=== PATIENT | female | born 1940 | race Caucasian/White ===

== ENCOUNTER → 2016-10-16 | Outpatient (CLI) | payer MEDICARE, OTHER ==
[2016-10-16 11:05] LABS: APPEARANCE,URINE CLEAR; BILIRUBIN,URINE NEGATIVE (NEGATIVE); GLUCOSE, URINE NEGATIVE (NEGATIVE); KETONES,URINE NEGATIVE (NEGATIVE); LEUKOCYTE ESTERASE,URINE TRACE (NEGATIVE); NITRITE,URINE NEGATIVE (NEGATIVE); PROTEIN,URINE NEGATIVE (NEGATIVE); URINE SPECIFIC GRAVITY 1.009; UROBILINOGEN,URINE NEGATIVE mg/dL (<2.0)
[2016-10-16 11:06] LABS: ABSOLUTE EOSINOPHILS # (AUTO) 0.2 10^3/uL (0.0-0.6); ABSOLUTE LYMPHOCYTES (AUTO) 1.6 10^3/uL (0.5-4.7); ABSOLUTE MONOCYTES (AUTO) 0.4 10^3/uL (0.1-1.4); ABSOLUTE NEUT (AUTO) 3.5 10^3/uL (1.7-8.2); BASOPHILS % (AUTO) 0.4 % (0-2); EOSINOPHILS % (AUTO) 2.8 % (0-6); HEMATOCRIT 36.5 % (36.0-47.0); HGB HCT DIFFERENCE -0.5; LYMPHOCYTES % (AUTO) 27.9 % (13-45); MEAN CORPUSCULAR HEMOGLOBIN 28.1 pg (27.0-33.4); MEAN CORPUSCULAR VOLUME 85 fl (80-97); MONOCYTES % (AUTO) 6.9 % (3-13); RED BLOOD COUNT 4.29 10^6/uL (3.72-5.28); RED CELL DISTRIBUTION WIDTH 13.8 % (11.5-14.0); WHITE BLOOD COUNT 5.6 10^3/uL (4.0-10.5)
[2016-10-16 11:19] LABS: ALANINE AMINOTRANSFERASE 32 U/L (9-52); ALBUMIN 4.2 g/dL (3.5-5.0); ALKALINE PHOSPHATASE 57 U/L (38-126); ANION GAP 13 (5-19); ASPARTATE AMINO TRANSFERASE 28 U/L (14-36); BILIRUBIN,DIRECT 0.2 mg/dL (0.0-0.4); BILIRUBIN,TOTAL 0.4 mg/dL (0.2-1.3); BLOOD UREA NITROGEN 21 mg/dL (7-20); CALCIUM 9.9 mg/dL (8.4-10.2); CARBON DIOXIDE 31 mmol/L (22-30); CHLORIDE 96 mmol/L (98-107); CREATININE RESULT 0.69 mg/dL (0.52-1.25); Direct HDL 40 mg/dL (>40); GLUCOSE 119 mg/dL (75-110); POTASSIUM 4.2 mmol/L (3.6-5.0); SODIUM 139.8 mmol/L (137-145); TOTAL PROTEIN 6.6 g/dL (6.3-8.2); TRIGLYCERIDES 193 mg/dL (<150)
[2016-10-16 11:35] LABS: DIRECT LDL 81 mg/dL (<100)
[2016-10-16 11:39] LABS: VLDL CHOLESTEROL 38.6 mg/dL (10-31)
[2016-10-17 11:38] LABS: CREATININE URINE 42.3 mg/dL (Not Estab.); MICROALBUMIN URINE 7.5 ug/mL (Not Estab.)
== END ==
LOC: OD 09:51
PROVIDERS: ATTEND Internal Medicine Nephrology
DX: E78.2 Mixed hyperlipidemia (principal); J15.9 Unspecified bacterial pneumonia; E11.9 Type 2 diabetes mellitus without complications
CPT/HCPCS: 36415; 80053; 80061; 81001; 82043; 82570; 83036; 85025

== ENCOUNTER 2016-10-18 12:46 | Emergency (ER) | payer MEDICARE, OTHER ==
[2016-10-18] MEDS ORDERED: METHYLPREDNISOLONE INJ 125 MG/2 ML SDV IV ONE (13:28)
[2016-10-18] MEDS ORDERED: IPRATROPIUM/ALBUTEROL 0.5-2.5 MG/3 ML AMPUL NEB ONE (13:28)
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
[2016-10-18 14:26] LABS: VENOUS BLOOD BASE EXCESS 0.7 mmol/L; VENOUS BLOOD HCO3 26.1 mmol/L (20-32); VENOUS BLOOD PCO2 44.3 mmHg (35-63); VENOUS BLOOD PH 7.39 (7.30-7.42)
[2016-10-18 14:35] LABS: ABSOLUTE EOSINOPHILS # (AUTO) 0.2 10^3/uL (0.0-0.6); ABSOLUTE LYMPHOCYTES (AUTO) 1.8 10^3/uL (0.5-4.7); ABSOLUTE MONOCYTES (AUTO) 0.4 10^3/uL (0.1-1.4); ABSOLUTE NEUT (AUTO) 3.5 10^3/uL (1.7-8.2); BASOPHILS % (AUTO) 0.5 % (0-2); EOSINOPHILS % (AUTO) 2.9 % (0-6); MEAN CORPUSCULAR HEMOGLOBIN 28.5 pg (27.0-33.4); MEAN CORPUSCULAR HGB CONC 33.4 g/dL (32.0-36.0); MEAN CORPUSCULAR VOLUME 85 fl (80-97); MONOCYTES % (AUTO) 6.9 % (3-13); RED BLOOD COUNT 4.21 10^6/uL (3.72-5.28); RED CELL DISTRIBUTION WIDTH 13.9 % (11.5-14.0); SEGMENTED NEUTROPHILS % (AUTO) 59.7 % (42-78); WHITE BLOOD COUNT 5.9 10^3/uL (4.0-10.5)
[2016-10-18 14:44] LABS: ALANINE AMINOTRANSFERASE 34 U/L (9-52); ALBUMIN 4.1 g/dL (3.5-5.0); ALKALINE PHOSPHATASE 84 U/L (38-126); ANION GAP 13 (5-19); ASPARTATE AMINO TRANSFERASE 30 U/L (14-36); BILIRUBIN,DIRECT 0.2 mg/dL (0.0-0.4); BILIRUBIN,TOTAL 0.4 mg/dL (0.2-1.3); BLOOD UREA NITROGEN 17 mg/dL (7-20); CALCIUM 9.4 mg/dL (8.4-10.2); CARBON DIOXIDE 29 mmol/L (22-30); CHLORIDE 100 mmol/L (98-107); GLUCOSE 211 mg/dL (75-110); POTASSIUM 3.9 mmol/L (3.6-5.0); SODIUM 142.2 mmol/L (137-145); TOTAL PROTEIN 6.6 g/dL (6.3-8.2)
[2016-10-18 15:00] LABS: TROPONIN I < 0.012 ng/mL
[2016-10-18 16:56] VITALS: BP 137/42
[2016-10-18] MEDS ORDERED: DOXYCYCLINE HYCLATE 100 MG TABLET PO ONE (17:01)
--- NOTE | 2016-10-18 20:47 | EKG REPORT ---
SEVERITY:- BORDERLINE ECG - SINUS RHYTHM ATRIAL PREMATURE COMPLEX BORDERLINE T ABNORMALITIES, ANT-LAT LEADS : Confirmed by: Shelly Tovar 18-Oct-2016 20:47:21
== END 2016-10-18 17:12 | disposition home or self-care (01) ==
LOC: ER 12:46
DX: J44.1 Chronic obstructive pulmonary disease with (acute) exacerbation (principal); J20.9 Acute bronchitis, unspecified; J44.0 Chronic obstructive pulmonary disease with (acute) lower respiratory infection; L97.219 Non-pressure chronic ulcer of right calf with unspecified severity; Z98.890 Other specified postprocedural states; Z86.14 Personal history of Methicillin resistant Staphylococcus aureus infection; Z87.01 Personal history of pneumonia (recurrent); Z88.2 Allergy status to sulfonamides; Z88.8 Allergy status to other drugs, medicaments and biological substances; Z88.1 Allergy status to other antibiotic agents; Z87.891 Personal history of nicotine dependence; I10 Essential (primary) hypertension; Z85.828 Personal history of other malignant neoplasm of skin; Z85.3 Personal history of malignant neoplasm of breast; Z85.118 Personal history of other malignant neoplasm of bronchus and lung
CPT/HCPCS: 93005; 94640; 99285; 96374; 36415; 85025; 80053; 84484; 82803; 83880; 71020; 93010; A9270 ×2; J2930; J7620

== ENCOUNTER → 2017-01-05 | Outpatient (CLI) | payer MEDICARE, OTHER ==
--- NOTE | 2017-01-05 09:30 | ST Modified Barium Swallow ---
Recommendation - Recommendations Recommendations: 1) DIET: Recommend continued current diet. 2) STRATGIES: slow rate of intake due to respiratory status, small bites and sips. Pt presents with a mild pharyngeal dysphagia characterized by flash penetration without aspiration observed on large swallows of thin. No pharyngeal residuals observed. No aspiration observed during MBSS. 3) Follow-up with referring physician. 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 Pt reports globus sensation in chest with PO intake. Medical Diagnoses - Medical Diagnoses Medical Diagnosis Description & ICD-10 Code(s): r13.10 Other Medical Diagnoses/Co-Morbidities: COPD, breast CA, lung CA, reflux, hiatal hernia - ICD-10 Tx Diagnosis Coding (1) Dysphagia, pharyngeal ICD-10 Code(s): R13.13 - DYSPHAGIA, PHARYNGEAL PHASE ST Modified Barium Swallow - General Date: 01/05/17 Referring Physician: Dr Herzog Risks/Precautions: Falls - pt using walker Date of Onset: 01/05/11 Reason for Referral: dysphagia - History History obtained from: Patient -: Medical - Pt reports had "a bad case of reflux last week" where she "could not swallow". Pt reports takes small bites and sips when eating, however when she forgets she "chokes". Pt also reports taking water to aid in clearing makes symptoms worse. Pt states symptoms began approximately 5-6 years ago and have become worse. Pt reports globus sensation in chest, "ocassional" coughing and choking however reports is "not often." Pt reports most recent PNA was in April of 2016 and most recent bronchitis a "couple months ago." Pt reports PMHx: esophageal spasms, reflux, hiatal hernia, COPD, high blood pressure, breast CA 5 years ago with surgery no chemo radiation, lung CA 4 years ago with surgery no chemo radiation, osteoarthritis, pulmonary nodule, scoliosis, diverticulosis, MRSA. Medications: amlodipine, buspirone, calcium, clonidine, colace, fenofibric acid , fish oil, fluticasone, ibuprofen, lasix, losartan, miralax, nexium, potassium , multivitamins, simvastatin, zyrtec, advair, afrin, albuterol, arimidex, elavil, levaquin, lyrica, mucinex, norco, preservision, singular, spiriva, tobramycin, triamcinolone, ventolin, ventolin, vytone. Allergies: hydralazine, lexapro, bactrim, fluconazole, tamoxifin, lisinopril, naproxen, nitrofurantoin, tiotropium, gemfibrozil, phenylephrine, gabapentin - Functional Status Prior Functional Status: INDEPENDENT: feeding Current Functional Limitations: feeding - Subjective Patient/caregiver goal(s): safe swallow, r/o aspiration Cognitive-Linguistic Function: Functional Speech Intelligibility: WNL Current Nutritional Means: PO Current PO diet: Regular Pain: 0/5 - Objective Assessment: Upright, Left Lateral - Food Trials Used Food trials used: Thin liquids, Pureed, Regular The patient: Was Able to Self Feed - Oral-Motor Skills Dentition: Partial Velo-pharyngeal function: Unremarkable Laryngeal Function: Volitional Cough, Volitional Swallow - Assessment Oral prep: Normal Labial closure: Adequate Leakage: None Mastication: Adequate Lingual Movement: Normal Oral stage: Normal for this Procedure - Pharyngeal Stage Initiation of Pharyngeal Stage Reflex: Normal Decreased laryngeal elevation: Yes - mild Reduced Velopharyngeal Closure: no Reduced pressure generation: No reduced tongue-based retraction: No Pre-swallow pooling in valleculae: None Pre-Swallow pooling in pyriforms: None Reduced Thyro-Hyoid approximation: Yes - mild Reduced epiglottic excursion: No Reduced pharyngeal peristalsis/contraction: No Post-swallow residulas vallecular: None Post-Swallow residuals in pyriforms: None Reduced Cricopharyngeal opening: No - Fall Risk Assessment Medications/Conditions that increase fall risks include: Antidepressants, sedatives, anti-arrhythmic, diuretic, benzodiazipenes, neuroleptics. BP regulation problems, cardiac problems, balance or gait deficits, neurological problems. Is patient considered at risk for falls: yes Fall Risk Actions Taken: Pt physician notified - Behavioral Observations During evaluation process patient: was pleasant, was cooperative, able to answer questions, provided medical history - Treatment / Educational Needs: Treatment/Education Needs: Treatment consisted of patient education on the role of the Speech Pathologist. Patient's plan of care and golas were communicated as well as scheduling and attendance policies. Recommendations for initial home program were shared. Patient demonstrated understanding and verbalized agreement. - Impression/Summary Laryngeal Penetration: Yes, Flash, Cleared, during swallow Consistency: Thin Tracheal Aspiration: no Patient presents with: Pharyngeal stage dysph. - mild Risk of Aspiration: Minimal - Recommendations NPO: no Solid diet recommendations: Regular Liquid Diet Modification: Thin Pt/Family education and followup with MD: Yes Dysphagia therapy with [facility] PHILOSOPHY PROFESSOR: no Recommended techniques: Fully Upright During Meal, Small Bites and Sips - , slow rate Supervision: Distant Information, Precautions and Recommendations: Patient (Verbal) - Time Total Time: 25 - Plan of Care Strategies to optimize patient understanding include:: ongoing assessment of educational needs, implementation of educational strategies, and re-education. - - -: Thank you for the opportunity to work with this patient and his/her family. Should you have any questions about this patient's plan or progress, I can be reached at [phone]. Charge G Code? - - -: Yes ST Tom Impairment Category - Rationale Based On Rationale Based On: Clin Find., Obj Measures - Swallowing Current G8996: CI 1-19% Impaired Goal G8997: CI 1-19% Impaired Discharge G8998: CI 1-19% Impaired
--- NOTE | 2017-01-07 11:31 | RADIOLOGY REPORT (SQ) ---
EXAM DESCRIPTION: COOKIE SWALLOW COMPLETED DATE/TIME: 01/05/2017 8:37 am REASON FOR STUDY: DYSPHAGIA R13.10 DYSPHAGIA, UNSPECIFIED FOOD IN PHARYNX CAUSING OTHER INJURY, SEQ UELA T17.228 S COMPARISON: Barium swallow 02/21/2016 TECHNIQUE: Videofluoroscopic swallowing examination was performed in conjunction with speech patholo gy. Videofluoroscopic imaging was obtained and reviewed and these are the findings: RADIATION DOSE: Total fluoroscopy time: 1 minutes 18 seconds 1 fluoroscopy images saved to PACS. LIMITATIONS: None FINDINGS: The patient was brought into the fluoro room and placed upright on a modified barium swall ow chair. The patient was then given multiple consistencies mixed with barium to swallow under live fluoroscopic video guidance. According to the Speech Pathologist there was laryngeal penetration wit h thin liquids. No tracheal aspiration. Normal oral and pharyngeal transit time observed. No signi ficant post swallow residual seen. Please see speech pathology report for further details and recomm endations. IMPRESSION: LARYNGEAL PENETRATION WITH THIN LIQUIDS. NO TRACHEAL ASPIRATION.PLEASE SEE SPEECH PATHO LOGIST REPORT FOR OTHER FINDINGS AND RECOMMENDATIONS. COMMENT: Quality ID [id number]: Final reports for procedures using fluoroscopy that document radiation exp osure indices, or exposure time and number of fluorographic images (if radiation exposure indices are not available) TECHNICAL DOCUMENTATION: JOB ID: [id number] [employer]- All Rights Reserved
== END ==
LOC: RAD 07:42
PROVIDERS: ATTEND Specialist
DX: R13.13 Dysphagia, pharyngeal phase (principal); J44.9 Chronic obstructive pulmonary disease, unspecified; K44.9 Diaphragmatic hernia without obstruction or gangrene
CPT/HCPCS: 74230; 92611; G8996; G8997; G8998

== ENCOUNTER → 2017-02-23 | Outpatient (CLI) | payer MEDICARE, OTHER ==
--- NOTE | 2017-02-23 10:59 | WOMENS IMAGING REPORT ---
EXAM DESCRIPTION: BONE DENSITY HIP/SPINE COMPLETED DATE/TIME: 02/23/2017 10:50 am REASON FOR STUDY: OSTEOPOROSIS M81.0 AGE-RELATED OSTEOPOROSIS W/O CURRENT PATHOLOGICAL FRAC COMPARISON: None. TECHNIQUE: Dual-Energy X-ray Absorptiometry (DEXA) of the AP Spine, Hip, and Forearm. LIMITATIONS: None. FINDINGS: HIP: The bone mineral density (BMD) measured in the left femoral neck at the hip correlates with a T-score of -2.1, which is osteopenic as defined by the World Health Organization. FOREARM: The bone mineral density (BMD) measured in the distal left forearm correlates with a T-score of -5.0 which is osteoporotic as defined by the World Health Organization. IMPRESSION: HIP: Osteopenic FOREARM: Osteoporotic COMMENT: The World Health Organization defines low BMD as follows: T-score: Normal: Greater than -1.0 Osteopenia: Between -1.0 and -2.5 Osteoporosis: Less than -2.5 without fractures Established osteoporosis: Less than -2.5 with fractures In general, you may wish to consider: Diagnosis Treatment Follow-up DEXA Normal BMD Prevention 2-3 years Osteopenia Prevention/Therapy 1-2 years Osteoporosis Therapy Yearly TECHNICAL DOCUMENTATION: JOB ID: [id number] [employer]- All Rights Reserved
== END ==
LOC: WI 10:19
PROVIDERS: ATTEND Internal Medicine Medical Oncology
DX: M81.0 Age-related osteoporosis without current pathological fracture (principal)
CPT/HCPCS: 77080

== ENCOUNTER → 2017-04-23 | Outpatient (CLI) | payer MEDICARE, OTHER ==
[2017-04-23 09:50] LABS: ALANINE AMINOTRANSFERASE 32 U/L (9-52); ALBUMIN 4.1 g/dL (3.5-5.0); ALKALINE PHOSPHATASE 52 U/L (38-126); ANION GAP 14 (5-19); ASPARTATE AMINO TRANSFERASE 25 U/L (14-36); BILIRUBIN,DIRECT 0.4 mg/dL (0.0-0.4); BILIRUBIN,TOTAL 0.4 mg/dL (0.2-1.3); BLOOD UREA NITROGEN 15 mg/dL (7-20); CALCIUM 9.9 mg/dL (8.4-10.2); CARBON DIOXIDE 28 mmol/L (22-30); CHLORIDE 101 mmol/L (98-107); CHOLESTEROL 142.69 mg/dL (0-200); CREATININE RESULT 0.73 mg/dL (0.52-1.25); Direct HDL 43 mg/dL (>40); GLUCOSE 118 mg/dL (75-110); POTASSIUM 4.2 mmol/L (3.6-5.0); SODIUM 142.8 mmol/L (137-145); TOTAL PROTEIN 6.5 g/dL (6.3-8.2); TRIGLYCERIDES 168 mg/dL (<150)
[2017-04-23 10:01] LABS: DIRECT LDL 79 mg/dL (<100)
[2017-04-23 10:04] LABS: VLDL CHOLESTEROL 33.6 mg/dL (10-31)
== END ==
LOC: OD 08:15
PROVIDERS: ATTEND Internal Medicine Nephrology
DX: R73.01 Impaired fasting glucose (principal); E78.2 Mixed hyperlipidemia
CPT/HCPCS: 36415; 80053; 80061

== ENCOUNTER → 2017-08-26 | Outpatient (CLI) | payer MEDICARE, OTHER ==
--- NOTE | 2017-08-26 18:00 | RADIOLOGY REPORT (SQ) ---
EXAM DESCRIPTION: U/S THYROID/SFT TISS HD NECK COMPLETED DATE/TIME: 08/26/2017 5:40 pm REASON FOR STUDY: LOCALIZED SWELLING MASS AND LUMP NECK R22.1 LOCALIZED SWELLING, MASS AND LUMP, NE CK K11.20 SIALOADENITIS, UNSPECIFIED COMPARISON: None. TECHNIQUE: Dynamic and static grayscale images acquired of the localized site of clinical concern an d recorded on PACS. Additional selected color Doppler and spectral images recorded. SITE OF CONCERN: Left submandibular region. LIMITATIONS: None. FINDINGS: SKIN AND SUBCUTANEOUS TISSUES: No masses. No fluid collections. No foreign bodies. DEEP SOFT TISSUES/MUSCLES: No masses. No fluid collections. VASCULAR: No increased or decreased vascularity. No occlusions. OTHER: No other significant finding. IMPRESSION: NO SOFT TISSUE MASS, FLUID COLLECTION, OR FOREIGN BODY. If further workup is deemed cli nically warranted I would recommend CT. TECHNICAL DOCUMENTATION: JOB ID: [id number] [employer]- All Rights Reserved
== END ==
LOC: RAD 15:35
PROVIDERS: ATTEND Internal Medicine Nephrology
DX: K11.20 Sialoadenitis, unspecified (principal); R22.1 Localized swelling, mass and lump, neck
CPT/HCPCS: 76536

== ENCOUNTER → 2017-10-21 | Outpatient (CLI) | payer MEDICARE, OTHER ==
[2017-10-21 10:55] LABS: ABSOLUTE BASOPHILS # (AUTO) 0.1 10^3/uL (0.0-0.2); ABSOLUTE EOSINOPHILS # (AUTO) 0.5 10^3/uL (0.0-0.6); ABSOLUTE LYMPHOCYTES (AUTO) 1.6 10^3/uL (0.5-4.7); ABSOLUTE MONOCYTES (AUTO) 0.5 10^3/uL (0.1-1.4); ABSOLUTE NEUT (AUTO) 5.4 10^3/uL (1.7-8.2); BASOPHILS % (AUTO) 0.9 % (0-2); EOSINOPHILS % (AUTO) 5.7 % (0-6); HEMATOCRIT 39.4 % (36.0-47.0); LYMPHOCYTES % (AUTO) 20.3 % (13-45); MEAN CORPUSCULAR HEMOGLOBIN 28.8 pg (27.0-33.4); MEAN CORPUSCULAR HGB CONC 33.1 g/dL (32.0-36.0); MEAN CORPUSCULAR VOLUME 87 fl (80-97); MONOCYTES % (AUTO) 6.6 % (3-13); PLATELET COUNT 257 10^3/uL (150-450); RED BLOOD COUNT 4.53 10^6/uL (3.72-5.28); RED CELL DISTRIBUTION WIDTH 15.2 % (11.5-14.0); SEGMENTED NEUTROPHILS % (AUTO) 66.5 % (42-78); TOTAL CELLS COUNTED % (AUTO) 100 %; WHITE BLOOD COUNT 8.1 10^3/uL (4.0-10.5)
[2017-10-21 11:07] LABS: APPEARANCE,URINE CLEAR; BILIRUBIN,URINE NEGATIVE (NEGATIVE); COLOR,URINE STRAW; GLUCOSE, URINE NEGATIVE (NEGATIVE); KETONES,URINE NEGATIVE (NEGATIVE); LEUKOCYTE ESTERASE,URINE NEGATIVE (NEGATIVE); NITRITE,URINE NEGATIVE (NEGATIVE); PROTEIN,URINE NEGATIVE (NEGATIVE); URINE SPECIFIC GRAVITY 1.004; UROBILINOGEN,URINE NEGATIVE mg/dL (<2.0)
[2017-10-21 11:18] LABS: ALANINE AMINOTRANSFERASE 35 U/L (9-52); ALBUMIN 4.5 g/dL (3.5-5.0); ALKALINE PHOSPHATASE 50 U/L (38-126); ANION GAP 14 (5-19); ASPARTATE AMINO TRANSFERASE 28 U/L (14-36); BILIRUBIN,DIRECT 0.4 mg/dL (0.0-0.4); BILIRUBIN,TOTAL 0.4 mg/dL (0.2-1.3); BLOOD UREA NITROGEN 19 mg/dL (7-20); CALCIUM 10.1 mg/dL (8.4-10.2); CARBON DIOXIDE 28 mmol/L (22-30); CHLORIDE 103 mmol/L (98-107); CHOLESTEROL 114.47 mg/dL (0-200); GLUCOSE 119 mg/dL (75-110); SODIUM 144.7 mmol/L (137-145); TRIGLYCERIDES 141 mg/dL (<150)
[2017-10-21 11:28] LABS: DIRECT LDL 34 mg/dL (<100)
== END ==
LOC: OD 10:02
PROVIDERS: ATTEND Internal Medicine Nephrology
DX: E78.2 Mixed hyperlipidemia (principal); R73.03 Prediabetes; I10 Essential (primary) hypertension
CPT/HCPCS: 36415; 80053; 80061; 81001; 82306; 85025

== ENCOUNTER → 2017-11-03 | Outpatient (CLI) | payer MEDICARE, OTHER ==
[2017-11-05 21:07] LABS: ANTIMYELOPEROXIDASE (MPO) AB <9.0 U/mL (0.0-9.0); ANTIPROTEINASE 3 (PR-3) AB <3.5 U/mL (0.0-3.5); CYTOPLASMIC (C-ANCA) <1:20 titer (Neg:<1:20)
[2017-11-06 11:30] LABS: ATYPICAL PANCA <1:20 titer (Neg:<1:20); PERINUCLEAR (P-ANCA) <1:20 titer (Neg:<1:20)
[2017-11-08 10:43] LABS: GLOMERULAR BASMENT MEMBRANE AB 3 units (0-20)
== END ==
LOC: OD 16:04
PROVIDERS: ATTEND Internal Medicine Nephrology
DX: D69.2 Other nonthrombocytopenic purpura (principal)
CPT/HCPCS: 36415; 83516; 85652; 86038; 86256

== ENCOUNTER → 2017-11-18 | Outpatient (CLI) | payer MEDICARE, OTHER ==
[~2017-11-18] MED LIST: AMINOPHYLLINE INJ/PF 250 MG/10 ML SDV IV ONE; REGADENOSON INJ 0.4 MG/5 ML DISP.SYRIN IV ONE
--- NOTE | 2017-11-18 13:16 | DRAGON STRESS TEST REPORT ---
INTRAVENOUS LEXISCAN CARDIOLITE STRESS TEST USING SINGLE PHOTON EMMISION COMPUTERIZED TOMOGRAPHIC. DATE OF PROCEDURE: November 18, 2017, INDICATION : Chest pain CARDIAC RISK FACTORS: Hypertension, dyslipidemia. Patient has significant COPD RESTING EKG: Sinus rhythm, without any baseline ST-T wave changes STRESS EKG: No significant ST segment changes noted with LexiScan bolus REASON FOR TERMINATION: Protocol. PROCEDURE REPORT: Baseline heart rate 81 beats per minute with blood pressure of 138/50. Patient had no significant complaints. Patient was bolused with Lexiscan 0.4 mg intravenously followed by saline bolus. Heart rate at 2 minutes post bolus 101 with a blood pressure of 162/66. 3 minutes post bolus heart rate 100 with blood pressure of 181/76. No significant EKG changes were noted. Patient had no significant complaints during the procedure or postprocedure. Patient injected with Aminophyllin 75 mg at 3 minutes or later after Lexiscan bolus. CONCLUSIONS: Normal EKG and hemodynamic response to IV LexiScan. NUCLEAR DATA: At rest the patient was given 10.82 millicuries of technetium 99 sestamibi injected intravenously. As per protocol rest gated SPECT images were obtained. On day of stress test, the patient was given intravenous LexiScan at a dose of 0.4 mg in 5 mL intravenously, followed by flush with normal saline. Subsequently the stress dose of 31.7 millicuries of technetium 99 sestamibi was injected intravenously. As per protocol stress gated images were obtained. NUCLEAR INTERPRETATION: Both raw and processed data were used for interpretation. Visual, qualitative, computer-generated quantitative data was used. There was good myocardial uptake of technetium compound. Motion artifact and soft tissue attenuations were noted. Increased visceral uptake was noted. Increased diaphragmatic attenuation artifact was noted in this lady. No definitive areas of transient perfusion defect noted, No definitive areas of fixed perfusion defect or scars noted. EKG gated imaging showed LV EF at 63 %, rest and stress gated EF similar visually. T. I D. ratio was 0.97. Lung heart ratio noted to be within normal limits 0.30. No significant extracardiac and abnormal radiotracer activities were noted. RV free wall uptake was noted to be WNL. IMPRESSION: Also refer to comments under nuclear interpretation. Also test results needs to be interpreted in the context of pretest probability. 1. No definitive areas of transient perfusion defect noted. 2. There is no definitive scintigraphic evidence of myocardial infarction/ scar. There was significant diaphragmatic attenuation noted in this lady. Possibly due to severe COPD. Cannot rule out an area of mild fixed defect. 3. EKG gated imaging shows left ventricular ejection fraction of approx. 63 %. 4. Clinical correlation requested as occasionally single vessel disease or balanced ischemia could be missed. In approximately 10% of the cases Lexiscan may not cause adequate vasodilatory stress. RECOMMENDATIONS: Aggressive risk factor modification and medical management. Further evaluation may be needed if continued symptoms or other high risk indicators are noted on clinical evaluation. Close cardiology follow-up is also recommended. Clinical correlation with echocardiogram derived ejection fraction. Inability to exercise by itself can lead to increased cardiovascular event risks. Consider cardiology consultation and or follow-up if clinically indicated. I am available for cardiology evaluation and consultation if requested by the beet flumer, unless patient already has a automotive general sales manager. PRETTY
--- NOTE | 2017-11-18 18:35 | XCELERA REPORT ---
[address] [address] Transthoracic Echocardiogram Report Name: RAHUL MERIDA Age: 77 yrs Gender: Female : 1940 Patient Status: Outpatient Patient Location: [facility] Study Date: 11/18/2017 10:40 AM Height: 62 in Weight: 149 lb BSA: 1.7 m2 Procedure: A complete two-dimensional transthoracic echocardiogram was performed (2D, M-mode, spectral and color flow Doppler). The study was technically difficult with many images being suboptimal in quality. Reason For Study: CP Ordering Physician: ARNALDO WILSON Performed By: Thuy Nguyen Interpretation Summary The left ventricular ejection fraction is normal. There is borderline concentric left ventricular hypertrophy. The left ventricle is grossly normal size. Doppler measurements suggest pseudonormalized left ventricular relaxation, which is associated with grade II/IV or mild to moderate diastolic dysfunction Wall motion cannot be accurately commented on, but no definite regional wall motion abnormalities noted. The right ventricle is grossly normal size. The right ventricular systolic function is normal. The left atrial size is normal. The right atrium is normal in size There is a trace amount of mitral regurgitation There is no mitral valve stenosis. There is no aortic valve stenosis No aortic regurgitation is present. There is a trace amount of tricuspid regurgitation Tricuspid regurgitation jet envelope not well defined to measure RV systolic pressure accurately. There is no tricuspid stenosis. The aortic root is not well visualized but is probably normal size. The inferior vena cava appeared normal and decreased > 50% with respiration (RAP 5-10 mmHg) There is no pericardial effusion. MMode/2D Measurements & Calculations RVDd: 3.2 cm LVIDd: 5.1 cm FS: 56.5 % Ao root diam: 2.9 cm IVSd: 0.94 cm LVIDs: 2.2 cm EDV(Teich): 122.9 ml LVPWd: 0.89 cm ESV(Teich): 16.5 ml Ao root area: 6.6 cm2 EF(Teich): 86.6 % Doppler Measurements & Calculations MV E max edmundo: MV dec slope: Ao V2 max: LV V1 max P.0 cm/sec 248.2 cm/sec 20.8 mmHg MV A max edmundo: 433.1 cm/sec2 Ao max PG: LV V1 max: 144.1 cm/sec MV dec time: 24.6 mmHg 227.8 cm/sec MV E/A: 0.47 0.16 sec PA V2 max: TR max edmundo: 143.6 cm/sec 301.6 cm/sec PA max P.2 mmHgTR max P.1 mmHg Left Ventricle The left ventricle is grossly normal size. There is borderline concentric left ventricular hypertrophy. The left ventricular ejection fraction is normal. Doppler measurements suggest pseudonormalized left ventricular relaxation, which is associated with grade II/IV or mild to moderate diastolic dysfunction. Wall motion cannot be accurately commented on, but no definite regional wall motion abnormalities noted. Right Ventricle The right ventricle is grossly normal size. There is normal right ventricular wall thickness. The right ventricular systolic function is normal. Atria The right atrium is normal in size. The left atrial size is normal. Interarterial septum not well visualized and not well dopplered. Cannot comment on ASD/PFO presence. Mitral Valve The mitral valve is grossly normal. There is no mitral valve stenosis. There is a trace amount of mitral regurgitation. Aortic Valve The aortic valve is grossly normal. There is no aortic valve stenosis. No aortic regurgitation is present. Tricuspid Valve The tricuspid valve is not well visualized, but is grossly normal. There is no tricuspid stenosis. There is a trace amount of tricuspid regurgitation. Tricuspid regurgitation jet envelope not well defined to measure RV systolic pressure accurately. Pulmonic Valve The pulmonic valve is not well visualized. Great Vessels The aortic root is not well visualized but is probably normal size. The inferior vena cava appeared normal and decreased > 50% with respiration (RAP 5-10 mmHg). Effusions There is no pericardial effusion. : ARNALDO WILSON > Shelly Tovar
== END ==
LOC: RAD 07:38
PROVIDERS: ATTEND Internal Medicine Cardiovascular Disease
DX: R07.9 Chest pain, unspecified (principal); R06.00 Dyspnea, unspecified
CPT/HCPCS: 93306; 93017; 78452; A9500; J2785; J0280; Q9969

== ENCOUNTER 2017-12-01 20:03 | Emergency (ER) | payer MEDICARE, OTHER ==
[2017-12-01] MEDS ORDERED: ONDANSETRON 4 MG TAB.RAPDIS PO ONE (20:52)
--- NOTE | 2017-12-01 20:59 | ER Document Report ---
ED Medical Screen (RME) - General Chief Complaint: Nausea Stated Complaint: NAUSEA Time Seen by Provider: 12/01/17 20:39 Notes: RAPID MEDICAL EVALUATION DISCLOSURE I have seen this patient as part of a Rapid Medical Evaluation and, if applicable, placed any initially appropriate orders. The patient will be seen and fully evaluated, including a full history and physical exam, by a provider ( in Main ED or Fast Track) when a room becomes available. 77-year-old female here with complaints of nausea vomiting diarrhea chest discomfort lower abdominal cramping that started earlier tonight. She received a CT with IV contrast several hours before onset of symptoms however did not have any symptoms in the 2 hours following contrast administration. She has some shortness of breath however has this at baseline and it is unchanged from baseline. She has not had this in the past with previous contrast administration. EXAM CTAB RRR with mild systolic murmur No abdominal TTP TRAVEL OUTSIDE OF THE [place] IN LAST 30 DAYS: No - Related Data Allergies/Adverse Reactions: hydralazine [Hydralazine] Allergy (Severe, Verified 06/03/15 14:56) short of breath ceftriaxone [From Rocephin] Allergy (Intermediate, Verified 04/11/16 21:37) Flushing phenylephrine [Phenylephrine] Allergy (Intermediate, Verified 07/31/14 20:42) elevates blood pressure amlodipine [Amlodipine] Adverse Reaction (Intermediate, Verified 07/31/14 20:42) legs and feet swell fluconazole [Fluconazole] Adverse Reaction (Intermediate, Verified 10/18/16 13: 06) loss appetite, weight loss gabapentin [From Neurontin] Adverse Reaction (Intermediate, Verified 10/18/16 13 :06) leg and feet swells lisinopril [Lisinopril] Adverse Reaction (Intermediate, Verified 10/18/16 13:06) coughing, legs swell naproxen [Naproxen] Adverse Reaction (Intermediate, Verified 10/18/16 13:06) upset stomach nitrofurantoin macrocrystalline [From Macrodantin] Adverse Reaction ( Intermediate, Verified 10/18/16 13:06) feet and legs swell raloxifene HCl [From Evista] Adverse Reaction (Intermediate, Verified 10/18/16 13:06) appetite loss, weight loss sulfamethoxazole [From Bactrim] Adverse Reaction (Intermediate, Verified 13:06) chest tightens, persistent cough tamoxifen [Tamoxifen] Adverse Reaction (Intermediate, Verified 10/18/16 13:06) nausea, depression, weight loss trimethoprim [From Bactrim] Adverse Reaction (Intermediate, Verified 10/18/16 13 :06) chest tightens, persistent cough bupropion HCl [From Wellbutrin] Adverse Reaction (Mild, Verified 10/18/16 13:06) upset stomach escitalopram oxalate [From Lexapro] Adverse Reaction (Mild, Verified 10/18/16 13 :06) shakes all over gemfibrozil [From Lopid] Adverse Reaction (Mild, Verified 10/18/16 13:06) upset stomach Past Medical History - Social History Chew tobacco use (# tins/day): No Frequency of alcohol use: None Drug Abuse: None - Past Medical History Cardiac Medical History: Reports: Hx Atrial Fibrillation - not on blood thinners , Hx Hypercholesterolemia, Hx Hypertension Denies: Hx Coronary Artery Disease, Hx Heart Attack Pulmonary Medical History: Reports: Hx Asthma, Hx Bronchitis, Hx COPD, Hx Pneumonia, Hx Sleep Apnea Neurological Medical History: Denies: Hx Cerebrovascular Accident, Hx Seizures Renal/ Medical History: Denies: Hx Peritoneal Dialysis Malignancy Medical History: Reports: Hx Breast Cancer - Bilaterally., Hx Lung Cancer - Hx Stage I Lung CA (left lung)., Hx Skin Cancer - Squamous cell cancer removed GI Medical History: Reports: Hx Gastroesophageal Reflux Disease Musculoskeltal Medical History: Reports Hx Arthritis - osteoarthritis Psychiatric Medical History: Reports: Hx Anxiety, Hx Depression Infectious Medical History: Reports: Hx MRSA - Lungs/mouth Past Surgical History: Reports: Hx Breast Surgery - double mastectomy, lymph nodes removed from left side., Hx Cholecystectomy, Hx Herniorrhaphy, Hx Orthopedic Surgery - back x2, Hx Tonsillectomy - Immunizations Hx Diphtheria, Pertussis, Tetanus Vaccination: Yes Physical Exam - Vital signs Vitals: Temp Pulse Resp BP Pulse Ox 98.4 F 76 20 135/59 H 98 12/01/17 20:46 12/01/17 20:46 05/23/18 20:46 12/01/17 20:46 12/01/17 20:46 Course - Vital Signs Vital signs: Temp Pulse Resp BP Pulse Ox 98.4 F 76 20 135/59 H 98 12/01/17 20:46 12/01/17 20:46 12/01/17 20:46 12/01/17 20:46 12/01/17 20:46
--- NOTE | 2017-12-01 22:24 | RADIOLOGY REPORT (SQ) ---
EXAM DESCRIPTION: ACUTE ABDOMEN SERIES COMPLETED DATE/TIME: 12/01/2017 10:07 pm REASON FOR STUDY: Chest discomfort and abd cramping nausea COMPARISON: None. NUMBER OF VIEWS: Three views. TECHNIQUE: Frontal chest, supine abdomen and upright/decubitus abdomen radiographic images acquired. LIMITATIONS: None. FINDINGS: CHEST: Chronic scarring. FREE AIR: None. No abnormal gas collections. BOWEL GAS PATTERN: Nonobstructive pattern. No dilated loops or air fluid levels. CALCIFICATIONS: No suspicious calcifications. HARDWARE: Hardware in the spine. SOFT TISSUES: No gross mass or suggestion of organomegaly. BONES: No acute fracture. No worrisome bone lesions. OTHER: No other significant finding. Contrast in the urinary bladder (patient had a CT soft tissue n milly with contrast done earlier in the day at another facility). IMPRESSION: NO RADIOGRAPHIC EVIDENCE FOR ACUTE ABDOMINAL DISEASE. TECHNICAL DOCUMENTATION: JOB ID: [id number] [employer]- All Rights Reserved Reading location - IP/workstation name: [email or web address]
[2017-12-01 22:38] LABS: ABSOLUTE EOSINOPHILS # (AUTO) 0.3 10^3/uL (0.0-0.6); ABSOLUTE LYMPHOCYTES (AUTO) 0.9 10^3/uL (0.5-4.7); ABSOLUTE MONOCYTES (AUTO) 0.5 10^3/uL (0.1-1.4); ABSOLUTE NEUT (AUTO) 10.5 10^3/uL (1.7-8.2); BASOPHILS % (AUTO) 0.2 % (0-2); EOSINOPHILS % (AUTO) 2.4 % (0-6); HEMATOCRIT 37.6 % (36.0-47.0); HEMOGLOBIN 12.3 g/dL (12.0-15.5); LYMPHOCYTES % (AUTO) 7.5 % (13-45); MEAN CORPUSCULAR HEMOGLOBIN 28.4 pg (27.0-33.4); MEAN CORPUSCULAR HGB CONC 32.8 g/dL (32.0-36.0); MEAN CORPUSCULAR VOLUME 87 fl (80-97); MONOCYTES % (AUTO) 4.3 % (3-13); PLATELET COUNT 340 10^3/uL (150-450); RED BLOOD COUNT 4.33 10^6/uL (3.72-5.28); RED CELL DISTRIBUTION WIDTH 13.8 % (11.5-14.0); SEGMENTED NEUTROPHILS % (AUTO) 85.6 % (42-78); TOTAL CELLS COUNTED % (AUTO) 100 %; WHITE BLOOD COUNT 12.2 10^3/uL (4.0-10.5)
[2017-12-01 22:45] LABS: APPEARANCE,URINE SLIGHTLY-CLOUDY; BILIRUBIN,URINE NEGATIVE (NEGATIVE); COLOR,URINE YELLOW; GLUCOSE, URINE NEGATIVE (NEGATIVE); KETONES,URINE NEGATIVE (NEGATIVE); LEUKOCYTE ESTERASE,URINE TRACE (NEGATIVE); NITRITE,URINE NEGATIVE (NEGATIVE); PROTEIN,URINE 30 mg/dL (NEGATIVE); UROBILINOGEN,URINE NEGATIVE mg/dL (<2.0)
[2017-12-01 22:47] LABS: URINE SPECIFIC GRAVITY > 1.060
[2017-12-01 23:00] LABS: ALANINE AMINOTRANSFERASE 28 U/L (9-52); ALBUMIN 4.3 g/dL (3.5-5.0); ALKALINE PHOSPHATASE 71 U/L (38-126); ANION GAP 15 (5-19); ASPARTATE AMINO TRANSFERASE 26 U/L (14-36); BILIRUBIN,DIRECT 0.3 mg/dL (0.0-0.4); BILIRUBIN,TOTAL 0.3 mg/dL (0.2-1.3); BLOOD UREA NITROGEN 24 mg/dL (7-20); CALCIUM 10.4 mg/dL (8.4-10.2); CARBON DIOXIDE 27 mmol/L (22-30); CHLORIDE 104 mmol/L (98-107); GLUCOSE 159 mg/dL (75-110); LIPASE 54.7 U/L (23-300); POTASSIUM 4.2 mmol/L (3.6-5.0); SODIUM 145.5 mmol/L (137-145); TOTAL PROTEIN 7.8 g/dL (6.3-8.2)
--- NOTE | 2017-12-01 23:56 | ER Document Report ---
ED General - General Chief Complaint: Nausea Stated Complaint: NAUSEA Time Seen by Provider: 12/01/17 20:39 TRAVEL OUTSIDE OF THE [place] IN LAST 30 DAYS: No - HPI Notes: Note patient was seen by physician in triage ordered extensive laboratory evaluation and radiographs. 77-year-old female presented with mild abdominal discomfort nausea and dry heaves. Started sometime this evening before eating dinner. Of note, earlier this morning she had a contrasted CT scan of her submandibular gland. No hives , no rash, no itching. She denies to me any dyspnea or chest pain. States she feels much better now after medication therapy and being in the emergency department. No fever, chills or sweats. Normal bowel movements. No other modifying factors, no other associated symptoms, no other provocative or palliative factors. - Related Data Allergies/Adverse Reactions: hydralazine [Hydralazine] Allergy (Severe, Verified 06/03/15 14:56) short of breath ceftriaxone [From Rocephin] Allergy (Intermediate, Verified 04/11/16 21:37) Flushing phenylephrine [Phenylephrine] Allergy (Intermediate, Verified 07/31/14 20:42) elevates blood pressure amlodipine [Amlodipine] Adverse Reaction (Intermediate, Verified 07/31/14 20:42) legs and feet swell fluconazole [Fluconazole] Adverse Reaction (Intermediate, Verified 10/18/16 13: 06) loss appetite, weight loss gabapentin [From Neurontin] Adverse Reaction (Intermediate, Verified 10/18/16 13 :06) leg and feet swells lisinopril [Lisinopril] Adverse Reaction (Intermediate, Verified 10/18/16 13:06) coughing, legs swell naproxen [Naproxen] Adverse Reaction (Intermediate, Verified 10/18/16 13:06) upset stomach nitrofurantoin macrocrystalline [From Macrodantin] Adverse Reaction ( Intermediate, Verified 10/18/16 13:06) feet and legs swell raloxifene HCl [From Evista] Adverse Reaction (Intermediate, Verified 10/18/16 13:06) appetite loss, weight loss sulfamethoxazole [From Bactrim] Adverse Reaction (Intermediate, Verified 13:06) chest tightens, persistent cough tamoxifen [Tamoxifen] Adverse Reaction (Intermediate, Verified 10/18/16 13:06) nausea, depression, weight loss trimethoprim [From Bactrim] Adverse Reaction (Intermediate, Verified 10/18/16 13 :06) chest tightens, persistent cough bupropion HCl [From Wellbutrin] Adverse Reaction (Mild, Verified 10/18/16 13:06) upset stomach escitalopram oxalate [From Lexapro] Adverse Reaction (Mild, Verified 10/18/16 13 :06) shakes all over gemfibrozil [From Lopid] Adverse Reaction (Mild, Verified 10/18/16 13:06) upset stomach Past Medical History - Social History Smoking Status: Former Smoker Chew tobacco use (# tins/day): No Frequency of alcohol use: None Drug Abuse: None Family History: Reviewed & Not Pertinent, CAD - Both parents had massive MIs, one from the [place] the other in a car wreck, COPD, CVA, Hypertension Patient has suicidal ideation: No Patient has homicidal ideation: No - Past Medical History Cardiac Medical History: Reports: Hx Atrial Fibrillation - not on blood thinners , Hx Hypercholesterolemia, Hx Hypertension Denies: Hx Coronary Artery Disease, Hx Heart Attack Pulmonary Medical History: Reports: Hx Asthma, Hx Bronchitis, Hx COPD, Hx Pneumonia, Hx Sleep Apnea Neurological Medical History: Denies: Hx Cerebrovascular Accident, Hx Seizures Renal/ Medical History: Denies: Hx Peritoneal Dialysis Malignancy Medical History: Reports: Hx Breast Cancer - Bilaterally., Hx Lung Cancer - Hx Stage I Lung CA (left lung)., Hx Skin Cancer - Squamous cell cancer removed GI Medical History: Reports: Hx Gastroesophageal Reflux Disease Musculoskeltal Medical History: Reports Hx Arthritis - osteoarthritis Psychiatric Medical History: Reports: Hx Anxiety, Hx Depression Infectious Medical History: Reports: Hx MRSA - Lungs/mouth Past Surgical History: Reports: Hx Breast Surgery - double mastectomy, lymph nodes removed from left side., Hx Cholecystectomy, Hx Herniorrhaphy, Hx Orthopedic Surgery - back x2, Hx Tonsillectomy - Immunizations Hx Diphtheria, Pertussis, Tetanus Vaccination: Yes Hx Pneumococcal Vaccination: 01/15/11 Review of Systems - Review of Systems Notes: Review of systems as in the history of present illness, otherwise negative. Physical Exam - Vital signs Vitals: Temp Pulse Resp BP Pulse Ox 98.4 F 76 20 135/59 H 98 12/01/17 20:46 12/01/17 20:46 12/01/17 20:46 12/01/17 20:46 12/01/17 20:46 - Notes Notes: General: Well developed . HEENT: Normocephalic, atraumatic. Pupils equal round reactive to light. No JVD. Chest: No trauma. Respiratory: Good air exchange, normal excursion. Cardiac: Regular rhythm. No murmurs or gallops. Abdomen: Soft, benign. Distended, grossly nontender,. Back: No asymmetry or gross abnormality. Motor: Grossly normal power and tone. Neurologic: Alert, nonfocal. Cranial nerves II-12 are intact. Sensation intact. Vascular: Well perfused. Normal peripheral pulses. Skin: No petechiae or purpura. Course - Re-evaluation Re-evalutation: 12/01/17 23:54 This is a well-appearing female with resolved abdominal pain and nausea and vomiting. She has benign abdomen. Reviewed her labs, CBC is unremarkable chemistries unremarkable LFTs and lipase and troponin are normal. Acute abdominal series was unremarkable. Strongly suspect this may be related underlying viral illness. There is no evidence of obstruction or acute abdominal emergency. She does follow-up until 24 hours for recheck, given a prescription for Zofran, close outpatient follow- up. - Vital Signs Vital signs: Temp Pulse Resp BP Pulse Ox 98.4 F 76 20 135/59 H 98 12/01/17 20:46 12/01/17 20:46 12/01/17 20:46 12/01/17 20:46 12/01/17 20:46 - Laboratory Result Diagrams: 12/01/17 22:00 12/01/17 22:00 Laboratory results interpreted by me: 12/01/17 12/01/17 12/01/17 22:00 22:00 22:00 WBC 12.2 H Seg Neutrophils % 85.6 H Lymphocytes % 7.5 L Absolute Neutrophils 10.5 H Sodium 145.5 H BUN 24 H Glucose 159 H Calcium 10.4 H Urine Protein 30 H Ur Leukocyte Esterase TRACE H Urine Ascorbic Acid 40 H Discharge - Discharge Clinical Impression: Abdominal pain Qualifiers: Abdominal location: unspecified location Qualified Code(s): R10.9 - Unspecified abdominal pain Condition: Good Disposition: HOME, SELF-CARE Instructions: Abdominal Pain ([facility]) Prescriptions: Ondansetron [Zofran Odt 4 mg Tablet] 1 - 2 tab PO Q4H PRN #15 tab.rapdis PRN Reason: For Nausea/Vomiting Referrals: MOSES BALLARD MD [Primary Care Provider] - Follow up as needed
[2017-12-02 01:00] VITALS: BP 137/54
--- NOTE | 2017-12-02 07:39 | EKG REPORT ---
SEVERITY:- ABNORMAL ECG - SINUS RHYTHM PROBABLE ANTEROSEPTAL INFARCT, AGE INDETERM, VERSUS ERROR IN V2 LEAD PLACEMENT : Confirmed by: Gurvinder Laird MD 02-Dec-2017 07:39:09
== END 2017-12-02 00:30 | disposition home or self-care (01) ==
LOC: ER 20:03
DX: R10.9 Unspecified abdominal pain (principal); R11.2 Nausea with vomiting, unspecified; Z87.891 Personal history of nicotine dependence; I10 Essential (primary) hypertension; J44.9 Chronic obstructive pulmonary disease, unspecified
CPT/HCPCS: 93005; 99284; 36415; 83690; 85025; 80053; 81001; 84484; 74022; 93010; A9270; S0119

== ENCOUNTER → 2018-01-11 | Outpatient (CLI) | payer MEDICARE, OTHER ==
--- NOTE | 2018-01-11 13:26 | RADIOLOGY REPORT (SQ) ---
EXAM DESCRIPTION: ARTERIAL LOWER EXTREM BILAT COMPLETED DATE/TIME: 01/11/2018 12:16 pm REASON FOR STUDY: PVD I73.9 PERIPHERAL VASCULAR DISEASE, UNSPECIFIED COMPARISON: 10/09/2014 bilateral lower extremity arterial Doppler TECHNIQUE: Dynamic and static leonardo scale and color images acquired of the lower extremity arteries. Additional selected spectral images recorded. Patient refused ABIs. LIMITATIONS: None. FINDINGS: RIGHT LEG: ABIS: Patient refused INFLOW ARTERIES: Normal, no obstruction evident. FEMORAL ARTERIES:Multiphasic waveforms. Normal, no velocity elevation to suggest focal stenosis. Norm al color Doppler evaluation. No aneurysm. POPLITEAL ARTERY:Multiphasic waveforms. Normal, no velocity elevation to suggest focal stenosis. Norm al color Doppler evaluation. No aneurysm. PATENT TIBIOPERONEAL TRUNK AND 3 VESSEL RUNOFF: Yes, normal vessels. TBI: Not performed. OTHER: No other significant finding. LEFT LEG: ABIS: Patient refused INFLOW ARTERIES: Normal, no obstruction evident. FEMORAL ARTERIES:Multiphasic waveforms. Normal, no velocity elevation to suggest focal stenosis. Norm al color Doppler evaluation. No aneurysm. POPLITEAL ARTERY:Multiphasic waveforms. Normal, no velocity elevation to suggest focal stenosis. Norm al color Doppler evaluation. No aneurysm. PATENT TIBIOPERONEAL TRUNK AND 3 VESSEL RUNOFF: Yes, normal vessels. TBI: Not performed. OTHER: No other significant finding. IMPRESSION: NORMAL BILATERAL LOWER EXTREMITY ARTERIAL DOPPLER TECHNICAL DOCUMENTATION: JOB ID: [id number]- All Rights Reserved Reading location - IP/workstation name: [email or web address]
== END ==
LOC: SP 10:48
PROVIDERS: ATTEND Internal Medicine Nephrology
DX: I73.9 Peripheral vascular disease, unspecified (principal)
CPT/HCPCS: 93925

== ENCOUNTER → 2018-05-13 | Outpatient (CLI) | payer MEDICARE, OTHER ==
[2018-05-13 09:24] LABS: ABSOLUTE EOSINOPHILS # (AUTO) 0.2 10^3/uL (0.0-0.6); ABSOLUTE LYMPHOCYTES (AUTO) 1.5 10^3/uL (0.5-4.7); ABSOLUTE MONOCYTES (AUTO) 0.5 10^3/uL (0.1-1.4); ABSOLUTE NEUT (AUTO) 5.7 10^3/uL (1.7-8.2); BASOPHILS % (AUTO) 0.5 % (0-2); EOSINOPHILS % (AUTO) 2.9 % (0-6); HEMATOCRIT 36.3 % (36.0-47.0); LYMPHOCYTES % (AUTO) 18.2 % (13-45); MEAN CORPUSCULAR HEMOGLOBIN 28.4 pg (27.0-33.4); MEAN CORPUSCULAR HGB CONC 33.2 g/dL (32.0-36.0); MEAN CORPUSCULAR VOLUME 86 fl (80-97); MONOCYTES % (AUTO) 6.8 % (3-13); PLATELET COUNT 241 10^3/uL (150-450); RED BLOOD COUNT 4.23 10^6/uL (3.72-5.28); RED CELL DISTRIBUTION WIDTH 14.5 % (11.5-14.0); SEGMENTED NEUTROPHILS % (AUTO) 71.6 % (42-78); TOTAL CELLS COUNTED % (AUTO) 100 %
[2018-05-13 09:46] LABS: ALANINE AMINOTRANSFERASE 23 U/L (9-52); ALBUMIN 4.2 g/dL (3.5-5.0); ALKALINE PHOSPHATASE 59 U/L (38-126); ANION GAP 12 (5-19); ASPARTATE AMINO TRANSFERASE 26 U/L (14-36); BILIRUBIN,DIRECT 0.1 mg/dL (0.0-0.4); BILIRUBIN,TOTAL 0.4 mg/dL (0.2-1.3); BLOOD UREA NITROGEN 18 mg/dL (7-20); CALCIUM 9.6 mg/dL (8.4-10.2); CARBON DIOXIDE 31 mmol/L (22-30); CHLORIDE 101 mmol/L (98-107); GLUCOSE 118 mg/dL (75-110); POTASSIUM 4.1 mmol/L (3.6-5.0); SODIUM 144.4 mmol/L (137-145); TOTAL PROTEIN 7.2 g/dL (6.3-8.2); TRIGLYCERIDES 141 mg/dL (<150)
[2018-05-13 09:58] LABS: DIRECT LDL 52 mg/dL (<100)
== END ==
LOC: OD 08:43
PROVIDERS: ATTEND Internal Medicine Nephrology
DX: I10 Essential (primary) hypertension (principal); E78.2 Mixed hyperlipidemia; E83.52 Hypercalcemia; E55.9 Vitamin D deficiency, unspecified
CPT/HCPCS: 36415; 80053; 80061; 82306; 85025

== ENCOUNTER → 2018-07-19 | Outpatient (CLI) | payer MEDICARE, OTHER ==
--- NOTE | 2018-07-19 15:43 | RADIOLOGY REPORT (SQ) ---
EXAM DESCRIPTION: VENOUS UNILATERAL LOWER COMPLETED DATE/TIME: 07/19/2018 3:34 pm REASON FOR STUDY: LLE PAIN/SWELLING M79.605 PAIN IN LEFT LEG R22.42 LOCALIZED SWELLING, MASS AND L UMP, LEFT LOWER LIMB COMPARISON: None. TECHNIQUE: Dynamic and static leonardo scale and color images acquired of the left leg venous system. Se lected spectral images acquired with additional compression and augmentation maneuvers. The contralat eral common femoral vein and saphenofemoral junction were also imaged. Images stored on PACS. LIMITATIONS: None. FINDINGS: COMMON FEMORAL: Normal phasicity, compression and augmentation. No visualized echogenic ma terial on leonardo scale. No defects on color images. FEMORAL: Normal compression and augmentation. No visualized echogenic material on leonardo scale. No defe cts on color images. POPLITEAL: Normal compression, augmentation. No visualized echogenic material on leonardo scale. No defec ts on color images. CALF VESSELS: Normal compression, augmentation. No visualized echogenic material on leonardo scale. No de fects on color images. GSV and SSV: Normal compression, augmentation. No visualized echogenic material on leonardo scale. No def ects on color images. ANY DEEP VENOUS INSUFFICIENCY: Not evaluated. ANY EVIDENCE OF POPLITEAL CYST: No. OTHER: No other significant finding. CONTRALATERAL COMMON FEMORAL VEIN AND SAPHENOFEMORAL JUNCTION: Normal phasicity, compression and augmentation. No visualized echogenic material on leonardo scale. No de fects on color images. IMPRESSION: NO EVIDENCE DVT OR SVT IN THE LEFT LEG. TECHNICAL DOCUMENTATION: JOB ID: [id number] [employer]- All Rights Reserved Reading location - IP/workstation name: [email or web address]
== END ==
LOC: SP 15:42
PROVIDERS: ATTEND Internal Medicine Nephrology
DX: M79.605 Pain in left leg (principal); R22.42 Localized swelling, mass and lump, left lower limb
CPT/HCPCS: 93971

== ENCOUNTER 2018-08-29 10:39 | Inpatient (IN) | payer MEDICARE, OTHER ==
[2018-08-29] MEDS ORDERED: MAGNESIUM SULFATE/D5W 1 GM/100 ML RTUPB IV ONE (10:48)
[2018-08-29 11:08] LABS: ABSOLUTE EOSINOPHILS # (AUTO) 0.2 10^3/uL (0.0-0.6); ABSOLUTE LYMPHOCYTES (AUTO) 1.4 10^3/uL (0.5-4.7); ABSOLUTE MONOCYTES (AUTO) 0.7 10^3/uL (0.1-1.4); ABSOLUTE NEUT (AUTO) 3.6 10^3/uL (1.7-8.2); BASOPHILS % (AUTO) 0.8 % (0-2); EOSINOPHILS % (AUTO) 3.7 % (0-6); HEMATOCRIT 35.3 % (36.0-47.0); HEMOGLOBIN 11.7 g/dL (12.0-15.5); LYMPHOCYTES % (AUTO) 23.4 % (13-45); MEAN CORPUSCULAR HGB CONC 33.3 g/dL (32.0-36.0); MEAN CORPUSCULAR VOLUME 87 fl (80-97); MONOCYTES % (AUTO) 12.2 % (3-13); PLATELET COUNT 279 10^3/uL (150-450); RED BLOOD COUNT 4.05 10^6/uL (3.72-5.28); RED CELL DISTRIBUTION WIDTH 14.2 % (11.5-14.0); SEGMENTED NEUTROPHILS % (AUTO) 59.9 % (42-78); TOTAL CELLS COUNTED % (AUTO) 100 %
--- NOTE | 2018-08-29 11:24 | RADIOLOGY REPORT (SQ) ---
EXAM DESCRIPTION: CHEST SINGLE VIEW COMPLETED DATE/TIME: 08/29/2018 11:06 am REASON FOR STUDY: sob COMPARISON: 10/18/2016 EXAM PARAMETERS: NUMBER OF VIEWS: One view. TECHNIQUE: Single frontal radiographic view of the chest acquired. RADIATION DOSE: NA LIMITATIONS: None. FINDINGS: LUNGS AND PLEURA: Bibasilar opacities. Probable left effusion. No pneumothorax. MEDIASTINUM AND HILAR STRUCTURES: No masses. Contour normal. HEART AND VASCULAR STRUCTURES: Heart enlarged without failure. BONES: Chronic rotator cuff tears. HARDWARE: None in the chest. OTHER: No other significant finding. IMPRESSION: Bibasilar opacities with left effusion. Cardiac enlargement without failure. TECHNICAL DOCUMENTATION: JOB ID: [id number] [employer]- All Rights Reserved Reading location - IP/workstation name: [email or web address]
[2018-08-29 11:34] LABS: ALANINE AMINOTRANSFERASE 11 U/L (9-52); ALBUMIN 4.5 g/dL (3.5-5.0); ALKALINE PHOSPHATASE 52 U/L (38-126); ANION GAP 12 (5-19); ASPARTATE AMINO TRANSFERASE 44 U/L (14-36); BILIRUBIN,DIRECT 0.4 mg/dL (0.0-0.4); BILIRUBIN,TOTAL 0.5 mg/dL (0.2-1.3); BLOOD UREA NITROGEN 18 mg/dL (7-20); CALCIUM 9.7 mg/dL (8.4-10.2); CARBON DIOXIDE 30 mmol/L (22-30); CHLORIDE 101 mmol/L (98-107); CREATINE KINASE 114 U/L (30-135); GLUCOSE 100 mg/dL (75-110); POTASSIUM 4.4 mmol/L (3.6-5.0); SODIUM 142.8 mmol/L (137-145); TOTAL PROTEIN 7.6 g/dL (6.3-8.2)
[2018-08-29 11:51] LABS: CREATINE KINASE MB 2.72 ng/mL (<4.55)
[2018-08-29 11:52] LABS: TROPONIN I < 0.012 ng/mL
--- NOTE | 2018-08-29 13:19 | ER Document Report ---
ED General - General Chief Complaint: Shortness Of Breath Stated Complaint: POSSIBLE RESPIRATORY DISTRESS Time Seen by Provider: 08/29/18 10:47 Mode of Arrival: Medic Information source: Patient, Emergency Med Personnel Notes: This is an 78-year-old female with a history of hypertension, COPD who is brought into the emergency room by EMS with progressive worsening shortness of breath and dyspnea on exertion associated with a cough. Patient has been on levofloxacin for the last several days. Patient is in moderate respiratory distress on arrival to the emergency room. TRAVEL OUTSIDE OF THE [place] IN LAST 30 DAYS: No - HPI Onset: Last week Onset/Duration: Gradual Quality of pain: No pain Severity: None Pain Level: Denies Associated symptoms: Chills, Productive cough, Fever, Shortness of breath Exacerbated by: Movement Relieved by: Denies Similar symptoms previously: No Recently seen / treated by doctor: No - Related Data Allergies/Adverse Reactions: hydralazine [Hydralazine] Allergy (Severe, Verified 06/03/15 14:56) short of breath ceftriaxone [From Rocephin] Allergy (Intermediate, Verified 04/11/16 21:37) Flushing phenylephrine [Phenylephrine] Allergy (Intermediate, Verified 07/31/14 20:42) elevates blood pressure amlodipine [Amlodipine] Adverse Reaction (Intermediate, Verified 07/31/14 20:42) legs and feet swell fluconazole [Fluconazole] Adverse Reaction (Intermediate, Verified 10/18/16 13:06) loss appetite, weight loss gabapentin [From Neurontin] Adverse Reaction (Intermediate, Verified 10/18/16 13:06) leg and feet swells lisinopril [Lisinopril] Adverse Reaction (Intermediate, Verified 10/18/16 13:06) coughing, legs swell naproxen [Naproxen] Adverse Reaction (Intermediate, Verified 10/18/16 13:06) upset stomach nitrofurantoin macrocrystalline [From Macrodantin] Adverse Reaction (Intermediate, Verified 10/18/16 13:06) feet and legs swell raloxifene HCl [From Evista] Adverse Reaction (Intermediate, Verified 10/18/16 13:06) appetite loss, weight loss sulfamethoxazole [From Bactrim] Adverse Reaction (Intermediate, Verified 10/18/16 13:06) chest tightens, persistent cough tamoxifen [Tamoxifen] Adverse Reaction (Intermediate, Verified 10/18/16 13:06) nausea, depression, weight loss trimethoprim [From Bactrim] Adverse Reaction (Intermediate, Verified 10/18/16 13:06) chest tightens, persistent cough bupropion HCl [From Wellbutrin] Adverse Reaction (Mild, Verified 10/18/16 13:06) upset stomach escitalopram oxalate [From Lexapro] Adverse Reaction (Mild, Verified 10/18/16 13:06) shakes all over gemfibrozil [From Lopid] Adverse Reaction (Mild, Verified 10/18/16 13:06) upset stomach Past Medical History - General Information source: Patient - Social History Smoking Status: Former Smoker Cigarette use (# per day): No Chew tobacco use (# tins/day): No Frequency of alcohol use: None Drug Abuse: None Lives with: Family Family History: Reviewed & Not Pertinent, CAD - Both parents had massive MIs, one from the [place] the other in a car wreck, COPD, CVA, Hypertension Patient has suicidal ideation: No Patient has homicidal ideation: No - Past Medical History Cardiac Medical History: Reports: Hx Atrial Fibrillation - not on blood thinners, Hx Hypercholesterolemia, Hx Hypertension Denies: Hx Coronary Artery Disease, Hx Heart Attack Pulmonary Medical History: Reports: Hx Asthma, Hx Bronchitis, Hx COPD, Hx Pneumonia, Hx Sleep Apnea Neurological Medical History: Denies: Hx Cerebrovascular Accident, Hx Seizures Renal/ Medical History: Denies: Hx Peritoneal Dialysis Malignancy Medical History: Reports: Hx Breast Cancer - Bilaterally., Hx Lung Cancer - Hx Stage I Lung CA (left lung)., Hx Skin Cancer - Squamous cell cancer removed GI Medical History: Reports: Hx Gastroesophageal Reflux Disease Musculoskeletal Medical History: Reports Hx Arthritis - osteoarthritis Psychiatric Medical History: Reports: Hx Anxiety, Hx Depression Infectious Medical History: Reports: Hx MRSA - Lungs/mouth Past Surgical History: Reports: Hx Breast Surgery - double mastectomy, lymph nodes removed from left side., Hx Cholecystectomy, Hx Herniorrhaphy, Hx Orthopedic Surgery - back x2, Hx Tonsillectomy - Immunizations Hx Diphtheria, Pertussis, Tetanus Vaccination: Yes Hx Pneumococcal Vaccination: 01/15/11 Review of Systems - Review of Systems Constitutional: Chills, Fever EENT: No symptoms reported Cardiovascular: Dyspnea. denies: Chest pain, Palpitations Respiratory: Cough, Short of breath, Wheezing Gastrointestinal: No symptoms reported Genitourinary: No symptoms reported Female Genitourinary: No symptoms reported Musculoskeletal: No symptoms reported Skin: No symptoms reported Hematologic/Lymphatic: No symptoms reported Neurological/Psychological: No symptoms reported Physical Exam - Vital signs Vitals: Temp 97.9 F 08/29/18 10:41 Notes: Physical exam: GENERAL: Patient is alert and oriented x3, oxygen saturation dropping down into 89% range off of the oxygen while getting into hospital ground. HEAD: Atraumatic, normocephalic. EYES: Pupils equal round and reactive to light, extraocular movements intact, sclera anicteric, conjunctiva are normal. ENT: TMs normal, nares patent, oropharynx clear without exudates. Moist mucous membranes. NECK: Normal range of motion, supple without obvious mass or JVD. LUNGS: Lateral wheezing HEART: Regular rate and rhythm without murmurs, rubs or gallops. ABDOMEN: Soft, normoactive bowel sounds. No tenderness to palpation. No guarding, no rebound. No masses appreciated. EXTREMITIES: Normal range of motion, no pitting or edema. No clubbing or cyanosis. NEUROLOGICAL: Cranial nerves II through XII grossly intact. Normal speech, moving all extremities. PSYCH: Normal mood, normal affect. SKIN: Warm, Dry, normal turgor, no rashes or lesions noted. Course - Vital Signs Vital signs: Temp Pulse Resp BP Pulse Ox 98.5 F 89 22 H 163/54 H 96 08/29/18 17:31 08/29/18 17:42 08/29/18 17:31 08/29/18 17:31 08/29/18 17:31 - Laboratory Result Diagrams: 08/29/18 10:00 08/29/18 10:00 Laboratory results interpreted by me: 08/29/18 08/29/18 10:00 10:00 Hgb 11.7 L Hct 35.3 L RDW 14.2 H AST 44 H - Diagnostic Test Radiology reviewed: Image reviewed, Reports reviewed - X-ray shows mild bilateral opacities with a small left effusion Critical Care Note - Critical Care Note Total time excluding time spent on procedures (mins): 60 Discharge - Discharge Clinical Impression: COPD exacerbation Condition: Stable Disposition: ADMITTED INPATIENT Admitting Provider: Hospitalist - Dr. Victor Unit Admitted: Telemetry
[2018-08-29] MEDS: PIPERACILLIN SODIUM/TAZOBACTAM 3.375 GM in NORMAL SALINE 100 ML IV SCH ×2 (15:36→21:29)
[2018-08-29] MEDS: IPRATROPIUM/ALBUTEROL 0.5-2.5 MG/3 ML AMPUL NEB SCH ×2 (15:37→21:09)
--- NOTE | 2018-08-29 16:09 | RADIOLOGY REPORT (SQ) ---
EXAM DESCRIPTION: CT CHEST WITHOUT COMPLETED DATE/TIME: 08/29/2018 3:31 pm REASON FOR STUDY: SOB, hypoxia, PNA, pl eff, hx of lung CA COMPARISON: 08/02/2014 TECHNIQUE: CT scan performed of the chest without intravenous contrast. Images reviewed with lung, soft tissue and bone windows. Reconstructed coronal and sagittal MPR images reviewed. All images st ored on PACS. All CT scanners at this facility use dose modulation, iterative reconstruction, and/or weight based d osing when appropriate to reduce radiation dose to as low as reasonably achievable (ALARA). [facility]: Dose Right [facility]: CareDose [facility]: Dose Right [facility]: Teradose 4D [facility]: Smart AgileMD RADIATION DOSE: CT Rad equipment meets quality standard of care and radiation dose reduction techniq ues were employed. CTDIvol: 12.3 mGy. DLP: 484 mGy-cm. mGy. LIMITATIONS: No technical limitations. FINDINGS: LUNGS AND PLEURA: Extensive centrilobular emphysema in the upper lobes. Paraseptal emphys ematous changes in the right lower lobe. A bulla is present in the left lower lobe anteriorly in the retrocardiac area. Subsegmental atelectasis in the lung bases. Scarring the right upper lobe on im age 7. This is stable. . HILAR AND MEDIASTINAL STRUCTURES: Multiple nonspecific mediastinal nodes are present. HEART AND VASCULAR STRUCTURES: No pericardial effusion. Coronary atherosclerosis. No aneurysm. UPPER ABDOMEN: No significant finding. Portions of the abdominal contents were not included in the f [id number]. THYROID AND OTHER SOFT TISSUES: No masses. No adenopathy. BONES: Rods are present in the lower spine. No osseous lesions are seen. HARDWARE: None in the chest. OTHER: No other significant findings. IMPRESSION: Pulmonary emphysema and scarring. Subsegmental atelectasis. No acute findings in the t horax. TECHNICAL DOCUMENTATION: JOB ID: [id number] Quality ID # [id number]: Final reports with documentation of one or more dose reduction techniques (e.g., Au tomated exposure control, adjustment of the mA and/or kV according to patient size, use of iterative reconstruction technique) 2010 [employer]- All Rights Reserved Reading location - IP/workstation name: [email or web address]
--- NOTE | 2018-08-29 17:02 | EKG REPORT ---
SEVERITY:- BORDERLINE ECG - SINUS RHYTHM CONSIDER ANTERIOR INFARCT BORDERLINE T ABNORMALITIES, ANTERIOR LEADS : Confirmed by: Gurvinder Laird MD 29-Aug-2018 17:01:53
[2018-08-29] MEDS ORDERED: HYDROCODONE/ACETAMINOPHEN 7.5-325 MG TABLET PO PRN (17:35)
--- NOTE | 2018-08-29 17:38 | PDOC H&P ---
History of Present Illness Admission Date/PCP: 08/29/18 13:30 MOSES BALLARD MD Patient complains of: cough, SOB History of Present Illness: RAHUL MERIDA is a 78 year old female, patient of Dr. Ballard, with a PMH of COPD on 3-4 lpm via [place], HTN, chronic low back pain (had prior back surgeries), history of left breast CA with prior mastectomy, left lung CA with pneumonectomy, and grade 2 diastolic dysfunction who presented with cough and SOB. She says she developed cough and SOB 3 weeks ago and was treated for pneumonia. She says she was prescribed Levaquin for 10 days by her PCP and had some improvement. She says she developed minimally productive cough and progressive SOB after 3 days again. She says she took 7 more doses (7 days) of Levaquin again after the 10 day course with no relief. She denies fever or chills. Denies recent sick contacts. In the ER, she was noted to be tachypneic, sats 81% and had significant wheezing. CXR shows bibasilar infiltrates. Past Medical History Cardiac Medical History: Reports: Atrial Fibrillation - not on blood thinners, Hyperlipidema, Hypertension Denies: Coronary Artery Disease, Myocardial Infarction Pulmonary Medical History: Reports: Asthma, Bronchitis, Chronic Obstructive Pulmonary Disease (COPD), Pneumonia, Sleep Apnea Neurological Medical History: Denies: Seizures Malignancy Medical History: Reports: Breast Cancer - Bilaterally., Lung Cancer - Hx Stage I Lung CA (left lung)., Skin Cancer - Squamous cell cancer removed GI Medical History: Reports: Gastroesophageal Reflux Disease Musculoskeltal Medical History: Reports: Arthritis - osteoarthritis Psychiatric Medical History: Reports: Depression Hematology: Reports: Anemia - hx Infectious Medical History: 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 Past Surgical History Past Surgical History: Reports: Cholecystectomy, Herniorrhaphy, Orthopedic Surgery - back x2, Tonsillectomy Social History Smoking Status: Former Smoker Frequency of Alcohol Use: None Hx Recreational Drug Use: No Drugs: None Hx Prescription Drug Abuse: No - Advance Directive Resuscitation Status: Full Code Family History Family History: Reviewed & Not Pertinent, CAD - Both parents had massive MIs, one from the [place] the other in a car wreck, COPD, CVA, Hypertension Parental Family History Reviewed: Yes - no premature CAD Children Family History Reviewed: No Sibling(s) Family History Reviewed.: No Medication/Allergy Home Medications: Albuterol Sulfate [Proair HFA Inhalation Aerosol 8.5 gm MDI] 2 puff IH Q4HP PRN 08/29/18 Amitriptyline HCl [Elavil 25 mg Tablet] 25 mg PO QHS 08/29/18 Amlodipine Besylate [Norvasc 2.5 mg Tablet] 2.5 mg PO Q12 08/29/18 Biotin [Biotin 5 mg Capsule] 5 mg PO DAILY 08/29/18 Buspirone HCl [Buspar 5 mg Tablet] 5 mg PO BID 08/29/18 Calcium Carbonate/Vitamin D3 [Calcium 500-Vit D3 200 Caplet] 1 tab PO Q48H 08/29/18 Cetirizine HCl [Zyrtec 5 mg Tablet] 5 mg PO BID 08/29/18 Cholecalciferol (Vitamin D3) [Vitamin D3 1000 Unit Tablet] 1,000 unit PO DAILY 08/29/18 Clonidine HCl [Catapres 0.2 mg Tablet] 0.2 mg PO Q12 08/29/18 Docusate Sodium [Colace 100 mg Capsule] 200 mg PO BIDP PRN 08/29/18 Fenofibrate,Micronized [Fenofibrate] 134 mg PO DAILY 08/29/18 Fentanyl [Duragesic 25 Mcg/Hr Transdermal Patch] 1 each TD Q3D 08/29/18 Fluticasone Propionate [Flonase Nasal Mcclave 50 Mcg/Mcclave 16 gm] 1 spray NASL Q12 08/29/18 Fluticasone/Salmeterol [Advair 250-50 Diskus 14 Dose/Diskus] 1 puff IH Q12 08/29/18 Furosemide [Lasix 20 mg Tablet] 40 mg PO BID 08/29/18 Guaifenesin [Mucinex] 600 mg PO Q12 08/29/18 Hydrocodone/Acetaminophen [[place] 7.5-325 mg Tablet] 1 tab PO Q8HP PRN 08/29/18 Ipratropium/Albuterol Sulfate [Duoneb 3 ml Ampul] 3 ml NEB RTQ6 08/29/18 Losartan Potassium [Cozaar 25 mg Tablet] 25 mg PO NOON 08/29/18 Montelukast Sodium [Singulair 10 mg Tablet] 10 mg PO QPM 08/29/18 Niles-3 Acid Ethyl Esters [Lovaza 1 gm Capsule] 1 gm PO BID 08/29/18 Pnv,Calcium 72/Iron/Folic Acid [ Plus Tablet] 1 tab PO DAILY 08/29/18 Potassium Chloride 20 meq PO DAILY 08/29/18 Pregabalin [Lyrica 50 mg Capsule] 50 mg PO Q8 08/29/18 Rosuvastatin Calcium [Crestor 20 mg Tablet] 20 mg PO QHS 08/29/18 Tiotropium [place] [Spiriva Respimat] 2 puff IH QAM 08/29/18 Vit A/Vit C/Vit E/Zinc/Copper [Preservision Areds Tablet] 1 tab PO Q12 08/29/18 Allergies/Adverse Reactions: hydralazine [Hydralazine] Allergy (Severe, Verified 06/03/15 14:56) short of breath ceftriaxone [From Rocephin] Allergy (Intermediate, Verified 04/11/16 21:37) Flushing phenylephrine [Phenylephrine] Allergy (Intermediate, Verified 07/31/14 20:42) elevates blood pressure amlodipine [Amlodipine] Adverse Reaction (Intermediate, Verified 07/31/14 20:42) legs and feet swell fluconazole [Fluconazole] Adverse Reaction (Intermediate, Verified 10/18/16 13:06) loss appetite, weight loss gabapentin [From Neurontin] Adverse Reaction (Intermediate, Verified 10/18/16 13 :06) leg and feet swells lisinopril [Lisinopril] Adverse Reaction (Intermediate, Verified 10/18/16 13:06) coughing, legs swell naproxen [Naproxen] Adverse Reaction (Intermediate, Verified 10/18/16 13:06) upset stomach nitrofurantoin macrocrystalline [From Macrodantin] Adverse Reaction (Intermedia te, Verified 10/18/16 13:06) feet and legs swell raloxifene HCl [From Evista] Adverse Reaction (Intermediate, Verified 10/18/16 13:06) appetite loss, weight loss sulfamethoxazole [From Bactrim] Adverse Reaction (Intermediate, Verified 10/18/16 13:06) chest tightens, persistent cough tamoxifen [Tamoxifen] Adverse Reaction (Intermediate, Verified 10/18/16 13:06) nausea, depression, weight loss trimethoprim [From Bactrim] Adverse Reaction (Intermediate, Verified 10/18/16 13:06) chest tightens, persistent cough bupropion HCl [From Wellbutrin] Adverse Reaction (Mild, Verified 10/18/16 13:06) upset stomach escitalopram oxalate [From Lexapro] Adverse Reaction (Mild, Verified 10/18/16 13:06) shakes all over gemfibrozil [From Lopid] Adverse Reaction (Mild, Verified 10/18/16 13:06) upset stomach Review of Systems All systems: reviewed and no additional remarkable complaints except as stated - as mentioned in HPI Physical Exam Vital Signs: Temp Pulse Resp BP Pulse Ox 97.9 F 17 148/60 H 97 08/29/18 10:41 08/29/18 12:31 08/29/18 12:31 08/29/18 11:31 Intake & Output 08/28/18 08/29/18 08/30/18 06:59 06:59 06:59 Intake Total 100 Balance 100 Weight 155 lb 10.342 oz General appearance: PRESENT: no acute distress, well-developed, well-nourished Head exam: PRESENT: atraumatic, normocephalic Eye exam: PRESENT: conjunctiva pink, EOMI, PERRLA. ABSENT: scleral icterus Ear exam: PRESENT: normal external ear exam Mouth exam: PRESENT: moist, tongue midline Neck exam: ABSENT: carotid bruit, JVD, lymphadenopathy, thyromegaly Respiratory exam: PRESENT: rales - on the bases, wheezes. ABSENT: rhonchi Cardiovascular exam: PRESENT: RRR. ABSENT: diastolic murmur, rubs, systolic murmur Pulses: PRESENT: normal dorsalis pedis pul GI/Abdominal exam: PRESENT: normal bowel sounds, soft. ABSENT: distended, guarding, mass, organolmegaly, rebound, tenderness Rectal exam: PRESENT: deferred Neurological exam: PRESENT: alert, awake, oriented to person, oriented to place, oriented to time, oriented to situation, CN II-XII grossly intact. ABSENT: motor sensory deficit Results Laboratory Results: 08/29/18 10:00 08/29/18 10:00 08/29/18 08/29/18 10:00 10:00 WBC 6.0 RBC 4.05 Hgb 11.7 L Hct 35.3 L MCV 87 MCH 29.0 MCHC 33.3 RDW 14.2 H Plt Count 279 Seg Neutrophils % 59.9 Lymphocytes % 23.4 Monocytes % 12.2 Eosinophils % 3.7 Basophils % 0.8 Absolute Neutrophils 3.6 Absolute Lymphocytes 1.4 Absolute Monocytes 0.7 Absolute Eosinophils 0.2 Absolute Basophils 0.0 Sodium 142.8 Potassium 4.4 Chloride 101 Carbon Dioxide 30 Anion Gap 12 BUN 18 Creatinine 0.64 Est GFR ( Amer) > 60 Est GFR (Non-Af Amer) > 60 Glucose 100 Calcium 9.7 Total Bilirubin 0.5 AST 44 H ALT 11 Alkaline Phosphatase 52 Total Protein 7.6 Albumin 4.5 08/29/18 08/29/18 08/29/18 10:00 10:00 10:00 Creatine Kinase 114 CK-MB (CK-2) 2.72 Troponin I < 0.012 NT-Pro-B Natriuret Pep 86 Impressions: Chest X-Ray 08/29/18 10:48 IMPRESSION: Bibasilar opacities with left effusion. Cardiac enlargement without failure. Chest CT 08/29/18 13:55 IMPRESSION: Pulmonary emphysema and scarring. Subsegmental atelectasis. No acute findings in the thorax. Assessment & Plan - Diagnosis (1) Acute respiratory failure with hypoxia Is this a current diagnosis for this admission?: Yes Plan: Secondary to COPD exacerbation and pneumonia. (2) Acute exacerbation of chronic obstructive pulmonary disease (COPD) Is this a current diagnosis for this admission?: Yes Plan: Start IV solumedrol. Breathing treatments as needed. (3) Pneumonia Qualifiers: Pneumonia type: due to unspecified organism Lung location: unspecified part of lung Is this a current diagnosis for this admission?: Yes Plan: Patient failed PO Levaquin. She completed 10 days and took another course of 7 doses. She has allergy to Rocephin and sulfa drugs. Will pursue CT chest to further evaluate lung parenchyma due to having a history of pneumonectomy and possible pleural effusion on CXR. Will start patient on Zosyn for now. Ordered sputum culture. De-escalate depending on clinical course and culture result. Will also check for Flu. (4) HTN (hypertension) Is this a current diagnosis for this admission?: Yes Plan: Will resume home meds including amlodipine, clonidine and losartan. - Time Time Spent: 30 to 50 Minutes
[2018-08-29] MEDS ORDERED: (PENDING PHARMACY ID) (Buspirone Hcl [Buspar 5 Mg Tablet] 5 MG) PO SCH (18:00)
[2018-08-29] MEDS ORDERED: FUROSEMIDE 20 MG TABLET PO SCH (18:00)
--- NOTE | 2018-08-29 18:23 | Progress Note ---
Provider Note Provider Note: ACP discussion: Discussed with patient and (surrogate decision maker on bedside). She is a FULL CODE but says she does not want to be on a prolonged ventilation in the future.
[2018-08-29] MEDS: FUROSEMIDE 40 MG TABLET PO SCH (18:45)
[2018-08-29] MEDS: BUSPIRONE HCL 10 MG TABLET PO SCH (18:46)
[2018-08-29 19:35] LABS: A TYPE INFLUENZA AG NEGATIVE (NEGATIVE); B INFLUENZA AG NEGATIVE (NEGATIVE)
[2018-08-29] MEDS: ATORVASTATIN CALCIUM 40 MG TABLET PO SCH (21:28)
[2018-08-29] MEDS: CLONIDINE HCL 0.2 MG TABLET PO SCH (21:29)
[2018-08-29] MEDS: PREGABALIN 50 MG CAPSULE PO SCH (21:29)
[2018-08-29] MEDS: AMLODIPINE BESYLATE 2.5 MG TABLET PO SCH (21:29)
[2018-08-29] MEDS: AMITRIPTYLINE HCL 25 MG TABLET PO SCH (21:29)
[2018-08-29] MEDS: METHYLPREDNISOLONE INJ 40 MG/1 ML SDV IV SCH (21:29)
[2018-08-29] MEDS ORDERED: (PENDING PHARMACY ID) (Rosuvastatin Calcium [Crestor 20 Mg Tablet] 20 MG) PO SCH (22:00)
[2018-08-30] MEDS: IPRATROPIUM/ALBUTEROL 0.5-2.5 MG/3 ML AMPUL NEB SCH ×6 (00:46→21:14)
[2018-08-30] MEDS: PIPERACILLIN SODIUM/TAZOBACTAM 3.375 GM in NORMAL SALINE 100 ML IV SCH ×4 (03:55→21:36)
[2018-08-30] MEDS: PREGABALIN 50 MG CAPSULE PO SCH ×3 (05:44→21:35)
[2018-08-30] MEDS: BUSPIRONE HCL 10 MG TABLET PO SCH ×2 (05:44→18:25)
[2018-08-30] MEDS: CLONIDINE HCL 0.2 MG TABLET PO SCH ×2 (09:19→21:36)
[2018-08-30] MEDS: METHYLPREDNISOLONE INJ 40 MG/1 ML SDV IV SCH ×2 (09:19→21:35)
[2018-08-30] MEDS: FUROSEMIDE 40 MG TABLET PO SCH ×2 (09:20→18:25)
[2018-08-30] MEDS: AMLODIPINE BESYLATE 2.5 MG TABLET PO SCH ×2 (09:20→21:36)
[2018-08-30] MEDS: POTASSIUM CHLORIDE 10 MEQ CAPSULE.ER PO SCH (09:20)
[2018-08-30] MEDS: FONDAPARINUX SODIUM INJ 2.5 MG/0.5 ML DISP.SYRIN SUBCUT SCH (09:35)
[2018-08-30] MEDS: LOSARTAN POTASSIUM 25 MG TABLET PO SCH (12:18)
[2018-08-30 12:25] LABS: ABSOLUTE LYMPHOCYTES (AUTO) 0.8 10^3/uL (0.5-4.7); ABSOLUTE MONOCYTES (AUTO) 0.3 10^3/uL (0.1-1.4); ABSOLUTE NEUT (AUTO) 4.7 10^3/uL (1.7-8.2); BASOPHILS % (AUTO) 0.2 % (0-2); HEMATOCRIT 33.1 % (36.0-47.0); HEMOGLOBIN 11.3 g/dL (12.0-15.5); LYMPHOCYTES % (AUTO) 14.5 % (13-45); MEAN CORPUSCULAR HEMOGLOBIN 29.7 pg (27.0-33.4); MEAN CORPUSCULAR HGB CONC 34.2 g/dL (32.0-36.0); MEAN CORPUSCULAR VOLUME 87 fl (80-97); MONOCYTES % (AUTO) 4.6 % (3-13); PLATELET COUNT 280 10^3/uL (150-450); RED BLOOD COUNT 3.82 10^6/uL (3.72-5.28); RED CELL DISTRIBUTION WIDTH 14.3 % (11.5-14.0); SEGMENTED NEUTROPHILS % (AUTO) 80.7 % (42-78); TOTAL CELLS COUNTED % (AUTO) 100 %; WHITE BLOOD COUNT 5.8 10^3/uL (4.0-10.5)
--- NOTE | 2018-08-30 13:07 | EKG REPORT ---
SEVERITY:- BORDERLINE ECG - SINUS RHYTHM BORDERLINE T ABNORMALITIES, ANT-LAT LEADS : Confirmed by: Gurvinder Laird MD 30-Aug-2018 13:06:26
--- NOTE | 2018-08-30 19:00 | PDOC PROGRESS REPORT ---
Subjective Progress Note for:: 08/30/18 Subjective:: RAHUL MERIDA is a 78 year old female, patient of Dr. Barclay, with a PMH of COPD on 3-4 lpm via [place], HTN, chronic low back pain (had prior back surgeries), history of left breast CA with prior mastectomy, left lung CA with pneumonectomy, and grade 2 diastolic dysfunction who presented with cough and SOB. She says she developed cough and SOB 3 weeks ago and was treated for pneumonia. She says she was prescribed Levaquin for 10 days by her PCP and had some imp rovement. She says she developed minimally productive cough and progressive SOB after 3 days again. She says she took 7 more doses (7 days) of Levaquin again after the 10 day course with no relief. She denies fever or chills. Denies recent sick contacts. In the ER, she was noted to be tachypneic, sats 81% and had significant wheezing. CXR shows bibasilar infiltrates. No acute events overnight. Patient stating she is feeling better today. On my encounter patient is comfortably sitting in her bed in no apparent distress, denies any shortness of breath, chills, nausea, vomiting, diarrhea, constipation or any urinary symptoms. Reason For Visit: ACUTE HYPOXIC RESP FAILURE,COPD EXACERBATION Physical Exam Vital Signs: Temp Pulse Resp BP Pulse Ox 97.7 F 64 18 113/42 L 98 08/30/18 15:26 08/30/18 16:13 08/30/18 16:13 08/30/18 15:26 08/30/18 16:13 Intake & Output 08/29/18 08/30/18 08/31/18 06:59 06:59 06:59 Intake Total 720 1502 Balance 720 1502 Weight 68.2 kg General appearance: PRESENT: no acute distress, well-developed, well-nourished Head exam: PRESENT: atraumatic, normocephalic Respiratory exam: PRESENT: clear to auscultation sarah, prolonged expiratory phas, wheezes. ABSENT: rales, rhonchi Cardiovascular exam: PRESENT: RRR. ABSENT: diastolic murmur, rubs, systolic murmur Pulses: PRESENT: normal dorsalis pedis pul Extremities exam: PRESENT: full ROM. ABSENT: calf tenderness, clubbing, pedal edema Neurological exam: PRESENT: alert, awake, oriented to person, oriented to place, oriented to time, oriented to situation, CN II-XII grossly intact. ABSENT: motor sensory deficit Skin exam: PRESENT: dry, intact, warm. ABSENT: cyanosis, rash Results Laboratory Results: 08/30/18 12:04 08/29/18 10:00 08/30/18 12:04 WBC 5.8 RBC 3.82 Hgb 11.3 L Hct 33.1 L MCV 87 MCH 29.7 MCHC 34.2 RDW 14.3 H Plt Count 280 Seg Neutrophils % 80.7 H Lymphocytes % 14.5 Monocytes % 4.6 Eosinophils % 0.0 Basophils % 0.2 Absolute Neutrophils 4.7 Absolute Lymphocytes 0.8 Absolute Monocytes 0.3 Absolute Eosinophils 0.0 Absolute Basophils 0.0 08/29/18 08/29/18 08/29/18 10:00 10:00 10:00 Creatine Kinase 114 CK-MB (CK-2) 2.72 Troponin I < 0.012 NT-Pro-B Natriuret Pep 86 08/30/18 12:04 Creatine Kinase CK-MB (CK-2) Troponin I < 0.012 NT-Pro-B Natriuret Pep Impressions: Chest X-Ray 08/29/18 10:48 IMPRESSION: Bibasilar opacities with left effusion. Cardiac enlargement without failure. Chest CT 08/29/18 13:55 IMPRESSION: Pulmonary emphysema and scarring. Subsegmental atelectasis. No acute findings in the thorax. Assessment & Plan - Diagnosis (1) Acute respiratory failure with hypoxia Is this a current diagnosis for this admission?: Yes Plan: Improving. Saturating 98% on 4 L nasal cannula FiO2 28%. On home O2 of 4 L. Secondary to COPD exacerbation and pneumonia. Empiric antibiotics and IV steroids, nebs, as needed BiPAP. (2) HTN (hypertension) Is this a current diagnosis for this admission?: Yes Plan: Controlled continue amlodipine, clonidine and losartan. (3) Acute exacerbation of chronic obstructive pulmonary disease (COPD) Is this a current diagnosis for this admission?: Yes Plan: Start IV solumedrol. Breathing treatments as needed. (4) Pneumonia Qualifiers: Pneumonia type: due to unspecified organism Lung location: unspecified part of lung Is this a current diagnosis for this admission?: Yes Plan: Patient failed PO Levaquin. She completed 10 days and took another course of 7 doses. She has allergy to Rocephin and sulfa drugs. CT chest 08/29/2018 Pulmonary emphysema and scarring. Subsegmental atelectasis. No acute findings in the thorax. Flu negative. No leukocytosis. Cultures no growth times 24 hours.
[2018-08-30] MEDS: AMITRIPTYLINE HCL 25 MG TABLET PO SCH (21:35)
[2018-08-30] MEDS: ATORVASTATIN CALCIUM 40 MG TABLET PO SCH (21:36)
[2018-08-31] MEDS: IPRATROPIUM/ALBUTEROL 0.5-2.5 MG/3 ML AMPUL NEB SCH ×5 (01:40→17:38)
[2018-08-31] MEDS: PIPERACILLIN SODIUM/TAZOBACTAM 3.375 GM in NORMAL SALINE 100 ML IV SCH ×3 (03:59→14:04)
[2018-08-31] MEDS: BUSPIRONE HCL 10 MG TABLET PO SCH (05:30)
[2018-08-31] MEDS: PREGABALIN 50 MG CAPSULE PO SCH ×2 (05:30→13:02)
[2018-08-31] MEDS: FONDAPARINUX SODIUM INJ 2.5 MG/0.5 ML DISP.SYRIN SUBCUT SCH (08:39)
[2018-08-31] MEDS: POTASSIUM CHLORIDE 10 MEQ CAPSULE.ER PO SCH (09:12)
[2018-08-31] MEDS: METHYLPREDNISOLONE INJ 40 MG/1 ML SDV IV SCH (09:12)
[2018-08-31] MEDS: CLONIDINE HCL 0.2 MG TABLET PO SCH (09:12)
[2018-08-31] MEDS: AMLODIPINE BESYLATE 2.5 MG TABLET PO SCH (09:12)
[2018-08-31] MEDS: FUROSEMIDE 40 MG TABLET PO SCH (09:12)
--- NOTE | 2018-08-31 12:14 | PDOC PROGRESS REPORT ---
Subjective Progress Note for:: 08/31/18 Subjective:: RAHUL MERIDA is a 78 year old female, patient of Dr. Barclay, with a PMH of COPD on 3-4 lpm via [place], HTN, chronic low back pain (had prior back surgeries), history of left breast CA with prior mastectomy, left lung CA with pneumonectomy, and grade 2 diastolic dysfunction who presented with cough and SOB. She says she developed cough and SOB 3 weeks ago and was treated for pneumonia. She says she was prescribed Levaquin for 10 days by her PCP and had some imp rovement. She says she developed minimally productive cough and progressive SOB after 3 days again. She says she took 7 more doses (7 days) of Levaquin again after the 10 day course with no relief. She denies fever or chills. Denies recent sick contacts. In the ER, she was noted to be tachypneic, sats 81% and had significant wheezing. CXR shows bibasilar infiltrates. 08/30/2018. No acute events overnight. Patient stating she is feeling better today. On my encounter patient is comfortably sitting in her bed in no apparent distress, denies any shortness of breath, chills, nausea, vomiting, diarrhea, constipation or any urinary symptoms. 08/31/2018. No acute events overnight. Saturating 100% on 4 L NC room air. Complaining of mild chest congestion otherwise denying any shortness of breath, chills, nausea, vomiting, diarrhea, constipation or any urinary symptoms. Reason For Visit: ACUTE HYPOXIC RESP FAILURE,COPD EXACERBATION Physical Exam Vital Signs: Temp Pulse Resp BP Pulse Ox 98.0 F 72 18 130/59 H 100 08/31/18 08:13 08/31/18 08:59 08/31/18 08:59 08/31/18 08:13 08/31/18 08:59 Intake & Output 08/30/18 08/31/18 09/01/18 06:59 06:59 06:59 Intake Total 720 2324 603 Balance 720 2324 603 Weight 68.2 kg 71.2 kg General appearance: PRESENT: no acute distress, well-developed, well-nourished Head exam: PRESENT: atraumatic, normocephalic Respiratory exam: PRESENT: clear to auscultation sarah, prolonged expiratory phas, wheezes. ABSENT: rales, rhonchi Cardiovascular exam: PRESENT: RRR. ABSENT: diastolic murmur, rubs, systolic murmur GI/Abdominal exam: PRESENT: normal bowel sounds, soft. ABSENT: distended, guarding, mass, organolmegaly, rebound, tenderness Extremities exam: PRESENT: full ROM. ABSENT: calf tenderness, clubbing, pedal edema Neurological exam: PRESENT: alert, awake, oriented to person, oriented to place, oriented to time, oriented to situation, CN II-XII grossly intact. ABSENT: motor sensory deficit Results Laboratory Results: 08/30/18 12:04 08/29/18 10:00 08/30/18 12:04 WBC 5.8 RBC 3.82 Hgb 11.3 L Hct 33.1 L MCV 87 MCH 29.7 MCHC 34.2 RDW 14.3 H Plt Count 280 Seg Neutrophils % 80.7 H Lymphocytes % 14.5 Monocytes % 4.6 Eosinophils % 0.0 Basophils % 0.2 Absolute Neutrophils 4.7 Absolute Lymphocytes 0.8 Absolute Monocytes 0.3 Absolute Eosinophils 0.0 Absolute Basophils 0.0 08/29/18 08/29/18 08/29/18 10:00 10:00 10:00 Creatine Kinase 114 CK-MB (CK-2) 2.72 Troponin I < 0.012 NT-Pro-B Natriuret Pep 86 08/30/18 08/30/18 12:04 19:15 Creatine Kinase CK-MB (CK-2) Troponin I < 0.012 < 0.012 NT-Pro-B Natriuret Pep Impressions: Chest X-Ray 08/29/18 10:48 IMPRESSION: Bibasilar opacities with left effusion. Cardiac enlargement without failure. Chest CT 08/29/18 13:55 IMPRESSION: Pulmonary emphysema and scarring. Subsegmental atelectasis. No acute findings in the thorax. Assessment & Plan - Diagnosis (1) Acute respiratory failure with hypoxia Is this a current diagnosis for this admission?: Yes Plan: Improving. Saturating 98% on 4 L nasal cannula FiO2 21%. On home O2 of 4 L. Secondary to COPD exacerbation and pneumonia. Empiric antibiotics and IV steroids, nebs, as needed BiPAP. Still has mild expiratory wheezes. Will DC home tomorrow. (2) HTN (hypertension) Is this a current diagnosis for this admission?: Yes Plan: Controlled continue amlodipine, clonidine and losartan. (3) Acute exacerbation of chronic obstructive pulmonary disease (COPD) Is this a current diagnosis for this admission?: Yes Plan: Start IV solumedrol. Breathing treatments as needed. (4) Pneumonia Qualifiers: Pneumonia type: due to unspecified organism Lung location: unspecified part of lung Is this a current diagnosis for this admission?: Yes Plan: Patient failed PO Levaquin. She completed 10 days and took another course of 7 doses. She has allergy to Rocephin and sulfa drugs. CT chest 08/29/2018 Pulmonary emphysema and scarring. Subsegmental atelectasis. No acute findings in the thorax. Flu negative. No leukocytosis. Cultures no growth times 24 hours.
[2018-08-31] MEDS ORDERED: POLYETHYLENE GLYCOL 3350 POWDER 17 GM/1 PACKET PO SCH (12:15)
[2018-08-31] MEDS: LOSARTAN POTASSIUM 25 MG TABLET PO SCH (12:28)
[2018-08-31 15:31] VITALS: BP 102/44
[2018-08-31] MEDS ORDERED: GUAIFENESIN 600 MG TABLET.SA PO SCH (22:00)
[2018-08-31] MEDS ORDERED: (PENDING PHARMACY ID) (Guaifenesin [Mucinex] 600 MG) PO SCH (22:00)
[2018-09-01] MEDS ORDERED: (PENDING PHARMACY ID) (Tiotropium Bromide [Spiriva Respimat] 2 PUFF) IH SCH (08:00)
--- NOTE | 2018-09-01 09:19 | Physician Advisory Note ---
Physician Advisor ProgressNote .: Pursuant to the plan for [facility], I have reviewed the medical record for this patient. Physician Advisor Statement: Pt has gr 2 diast dysfn per H&P. PNA failed Levaquin, tx'd w/Zosyn, & has underlying COPD. Uses 3-4L o2 at baseline. Ac Resp Failure is nicely documented w/acute hypoxemia into the 80s & acute resp distress & tachypnea in ED per ED dr mancuso. Attending, please consider documenting, if you agree: 1. "PNA, suspect gram-___ type" 2. "Chronic Resp Failure requiring 3-4L O2 at baseline" - or has chr resp failure been r/o'd? 3. "Chronic diastolic CHF" - or has this been r/o'd? Thanks! CK
--- NOTE | 2018-09-03 15:51 | PDOC DISCHARGE SUMMARY ---
General - Admit/Disc Date/PCP Admission Date/Primary Care Provider: 08/30/18 14:11 MOSES BALLARD MD Discharge Date: 08/31/18 - Discharge Diagnosis (1) Acute respiratory failure with hypoxia Is this a current diagnosis for this admission?: Yes (2) HTN (hypertension) Is this a current diagnosis for this admission?: Yes (3) Acute exacerbation of chronic obstructive pulmonary disease (COPD) Is this a current diagnosis for this admission?: Yes (4) Pneumonia Is this a current diagnosis for this admission?: Yes - Additional Information Resuscitation Status: Full Code Discharge Diet: As Tolerated Discharge Activity: Activity As Tolerated Prescriptions: Omeprazole Magnesium [Acid Mental Health Orderly] 20 mg PO DAILY 2 Days #2 capsule. Prednisone [Deltasone] 40 mg PO DAILY 2 Days #4 tablet Home Medications: Albuterol Sulfate [Proair HFA Inhalation Aerosol 8.5 gm MDI] 2 puff IH Q4HP PRN 08/29/18 Amitriptyline HCl [Elavil 25 mg Tablet] 25 mg PO QHS 08/29/18 Amlodipine Besylate [Norvasc 2.5 mg Tablet] 2.5 mg PO Q12 08/29/18 Biotin [Biotin 5 mg Capsule] 5 mg PO DAILY 08/29/18 Buspirone HCl [Buspar 5 mg Tablet] 5 mg PO BID 08/29/18 Calcium Carbonate/Vitamin D3 [Calcium 500-Vit D3 200 Caplet] 1 tab PO Q48H 08/29/18 Cetirizine HCl [Zyrtec 5 mg Tablet] 5 mg PO BID 08/29/18 Cholecalciferol (Vitamin D3) [Vitamin D3 1000 Unit Tablet] 1,000 unit PO DAILY 08/29/18 Clonidine HCl [Catapres 0.2 mg Tablet] 0.2 mg PO Q12 08/29/18 Docusate Sodium [Colace 100 mg Capsule] 200 mg PO BIDP PRN 08/29/18 Fenofibrate,Micronized [Fenofibrate] 134 mg PO DAILY 08/29/18 Fentanyl [Duragesic 25 mcg/hr Transdermal Patch] 1 each TD Q3D 08/29/18 Fluticasone Propionate [Flonase Nasal [place] 50 Mcg/[place] 16 gm] 1 spray NASL Q12 08/29/18 Fluticasone/Salmeterol [Advair 250-50 Diskus 14 Dose/Diskus] 1 puff IH Q12 08/29/18 Furosemide [Lasix 20 mg Tablet] 40 mg PO BID 08/29/18 Guaifenesin [Mucinex] 600 mg PO Q12 08/29/18 Hydrocodone/Acetaminophen [[place] 7.5-325 mg Tablet] 1 tab PO Q8HP PRN 08/29/18 Ipratropium/Albuterol Sulfate [Duoneb 3 ml Ampul] 3 ml NEB RTQ6 08/29/18 Losartan Potassium [Cozaar 25 mg Tablet] 25 mg PO NOON 08/29/18 Montelukast Sodium [Singulair 10 mg Tablet] 10 mg PO QPM 08/29/18 [place]-3 Acid Ethyl Esters [Lovaza 1 gm Capsule] 1 gm PO BID 08/29/18 Pnv,Calcium 72/Iron/Folic Acid [ Plus Tablet] 1 tab PO DAILY 08/29/18 Potassium Chloride 20 meq PO DAILY 08/29/18 Pregabalin [Lyrica 50 mg Capsule] 50 mg PO Q8 08/29/18 Rosuvastatin Calcium [Crestor 20 mg Tablet] 20 mg PO QHS 08/29/18 Tiotropium [place] [Spiriva Respimat] 2 puff IH QAM 08/29/18 Vit A/Vit C/Vit E/Zinc/Copper [Preservision Areds Tablet] 1 tab PO Q12 08/29/18 Omeprazole Magnesium [Acid Mental Health Orderly] 20 mg PO DAILY 2 Days #2 capsule. 08/31/18 Prednisone [Deltasone] 40 mg PO DAILY 2 Days #4 tablet 08/31/18 History of Present Illness History of Present Illness: RAHUL MERIDA is a 78 year old female, patient of Dr. Ballard, with a PMH of COPD on 3-4 lpm via [place], HTN, chronic low back pain (had prior back surgeries), history of left breast CA with prior mastectomy, left lung CA with pneumonectom y, and grade 2 diastolic dysfunction who presented with cough and SOB. She says she developed cough and SOB 3 weeks ago and was treated for pneumonia. She says she was prescribed Levaquin for 10 days by her PCP and had some improvement. She says she developed minimally productive cough and progressive SOB after 3 days again. She says she took 7 more doses (7 days) of Levaquin again after the 10 day course with no relief. She denies fever or chills. Denies recent sick contacts. In the ER, she was noted to be tachypneic, sats 81% and had significant wheezing. CXR shows bibasilar infiltrates. Hospital Course Hospital Course: Assessment & Plan (1) Acute respiratory failure with hypoxia Secondary PD exacerbation/pneumonia Improved. Saturating 98% on 4 L nasal cannula FiO2 21%. On home O2 of 4 L. Start on Zosyn. Received 3 days of Zosyn, IV steroids, nebs as needed BiPAP. Not an acne acute distress on discharge. No wheezes or crackles on chest examination. Was discharged on p.o. steroids to complete 4 days continue inhalers and supplemental oxygen. (2) HTN (hypertension) Controlled continue amlodipine, clonidine and losartan. (3) Acute exacerbation of chronic obstructive pulmonary disease (COPD) Start IV solumedrol. Nebs, BiPAP as needed. (4) Pneumonia Community-acquired strep pneumo. Completed 7 days of levofloxacin outpatient and received 3 days of Zosyn while inpatient. She has allergy to Rocephin and sulfa drugs. 08/29/2018. CT Chest pulmonary emphysema and scarring. Subsegmental atelectasis. No acute findings in the thorax. Flu negative. No leukocytosis. Cultures negative. Continued shortness of breath may have been due to COPD exacerbation rather than failed pneumonia therapy. She did not have any shortness of breath and was saturating 100% on 2.5L NC FiO2 21%. She is on home oxygen 4 L for her chronic COPD. Physical Exam Vital Signs: Temp Pulse Resp BP Pulse Ox 98.2 F 69 18 102/44 L 96 08/31/18 15:30 08/31/18 15:30 08/31/18 15:30 08/31/18 15:30 08/31/18 15:30 General appearance: PRESENT: no acute distress, well-developed, well-nourished Head exam: PRESENT: atraumatic, normocephalic Respiratory exam: PRESENT: clear to auscultation sarah. ABSENT: rales, rhonchi, wheezes GI/Abdominal exam: PRESENT: normal bowel sounds, soft. ABSENT: distended, guarding, mass, organolmegaly, rebound, tenderness Extremities exam: PRESENT: full ROM. ABSENT: calf tenderness, clubbing, pedal edema Neurological exam: PRESENT: alert, awake, oriented to person, oriented to place, oriented to time, oriented to situation, CN II-XII grossly intact. ABSENT: motor sensory deficit Results Laboratory Results: 08/30/18 12:04 08/29/18 10:00 08/29/18 08/29/18 08/29/18 10:00 10:00 10:00 Creatine Kinase 114 CK-MB (CK-2) 2.72 Troponin I < 0.012 NT-Pro-B Natriuret Pep 86 08/30/18 08/30/18 12:04 19:15 Creatine Kinase CK-MB (CK-2) Troponin I < 0.012 < 0.012 NT-Pro-B Natriuret Pep Impressions: Chest X-Ray 08/29/18 10:48 IMPRESSION: Bibasilar opacities with left effusion. Cardiac enlargement without failure. Chest CT 08/29/18 13:55 IMPRESSION: Pulmonary emphysema and scarring. Subsegmental atelectasis. No acute findings in the thorax. Qualifiers - * PATIENT BEING DISCHARGED WITH ANY OF THE FOLLOWING DIAGNOSIS: No
== END 2018-08-31 17:42 | disposition home or self-care (01) | DRG 189 ==
LOC: ER 10:39 → INTOOBSV 13:30 → EH 13:30 → 4W 16:45 → OBSVTOIN 08-30 14:11
PROVIDERS: ADMIT Internal Medicine; ATTEND Internal Medicine
DX: J96.01 Acute respiratory failure with hypoxia (principal); J13 Pneumonia due to Streptococcus pneumoniae; J44.1 Chronic obstructive pulmonary disease with (acute) exacerbation; J44.0 Chronic obstructive pulmonary disease with (acute) lower respiratory infection; I48.91 Unspecified atrial fibrillation; E78.5 Hyperlipidemia, unspecified; K21.9 Gastro-esophageal reflux disease without esophagitis; I10 Essential (primary) hypertension; M54.5 Low back pain; G89.29 Other chronic pain; M19.90 Unspecified osteoarthritis, unspecified site; F32.9 Major depressive disorder, single episode, unspecified; Z79.899 Other long term (current) drug therapy; Z85.3 Personal history of malignant neoplasm of breast; Z90.12 Acquired absence of left breast and nipple; Z85.118 Personal history of other malignant neoplasm of bronchus and lung; Z86.14 Personal history of Methicillin resistant Staphylococcus aureus infection; Z90.49 Acquired absence of other specified parts of digestive tract; Z87.891 Personal history of nicotine dependence; Z88.8 Allergy status to other drugs, medicaments and biological substances
CPT/HCPCS: 36415; 71045; 71250; 80053; 82550; 82553; 83880; 84484; 85025; 87040; 87804; 93005; 93010; 96374; 99291; G0378; J1652; J2543; J2920; J3475; J3490; J7620

== ENCOUNTER → 2018-10-13 | Outpatient (CLI) | payer MEDICARE, OTHER ==
[2018-10-13 10:54] LABS: ALANINE AMINOTRANSFERASE 23 U/L (9-52); ALBUMIN 4.3 g/dL (3.5-5.0); ALKALINE PHOSPHATASE 67 U/L (38-126); ANION GAP 8 (5-19); ASPARTATE AMINO TRANSFERASE 27 U/L (14-36); BILIRUBIN,DIRECT 0.3 mg/dL (0.0-0.4); BILIRUBIN,TOTAL 0.5 mg/dL (0.2-1.3); BLOOD UREA NITROGEN 19 mg/dL (7-20); CALCIUM 10.4 mg/dL (8.4-10.2); CARBON DIOXIDE 30 mmol/L (22-30); CHLORIDE 105 mmol/L (98-107); CHOLESTEROL 126.95 mg/dL (0-200); GLUCOSE 115 mg/dL (75-110); POTASSIUM 3.9 mmol/L (3.6-5.0); SODIUM 142.8 mmol/L (137-145); TOTAL PROTEIN 7.2 g/dL (6.3-8.2); TRIGLYCERIDES 132 mg/dL (<150)
[2018-10-13 11:05] LABS: DIRECT LDL 51 mg/dL (<100)
== END ==
LOC: OD 09:47
PROVIDERS: ATTEND Internal Medicine Nephrology
DX: I10 Essential (primary) hypertension (principal)
CPT/HCPCS: 36415; 80053; 80061; 82306

== ENCOUNTER → 2019-04-27 | Outpatient (CLI) | payer MEDICARE, OTHER ==
[2019-04-27 10:01] LABS: ABSOLUTE BASOPHILS # (AUTO) 0.1 10^3/uL (0.0-0.2); ABSOLUTE EOSINOPHILS # (AUTO) 0.3 10^3/uL (0.0-0.6); ABSOLUTE LYMPHOCYTES (AUTO) 1.7 10^3/uL (0.5-4.7); ABSOLUTE MONOCYTES (AUTO) 0.4 10^3/uL (0.1-1.4); ABSOLUTE NEUT (AUTO) 3.8 10^3/uL (1.7-8.2); BASOPHILS % (AUTO) 0.9 % (0-2); EOSINOPHILS % (AUTO) 5.2 % (0-6); HEMATOCRIT 36.3 % (36.0-47.0); HEMOGLOBIN 11.9 g/dL (12.0-15.5); LYMPHOCYTES % (AUTO) 27.7 % (13-45); MEAN CORPUSCULAR HEMOGLOBIN 27.9 pg (27.0-33.4); MEAN CORPUSCULAR HGB CONC 32.9 g/dL (32.0-36.0); MEAN CORPUSCULAR VOLUME 85 fl (80-97); MONOCYTES % (AUTO) 5.8 % (3-13); PLATELET COUNT 316 10^3/uL (150-450); RED BLOOD COUNT 4.28 10^6/uL (3.72-5.28); RED CELL DISTRIBUTION WIDTH 14.6 % (11.5-14.0); SEGMENTED NEUTROPHILS % (AUTO) 60.4 % (42-78); TOTAL CELLS COUNTED % (AUTO) 100 %; WHITE BLOOD COUNT 6.2 10^3/uL (4.0-10.5)
[2019-04-27 10:13] LABS: APPEARANCE,URINE CLEAR; BILIRUBIN,URINE NEGATIVE (NEGATIVE); COLOR,URINE STRAW; GLUCOSE, URINE NEGATIVE (NEGATIVE); KETONES,URINE NEGATIVE (NEGATIVE); LEUKOCYTE ESTERASE,URINE NEGATIVE (NEGATIVE); NITRITE,URINE NEGATIVE (NEGATIVE); PROTEIN,URINE NEGATIVE (NEGATIVE); URINE SPECIFIC GRAVITY 1.006; UROBILINOGEN,URINE NEGATIVE mg/dL (<2.0)
[2019-04-27 10:31] LABS: ALKALINE PHOSPHATASE 65 U/L (38-126); ANION GAP 8 (5-19); ASPARTATE AMINO TRANSFERASE 24 U/L (14-36); CALCIUM 9.9 mg/dL (8.4-10.2); CARBON DIOXIDE 30 mmol/L (22-30); CHLORIDE 100 mmol/L (98-107); GLUCOSE 109 mg/dL (75-110); POTASSIUM 5.3 mmol/L (3.6-5.0)
[2019-04-27 10:32] LABS: BILIRUBIN,DIRECT 0.2 mg/dL (0.0-0.4); BILIRUBIN,TOTAL 0.3 mg/dL (0.2-1.3); BLOOD UREA NITROGEN 26 mg/dL (7-20); CHOLESTEROL 113.24 mg/dL (0-200); TOTAL PROTEIN 6.9 g/dL (6.3-8.2); TRIGLYCERIDES 132 mg/dL (<150)
[2019-04-27 10:41] LABS: DIRECT LDL 44 mg/dL (<100)
== END ==
LOC: OD 08:51
PROVIDERS: ATTEND Internal Medicine Nephrology
DX: E55.9 Vitamin D deficiency, unspecified (principal); I10 Essential (primary) hypertension; E78.5 Hyperlipidemia, unspecified; R73.01 Impaired fasting glucose
CPT/HCPCS: 36415; 80053; 80061; 81001; 82306; 83036; 85025

== ENCOUNTER → 2019-05-04 | Outpatient (CLI) | payer MEDICARE, OTHER | LOC: OD 14:50 | PROVIDERS: ATTEND Internal Medicine Nephrology | DX: E87.5 Hyperkalemia (principal) | CPT/HCPCS: 36415; 84132 ==

== ENCOUNTER → 2019-05-25 | Outpatient (CLI) | payer MEDICARE, OTHER ==
--- NOTE | 2019-05-25 15:29 | RADIOLOGY REPORT (SQ) ---
EXAM DESCRIPTION: CHEST PA/LATERAL COMPLETED DATE/TIME: 05/25/2019 3:16 pm REASON FOR STUDY: COUGH;COPD COMPARISON: AP view of the chest from 08/29/2018. EXAM PARAMETERS: NUMBER OF VIEWS: two views TECHNIQUE: Digital Frontal and Lateral radiographic views of the chest acquired. RADIATION DOSE: NA LIMITATIONS: none FINDINGS: LUNGS AND PLEURA: Chronic bilateral interstitial opacities. The costophrenic sulci are bl unted. There is no superimposed consolidation, pleural effusion or pneumothorax. MEDIASTINUM AND HILAR STRUCTURES: Stable mediastinal and hilar contours. HEART AND VASCULAR STRUCTURES: Stable borderline cardiomegaly. BONES: Fracture deformity of the left posterior-lateral 7th rib, osteopenia, transpedicular fusion stinson rdware in the lumbar spine, and focal kyphotic angulation of the thoracic spine. HARDWARE: Surgical clips within the left breast. OTHER: No other finding. IMPRESSION: 1. COPD without a superimposed acute cardiopulmonary process. 2. Fracture deformity of the left posterior-lateral 7th rib - correlate with point tenderness. TECHNICAL DOCUMENTATION: JOB ID: [id number] [employer]- All Rights Reserved Reading location - IP/workstation name: [email or web address]
== END ==
LOC: OD 14:51
PROVIDERS: ATTEND Internal Medicine Nephrology
DX: J44.9 Chronic obstructive pulmonary disease, unspecified (principal); S22.32XA Fracture of one rib, left side, initial encounter for closed fracture; X58.XXXA Exposure to other specified factors, initial encounter; R05 Cough
CPT/HCPCS: 71046

== ENCOUNTER → 2020-02-02 | Outpatient (CLI) | payer MEDICARE, OTHER ==
[2020-02-02 09:35] LABS: ABSOLUTE BASOPHILS # (AUTO) 0.1 10^3/uL (0.0-0.2); ABSOLUTE EOSINOPHILS # (AUTO) 0.3 10^3/uL (0.0-0.6); ABSOLUTE LYMPHOCYTES (AUTO) 1.8 10^3/uL (0.5-4.7); ABSOLUTE MONOCYTES (AUTO) 0.4 10^3/uL (0.1-1.4); ABSOLUTE NEUT (AUTO) 3.6 10^3/uL (1.7-8.2); BASOPHILS % (AUTO) 0.8 % (0-2); EOSINOPHILS % (AUTO) 5.6 % (0-6); HEMATOCRIT 35.6 % (36.0-47.0); HEMOGLOBIN 11.6 g/dL (12.0-15.5); LYMPHOCYTES % (AUTO) 28.8 % (13-45); MEAN CORPUSCULAR HEMOGLOBIN 26.8 pg (27.0-33.4); MEAN CORPUSCULAR HGB CONC 32.6 g/dL (32.0-36.0); MEAN CORPUSCULAR VOLUME 82 fl (80-97); MONOCYTES % (AUTO) 6.8 % (3-13); PLATELET COUNT 278 10^3/uL (150-450); RED BLOOD COUNT 4.33 10^6/uL (3.72-5.28); RED CELL DISTRIBUTION WIDTH 17.2 % (11.5-14.0); TOTAL CELLS COUNTED % (AUTO) 100 %; WHITE BLOOD COUNT 6.2 10^3/uL (4.0-10.5)
[2020-02-02 09:45] LABS: APPEARANCE,URINE CLEAR; BILIRUBIN,URINE NEGATIVE (NEGATIVE); COLOR,URINE STRAW; GLUCOSE, URINE NEGATIVE (NEGATIVE); KETONES,URINE NEGATIVE (NEGATIVE); LEUKOCYTE ESTERASE,URINE NEGATIVE (NEGATIVE); NITRITE,URINE NEGATIVE (NEGATIVE); PROTEIN,URINE NEGATIVE (NEGATIVE); URINE SPECIFIC GRAVITY 1.005; UROBILINOGEN,URINE NEGATIVE mg/dL (<2.0)
[2020-02-02 09:56] LABS: ALBUMIN 4.2 g/dL (3.5-5.0); ALKALINE PHOSPHATASE 61 U/L (38-126); ANION GAP 5 (5-19); ASPARTATE AMINO TRANSFERASE 27 U/L (14-36); BILIRUBIN,TOTAL 0.3 mg/dL (0.2-1.3); BLOOD UREA NITROGEN 25 mg/dL (7-20); CALCIUM 9.7 mg/dL (8.4-10.2); CARBON DIOXIDE 32 mmol/L (22-30); CHLORIDE 103 mmol/L (98-107); CHOLESTEROL 110.13 mg/dL (0-200); GLUCOSE 116 mg/dL (75-110); POTASSIUM 4.7 mmol/L (3.6-5.0); TOTAL PROTEIN 7.1 g/dL (6.3-8.2); TRIGLYCERIDES 106 mg/dL (<150)
[2020-02-02 10:07] LABS: DIRECT LDL 50 mg/dL (<100)
== END ==
LOC: OD 09:07
PROVIDERS: ATTEND Internal Medicine Nephrology
DX: I10 Essential (primary) hypertension (principal); E78.5 Hyperlipidemia, unspecified; D64.9 Anemia, unspecified; E55.9 Vitamin D deficiency, unspecified; R73.01 Impaired fasting glucose
CPT/HCPCS: 36415; 80053; 80061; 81001; 82306; 83036; 85025

== ENCOUNTER 2020-06-23 11:41 | Inpatient (IN) | payer MEDICARE, OTHER ==
[2020-06-23] MEDS ORDERED: METHYLPREDNISOLONE INJ 125 MG/2 ML SDV IV ONE (12:06)
[2020-06-23] MEDS ORDERED: IPRATROPIUM/ALBUTEROL 0.5-2.5 MG/3 ML AMPUL NEB ONE (12:10)
[2020-06-23 12:11] LABS: VENOUS BLOOD BASE EXCESS 7.3 mmol/L; VENOUS BLOOD HCO3 32.7 mmol/L (20-32); VENOUS BLOOD PH 7.44 (7.30-7.42)
[2020-06-23 12:12] LABS: ABSOLUTE LYMPHOCYTES (AUTO) 1.7 10^3/uL (0.5-4.7); ABSOLUTE MONOCYTES (AUTO) 0.4 10^3/uL (0.1-1.4); ABSOLUTE NEUT (AUTO) 3.4 10^3/uL (1.7-8.2); BASOPHILS % (AUTO) 0.4 % (0-2); EOSINOPHILS % (AUTO) 0.2 % (0-6); HEMATOCRIT 34.8 % (36.0-47.0); HEMOGLOBIN 11.5 g/dL (12.0-15.5); LYMPHOCYTES % (AUTO) 30.4 % (13-45); MEAN CORPUSCULAR HEMOGLOBIN 27.5 pg (27.0-33.4); MEAN CORPUSCULAR VOLUME 83 fl (80-97); MONOCYTES % (AUTO) 6.8 % (3-13); PLATELET COUNT 205 10^3/uL (150-450); RED BLOOD COUNT 4.17 10^6/uL (3.72-5.28); RED CELL DISTRIBUTION WIDTH 14.4 % (11.5-14.0); SEGMENTED NEUTROPHILS % (AUTO) 62.2 % (42-78); TOTAL CELLS COUNTED % (AUTO) 100 %; WHITE BLOOD COUNT 5.5 10^3/uL (4.0-10.5)
--- NOTE | 2020-06-23 12:28 | RADIOLOGY REPORT (SQ) ---
EXAM DESCRIPTION: CHEST SINGLE VIEW IMAGES COMPLETED DATE/TIME: 06/23/2020 12:11 pm REASON FOR STUDY: bed 6 sepsis protocol COMPARISON: Chest radiographs 05/25/2019. CT chest 08/29/2018 EXAM PARAMETERS: NUMBER OF VIEWS: One view. TECHNIQUE: Single frontal radiographic view of the chest acquired. RADIATION DOSE: NA LIMITATIONS: None. FINDINGS: LUNGS AND PLEURA: Hyperinflated lungs. Postsurgical changes to the left upper lung. Cutting Inspector leeroy bilateral lower lobe interstitial opacities. New patchy left lower lobe airspace opacities. MEDIASTINUM AND HILAR STRUCTURES: No masses. Contour normal. HEART AND VASCULAR STRUCTURES: Heart normal in size. Normal vasculature. BONES: Partially visualized lower thoracic fusion hardware. HARDWARE: None in the chest. OTHER: No other significant finding. IMPRESSION: New patchy left lower airspace opacities concerning for pneumonia. TECHNICAL DOCUMENTATION: JOB ID: [id number] [employer]- All Rights Reserved Reading location - IP/workstation name: [email or web address]
[2020-06-23 12:32] LABS: ALBUMIN 3.8 g/dL (3.5-5.0); ALKALINE PHOSPHATASE 55 U/L (38-126); ANION GAP 7 (5-19); ASPARTATE AMINO TRANSFERASE 72 U/L (14-36); BILIRUBIN,DIRECT 0.1 mg/dL (0.0-0.4); BILIRUBIN,TOTAL 0.3 mg/dL (0.2-1.3); BLOOD UREA NITROGEN 18 mg/dL (7-20); C-REACTIVE PROTEIN 42.2 mg/L (<10.0); CARBON DIOXIDE 35 mmol/L (22-30); CHLORIDE 97 mmol/L (98-107); CREATINE KINASE 546 U/L (30-135); GLUCOSE 118 mg/dL (75-110); TOTAL PROTEIN 6.8 g/dL (6.3-8.2)
[2020-06-23 12:36] LABS: INTERNATIONAL RATION (INR) 0.94; PROTHROMBIN TIME 12.8 SEC (11.4-15.4)
[2020-06-23 12:38] LABS: D-DIMER 0.74 ug/mL (0.00-0.50)
--- NOTE | 2020-06-23 13:06 | ER Document Report ---
Entered by KONSTANTIN SANCHEZ SCRIBE 06/23/20 1159 Acting as scribe for:ROSSANA CONTEH MD ED General - General Stated Complaint: SHORTNESS OF BREATH Time Seen by Provider: 06/23/20 11:48 Mode of Arrival: Ambulatory Information source: Patient Notes: This 80 year old female patient presents to the emergency department today with complaints of shortness of breath. Family reported to EMS that when she woke up today on her normal 4L she had an oxygen saturation of 69%, it was increased to 5L and when EMS arrive she had a saturation of 82%, after 1 A&A treatment and 125 solumedrol her saturation got up to 93%. She reports she has not had any energy for the last couple of days. EMS tested the patient and her for Covid and they both came back positive. She has had a cough that is nonproductive for the last 2 days. TRAVEL OUTSIDE OF THE [place] IN LAST 30 DAYS: No - Related Data Allergies/Adverse Reactions: hydralazine [Hydralazine] Allergy (Severe, Verified 06/03/15 14:56) short of breath ceftriaxone [From Rocephin] Allergy (Intermediate, Verified 04/11/16 21:37) Flushing phenylephrine [Phenylephrine] Allergy (Intermediate, Verified 07/31/14 20:42) elevates blood pressure amlodipine [Amlodipine] Adverse Reaction (Intermediate, Verified 07/31/14 20:42) legs and feet swell fluconazole [Fluconazole] Adverse Reaction (Intermediate, Verified 10/18/16 13:06) loss appetite, weight loss gabapentin [From Neurontin] Adverse Reaction (Intermediate, Verified 10/18/16 13:06) leg and feet swells lisinopril [Lisinopril] Adverse Reaction (Intermediate, Verified 10/18/16 13:06) coughing, legs swell naproxen [Naproxen] Adverse Reaction (Intermediate, Verified 10/18/16 13:06) upset stomach nitrofurantoin macrocrystalline [From Macrodantin] Adverse Reaction (Intermediate, Verified 10/18/16 13:06) feet and legs swell raloxifene HCl [From Evista] Adverse Reaction (Intermediate, Verified 10/18/16 13:06) appetite loss, weight loss sulfamethoxazole [From Bactrim] Adverse Reaction (Intermediate, Verified 10/18/16 13:06) chest tightens, persistent cough tamoxifen [Tamoxifen] Adverse Reaction (Intermediate, Verified 10/18/16 13:06) nausea, depression, weight loss trimethoprim [From Bactrim] Adverse Reaction (Intermediate, Verified 10/18/16 13:06) chest tightens, persistent cough bupropion HCl [From Wellbutrin] Adverse Reaction (Mild, Verified 10/18/16 13:06) upset stomach escitalopram oxalate [From Lexapro] Adverse Reaction (Mild, Verified 10/18/16 13:06) shakes all over gemfibrozil [From Lopid] Adverse Reaction (Mild, Verified 10/18/16 13:06) upset stomach Past Medical History - General Information source: Patient - Social History Smoking Status: Former Smoker Cigarette use (# per day): No Frequency of alcohol use: None Drug Abuse: None Lives with: Spouse/Significant other Family History: Reviewed & Not Pertinent, CAD - Both parents had massive MIs, one from the [place] the other in a car wreck, COPD, CVA, Hypertension - Past Medical History Cardiac Medical History: Reports: Hx Atrial Fibrillation - not on blood thinners, Hx Hypercholesterolemia, Hx Hypertension Pulmonary Medical History: Reports: Hx Asthma, Hx Bronchitis, Hx COPD, Hx Pneumonia, Hx Sleep Apnea Malignancy Medical History: Reports: Hx Breast Cancer - Bilaterally., Hx Lung Cancer - Hx Stage I Lung CA (left lung)., Hx Skin Cancer - Squamous cell cancer removed GI Medical History: Reports: Hx Gastroesophageal Reflux Disease Musculoskeletal Medical History: Reports Hx Arthritis - osteoarthritis Psychiatric Medical History: Reports: Hx Anxiety, Hx Depression Infectious Medical History: Reports: Hx MRSA - Lungs/mouth Past Surgical History: Reports: Hx Breast Surgery - double mastectomy, lymph nodes removed from left side., Hx Cholecystectomy, Hx Herniorrhaphy, Hx Mastectomy - bilaterally, Hx Orthopedic Surgery - back x2, Hx Tonsillectomy - Immunizations Hx Diphtheria, Pertussis, Tetanus Vaccination: Yes Hx Pneumococcal Vaccination: 01/15/11 Review of Systems - Review of Systems Constitutional: No symptoms reported EENT: No symptoms reported Cardiovascular: No symptoms reported Respiratory: See HPI, Cough, Short of breath Gastrointestinal: No symptoms reported Genitourinary: No symptoms reported Female Genitourinary: No symptoms reported Musculoskeletal: No symptoms reported Skin: No symptoms reported Hematologic/Lymphatic: No symptoms reported Neurological/Psychological: No symptoms reported -: Yes All other systems reviewed and negative Physical Exam - Vital signs Vitals: Resp Pulse Ox 22 H 97 06/23/20 11:44 06/23/20 11:44 - Notes Notes: Physical Exam: General: Alert, appears short of breath. HEENT: Normocephalic. Atraumatic. PERRL. Extraocular movements intact. Oropharynx clear. Neck: Supple. Non-tender. Respiratory: Moderate respiratory distress. Wheezing and rhonchi bilaterally. Cardiovascular: Borderline tachycardia, regular rhythm. Abdominal: Protuberant abdomen. Non-tender. No distension. Normal Bowel Sounds. Back: No gross abnormalities. Extremities: Moves all four extremities. Upper extremities: Normal inspection. Normal ROM. Lower extremities: Normal inspection. No edema. Normal ROM. Neurological: Normal cognition. AAOx4. Normal speech. Psychological: Normal affect. Normal Mood. Skin: Warm. Dry. Normal color. Course - Vital Signs Vital signs: Temp Pulse Resp BP Pulse Ox 97.7 F 90 18 194/71 H 97 06/23/20 15:53 06/23/20 15:53 06/23/20 15:40 06/23/20 15:53 06/23/20 15:53 - Laboratory Results Result Diagrams: 06/23/20 11:49 06/23/20 11:49 Laboratory Results Interpreted: 06/23/20 06/23/20 06/23/20 11:49 11:49 11:49 Hgb 11.5 L Hct 34.8 L RDW 14.4 H D-Dimer 0.74 H VBG pH VBG HCO3 Chloride 97 L Carbon Dioxide 35 H Glucose 118 H AST 72 H Creatine Kinase 546 H C-Reactive Protein 42.2 H Urine Protein Urine Ascorbic Acid 06/23/20 06/23/20 11:49 13:47 Hgb Hct RDW D-Dimer VBG pH 7.44 H VBG HCO3 32.7 H Chloride Carbon Dioxide Glucose AST Creatine Kinase C-Reactive Protein Urine Protein 30 H Urine Ascorbic Acid 20 H Critical Laboratory Results Reviewed: No Critical Results - Radiology Results Critical Radiology Results Reviewed: Yes Attending or Supervising Physician who Reviewed Radiology: ROSSANA CONTEH opacity - EKG Interpretation by Ri EKG shows normal: Sinus rhythm, [place], Intervals, ST-T Waves. abnormal: QRS Complexes - Abnormal R progression Rate: Normal - 82 Rhythm: NSR [place]/QRS: Right axis deviation When compared to previous EKG there are: No significant change Critical Care Note - Critical Care Note Total time excluding time spent on procedures (mins): 30 Comments: At least 30 minutes spent evaluating patient, reviewing past and current lab work x-rays EKGs. Reevaluating the patient to see how she responded to treatments. Discussing the case with the hospitalist service to get the patient admitted to the hospital. Discharge - Discharge Clinical Impression: COPD with exacerbation, Pneumonia due to 2019 novel coronavirus, Hypoxemia Condition: Good Disposition: ADMITTED INPATIENT Admitting Provider: Alberto (Hospitalist) Unit Admitted: IMCU I personally performed the services described in the documentation, reviewed and edited the documentation which was dictated to the scribe in my presence, and it accurately records my words and actions.
[2020-06-23] MEDS ORDERED: NORMAL SALINE 1000 ML 1,000 ML IV ONE (13:22)
[2020-06-23] MEDS ORDERED: DOXYCYCLINE HYCLATE INJ 100 MG VIAL IV SCH (13:45)
[2020-06-23] MEDS ORDERED: ONDANSETRON HCL INJ/PF 4 MG/2 ML SDV IV PRN (14:02)
[2020-06-23] MEDS ORDERED: ONDANSETRON 4 MG TAB.RAPDIS PO PRN (14:02)
[2020-06-23 14:12] LABS: APPEARANCE,URINE SLIGHTLY-CLOUDY; BILIRUBIN,URINE NEGATIVE (NEGATIVE); COLOR,URINE YELLOW; GLUCOSE, URINE NEGATIVE (NEGATIVE); KETONES,URINE NEGATIVE (NEGATIVE); LEUKOCYTE ESTERASE,URINE NEGATIVE (NEGATIVE); NITRITE,URINE NEGATIVE (NEGATIVE); PROTEIN,URINE 30 mg/dL (NEGATIVE); URINE SPECIFIC GRAVITY 1.005; UROBILINOGEN,URINE NEGATIVE mg/dL (<2.0)
--- NOTE | 2020-06-23 15:54 | RADIOLOGY REPORT (SQ) ---
EXAM DESCRIPTION: CTA CHEST IMAGES COMPLETED DATE/TIME: 06/23/2020 2:35 pm REASON FOR STUDY: COVID pneumonia, prior lung cancer COMPARISON: CT chest 08/02/2014 TECHNIQUE: CT scan of the chest performed using helical scanning technique with dynamic intravenous contrast injection. Images reviewed with lung, soft tissue and bone windows. Reconstructed coronal and sagittal MPR images reviewed. Additional 3 dimensional post-processing performed to develop Maximal Intensity Projection images (AR P). All images stored on PACS. All CT scanners at this facility use dose modulation, iterative reconstruction, and/or weight based d osing when appropriate to reduce radiation dose to as low as reasonably achievable (ALARA). [facility]: Dose Right [facility]: CareDose [facility]: Dose Right [facility]: Teradose 4D [facility]: BalconyTV CONTRAST TYPE AND DOSE: contrast/concentration: Isovue 350.00 mmol/ml; Total Contrast Delivered: 75. 0 ml; Total Saline Delivered: 59.4 ml 75 mL Isovue 350- low osmolar. Contrast bolus optimized for the pulmonary arteries. Not diagnostic for the aorta. RENAL FUNCTION: BUN 18, creatinine 0.64 RADIATION DOSE: CT Rad equipment meets quality standard of care and radiation dose reduction techniq ues were employed. CTDIvol: 6.6 - 14.4 mGy. DLP: 509 mGy-cm. . LIMITATIONS: Motion artifact. FINDINGS: LUNGS AND PLEURA: Severe emphysema and chronic interstitial thickening. Increased conspic uity of right apical spiculated nodules. Scattered peripheral ground-glass opacities, most prevalent within the left lower lobe. AORTA AND GREAT VESSELS: Calcified atherosclerotic changes of a tortuous thoracic aorta. No aneurysm . Contrast bolus not optimized for the aorta. HEART: No pericardial effusion. Coronary artery calcifications. PULMONARY ARTERIES: No emboli visualized in the main pulmonary arteries or the segmental branches. HILAR AND MEDIASTINAL STRUCTURES: Mediastinal lymphadenopathy. HARDWARE: None in the chest. UPPER ABDOMEN: No significant findings. Limited exam. THYROID AND OTHER SOFT TISSUES: No masses. No adenopathy. BONES: No acute finding. 3D MIPS: Confirm above findings. OTHER: No other significant finding. IMPRESSION: No pulmonary arterial embolism. Scattered peripheral ground-glass opacities compatible with an atypical infection, particularly COVID -19. Chronic background lung disease. Increased conspicuity of right apical spiculated nodules and new mediastinal lymphadenopathy, finding s concerning for neoplasia/metastasis. COMMENT: Quality ID # [id number]: Final reports with documentation of one or more dose reduction techniques (e.g., Automated exposure control, adjustment of the mA and/or kV according to patient size, use of iterative reconstruction technique) TECHNICAL DOCUMENTATION: JOB ID: [id number] 2010 [employer]- All Rights Reserved Reading location - IP/workstation name: [email or web address]
[2020-06-23] MEDS: DOXYCYCLINE HYCLATE 100 MG in DEXTROSE 5%-WATER 250 ML IV SCH (17:54)
[2020-06-23] MEDS: ASCORBIC ACID 500 MG TABLET PO SCH (17:56)
[2020-06-23] MEDS: IVERMECTIN 3 MG TABLET PO SCH (17:56)
[2020-06-23] MEDS: ENOXAPARIN SODIUM INJ 60 MG/0.6 ML DISP.SYRIN SUBCUT SCH (17:56)
[2020-06-23] MEDS: ZINC SULFATE 220 MG CAPSULE PO SCH (17:56)
[2020-06-23] MEDS ORDERED: THIAMINE HCL 200 MG in NORMAL SALINE 100 ML IV SCH (18:00)
--- NOTE | 2020-06-23 18:46 | PDOC H&P ---
History of Present Illness Admission Date/PCP: 06/23/20 14:01 VERN WESTBROOK MD History of Present Illness: RAHUL MERIDA is a 80 year old female with past medical history significant for severe COPD on chronic 4 L nasal cannula, HTN, HLD, T2DM not on treatment, history of lung cancer status post partial lobectomy, history of breast cancer status post lumpectomy who presents to the ED with a 2-day history of progressive shortness of breath/BROWN/productive cough/chills/malaise/body aches. Patient and her called EMS for her oxygen saturation dropping into the mid 60s and when they arrived they performed rapid Covid test on the patient and her and both were positive. Patient had increased her home oxygen to 5 L in order to maintain adequate saturation in the low 90s. Patient follows with local pulmonology and Dr. Barclay is her PCP. Patient denies any fevers. On admission, patient's laboratory findings reveal elevated D-dimer and CRP consistent with Covid infection. CTPA showed no pulmonary embolism but did show multifocal pneumonia consistent with COVID-[address] also showed more conspicuous appearance of previously noted lung nodules and mediastinal lymphadenopathy. I discussed the findings with the patient in detail. Patient admitted to Covid isolation unit and started on appropriate available COVID-19 therapy. Past Medical History Cardiac Medical History: Reports: Atrial Fibrillation - not on blood thinners, Hyperlipidema, Hypertension Denies: Coronary Artery Disease, Myocardial Infarction Pulmonary Medical History: Reports: Asthma, Bronchitis, Chronic Obstructive Pulmonary Disease (COPD), Pneumonia, Sleep Apnea Neurological Medical History: Denies: Seizures Malignancy Medical History: Reports: Breast Cancer - Bilaterally., Lung Cancer - Hx Stage I Lung CA (left lung)., Skin Cancer - Squamous cell cancer removed GI Medical History: Reports: Gastroesophageal Reflux Disease Musculoskeltal Medical History: Reports: Arthritis - osteoarthritis Psychiatric Medical History: Reports: Depression Hematology: Reports: Anemia - hx Infectious Medical History: 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 Past Surgical History Past Surgical History: Reports: Cholecystectomy, Herniorrhaphy, Mastectomy - bilaterally, Orthopedic Surgery - back x2, Tonsillectomy Social History Information Source: Patient, Emergency Med Personnel Lives with: Spouse/Significant other Smoking Status: Former Smoker Electronic Cigarette use?: No Last Time Smoked: 2013 Frequency of Alcohol Use: None Hx Recreational Drug Use: No Drugs: None Hx Prescription Drug Abuse: No - Advance Directive Resuscitation Status: Full Code Surrogate healthcare decision maker:: Admitting diagnosis: COVID-19 pneumonia All aspects of code status discussed with patient/POA including cardioversion, chest compressions, and intubation and the patient/POA indicated they wish to be full code MPOA is designated as: Shauna Brizuela Time spent: Greater than 16 minutes Family History Family History: Reviewed & Not Pertinent, CAD - Both parents had massive MIs, one from the [place] the other in a car wreck, COPD, CVA, Hypertension Parental Family History Reviewed: Yes Children Family History Reviewed: Yes Sibling(s) Family History Reviewed.: Yes Medication/Allergy Home Medications: Amitriptyline HCl [Elavil 25 mg Tablet] 25 mg PO QHS 08/29/18 Buspirone HCl [Buspar 5 mg Tablet] 5 mg PO DAILY 08/29/18 Cholecalciferol (Vitamin D3) [Vitamin D3 1000 Unit Tablet] 1,000 unit PO DAILY 08/29/18 Clonidine HCl [Catapres 0.2 mg Tablet] 0.2 mg PO Q12 08/29/18 Docusate Sodium [Colace 100 mg Capsule] 100 mg PO BIDP PRN 08/29/18 Fenofibrate,Micronized [Fenofibrate] 134 mg PO DAILY 08/29/18 Fentanyl [Duragesic 25 mcg/hr Transdermal Patch] 1 each TD Q3D 08/29/18 Furosemide [Lasix 20 mg Tablet] 40 mg PO BID 08/29/18 Montelukast Sodium [Singulair 10 mg Tablet] 10 mg PO QPM 08/29/18 [place]-3 Acid Ethyl Esters [Lovaza 1 gm Capsule] 1 gm PO BID 08/29/18 Potassium Chloride 20 meq PO DAILY 08/29/18 Pregabalin [Lyrica 50 mg Capsule] 50 mg PO DAILY 08/29/18 Rosuvastatin Calcium [Crestor 20 mg Tablet] 20 mg PO QHS 08/29/18 Glycopyrrolate/Formoterol Fum [Bevespi Aerosphere Inhaler] 2 puff IH BID 06/23/20 Umeclidinium Brm/Vilanterol Tr [Anoro Ellipta 62.5-25 Mcg INH] 1 each IH BID 06/23/20 Allergies/Adverse Reactions: hydralazine [Hydralazine] Allergy (Severe, Verified 06/03/15 14:56) short of breath ceftriaxone [From Rocephin] Allergy (Intermediate, Verified 04/11/16 21:37) Flushing phenylephrine [Phenylephrine] Allergy (Intermediate, Verified 07/31/14 20:42) elevates blood pressure amlodipine [Amlodipine] Adverse Reaction (Intermediate, Verified 07/31/14 20:42) legs and feet swell fluconazole [Fluconazole] Adverse Reaction (Intermediate, Verified 10/18/16 13:06) loss appetite, weight loss gabapentin [From Neurontin] Adverse Reaction (Intermediate, Verified 10/18/16 13:06) leg and feet swells lisinopril [Lisinopril] Adverse Reaction (Intermediate, Verified 10/18/16 13:06) coughing, legs swell naproxen [Naproxen] Adverse Reaction (Intermediate, Verified 10/18/16 13:06) upset stomach nitrofurantoin macrocrystalline [From Macrodantin] Adverse Reaction (Intermediate, Verified 10/18/16 13:06) feet and legs swell raloxifene HCl [From Evista] Adverse Reaction (Intermediate, Verified 10/18/16 13:06) appetite loss, weight loss sulfamethoxazole [From Bactrim] Adverse Reaction (Intermediate, Verified 10/18/16 13:06) chest tightens, persistent cough tamoxifen [Tamoxifen] Adverse Reaction (Intermediate, Verified 10/18/16 13:06) nausea, depression, weight loss trimethoprim [From Bactrim] Adverse Reaction (Intermediate, Verified 10/18/16 13:06) chest tightens, persistent cough bupropion HCl [From Wellbutrin] Adverse Reaction (Mild, Verified 10/18/16 13:06) upset stomach escitalopram oxalate [From Lexapro] Adverse Reaction (Mild, Verified 10/18/16 13:06) shakes all over gemfibrozil [From Lopid] Adverse Reaction (Mild, Verified 10/18/16 13:06) upset stomach Review of Systems All systems: reviewed and no additional remarkable complaints except as stated - Per HPI otherwise negative Physical Exam Vital Signs: Temp Pulse Resp BP Pulse Ox 28 H 142/54 H 93 06/23/20 15:00 06/23/20 14:01 06/23/20 15:00 Intake & Output 06/22/20 06/23/20 06/24/20 06:59 06:59 06:59 Intake Total 1000 Balance 1000 Weight 64.7 kg Exam: General appearance: PRESENT: no acute distress, well-developed, well-nourished, acutely ill-appearing elderly white female Head exam: PRESENT: atraumatic, normocephalic Eye exam: PRESENT: conjunctiva pink. ABSENT: scleral icterus Mouth exam: PRESENT: moist Respiratory exam: PRESENT: Scant fine rhonchi bilaterally ABSENT: rales, wheezes Cardiovascular exam: PRESENT: RRR. ABSENT: diastolic murmur, rubs, systolic murmur GI/Abdominal exam: PRESENT: normal bowel sounds, soft. ABSENT: distended, guarding, mass, organolmegaly, rebound, tenderness Neurological exam: PRESENT: alert, awake, oriented to person, oriented to place, oriented to time, oriented to situation Psychiatric exam: PRESENT: appropriate affect, normal mood Skin exam: PRESENT: dry, intact, warm Results Laboratory Results: 06/23/20 11:49 06/23/20 11:49 06/23/20 06/23/20 06/23/20 11:49 11:49 11:49 WBC 5.5 RBC 4.17 Hgb 11.5 L Hct 34.8 L MCV 83 MCH 27.5 MCHC 33.0 RDW 14.4 H Plt Count 205 Seg Neutrophils % 62.2 VBG pH 7.44 H VBG pCO2 49.0 VBG HCO3 32.7 H VBG Base Excess 7.3 Sodium 139.3 Potassium 4.0 Chloride 97 L Carbon Dioxide 35 H Anion Gap 7 BUN 18 Creatinine 0.64 Est GFR ( Amer) > 60 Glucose 118 H Lactic Acid Calcium 10.0 Ferritin 133.00 Total Bilirubin 0.3 AST 72 H Alkaline Phosphatase 55 C-Reactive Protein 42.2 H Total Protein 6.8 Albumin 3.8 Urine Color Urine Appearance Urine pH Ur Specific [place] Urine Protein Urine Glucose (UA) Urine Ketones Urine Blood Urine Nitrite Ur Leukocyte Esterase Urine WBC (Auto) Urine RBC (Auto) 06/23/20 06/23/20 06/23/20 11:49 13:47 14:55 WBC RBC Hgb Hct MCV MCH MCHC RDW Plt Count Seg Neutrophils % VBG pH VBG pCO2 VBG HCO3 VBG Base Excess Sodium Potassium Chloride Carbon Dioxide Anion Gap BUN Creatinine Est GFR ( Amer) Glucose Lactic Acid 1.4 0.9 Calcium Ferritin Total Bilirubin AST Alkaline Phosphatase C-Reactive Protein Total Protein Albumin Urine Color YELLOW Urine Appearance SLIGHTLY-CLOUDY Urine pH 8.0 Ur Specific [place] 1.005 Urine Protein 30 H Urine Glucose (UA) NEGATIVE Urine Ketones NEGATIVE Urine Blood NEGATIVE Urine Nitrite NEGATIVE Ur Leukocyte Esterase NEGATIVE Urine WBC (Auto) 0 Urine RBC (Auto) 0 06/23/20 17:55 WBC RBC Hgb Hct MCV MCH MCHC RDW Plt Count Seg Neutrophils % VBG pH VBG pCO2 VBG HCO3 VBG Base Excess Sodium Potassium Chloride Carbon Dioxide Anion Gap BUN Creatinine Est GFR ( Amer) Glucose Lactic Acid 1.7 Calcium Ferritin Total Bilirubin AST Alkaline Phosphatase C-Reactive Protein Total Protein Albumin Urine Color Urine Appearance Urine pH Ur Specific [place] Urine Protein Urine Glucose (UA) Urine Ketones Urine Blood Urine Nitrite Ur Leukocyte Esterase Urine WBC (Auto) Urine RBC (Auto) 06/23/20 06/23/20 11:49 11:49 Creatine Kinase 546 H Troponin I < 0.012 Impressions: Chest X-Ray 06/23/20 11:44 IMPRESSION: New patchy left lower airspace opacities concerning for pneumonia. Chest/Abdomen CTA 06/23/20 13:21 IMPRESSION: No pulmonary arterial embolism. Scattered peripheral ground-glass opacities compatible with an atypical infection, particularly COVID-19. Chronic background lung disease. Increased conspicuity of right apical spiculated nodules and new mediastinal lymphadenopathy, findings concerning for neoplasia/metastasis. Assessment and Plan - Diagnosis (1) Pneumonia due to COVID-19 virus Is this a current diagnosis for this admission?: Yes Plan: 2 days progressive respiratory symptoms prior to admission, positive rapid Covid test done by EMS, has been positive as well -Symptoms/history consistent with covid-19 infection -Covid-19 test: Positive -CXR showed: Left lower lobe infiltrate -CTPA showed: Negative for PE, positive for multifocal pneumonia consistent with COVID-19 -standard of care vitamin supplements: zinc, ascorbic acid, vitamin d, melatonin -maintain magnesium of 2 mg/dL or higher -Current medical literature recommends against the use of remdesivir, plaquenil, and convalescent plasma -supplemental oxygen and BiPAP/CPAP as needed -prn combivent/nebs as able -do not hold anticoagulation unless actively bleeding or platelet count <50 -close monitoring for acute respiratory decline requiring ICU transfer and intubation -ivermectin/doxycycline combination therapy (2) Acute on chronic respiratory failure with hypoxemia Is this a current diagnosis for this admission?: Yes Plan: Due to COVID-19 pneumonia and COPD as above Treat underlying cause Supplemental oxygen and positive pressure support as needed Baseline oxygen requirement is 4 L nasal cannula (3) T2DM (type 2 diabetes mellitus) Qualifiers: Diabetes mellitus mcc insulin use: without mcc use Diabetes mellitus complication status: without complication Qualified Code(s): E11.9 - Type 2 diabetes mellitus without complications Is this a current diagnosis for this admission?: Yes Plan: Diet controlled per patient (4) History of lung cancer Is this a current diagnosis for this admission?: Yes Plan: Status post lobectomy CT showed possible progression of lung nodules, needs follow-up with pulmonology, discussed with patient (5) Acute exacerbation of chronic obstructive pulmonary disease (COPD) Is this a current diagnosis for this admission?: Yes Plan: -acute COPD exacerbation -Supplemental O2 to maintain sat of 89-94% -duonebs -steroids -abx indicated only if concomitant bacterial pneumonia is also suspected -bronchial hygiene -consider pumonary rehab referral at [place] -no smoking (6) History of breast cancer Is this a current diagnosis for this admission?: Yes Plan: Breast cancer treated with lumpectomy per patient, denies any recurrence (7) Hyperlipidemia Qualifiers: Hyperlipidemia type: unspecified Qualified Code(s): E78.5 - Hyperlipidemia, unspecified Is this a current diagnosis for this admission?: Yes Plan: Diet controlled per patient (8) Hypertension Qualifiers: Hypertension type: unspecified secondary hypertension Qualified Code(s): I15.9 - Secondary hypertension, unspecified Is this a current diagnosis for this admission?: Yes Plan: Controlled - Time Time Spent with patient: 35 or more minutes Medications reviewed and adjusted accordingly: Yes Anticipated Discharge Disposition: Intermediate Facility Anticipated Discharge Timeframe: within 72 hours - Inpatient Certification Based on my medical assessment, after consideration of the patient's comorbidities, presenting symptoms, or acuity I expect that the services needed warrant INPATIENT care.: Yes I certify that my determination is in accordance with my understanding of Medicare's requirements for reasonable and necessary INPATIENT services [42 CFR 412.3e].: Yes Medical Necessity: Significant Comorbidiites Make Outpatient Treatment Too Risky, Need Close Monitoring Due to Risk of Patient Decompensation, Need for Nebulizer Therapy and Monitoring of Response, Need for IV Antibiotics, Risk of Complication if Not Cared For in Hospital, Risk of Diagnosis Which Will Require Inpatient Eval/Care/Monitoring
[2020-06-23] MEDS: IPRATROPIUM/ALBUTEROL 0.5-2.5 MG/3 ML AMPUL NEB PRN (20:40)
[2020-06-23] MEDS ORDERED: THIAMINE HCL INJ 200 MG/2 ML VIAL ONE (21:28)
[2020-06-23] MEDS: METHYLPREDNISOLONE INJ 40 MG/1 ML SDV IV SCH (21:39)
[2020-06-23] MEDS ORDERED: AMITRIPTYLINE HCL 25 MG TABLET PO ONE (22:30)
[2020-06-23] MEDS ORDERED: CLONIDINE HCL 0.2 MG TABLET PO ONE (22:30)
[2020-06-23] MEDS ORDERED: MONTELUKAST SODIUM 10 MG TABLET PO ONE (22:30)
[2020-06-23] MEDS ORDERED: ATORVASTATIN CALCIUM 40 MG TABLET PO ONE (22:30)
[2020-06-23] MEDS: HYDROCODONE/ACETAMINOPHEN 7.5-325 MG TABLET PO PRN (22:42)
--- NOTE | 2020-06-24 00:18 | EKG REPORT ---
SEVERITY:- ABNORMAL ECG - SINUS RHYTHM BORDERLINE RIGHT AXIS DEVIATION ABNRM R PROG, CONSIDER ASMI OR LEAD PLACEMENT : Confirmed by: Shelly Tovar 24-Jun-2020 00:16:58
[2020-06-24] MEDS: IPRATROPIUM/ALBUTEROL 0.5-2.5 MG/3 ML AMPUL NEB PRN (05:02)
[2020-06-24 06:17] LABS: HEMATOCRIT 32.1 % (36.0-47.0); HEMOGLOBIN 10.6 g/dL (12.0-15.5); MEAN CORPUSCULAR HEMOGLOBIN 27.5 pg (27.0-33.4); MEAN CORPUSCULAR VOLUME 84 fl (80-97); PLATELET COUNT 190 10^3/uL (150-450); RED BLOOD COUNT 3.84 10^6/uL (3.72-5.28); RED CELL DISTRIBUTION WIDTH 14.3 % (11.5-14.0); WHITE BLOOD COUNT 2.7 10^3/uL (4.0-10.5)
[2020-06-24 06:19] LABS: ANION GAP 9 (5-19); BLOOD UREA NITROGEN 16 mg/dL (7-20); C-REACTIVE PROTEIN 38.5 mg/L (<10.0); CALCIUM 9.6 mg/dL (8.4-10.2); CARBON DIOXIDE 28 mmol/L (22-30); CHLORIDE 104 mmol/L (98-107); GLUCOSE 151 mg/dL (75-110); POTASSIUM 3.6 mmol/L (3.6-5.0)
[2020-06-24] MEDS: ZINC SULFATE 220 MG CAPSULE PO SCH (10:03)
[2020-06-24] MEDS: ENOXAPARIN SODIUM INJ 60 MG/0.6 ML DISP.SYRIN SUBCUT SCH (10:03)
[2020-06-24] MEDS: THIAMINE HCL 200 MG in NORMAL SALINE 100 ML IV SCH ×2 (10:04→21:32)
[2020-06-24] MEDS: ASCORBIC ACID 500 MG TABLET PO SCH ×2 (10:04→17:41)
[2020-06-24] MEDS: METHYLPREDNISOLONE INJ 40 MG/1 ML SDV IV SCH ×2 (10:04→21:32)
[2020-06-24] MEDS: CLONIDINE HCL 0.2 MG TABLET PO SCH ×2 (10:04→21:31)
[2020-06-24] MEDS: IVERMECTIN 3 MG TABLET PO SCH (10:04)
[2020-06-24] MEDS: DOCUSATE SODIUM 100 MG CAPSULE PO SCH (10:05)
--- NOTE | 2020-06-24 11:06 | RADIOLOGY REPORT (SQ) ---
EXAM DESCRIPTION: CHEST SINGLE VIEW IMAGES COMPLETED DATE/TIME: 06/24/2020 10:38 am REASON FOR STUDY: covid pneumonia COMPARISON: CT of the chest with contrast from 06/23/2020. EXAM PARAMETERS: NUMBER OF VIEWS: One view. TECHNIQUE: An AP view of the chest was obtained. RADIATION DOSE: NA LIMITATIONS: None. FINDINGS: LUNGS AND PLEURA: Unchanged appearance of the lungs and pleura. MEDIASTINUM AND HILAR STRUCTURES: Stable mediastinal and hilar contours. HEART AND VASCULAR STRUCTURES: The cardiac silhouette is mildly enlarged. BONES: Osteoarthrosis of the glenohumeral and acromioclavicular joints. HARDWARE: None in the chest. OTHER: Surgical clips that project within the left axilla. IMPRESSION: Unchanged radiographic appearance of the chest. TECHNICAL DOCUMENTATION: JOB ID: [id number] [employer]- All Rights Reserved Reading location - IP/workstation name: [email or web address]
[2020-06-24] MEDS ORDERED: DOCUSATE SODIUM 100 MG CAPSULE PO PRN (13:12)
--- NOTE | 2020-06-24 17:37 | PDOC PROGRESS REPORT ---
Subjective Subjective:: RAHUL MERIDA is a 80 year old female with past medical history significant for severe COPD on chronic 4 L nasal cannula, HTN, HLD, T2DM not on treatment, history of lung cancer status post partial lobectomy, history of breast cancer status post lumpectomy who presents to the ED with a 2-day history of progressive shortness of breath/BROWN/productive cough/chills/malaise/body aches. Patient and her called EMS for her oxygen saturation dropping into the mid 60s and when they arrived they performed rapid Covid test on the patient and her and both were positive. Patient had increased her home oxygen to 5 L in order to maintain adequate saturation in the low 90s. Patient follows with local pulmonology and Dr. Barclay is her PCP. Patient denies any fevers. On admission, patient's laboratory findings reveal elevated D-dimer and CRP consistent with Covid infection. CTPA showed no pulmonary embolism but did show multifocal pneumonia consistent with COVID-[address] also showed more c onspicuous appearance of previously noted lung nodules and mediastinal lymphadenopathy. I discussed the findings with the patient in detail. Patient admitted to Covid isolation unit and started on appropriate available COVID-19 therapy. 06/24/2020 Patient is being maintained on 4 L nasal cannula which is reportedly her home dose of oxygen. She is extremely anxious and we have restarted her psychiatric medications. Family states she may have required oral benzodiazepine in the past for anxiety but we will hold off on this for now. All things considered, she seems to be doing rather well. CRP and D-dimer are lower than yesterday and ferritin is normal. Patient continues to improve, she could be discharged in the next 48 hours. He has now received both doses of ivermectin and continues on IV steroids. Reason For Visit: COPD W/EXACERBATION, PNEMONIA DUE TO 2019 NOVEL Physical Exam Vital Signs: Temp Pulse Resp BP Pulse Ox 97.9 F 73 18 152/51 H 90 L 06/24/20 10:00 06/24/20 14:00 06/24/20 05:02 06/24/20 08:58 06/24/20 08:58 Intake & Output 06/23/20 06/24/20 06/25/20 06:59 06:59 06:59 Intake Total 1710 Balance 1710 Weight 65.9 kg Exam: General appearance: PRESENT: no acute distress, well-developed, well-nourished, ill-appearing elderly white female, states she is anxious but breathing okay today Head exam: PRESENT: atraumatic, normocephalic Eye exam: PRESENT: conjunctiva pink. ABSENT: scleral icterus Mouth exam: PRESENT: moist Respiratory exam: PRESENT: Scant fine rhonchi bilaterally ABSENT: rales, wheezes Cardiovascular exam: PRESENT: RRR. ABSENT: diastolic murmur, rubs, systolic murmur GI/Abdominal exam: PRESENT: normal bowel sounds, soft. ABSENT: distended, guarding, mass, organolmegaly, rebound, tenderness Neurological exam: PRESENT: alert, awake, oriented to person, oriented to place, oriented to time, oriented to situation Psychiatric exam: PRESENT: appropriate affect, normal mood Skin exam: PRESENT: dry, intact, warm Results Laboratory Results: 06/24/20 05:33 06/24/20 05:33 06/23/20 06/24/20 06/24/20 17:55 05:33 05:33 WBC 2.7 L D RBC 3.84 Hgb 10.6 L Hct 32.1 L MCV 84 MCH 27.5 MCHC 33.0 RDW 14.3 H Plt Count 190 Sodium 141.0 Potassium 3.6 Chloride 104 Carbon Dioxide 28 Anion Gap 9 BUN 16 Creatinine 0.47 L Est GFR ( Amer) > 60 Glucose 151 H Lactic Acid 1.7 Calcium 9.6 Phosphorus 3.0 Magnesium 2.4 H Ferritin 177.00 C-Reactive Protein 38.5 H 06/23/20 06/23/20 11:49 11:49 Creatine Kinase 546 H Troponin I < 0.012 Impressions: Chest/Abdomen CTA 06/23/20 13:21 IMPRESSION: No pulmonary arterial embolism. Scattered peripheral ground-glass opacities compatible with an atypical infection, particularly COVID-19. Chronic background lung disease. Increased conspicuity of right apical spiculated nodules and new mediastinal lymphadenopathy, findings concerning for neoplasia/metastasis. Chest X-Ray 06/24/20 06:15 IMPRESSION: Unchanged radiographic appearance of the chest. Assessment and Plan - Diagnosis (1) Pneumonia due to COVID-19 virus Is this a current diagnosis for this admission?: Yes (2) Acute on chronic respiratory failure with hypoxemia Is this a current diagnosis for this admission?: Yes (3) T2DM (type 2 diabetes mellitus) Qualifiers: Diabetes mellitus halfway insulin use: without halfway use Diabetes mellitus complication status: without complication Qualified Code(s): E11.9 - Type 2 diabetes mellitus without complications Is this a current diagnosis for this admission?: Yes (4) History of lung cancer Is this a current diagnosis for this admission?: Yes (5) Acute exacerbation of chronic obstructive pulmonary disease (COPD) Is this a current diagnosis for this admission?: Yes (6) History of breast cancer Is this a current diagnosis for this admission?: Yes (7) Hyperlipidemia Qualifiers: Hyperlipidemia type: unspecified Qualified Code(s): E78.5 - Hyperlipidemia, unspecified Is this a current diagnosis for this admission?: Yes (8) Hypertension Qualifiers: Hypertension type: unspecified secondary hypertension Qualified Code(s): I15.9 - Secondary hypertension, unspecified Is this a current diagnosis for this admission?: Yes - Plan Summary Summary: (1) Pneumonia due to COVID-19 virus Is this a current diagnosis for this admission?: Yes Plan: 2 days progressive respiratory symptoms prior to admission, positive rapid Covid test done by EMS, has been positive as well -Symptoms/history consistent with covid-19 infection -Covid-19 test: Positive -CXR showed: Left lower lobe infiltrate -CTPA showed: Negative for PE, positive for multifocal pneumonia consistent with COVID-19 -standard of care vitamin supplements: zinc, ascorbic acid, vitamin d, melatonin -maintain magnesium of 2 mg/dL or higher -Current medical literature recommends against the use of remdesivir, plaquenil, and convalescent plasma -supplemental oxygen and BiPAP/CPAP as needed -prn combivent/nebs as able -do not hold anticoagulation unless actively bleeding or platelet count <50 -close monitoring for acute respiratory decline requiring ICU transfer and intubation -ivermectin/doxycycline combination therapy, clinical anti-inflammatory low improvement thereafter (2) Acute on chronic respiratory failure with hypoxemia Is this a current diagnosis for this admission?: Yes Plan: Due to COVID-19 pneumonia and COPD as above Treat underlying cause Supplemental oxygen and positive pressure support as needed Baseline oxygen requirement is 4 L nasal cannula (3) T2DM (type 2 diabetes mellitus) Qualifiers: Diabetes mellitus manager terminal insulin use: without manager terminal use Diabetes mellitus complication status: without complication Qualified Code(s): E11.9 - Type 2 diabetes mellitus without complications Is this a current diagnosis for this admission?: Yes Plan: Diet controlled per patient (4) History of lung cancer Is this a current diagnosis for this admission?: Yes Plan: Status post lobectomy CT showed possible progression of lung nodules, needs follow-up with pulmonology, discussed with patient (5) Acute exacerbation of chronic obstructive pulmonary disease (COPD) Is this a current diagnosis for this admission?: Yes Plan: -acute COPD exacerbation -Supplemental O2 to maintain sat of 89-94% -duonebs -steroids -abx indicated only if concomitant bacterial pneumonia is also suspected -bronchial hygiene -consider [facility] rehab referral at [place] -no smoking (6) History of breast cancer Is this a current diagnosis for this admission?: Yes Plan: Breast cancer treated with lumpectomy per patient, denies any recurrence (7) Hyperlipidemia Qualifiers: Hyperlipidemia type: unspecified Qualified Code(s): E78.5 - Hyperlipidemia, unspecified Is this a current diagnosis for this admission?: Yes Plan: Diet controlled per patient (8) Hypertension Qualifiers: Hypertension type: unspecified secondary hypertension Qualified Code(s): I15.9 - Secondary hypertension, unspecified Is this a current diagnosis for this admission?: Yes Plan: Controlled - Time Time Spent with patient: 35 or more minutes Medications reviewed and adjusted accordingly: Yes Anticipated Discharge Disposition: Home, Self Care Anticipated Discharge Timeframe: within 72 hours - Inpatient Certification Based on my medical assessment, after consideration of the patient's comorbiditi es, presenting symptoms, or acuity I expect that the services needed warrant INPATIENT care.: Yes I certify that my determination is in accordance with my understanding of [facility]'s requirements for reasonable and necessary INPATIENT services [42 CFR 412.3e].: Yes Medical Necessity: Significant Comorbidiites Make Outpatient Treatment Too Risky, Need Close Monitoring Due to Risk of Patient Decompensation, Need for Nebulizer Therapy and Monitoring of Response, Risk of Complication if Not Cared For in Hospital, Risk of Diagnosis Which Will Require Inpatient Eval/Care/Monitoring
[2020-06-24] MEDS: FUROSEMIDE 40 MG TABLET PO SCH (17:41)
[2020-06-24] MEDS: OMEGA-3 ACID ETHYL ESTERS 1 GM CAPSULE PO SCH (17:41)
[2020-06-24] MEDS: DOXYCYCLINE HYCLATE 100 MG in DEXTROSE 5%-WATER 250 ML IV SCH (17:41)
[2020-06-24] MEDS ORDERED: MONTELUKAST SODIUM 10 MG TABLET PO SCH (18:00)
[2020-06-24] MEDS ORDERED: (PENDING PHARMACY ID) (Umeclidinium Brm/Vilanterol Tr [Anoro Ellipta 62.5-25 Mcg Inh] 1 EA IH SCH (18:00)
[2020-06-24] MEDS ORDERED: FUROSEMIDE 20 MG TABLET PO SCH (18:00)
[2020-06-24] MEDS: MONTELUKAST SODIUM 10 MG TABLET PO SCH (21:31)
[2020-06-24] MEDS: ATORVASTATIN CALCIUM 40 MG TABLET PO SCH (21:31)
[2020-06-24] MEDS: HYDROCODONE/ACETAMINOPHEN 7.5-325 MG TABLET PO PRN (21:31)
[2020-06-24] MEDS: AMITRIPTYLINE HCL 25 MG TABLET PO SCH (21:32)
[2020-06-24] MEDS ORDERED: ATORVASTATIN CALCIUM 20 MG TABLET PO SCH (22:00)
[2020-06-24] MEDS ORDERED: CLONIDINE HCL 0.2 MG TABLET PO SCH (22:00)
[2020-06-24] MEDS ORDERED: AMITRIPTYLINE HCL 25 MG TABLET PO SCH (22:00)
[2020-06-24] MEDS ORDERED: (PENDING PHARMACY ID) (Rosuvastatin Calcium [Crestor 20 Mg Tablet] 20 MG Tablet) PO SCH (22:00)
[2020-06-25] MEDS: IPRATROPIUM/ALBUTEROL 0.5-2.5 MG/3 ML AMPUL NEB PRN ×6 (00:46→22:36)
[2020-06-25] MEDS: HYDROCODONE/ACETAMINOPHEN 7.5-325 MG TABLET PO PRN ×2 (04:00→21:19)
[2020-06-25 06:15] LABS: ANION GAP 8 (5-19); BLOOD UREA NITROGEN 17 mg/dL (7-20); CALCIUM 9.1 mg/dL (8.4-10.2); CARBON DIOXIDE 29 mmol/L (22-30); CHLORIDE 104 mmol/L (98-107); GLUCOSE 151 mg/dL (75-110); POTASSIUM 3.8 mmol/L (3.6-5.0)
[2020-06-25] MEDS ORDERED: FENOFIBRATE MICRONIZED 134 MG PO SCH (10:00)
[2020-06-25] MEDS ORDERED: PREGABALIN 50 MG CAPSULE PO SCH (10:00)
[2020-06-25] MEDS ORDERED: (PENDING PHARMACY ID) (Potassium Chloride [Potassium Chloride] 20 MEQ Tablet.Er) PO SCH (10:00)
[2020-06-25] MEDS ORDERED: BUSPIRONE HCL 5 MG PO SCH (10:00)
[2020-06-25] MEDS: FENOFIBRATE NANOCRYSTALLIZED 48 MG TABLET PO SCH (11:30)
[2020-06-25] MEDS: ZINC SULFATE 220 MG CAPSULE PO SCH (11:30)
[2020-06-25] MEDS: POTASSIUM CHLORIDE 10 MEQ TABLET.ER PO SCH (11:30)
[2020-06-25] MEDS: METHYLPREDNISOLONE INJ 40 MG/1 ML SDV IV SCH ×2 (11:30→21:19)
[2020-06-25] MEDS: CLONIDINE HCL 0.2 MG TABLET PO SCH ×2 (11:30→21:18)
[2020-06-25] MEDS: ENOXAPARIN SODIUM INJ 60 MG/0.6 ML DISP.SYRIN SUBCUT SCH (11:30)
[2020-06-25] MEDS: DOCUSATE SODIUM 100 MG CAPSULE PO SCH (11:30)
[2020-06-25] MEDS: FUROSEMIDE 40 MG TABLET PO SCH ×2 (11:31→17:29)
[2020-06-25] MEDS: PREGABALIN 50 MG CAPSULE PO SCH ×3 (11:31→17:58)
[2020-06-25] MEDS: ASCORBIC ACID 500 MG TABLET PO SCH ×2 (11:31→17:58)
[2020-06-25] MEDS: THIAMINE HCL 200 MG in NORMAL SALINE 100 ML IV SCH ×2 (11:31→21:19)
[2020-06-25] MEDS: BUSPIRONE HCL 10 MG TABLET PO SCH (11:31)
[2020-06-25] MEDS: OMEGA-3 ACID ETHYL ESTERS 1 GM CAPSULE PO SCH ×2 (11:32→17:58)
[2020-06-25] MEDS ORDERED: AMPICILLIN SOD/SULBACTAM 3 GM VIAL IV SCH (15:00)
--- NOTE | 2020-06-25 15:25 | PDOC PROGRESS REPORT ---
Subjective Subjective:: RAHUL MERIDA is a 80 year old female with past medical history significant for severe COPD on chronic 4 L nasal cannula, HTN, HLD, T2DM not on treatment, history of lung cancer status post partial lobectomy, history of breast cancer status post lumpectomy who presents to the ED with a 2-day history of progressive shortness of breath/BROWN/productive cough/chills/malaise/body aches. Patient and her called EMS for her oxygen saturation dropping into the mid 60s and when they arrived they performed rapid Covid test on the patient and her and both were positive. Patient had increased her home oxygen to 5 L in order to maintain adequate saturation in the low 90s. Patient follows with local pulmonology and Dr. Barclay is her PCP. Patient denies any fevers. On admission, patient's laboratory findings reveal elevated D-dimer and CRP consistent with Covid infection. CTPA showed no pulmonary embolism but did show multifocal pneumonia consistent with COVID-[address] also showed more c onspicuous appearance of previously noted lung nodules and mediastinal lymphadenopathy. I discussed the findings with the patient in detail. Patient admitted to Covid isolation unit and started on appropriate available COVID-19 therapy. 06/24/2020 Patient is being maintained on 4 L nasal cannula which is reportedly her home dose of oxygen. She is extremely anxious and we have restarted her psychiatric medications. Family states she may have required oral benzodiazepine in the past for anxiety but we will hold off on this for now. All things considered, she seems to be doing rather well. CRP and D-dimer are lower than yesterday and ferritin is normal. Patient continues to improve, she could be discharged in the next 48 hours. He has now received both doses of ivermectin and continues on IV steroids. 06/25/2020 Patient is to be doing quite well clinically today. She is maintained on her 4 L nasal cannula home dose oxygen. She is getting quite anxious frequently and repeatedly stating to the nurses that she is afraid of dying and wants to go home. I believe she continues to do well over the next 24 to 48 hours, she could be discharged home with close outpatient monitoring. She has responded quite well to the current treatment regimen and we will hopefully avoid the se waqar pulmonary phase we see another Covid patients. Reason For Visit: COPD W/EXACERBATION, PNEMONIA DUE TO 2019 NOVEL Physical Exam Vital Signs: Temp Pulse Resp BP Pulse Ox 97.9 F 89 18 147/65 H 93 06/25/20 10:00 06/25/20 14:25 06/25/20 14:25 06/25/20 03:44 06/25/20 14:25 Intake & Output 06/24/20 06/25/20 06/26/20 06:59 06:59 06:59 Intake Total 1710 1487 Output Total 550 Balance 1710 937 Weight 65.9 kg 63.3 kg Exam: General appearance: PRESENT: no acute distress, well-developed, well-nourished, ill-appearing elderly white female, states she feels okay today Head exam: PRESENT: atraumatic, normocephalic Eye exam: PRESENT: conjunctiva pink. ABSENT: scleral icterus Mouth exam: PRESENT: moist Respiratory exam: PRESENT: Scant fine rhonchi bilaterally, less ABSENT: rales, wheezes Cardiovascular exam: PRESENT: RRR. ABSENT: diastolic murmur, rubs, systolic murmur GI/Abdominal exam: PRESENT: normal bowel sounds, soft. ABSENT: distended, guarding, mass, organolmegaly, rebound, tenderness Neurological exam: PRESENT: alert, awake, oriented to person, oriented to place, oriented to time, oriented to situation Psychiatric exam: PRESENT: appropriate affect, normal mood Skin exam: PRESENT: dry, intact, warm Results Laboratory Results: 06/24/20 05:33 06/25/20 05:27 06/25/20 05:27 Sodium 140.5 Potassium 3.8 Chloride 104 Carbon Dioxide 29 Anion Gap 8 BUN 17 Creatinine 0.54 Est GFR ( Amer) > 60 Glucose 151 H Calcium 9.1 06/23/20 11:49 Blood Blood Culture (PCR) - Final 06/23/20 06/23/20 11:49 11:49 Creatine Kinase 546 H Troponin I < 0.012 Impressions: Chest/Abdomen CTA 06/23/20 13:21 IMPRESSION: No pulmonary arterial embolism. Scattered peripheral ground-glass opacities compatible with an atypical infection, particularly COVID-19. Chronic background lung disease. Increased conspicuity of right apical spiculated nodules and new mediastinal lymphadenopathy, findings concerning for neoplasia/metastasis. Chest X-Ray 06/24/20 06:15 IMPRESSION: Unchanged radiographic appearance of the chest. Assessment and Plan - Diagnosis (1) Pneumonia due to COVID-19 virus Is this a current diagnosis for this admission?: Yes (2) Acute on chronic respiratory failure with hypoxemia Is this a current diagnosis for this admission?: Yes (3) T2DM (type 2 diabetes mellitus) Qualifiers: Diabetes mellitus moth exterminator insulin use: without moth exterminator use Diabetes mellitus complication status: without complication Qualified Code(s): E11.9 - Type 2 diabetes mellitus without complications Is this a current diagnosis for this admission?: Yes (4) History of lung cancer Is this a current diagnosis for this admission?: Yes (5) Acute exacerbation of chronic obstructive pulmonary disease (COPD) Is this a current diagnosis for this admission?: Yes (6) History of breast cancer Is this a current diagnosis for this admission?: Yes (7) Hyperlipidemia Qualifiers: Hyperlipidemia type: unspecified Qualified Code(s): E78.5 - Hyperlipidemia, unspecified Is this a current diagnosis for this admission?: Yes (8) Hypertension Qualifiers: Hypertension type: unspecified secondary hypertension Qualified Code(s): I15.9 - Secondary hypertension, unspecified Is this a current diagnosis for this admission?: Yes - Plan Summary Summary: (1) Pneumonia due to COVID-19 virus Is this a current diagnosis for this admission?: Yes Plan: 2 days progressive respiratory symptoms prior to admission, positive rapid Covid test done by EMS, has been positive as well -Symptoms/history consistent with covid-19 infection -Covid-19 test: Positive -CXR showed: Left lower lobe infiltrate -CTPA showed: Negative for PE, positive for multifocal pneumonia consistent with COVID-19 -standard of care vitamin supplements: zinc, ascorbic acid, vitamin d, melatonin -maintain magnesium of 2 mg/dL or higher -Current medical literature recommends against the use of remdesivir, plaquenil, and convalescent plasma -supplemental oxygen and BiPAP/CPAP as needed -prn combivent/nebs as able -do not hold anticoagulation unless actively bleeding or platelet count <50 -close monitoring for acute respiratory decline requiring ICU transfer and intubation -ivermectin/doxycycline combination therapy, significant clinical and inflammatory lab improvement thereafter (2) Acute on chronic respiratory failure with hypoxemia Is this a current diagnosis for this admission?: Yes Plan: Due to COVID-19 pneumonia and COPD as above Treat underlying cause Supplemental oxygen and positive pressure support as needed Baseline oxygen requirement is 4 L nasal cannula (3) T2DM (type 2 diabetes mellitus) Qualifiers: Diabetes mellitus moth exterminator insulin use: without moth exterminator use Diabetes mellitus complication status: without complication Qualified Code(s): E11.9 - Type 2 diabetes mellitus without complications Is this a current diagnosis for this admission?: Yes Plan: Diet controlled per patient (4) History of lung cancer Is this a current diagnosis for this admission?: Yes Plan: Status post lobectomy CT showed possible progression of lung nodules, needs follow-up with pulmonology, discussed with patient (5) Acute exacerbation of chronic obstructive pulmonary disease (COPD) Is this a current diagnosis for this admission?: Yes Plan: -acute COPD exacerbation -Supplemental O2 to maintain sat of 89-94% -duonebs -steroids -abx indicated only if concomitant bacterial pneumonia is also suspected -bronchial hygiene -consider pumonary rehab referral at [place] -no smoking (6) History of breast cancer Is this a current diagnosis for this admission?: Yes Plan: Breast cancer treated with lumpectomy per patient, denies any recurrence (7) Hyperlipidemia Qualifiers: Hyperlipidemia type: unspecified Qualified Code(s): E78.5 - Hyperlipidemia, unspecified Is this a current diagnosis for this admission?: Yes Plan: Diet controlled per patient (8) Hypertension Qualifiers: Hypertension type: unspecified secondary hypertension Qualified Code(s): I15.9 - Secondary hypertension, unspecified Is this a current diagnosis for this admission?: Yes Plan: Controlled Severe generalized chronic anxiety Home medications restarted - Time Time Spent with patient: 25-34 minutes Medications reviewed and adjusted accordingly: Yes Anticipated Discharge Disposition: Home with Home Health Anticipated Discharge Timeframe: within 48 hours - Inpatient Certification Based on my medical assessment, after consideration of the patient's comorbidities, presenting symptoms, or acuity I expect that the services needed warrant INPATIENT care.: Yes I certify that my determination is in accordance with my understanding of Medicare's requirements for reasonable and necessary INPATIENT services [42 CFR 412.3e].: Yes Medical Necessity: Significant Comorbidiites Make Outpatient Treatment Too Risky, Need Close Monitoring Due to Risk of Patient Decompensation, Risk of Complication if Not Cared For in Hospital, Risk of Diagnosis Which Will Require Inpatient Eval/Care/Monitoring
[2020-06-25] MEDS: DOXYCYCLINE HYCLATE 100 MG in DEXTROSE 5%-WATER 250 ML IV SCH (17:58)
[2020-06-25] MEDS: AMPICILLIN SODIUM/SULBACTAM NA 3 GM in NORMAL SALINE 100 ML IV SCH (20:14)
[2020-06-25] MEDS: MONTELUKAST SODIUM 10 MG TABLET PO SCH (21:18)
[2020-06-25] MEDS: ATORVASTATIN CALCIUM 40 MG TABLET PO SCH (21:18)
[2020-06-25] MEDS: AMITRIPTYLINE HCL 25 MG TABLET PO SCH (21:18)
[2020-06-26] MEDS: AMPICILLIN SODIUM/SULBACTAM NA 3 GM in NORMAL SALINE 100 ML IV SCH ×4 (00:52→18:24)
[2020-06-26 06:06] LABS: HEMOGLOBIN 10.7 g/dL (12.0-15.5); MEAN CORPUSCULAR HEMOGLOBIN 28.2 pg (27.0-33.4); MEAN CORPUSCULAR HGB CONC 34.4 g/dL (32.0-36.0); MEAN CORPUSCULAR VOLUME 82 fl (80-97); PLATELET COUNT 227 10^3/uL (150-450); RED BLOOD COUNT 3.79 10^6/uL (3.72-5.28); RED CELL DISTRIBUTION WIDTH 14.4 % (11.5-14.0)
[2020-06-26 06:34] LABS: ANION GAP 7 (5-19); BLOOD UREA NITROGEN 20 mg/dL (7-20); C-REACTIVE PROTEIN 36.1 mg/L (<10.0); CALCIUM 8.9 mg/dL (8.4-10.2); CARBON DIOXIDE 31 mmol/L (22-30); CHLORIDE 100 mmol/L (98-107); GLUCOSE 143 mg/dL (75-110); POTASSIUM 3.5 mmol/L (3.6-5.0)
[2020-06-26] MEDS: THIAMINE HCL 200 MG in NORMAL SALINE 100 ML IV SCH ×2 (10:11→23:54)
[2020-06-26] MEDS: FENOFIBRATE NANOCRYSTALLIZED 48 MG TABLET PO SCH (10:11)
[2020-06-26] MEDS: FUROSEMIDE 40 MG TABLET PO SCH ×2 (10:12→17:06)
[2020-06-26] MEDS: DOCUSATE SODIUM 100 MG CAPSULE PO SCH (10:12)
[2020-06-26] MEDS: ZINC SULFATE 220 MG CAPSULE PO SCH (10:12)
[2020-06-26] MEDS: OMEGA-3 ACID ETHYL ESTERS 1 GM CAPSULE PO SCH ×2 (10:12→17:05)
[2020-06-26] MEDS: PREGABALIN 50 MG CAPSULE PO SCH ×3 (10:13→17:06)
[2020-06-26] MEDS: ASCORBIC ACID 500 MG TABLET PO SCH ×2 (10:13→17:06)
[2020-06-26] MEDS: CLONIDINE HCL 0.2 MG TABLET PO SCH ×2 (10:13→23:53)
[2020-06-26] MEDS: POTASSIUM CHLORIDE 10 MEQ TABLET.ER PO SCH (10:13)
[2020-06-26] MEDS: BUSPIRONE HCL 10 MG TABLET PO SCH (10:13)
[2020-06-26] MEDS: ENOXAPARIN SODIUM INJ 60 MG/0.6 ML DISP.SYRIN SUBCUT SCH (10:14)
[2020-06-26] MEDS: METHYLPREDNISOLONE INJ 40 MG/1 ML SDV IV SCH ×2 (10:14→23:54)
[2020-06-26] MEDS: LORAZEPAM 1 MG TABLET PO PRN ×2 (10:40→17:41)
[2020-06-26] MEDS: IPRATROPIUM/ALBUTEROL 0.5-2.5 MG/3 ML AMPUL NEB PRN ×2 (10:52→18:06)
--- NOTE | 2020-06-26 17:11 | PDOC PROGRESS REPORT ---
Subjective Subjective:: RAHUL MERIDA is a 80 year old female with past medical history significant for severe COPD on chronic 4 L nasal cannula, HTN, HLD, T2DM not on treatment, history of lung cancer status post partial lobectomy, history of breast cancer status post lumpectomy who presents to the ED with a 2-day history of progressive shortness of breath/BROWN/productive cough/chills/malaise/body aches. Patient and her called EMS for her oxygen saturation dropping into the mid 60s and when they arrived they performed rapid Covid test on the patient and her and both were positive. Patient had increased her home oxygen to 5 L in order to maintain adequate saturation in the low 90s. Patient follows with local pulmonology and Dr. Barclay is her PCP. Patient denies any fevers. On admission, patient's laboratory findings reveal elevated D-dimer and CRP consistent with Covid infection. CTPA showed no pulmonary embolism but did show multifocal pneumonia consistent with COVID-[address] also showed more c onspicuous appearance of previously noted lung nodules and mediastinal lymphadenopathy. I discussed the findings with the patient in detail. Patient admitted to Covid isolation unit and started on appropriate available COVID-19 therapy. 06/24/2020 Patient is being maintained on 4 L nasal cannula which is reportedly her home dose of oxygen. She is extremely anxious and we have restarted her psychiatric medications. Family states she may have required oral benzodiazepine in the past for anxiety but we will hold off on this for now. All things considered, she seems to be doing rather well. CRP and D-dimer are lower than yesterday and ferritin is normal. Patient continues to improve, she could be discharged in the next 48 hours. He has now received both doses of ivermectin and continues on IV steroids. 06/25/2020 Patient is to be doing quite well clinically today. She is maintained on her 4 L nasal cannula home dose oxygen. She is getting quite anxious frequently and repeatedly stating to the nurses that she is afraid of dying and wants to go home. I believe she continues to do well over the next 24 to 48 hours, she could be discharged home with close outpatient monitoring. She has responded quite well to the current treatment regimen and we will hopefully avoid the se waqar pulmonary phase we see another Covid patients. 06/26/2020 Patient continues to improve her breathing. She does have intermittent episodes of severe anxiety which caused her to become tachypneic and overnight nursing for additional oxygen on her as a result. After patient was treated with some Ativan today, her oxygen requirements dropped back to her baseline. She has been maintained on 4 L nasal cannula stable since then. I actually believe the hospital environment may be doing more harm to this patient in good given her severe overwhelming anxiety with frequent anxiety attacks causing her breathing to worsen. If she is doing well tomorrow on her home dose oxygen at 4 L nasal cannula I will talk with her about being discharged home. She has no new complaints today. Reason For Visit: COPD W/EXACERBATION, PNEMONIA DUE TO 2019 NOVEL Physical Exam Vital Signs: Temp Pulse Resp BP Pulse Ox 97.6 F 104 H 21 H 142/61 H 91 L 06/26/20 11:42 06/26/20 14:00 06/26/20 11:42 06/26/20 11:42 06/26/20 11:42 Intake & Output 06/25/20 06/26/20 06/27/20 06:59 06:59 06:59 Intake Total 1487 487 Output Total 550 0 Balance 937 487 Weight 63.3 kg 62 kg Exam: General appearance: PRESENT: Anxious, well-developed, well-nourished, ill-a ppearing elderly white female, states she is very anxious today Head exam: PRESENT: atraumatic, normocephalic Eye exam: PRESENT: conjunctiva pink. ABSENT: scleral icterus Mouth exam: PRESENT: moist Respiratory exam: PRESENT: CTA B ABSENT: rales, wheezes Cardiovascular exam: PRESENT: RRR. ABSENT: diastolic murmur, rubs, systolic murmur GI/Abdominal exam: PRESENT: normal bowel sounds, soft. ABSENT: distended, guarding, mass, organolmegaly, rebound, tenderness Neurological exam: PRESENT: alert, awake, oriented to person, oriented to place, oriented to time, oriented to situation Psychiatric exam: PRESENT: appropriate affect, normal mood Skin exam: PRESENT: dry, intact, warm Results Laboratory Results: 06/26/20 05:39 06/26/20 05:39 06/26/20 06/26/20 05:39 05:39 WBC 6.0 D RBC 3.79 Hgb 10.7 L Hct 31.0 L MCV 82 MCH 28.2 MCHC 34.4 RDW 14.4 H Plt Count 227 Sodium 137.9 Potassium 3.5 L Chloride 100 Carbon Dioxide 31 H Anion Gap 7 BUN 20 Creatinine 0.51 L Est GFR ( Amer) > 60 Glucose 143 H Calcium 8.9 Ferritin 206.00 C-Reactive Protein 36.1 H 06/23/20 11:49 Blood Blood Culture (PCR) - Final 06/23/20 14:55 Sputum Gram Stain - Final 06/23/20 14:55 Sputum Sputum Culture - Final NORMAL LAUREN 06/23/20 06/23/20 11:49 11:49 Creatine Kinase 546 H Troponin I < 0.012 Impressions: Chest/Abdomen CTA 06/23/20 13:21 IMPRESSION: No pulmonary arterial embolism. Scattered peripheral ground-glass opacities compatible with an atypical infection, particularly COVID-19. Chronic background lung disease. Increased conspicuity of right apical spiculated nodules and new mediastinal lymphadenopathy, findings concerning for neoplasia/metastasis. Chest X-Ray 06/24/20 06:15 IMPRESSION: Unchanged radiographic appearance of the chest. 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 use Diabetes mellitus complication status: without complication Qualified Code(s): E11.9 - Type 2 diabetes mellitus without complications Is this a current diagnosis for this admission?: Yes (4) History of lung cancer Is this a current diagnosis for this admission?: Yes (5) Acute exacerbation of chronic obstructive pulmonary disease (COPD) Is this a current diagnosis for this admission?: Yes (6) History of breast cancer Is this a current diagnosis for this admission?: Yes (7) Hyperlipidemia Qualifiers: Hyperlipidemia type: unspecified Qualified Code(s): E78.5 - Hyperlipidemia, unspecified Is this a current diagnosis for this admission?: Yes (8) Hypertension Qualifiers: Hypertension type: unspecified secondary hypertension Qualified Code(s): I15.9 - Secondary hypertension, unspecified Is this a current diagnosis for this admission?: Yes - Plan Summary Summary: (1) Pneumonia due to COVID-19 virus Is this a current diagnosis for this admission?: Yes Plan: 2 days progressive respiratory symptoms prior to admission, positive rapid C ovid test done by EMS, has been positive as well -Symptoms/history consistent with covid-19 infection -Covid-19 test: Positive -CXR showed: Left lower lobe infiltrate -CTPA showed: Negative for PE, positive for multifocal pneumonia consistent with COVID-19 -standard of care vitamin supplements: zinc, ascorbic acid, vitamin d, melatonin -maintain magnesium of 2 mg/dL or higher -Current medical literature recommends against the use of remdesivir, plaquenil, and convalescent plasma -supplemental oxygen and BiPAP/CPAP as needed -prn combivent/nebs as able -do not hold anticoagulation unless actively bleeding or platelet count <50 -close monitoring for acute respiratory decline requiring ICU transfer and intubation -ivermectin/doxycycline combination therapy, significant clinical and inflammato ry lab improvement thereafter (2) Acute on chronic respiratory failure with hypoxemia Is this a current diagnosis for this admission?: Yes Plan: Due to COVID-19 pneumonia and COPD as above Treat underlying cause Supplemental oxygen and positive pressure support as needed Baseline oxygen requirement is 4 L nasal cannula (3) T2DM (type 2 diabetes mellitus) Qualifiers: Diabetes mellitus mcfp insulin use: without long chain quiller tender use Diabetes mellitus complication status: without complication Qualified Code(s): E11.9 - Type 2 diabetes mellitus without complications Is this a current diagnosis for this admission?: Yes Plan: Diet controlled per patient (4) History of lung cancer Is this a current diagnosis for this admission?: Yes Plan: Status post lobectomy CT showed possible progression of lung nodules, needs follow-up with pulmonology, discussed with patient (5) Acute exacerbation of chronic obstructive pulmonary disease (COPD) Is this a current diagnosis for this admission?: Yes Plan: -acute COPD exacerbation -Supplemental O2 to maintain sat of 89-94% -duonebs -steroids -abx indicated only if concomitant bacterial pneumonia is also suspected -bronchial hygiene -consider pumonary rehab referral at [place] -no smoking (6) History of breast cancer Is this a current diagnosis for this admission?: Yes Plan: Breast cancer treated with lumpectomy per patient, denies any recurrence (7) Hyperlipidemia Qualifiers: Hyperlipidemia type: unspecified Qualified Code(s): E78.5 - Hyperlipidemia, unspecified Is this a current diagnosis for this admission?: Yes Plan: Diet controlled per patient (8) Hypertension Qualifiers: Hypertension type: unspecified secondary hypertension Qualified Code(s): I15.9 - Secondary hypertension, unspecified Is this a current diagnosis for this admission?: Yes Plan: Controlled Severe generalized chronic anxiety Home medications restarted As needed Ativan for anxiety; patient has frequent severe anxiety attacks that worsen her breathing - Time Time Spent with patient: 35 or more minutes Medications reviewed and adjusted accordingly: Yes Anticipated Discharge Disposition: Home with Home Health Anticipated Discharge Timeframe: within 24 hours - Inpatient Certification Based on my medical assessment, after consideration of the patient's comorbidities, presenting symptoms, or acuity I expect that the services needed warrant INPATIENT care.: Yes I certify that my determination is in accordance with my understanding of Medicare's requirements for reasonable and necessary INPATIENT services [42 CFR 412.3e].: Yes Medical Necessity: Significant Comorbidiites Make Outpatient Treatment Too Risky, Need Close Monitoring Due to Risk of Patient Decompensation, Risk of Complication if Not Cared For in Hospital, Risk of Diagnosis Which Will Require Inpatient Eval/Care/Monitoring
[2020-06-26] MEDS: DOXYCYCLINE HYCLATE 100 MG in DEXTROSE 5%-WATER 250 ML IV SCH ×2 (18:50→19:42)
[2020-06-26] MEDS: ATORVASTATIN CALCIUM 40 MG TABLET PO SCH (23:53)
[2020-06-26] MEDS: MONTELUKAST SODIUM 10 MG TABLET PO SCH (23:54)
[2020-06-26] MEDS: AMITRIPTYLINE HCL 25 MG TABLET PO SCH (23:54)
[2020-06-27] MEDS: AMPICILLIN SODIUM/SULBACTAM NA 3 GM in NORMAL SALINE 100 ML IV SCH ×4 (01:04→17:02)
[2020-06-27] MEDS: PREGABALIN 50 MG CAPSULE PO SCH ×3 (09:19→17:02)
[2020-06-27] MEDS: METHYLPREDNISOLONE INJ 40 MG/1 ML SDV IV SCH ×2 (09:19→21:39)
[2020-06-27] MEDS: CLONIDINE HCL 0.2 MG TABLET PO SCH ×2 (09:19→21:39)
[2020-06-27] MEDS: OMEGA-3 ACID ETHYL ESTERS 1 GM CAPSULE PO SCH ×2 (09:19→17:02)
[2020-06-27] MEDS: FENOFIBRATE NANOCRYSTALLIZED 48 MG TABLET PO SCH (09:19)
[2020-06-27] MEDS: ZINC SULFATE 220 MG CAPSULE PO SCH (09:19)
[2020-06-27] MEDS: ENOXAPARIN SODIUM INJ 60 MG/0.6 ML DISP.SYRIN SUBCUT SCH (09:19)
[2020-06-27] MEDS: ASCORBIC ACID 500 MG TABLET PO SCH ×2 (09:19→17:02)
[2020-06-27] MEDS: BUSPIRONE HCL 10 MG TABLET PO SCH (09:20)
[2020-06-27] MEDS: POTASSIUM CHLORIDE 10 MEQ TABLET.ER PO SCH (09:20)
[2020-06-27] MEDS: FUROSEMIDE 40 MG TABLET PO SCH ×2 (09:20→17:02)
[2020-06-27] MEDS: DOCUSATE SODIUM 100 MG CAPSULE PO SCH (09:20)
--- NOTE | 2020-06-27 10:23 | RADIOLOGY REPORT (SQ) ---
EXAM DESCRIPTION: CHEST SINGLE VIEW IMAGES COMPLETED DATE/TIME: 06/27/2020 8:00 am REASON FOR STUDY: covid pneumonia COMPARISON: 06/24/2020 NUMBER OF VIEWS: One view. TECHNIQUE: Single frontal radiographic image of the chest acquired. LIMITATIONS: None. FINDINGS: LUNGS AND PLEURA: Bilateral airspace disease with increasing opacity in the mid lung bilat erally. Better definition of the left diaphragm. MEDIASTINUM AND HEART: Stable heart size and mediastinal structures. BONY STRUCTURES: No acute findings. HARDWARE: None. OTHER: No other significant finding. IMPRESSION: Rehydration versus progressing bilateral pneumonia. TECHNICAL DOCUMENTATION: JOB ID: [id number] Reading location - IP/workstation name: [email or web address]
[2020-06-27] MEDS: THIAMINE HCL 200 MG in NORMAL SALINE 100 ML IV SCH ×2 (10:39→23:30)
[2020-06-27] MEDS: LORAZEPAM 1 MG TABLET PO PRN ×2 (12:11→21:39)
--- NOTE | 2020-06-27 18:16 | PDOC PROGRESS REPORT ---
Subjective Subjective:: RAHUL MERIDA is a 80 year old female with past medical history significant for severe COPD on chronic 4 L nasal cannula, HTN, HLD, T2DM not on treatment, history of lung cancer status post partial lobectomy, history of breast cancer status post lumpectomy who presents to the ED with a 2-day history of progressive shortness of breath/BROWN/productive cough/chills/malaise/body aches. Patient and her called EMS for her oxygen saturation dropping into the mid 60s and when they arrived they performed rapid Covid test on the patient and her and both were positive. Patient had increased her home oxygen to 5 L in order to maintain adequate saturation in the low 90s. Patient follows with local pulmonology and Dr. Barclay is her PCP. Patient denies any fevers. On admission, patient's laboratory findings reveal elevated D-dimer and CRP consistent with Covid infection. CTPA showed no pulmonary embolism but did show multifocal pneumonia consistent with COVID-[address] also showed more c onspicuous appearance of previously noted lung nodules and mediastinal lymphadenopathy. I discussed the findings with the patient in detail. Patient admitted to Covid isolation unit and started on appropriate available COVID-19 therapy. 06/24/2020 Patient is being maintained on 4 L nasal cannula which is reportedly her home dose of oxygen. She is extremely anxious and we have restarted her psychiatric medications. Family states she may have required oral benzodiazepine in the past for anxiety but we will hold off on this for now. All things considered, she seems to be doing rather well. CRP and D-dimer are lower than yesterday and ferritin is normal. Patient continues to improve, she could be discharged in the next 48 hours. He has now received both doses of ivermectin and continues on IV steroids. 06/25/2020 Patient is to be doing quite well clinically today. She is maintained on her 4 L nasal cannula home dose oxygen. She is getting quite anxious frequently and repeatedly stating to the nurses that she is afraid of dying and wants to go home. I believe she continues to do well over the next 24 to 48 hours, she could be discharged home with close outpatient monitoring. She has responded quite well to the current treatment regimen and we will hopefully avoid the se waqar pulmonary phase we see another Covid patients. 06/26/2020 Patient continues to improve her breathing. She does have intermittent episodes of severe anxiety which caused her to become tachypneic and overnight nursing for additional oxygen on her as a result. After patient was treated with some Ativan today, her oxygen requirements dropped back to her baseline. She has been maintained on 4 L nasal cannula stable since then. I actually believe the hospital environment may be doing more harm to this patient in good given her severe overwhelming anxiety with frequent anxiety attacks causing her breathing to worsen. If she is doing well tomorrow on her home dose oxygen at 4 L nasal cannula I will talk with her about being discharged home. She has no new complaints today. 06/27/2020 Patient still rather anxious and states she is having some more difficulty breathing today. Chest x-ray today showed rehydration versus pulmonary infiltrates. Patient's lungs did not sound particularly wet/rhonchorous today though nursing noted she had increased oxygen requirements overnight. I believe there is a strong component of anxiety to the patient's breathlessness and we are working on controlling her anxiety with additional medications. If we can wean her back down to 4 to 5 L nasal cannula which is her home baseline reportedly, consider sending her home which would likely substantially improve her anxiety level and therefore her breathing as well. Reason For Visit: COPD W/EXACERBATION, PNEMONIA DUE TO 2019 NOVEL Physical Exam Vital Signs: Temp Pulse Resp BP Pulse Ox 98.2 F 89 19 150/66 H 98 06/27/20 16:09 06/27/20 16:09 06/27/20 16:09 06/27/20 16:09 06/27/20 16:09 Intake & Output 06/26/20 06/27/20 06/28/20 06:59 06:59 06:59 Intake Total 487 450 260 Output Total 0 225 400 Balance 487 225 -140 Weight 62 kg 61.3 kg Exam: General appearance: PRESENT: Anxious, well-developed, well-nourished, ill- appearing elderly white female, states she is having some worse breathing difficulties today Head exam: PRESENT: atraumatic, normocephalic Eye exam: PRESENT: conjunctiva pink. ABSENT: scleral icterus Mouth exam: PRESENT: moist Respiratory exam: PRESENT: CTAB ABSENT: rales, wheezes Cardiovascular exam: PRESENT: RRR. ABSENT: diastolic murmur, rubs, systolic murmur GI/Abdominal exam: PRESENT: normal bowel sounds, soft. ABSENT: distended, guarding, mass, organolmegaly, rebound, tenderness Neurological exam: PRESENT: alert, awake, oriented to person, oriented to place, oriented to time, oriented to situation Psychiatric exam: PRESENT: appropriate affect, normal mood Skin exam: PRESENT: dry, intact, warm Results Laboratory Results: 06/26/20 05:39 06/26/20 05:39 06/27/20 10:20 Ferritin 224.00 06/23/20 11:49 Blood Blood Culture (PCR) - Final 06/23/20 11:49 Blood Blood Culture - Final Moraxella Species 06/23/20 06/23/20 11:49 11:49 Creatine Kinase 546 H Troponin I < 0.012 Impressions: Chest/Abdomen CTA 06/23/20 13:21 IMPRESSION: No pulmonary arterial embolism. Scattered peripheral ground-glass opacities compatible with an atypical infectio n, particularly COVID-19. Chronic background lung disease. Increased conspicuity of right apical spiculated nodules and new mediastinal lymphadenopathy, findings concerning for neoplasia/metastasis. Chest X-Ray 06/27/20 06:15 IMPRESSION: Rehydration versus progressing bilateral pneumonia. 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: without halfway use Diabetes mellitus complication status: without complication Qualified Code(s): E11.9 - Type 2 diabetes mellitus without complications Is this a current diagnosis for this admission?: Yes (4) History of lung cancer Is this a current diagnosis for this admission?: Yes (5) Acute exacerbation of chronic obstructive pulmonary disease (COPD) Is this a current diagnosis for this admission?: Yes (6) History of breast cancer Is this a current diagnosis for this admission?: Yes (7) Hyperlipidemia Qualifiers: Hyperlipidemia type: unspecified Qualified Code(s): E78.5 - Hyperlipidemia, unspecified Is this a current diagnosis for this admission?: Yes (8) Hypertension Qualifiers: Hypertension type: unspecified secondary hypertension Qualified Code(s): I15.9 - Secondary hypertension, unspecified Is this a current diagnosis for this admission?: Yes - Plan Summary Summary: (1) Pneumonia due to COVID-19 virus Is this a current diagnosis for this admission?: Yes Plan: 2 days progressive respiratory symptoms prior to admission, positive rapid Covid test done by EMS, has been positive as well -Symptoms/history consistent with covid-19 infection -Covid-19 test: Positive -CXR showed: Left lower lobe infiltrate -CTPA showed: Negative for PE, positive for multifocal pneumonia consistent with COVID-19 -standard of care vitamin supplements: zinc, ascorbic acid, vitamin d, melatonin -maintain magnesium of 2 mg/dL or higher -Current medical literature recommends against the use of remdesivir, plaquenil, and convalescent plasma -supplemental oxygen and BiPAP/CPAP as needed -prn combivent/nebs as able -do not hold anticoagulation unless actively bleeding or platelet count <50 -close monitoring for acute respiratory decline requiring ICU transfer and intubation -ivermectin/doxycycline combination therapy, significant clinical and infl ammatory lab improvement thereafter (2) Acute on chronic respiratory failure with hypoxemia Is this a current diagnosis for this admission?: Yes Plan: Due to COVID-19 pneumonia and COPD as above Treat underlying cause Supplemental oxygen and positive pressure support as needed Baseline oxygen requirement is 4 L nasal cannula (3) T2DM (type 2 diabetes mellitus) 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: 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: without intermodal owner operator truck driver use Diabetes mellitus complication status: without complication Qualified Code(s): E11.9 - Type 2 diabetes mellitus without complications Is this a current diagnosis for this admission?: Yes Plan: Diet controlled per patient (4) History of lung cancer Is this a current diagnosis for this admission?: Yes Plan: Status post lobectomy CT showed possible progression of lung nodules, needs follow-up with pulmonology, discussed with patient (5) Acute exacerbation of chronic obstructive pulmonary disease (COPD) Is this a current diagnosis for this admission?: Yes Plan: -acute COPD exacerbation -Supplemental O2 to maintain sat of 89-94% -duonebs -steroids -abx indicated only if concomitant bacterial pneumonia is also suspected -bronchial hygiene -consider pumonary rehab referral at [place] -no smoking (6) History of breast cancer Is this a current diagnosis for this admission?: Yes Plan: Breast cancer treated with lumpectomy per patient, denies any recurrence (7) Hyperlipidemia Qualifiers: Hyperlipidemia type: unspecified Qualified Code(s): E78.5 - Hyperlipidemia, unspecified Is this a current diagnosis for this admission?: Yes Plan: Diet controlled per patient (8) Hypertension Qualifiers: Hypertension type: unspecified secondary hypertension Qualified Code(s): I15.9 - Secondary hypertension, unspecified Is this a current diagnosis for this admission?: Yes Plan: Controlled Severe generalized chronic anxiety Home medications restarted As needed Ativan for anxiety; patient has frequent severe anxiety attacks that worsen her breathing - Time Medications reviewed and adjusted accordingly: Yes Anticipated Discharge Disposition: Home with Home Health Anticipated Discharge Timeframe: within 72 hours - Inpatient Certification Based on my medical assessment, after consideration of the patient's comorbidities, presenting symptoms, or acuity I expect that the services needed warrant INPATIENT care.: Yes I certify that my determination is in accordance with my understanding of Medicare's requirements for reasonable and necessary INPATIENT services [42 CFR 412.3e].: Yes Medical Necessity: Significant Comorbidiites Make Outpatient Treatment Too Risky, Need Close Monitoring Due to Risk of Patient Decompensation, Need for Nebulizer Therapy and Monitoring of Response, Risk of Complication if Not Cared For in Hospital, Risk of Diagnosis Which Will Require Inpatient Eval /Care/Monitoring
[2020-06-27] MEDS: DOXYCYCLINE HYCLATE 100 MG in DEXTROSE 5%-WATER 250 ML IV SCH (19:57)
[2020-06-27] MEDS: MONTELUKAST SODIUM 10 MG TABLET PO SCH (21:39)
[2020-06-27] MEDS: AMITRIPTYLINE HCL 25 MG TABLET PO SCH (21:39)
[2020-06-27] MEDS: ATORVASTATIN CALCIUM 40 MG TABLET PO SCH (21:39)
[2020-06-28] MEDS: AMPICILLIN SODIUM/SULBACTAM NA 3 GM in NORMAL SALINE 100 ML IV SCH ×4 (01:00→17:13)
[2020-06-28 05:32] LABS: HEMATOCRIT 29.1 % (36.0-47.0); HEMOGLOBIN 9.7 g/dL (12.0-15.5); MEAN CORPUSCULAR HEMOGLOBIN 27.4 pg (27.0-33.4); MEAN CORPUSCULAR HGB CONC 33.5 g/dL (32.0-36.0); MEAN CORPUSCULAR VOLUME 82 fl (80-97); PLATELET COUNT 311 10^3/uL (150-450); RED BLOOD COUNT 3.55 10^6/uL (3.72-5.28); RED CELL DISTRIBUTION WIDTH 14.5 % (11.5-14.0); WHITE BLOOD COUNT 6.8 10^3/uL (4.0-10.5)
[2020-06-28 05:58] LABS: ANION GAP 7 (5-19); BLOOD UREA NITROGEN 26 mg/dL (7-20); C-REACTIVE PROTEIN 42.8 mg/L (<10.0); CALCIUM 8.4 mg/dL (8.4-10.2); CARBON DIOXIDE 34 mmol/L (22-30); CHLORIDE 99 mmol/L (98-107); GLUCOSE 135 mg/dL (75-110); POTASSIUM 3.2 mmol/L (3.6-5.0)
[2020-06-28] MEDS: FENOFIBRATE NANOCRYSTALLIZED 48 MG TABLET PO SCH (09:03)
[2020-06-28] MEDS: POTASSIUM CHLORIDE 10 MEQ TABLET.ER PO SCH (09:03)
[2020-06-28] MEDS: PREGABALIN 50 MG CAPSULE PO SCH ×3 (09:04→17:12)
[2020-06-28] MEDS: OMEGA-3 ACID ETHYL ESTERS 1 GM CAPSULE PO SCH ×2 (09:04→17:12)
[2020-06-28] MEDS: ZINC SULFATE 220 MG CAPSULE PO SCH (09:04)
[2020-06-28] MEDS: METHYLPREDNISOLONE INJ 40 MG/1 ML SDV IV SCH ×2 (09:04→22:04)
[2020-06-28] MEDS: FUROSEMIDE 40 MG TABLET PO SCH ×2 (09:04→17:12)
[2020-06-28] MEDS: DOCUSATE SODIUM 100 MG CAPSULE PO SCH (09:04)
[2020-06-28] MEDS: CLONIDINE HCL 0.2 MG TABLET PO SCH ×2 (09:04→22:04)
[2020-06-28] MEDS: ASCORBIC ACID 500 MG TABLET PO SCH ×2 (09:04→17:12)
[2020-06-28] MEDS: BUSPIRONE HCL 10 MG TABLET PO SCH (09:04)
[2020-06-28] MEDS: THIAMINE HCL 200 MG in NORMAL SALINE 100 ML IV SCH ×2 (09:04→22:03)
[2020-06-28] MEDS: ENOXAPARIN SODIUM INJ 60 MG/0.6 ML DISP.SYRIN SUBCUT SCH (09:05)
[2020-06-28 11:12] LABS: APPEARANCE,URINE CLEAR; BILIRUBIN,URINE NEGATIVE (NEGATIVE); COLOR,URINE YELLOW; GLUCOSE, URINE NEGATIVE (NEGATIVE); KETONES,URINE NEGATIVE (NEGATIVE); LEUKOCYTE ESTERASE,URINE NEGATIVE (NEGATIVE); NITRITE,URINE NEGATIVE (NEGATIVE); PROTEIN,URINE 30 mg/dL (NEGATIVE); URINE SPECIFIC GRAVITY 1.019; UROBILINOGEN,URINE NEGATIVE mg/dL (<2.0)
--- NOTE | 2020-06-28 17:47 | PDOC PROGRESS REPORT ---
Subjective Subjective:: RAHUL MERIDA is a 80 year old female with past medical history significant for severe COPD on chronic 4 L nasal cannula, HTN, HLD, T2DM not on treatment, history of lung cancer status post partial lobectomy, history of breast cancer status post lumpectomy who presents to the ED with a 2-day history of progressive shortness of breath/BROWN/productive cough/chills/malaise/body aches. Patient and her called EMS for her oxygen saturation dropping into the mid 60s and when they arrived they performed rapid Covid test on the patient and her and both were positive. Patient had increased her home oxygen to 5 L in order to maintain adequate saturation in the low 90s. Patient follows with local pulmonology and Dr. Barclay is her PCP. Patient denies any fevers. On admission, patient's laboratory findings reveal elevated D-dimer and CRP consistent with Covid infection. CTPA showed no pulmonary embolism but did show multifocal pneumonia consistent with COVID-[address] also showed more c onspicuous appearance of previously noted lung nodules and mediastinal lymphadenopathy. I discussed the findings with the patient in detail. Patient admitted to Covid isolation unit and started on appropriate available COVID-19 therapy. 06/24/2020 Patient is being maintained on 4 L nasal cannula which is reportedly her home dose of oxygen. She is extremely anxious and we have restarted her psychiatric medications. Family states she may have required oral benzodiazepine in the past for anxiety but we will hold off on this for now. All things considered, she seems to be doing rather well. CRP and D-dimer are lower than yesterday and ferritin is normal. Patient continues to improve, she could be discharged in the next 48 hours. He has now received both doses of ivermectin and continues on IV steroids. 06/25/2020 Patient is to be doing quite well clinically today. She is maintained on her 4 L nasal cannula home dose oxygen. She is getting quite anxious frequently and repeatedly stating to the nurses that she is afraid of dying and wants to go home. I believe she continues to do well over the next 24 to 48 hours, she could be discharged home with close outpatient monitoring. She has responded quite well to the current treatment regimen and we will hopefully avoid the se waqar pulmonary phase we see another Covid patients. 06/26/2020 Patient continues to improve her breathing. She does have intermittent episodes of severe anxiety which caused her to become tachypneic and overnight nursing for additional oxygen on her as a result. After patient was treated with some Ativan today, her oxygen requirements dropped back to her baseline. She has been maintained on 4 L nasal cannula stable since then. I actually believe the hospital environment may be doing more harm to this patient in good given her severe overwhelming anxiety with frequent anxiety attacks causing her breathing to worsen. If she is doing well tomorrow on her home dose oxygen at 4 L nasal cannula I will talk with her about being discharged home. She has no new complaints today. 06/27/2020 Patient still rather anxious and states she is having some more difficulty breathing today. Chest x-ray today showed rehydration versus pulmonary infiltrates. Patient's lungs did not sound particularly wet/rhonchorous today though nursing noted she had increased oxygen requirements overnight. I believe there is a strong component of anxiety to the patient's breathlessness and we are working on controlling her anxiety with additional medications. If we can wean her back down to 4 to 5 L nasal cannula which is her home baseline reportedly, consider sending her home which would likely substantially improve her anxiety level and therefore her breathing as well. 06/28/2020 Patient seems to be quite calm today. I told her she is doing rather well all things considered we are continuing to try to wean her oxygen. I believe she has severe anxiety when she intermittently exacerbates her breathing problems. I explained this to her in detail. Her CRP is higher and her potassium is lower, will be repleting her potassium today. We need to wean her back down to 4 to 5 L nasal cannula if possible as this is her baseline. D-dimer is a bit higher. Reason For Visit: COPD W/EXACERBATION, PNEMONIA DUE TO 2019 NOVEL Physical Exam Vital Signs: Temp Pulse Resp BP Pulse Ox 98.5 F 69 18 122/57 L 91 L 06/28/20 16:58 06/28/20 16:58 06/28/20 16:58 06/28/20 16:58 06/28/20 16:58 Intake & Output 06/27/20 06/28/20 06/29/20 06:59 06:59 06:59 Intake Total 450 770 Output Total 225 400 Balance 225 370 Weight 61.3 kg 61.3 kg Exam: General appearance: PRESENT: Anxious, well-developed, well-nourished, ill- appearing elderly white female, states she feels pretty calm today overall Head exam: PRESENT: atraumatic, normocephalic Eye exam: PRESENT: conjunctiva pink. ABSENT: scleral icterus Mouth exam: PRESENT: moist Respiratory exam: PRESENT: Mild wheezing bilaterally ABSENT: rales, Cardiovascular exam: PRESENT: RRR. ABSENT: diastolic murmur, rubs, systolic murmur GI/Abdominal exam: PRESENT: normal bowel sounds, soft. ABSENT: distended, guarding, mass, organolmegaly, rebound, tenderness Neurological exam: PRESENT: alert, awake, oriented to person, oriented to place, oriented to time, oriented to situation Psychiatric exam: PRESENT: appropriate affect, normal mood Skin exam: PRESENT: dry, intact, warm Results Laboratory Results: 06/28/20 04:49 06/28/20 04:49 06/28/20 06/28/20 06/28/20 04:49 04:49 10:30 WBC 6.8 RBC 3.55 L Hgb 9.7 L Hct 29.1 L MCV 82 MCH 27.4 MCHC 33.5 RDW 14.5 H Plt Count 311 Sodium 139.9 Potassium 3.2 L Chloride 99 Carbon Dioxide 34 H Anion Gap 7 BUN 26 H Creatinine 0.59 Est GFR ( Amer) > 60 Glucose 135 H Calcium 8.4 C-Reactive Protein 42.8 H Urine Color YELLOW Urine Appearance CLEAR Urine pH 6.0 Ur Specific Hulen 1.019 Urine Protein 30 H Urine Glucose (UA) NEGATIVE Urine Ketones NEGATIVE Urine Blood NEGATIVE Urine Nitrite NEGATIVE Ur Leukocyte Esterase NEGATIVE Urine WBC (Auto) 0 Urine RBC (Auto) 1 06/23/20 12:31 Blood Blood Culture - Final NO GROWTH IN 5 DAYS 06/23/20 06/23/20 11:49 11:49 Creatine Kinase 546 H Troponin I < 0.012 Impressions: Chest/Abdomen CTA 06/23/20 13:21 IMPRESSION: No pulmonary arterial embolism. Scattered peripheral ground-glass opacities compatible with an atypical infection, particularly COVID-19. Chronic background lung disease. Increased conspicuity of right apical spiculated nodules and new mediastinal lymphadenopathy, findings concerning for neoplasia/metastasis. Chest X-Ray 06/27/20 06:15 IMPRESSION: Rehydration versus progressing bilateral pneumonia. Assessment and Plan - Diagnosis (1) Pneumonia due to COVID-19 virus Is this a current diagnosis for this admission?: Yes (2) Acute on chronic respiratory failure with hypoxemia Is this a current diagnosis for this admission?: Yes (3) T2DM (type 2 diabetes mellitus) Qualifiers: Diabetes mellitus intermodal customer service insulin use: without half-way use Diabetes mellitus complication status: without complication Qualified Code(s): E11.9 - Type 2 diabetes mellitus without complications Is this a current diagnosis for this admission?: Yes (4) History of lung cancer Is this a current diagnosis for this admission?: Yes (5) Acute exacerbation of chronic obstructive pulmonary disease (COPD) Is this a current diagnosis for this admission?: Yes (6) History of breast cancer Is this a current diagnosis for this admission?: Yes (7) Hyperlipidemia Qualifiers: Hyperlipidemia type: unspecified Qualified Code(s): E78.5 - Hyperlipidemia, unspecified Is this a current diagnosis for this admission?: Yes (8) Hypertension Qualifiers: Hypertension type: unspecified secondary hypertension Qualified Code(s): I1 5.9 - Secondary hypertension, unspecified Is this a current diagnosis for this admission?: Yes - Plan Summary Summary: (1) Pneumonia due to COVID-19 virus Is this a current diagnosis for this admission?: Yes Plan: 2 days progressive respiratory symptoms prior to admission, positive rapid Covid test done by EMS, has been positive as well -Symptoms/history consistent with covid-19 infection -Covid-19 test: Positive -CXR showed: Left lower lobe infiltrate -CTPA showed: Negative for PE, positive for multifocal pneumonia consistent with COVID-19 -standard of care vitamin supplements: zinc, ascorbic acid, vitamin d, melatonin -maintain magnesium of 2 mg/dL or higher -Current medical literature recommends against the use of remdesivir, plaquenil, and convalescent plasma -supplemental oxygen and BiPAP/CPAP as needed -prn combivent/nebs as able -do not hold anticoagulation unless actively bleeding or platelet count <50 -close monitoring for acute respiratory decline requiring ICU transfer and intubation -ivermectin/doxycycline combination therapy, significant clinical and inflammatory lab improvement thereafter Very slow to improve, anxiety component to her breathing problems intermittently, as needed anxiety medications provided (2) Acute on chronic respiratory failure with hypoxemia Is this a current diagnosis for this admission?: Yes Plan: Due to COVID-19 pneumonia and COPD as above Treat underlying cause Supplemental oxygen and positive pressure support as needed Baseline oxygen requirement is 4 L nasal cannula (3) T2DM (type 2 diabetes mellitus) Qualifiers: Diabetes mellitus half-way insulin use: without half-way use Diabetes mellitus complication status: without complication Qualified Code(s): E11.9 - Type 2 diabetes mellitus without complications Is this a current diagnosis for this admission?: Yes Plan: Diet controlled per patient (4) History of lung cancer Is this a current diagnosis for this admission?: Yes Plan: Status post lobectomy CT showed possible progression of lung nodules, needs follow-up with pulm onology, discussed with patient (5) Acute exacerbation of chronic obstructive pulmonary disease (COPD) Is this a current diagnosis for this admission?: Yes Plan: -acute COPD exacerbation -Supplemental O2 to maintain sat of 89-94% -duonebs -steroids -abx indicated only if concomitant bacterial pneumonia is also suspected -bronchial hygiene -consider pumonary rehab referral at [place] -no smoking Wheezing on exam (6) History of breast cancer Is this a current diagnosis for this admission?: Yes Plan: Breast cancer treated with lumpectomy per patient, denies any recurrence (7) Hyperlipidemia Qualifiers: Hyperlipidemia type: unspecified Qualified Code(s): E78.5 - Hyperlipidemia, unspecified Is this a current diagnosis for this admission?: Yes Plan: Diet controlled per patient (8) Hypertension Qualifiers: Hypertension type: unspecified secondary hypertension Qualified Code(s): I15.9 - Secondary hypertension, unspecified Is this a current diagnosis for this admission?: Yes Plan: Controlled Severe generalized chronic anxiety [facility]ed [facility]; patient has frequent severe anxiety attacks that worsen her breathing - Time Time Spent with patient: 35 or more minutes Medications reviewed and adjusted accordingly: Yes Anticipated Discharge Disposition: Home with Home Health Anticipated Discharge Timeframe: within 72 hours - Inpatient Certification Based on my medical assessment, after consideration of the patient's comorbidities, presenting symptoms, or acuity I expect that the services needed warrant INPATIENT care.: Yes I certify that my determination is in accordance with my understanding of Medicare's requirements for reasonable and necessary INPATIENT services [42 CFR 412.3e].: Yes Medical Necessity: Significant Comorbidiites Make Outpatient Treatment Too Risky, Need Close Monitoring Due to Risk of Patient Decompensation, Need for Nebulizer Therapy and Monitoring of Response, Risk of Complication if Not Cared For in Hospital, Risk of Diagnosis Which Will Require Inpatient Eval/Care/Monitoring
[2020-06-28] MEDS: LORAZEPAM 1 MG TABLET PO PRN (19:41)
[2020-06-28] MEDS: DOXYCYCLINE HYCLATE 100 MG in DEXTROSE 5%-WATER 250 ML IV SCH (19:43)
[2020-06-28] MEDS: AMITRIPTYLINE HCL 25 MG TABLET PO SCH (22:04)
[2020-06-28] MEDS: POTASSIUM CHLORIDE 20 MEQ PACKET PO SCH (22:04)
[2020-06-28] MEDS: MONTELUKAST SODIUM 10 MG TABLET PO SCH (22:09)
[2020-06-28] MEDS: ATORVASTATIN CALCIUM 40 MG TABLET PO SCH (22:09)
[2020-06-29] MEDS: HYDROCODONE/ACETAMINOPHEN 7.5-325 MG TABLET PO PRN (01:14)
[2020-06-29] MEDS: THIAMINE HCL 200 MG in NORMAL SALINE 100 ML IV SCH ×3 (02:30→22:45)
[2020-06-29] MEDS: AMPICILLIN SODIUM/SULBACTAM NA 3 GM in NORMAL SALINE 100 ML IV SCH ×4 (02:30→18:33)
[2020-06-29] MEDS: CLONIDINE HCL 0.2 MG TABLET PO SCH ×2 (09:11→22:45)
[2020-06-29] MEDS: OMEGA-3 ACID ETHYL ESTERS 1 GM CAPSULE PO SCH ×2 (09:11→18:32)
[2020-06-29] MEDS: DOCUSATE SODIUM 100 MG CAPSULE PO SCH (09:12)
[2020-06-29] MEDS: ZINC SULFATE 220 MG CAPSULE PO SCH (09:12)
[2020-06-29] MEDS: BUSPIRONE HCL 10 MG TABLET PO SCH (09:12)
[2020-06-29] MEDS: ASCORBIC ACID 500 MG TABLET PO SCH ×2 (09:12→18:32)
[2020-06-29] MEDS: FUROSEMIDE 40 MG TABLET PO SCH ×2 (09:12→18:32)
[2020-06-29] MEDS: FENOFIBRATE NANOCRYSTALLIZED 48 MG TABLET PO SCH (09:12)
[2020-06-29] MEDS: POTASSIUM CHLORIDE 20 MEQ PACKET PO SCH ×2 (09:13→22:45)
[2020-06-29] MEDS: PREGABALIN 50 MG CAPSULE PO SCH ×3 (09:13→18:32)
[2020-06-29] MEDS: METHYLPREDNISOLONE INJ 40 MG/1 ML SDV IV SCH ×2 (09:13→22:45)
[2020-06-29] MEDS: ENOXAPARIN SODIUM INJ 60 MG/0.6 ML DISP.SYRIN SUBCUT SCH (09:13)
[2020-06-29] MEDS: LORAZEPAM 1 MG TABLET PO PRN (12:05)
--- NOTE | 2020-06-29 16:17 | PDOC PROGRESS REPORT ---
Subjective Date:: 06/29/20 Subjective:: No adverse events overnight. No new complaints. Currently on 15 L on nonrebrea ther, SPO2 is 98% and she looked comfortable. She gets anxious at the mention of weaning her oxygen support because her SPO2 is so good, but I tried to point out to her that she had been on BiPAP and then down to the high flow nasal cannula and now on a nonrebreather, which shows improvement. She at least verbalized understanding that she is making some clinical improvement, but I am not sure that she really believes it. Reason For Visit: COPD W/EXACERBATION, PNEMONIA DUE TO 2019 NOVEL Physical Exam Vital Signs: Temp Pulse Resp BP Pulse Ox 98.4 F 73 36 H 154/49 H 97 06/29/20 11:28 06/29/20 14:00 06/29/20 12:15 06/29/20 11:28 06/29/20 12:15 Intake & Output 06/28/20 06/29/20 06/30/20 06:59 06:59 06:59 Intake Total 770 370 Output Total 400 200 Balance 370 170 Weight 61.3 kg 61.7 kg General appearance: PRESENT: Anxious, well-developed, well-nourished, ill- appearing elderly white female Head exam: PRESENT: atraumatic, normocephalic Eye exam: PRESENT: conjunctiva pink. ABSENT: scleral icterus Respiratory exam: PRESENT: Diminished bilaterally ABSENT: rales, wheezes Cardiovascular exam: PRESENT: RRR. ABSENT: diastolic murmur, rubs, systolic murmur GI/Abdominal exam: PRESENT: normal bowel sounds, soft. ABSENT: distended, guarding, mass, organolmegaly, rebound, tenderness Neurological exam: PRESENT: alert, awake, oriented to person, oriented to place, oriented to time, oriented to situation Psychiatric exam: PRESENT: appropriate affect, normal mood Skin exam: PRESENT: dry, intact, warm Results Laboratory Results: 06/28/20 04:49 06/28/20 04:49 06/29/20 12:26 Ferritin 232.00 06/23/20 12:31 Blood Blood Culture - Final NO GROWTH IN 5 DAYS 06/23/20 06/23/20 11:49 11:49 Creatine Kinase 546 H Troponin I < 0.012 Impressions: Chest/Abdomen CTA 06/23/20 13:21 IMPRESSION: No pulmonary arterial embolism. Scattered peripheral ground-glass opacities compatible with an atypical infection, particularly COVID-19. Chronic background lung disease. Increased conspicuity of right apical spiculated nodules and new mediastinal lymphadenopathy, findings concerning for neoplasia/metastasis. Chest X-Ray 06/27/20 06:15 IMPRESSION: Rehydration versus progressing bilateral pneumonia. 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 mellitus residential insulin use: without grain mixer use Diabetes mellitus complication status: without complication Qualified Code(s): E11.9 - Type 2 diabetes mellitus without complications Is this a current diagnosis for this admission?: Yes (7) Hypertension Qualifiers: Hypertension type: unspecified secondary hypertension Qualified Code(s): I15.9 - Secondary hypertension, unspecified Is this a current diagnosis for this admission?: Yes (8) Lumbago Qualifiers: Chronicity: chronic Back pain laterality: bilateral Is this a current diagnosis for this admission?: Yes (9) Osteoporosis Qualifiers: Osteoporosis type: age-related Presence of current pathological fracture: without current pathological fracture Qualified Code(s): M81.0 - Age-related osteoporosis without current pathological fracture Is this a current diagnosis for this admission?: Yes - Plan Summary Summary: Currently stable at 15 L on a nonrebreather. We will slowly titrate the oxygen level as tolerated with the hopes that we will eventually get her back on the 4 to 5 L of oxygen that she is on at home. If we do it slowly enough, hopefully we will not exacerbate her anxiety too much. She has a few more days of antibiotics scheduled. We continue with IV steroids and vitamin sup plementation. She has received ivermectin. When her oxygen is more stable, we will try to do some physical therapy. - Time Time Spent with patient: 15-24 minutes Anticipated Discharge Disposition: Unknown Anticipated Discharge Timeframe: Unknown
[2020-06-29] MEDS: DOXYCYCLINE HYCLATE 100 MG in DEXTROSE 5%-WATER 250 ML IV SCH (20:21)
[2020-06-29] MEDS: AMITRIPTYLINE HCL 25 MG TABLET PO SCH (22:45)
[2020-06-29] MEDS: ATORVASTATIN CALCIUM 40 MG TABLET PO SCH (22:45)
[2020-06-29] MEDS: MONTELUKAST SODIUM 10 MG TABLET PO SCH (22:45)
[2020-06-30] MEDS: LORAZEPAM 1 MG TABLET PO PRN ×2 (00:30→21:06)
[2020-06-30] MEDS: AMPICILLIN SODIUM/SULBACTAM NA 3 GM in NORMAL SALINE 100 ML IV SCH ×4 (00:30→17:40)
[2020-06-30 06:13] LABS: ABSOLUTE LYMPHOCYTES (AUTO) 0.8 10^3/uL (0.5-4.7); ABSOLUTE MONOCYTES (AUTO) 0.3 10^3/uL (0.1-1.4); ABSOLUTE NEUT (AUTO) 7.6 10^3/uL (1.7-8.2); HEMOGLOBIN 10.3 g/dL (12.0-15.5); LYMPHOCYTES % (AUTO) 9.1 % (13-45); MEAN CORPUSCULAR HEMOGLOBIN 27.5 pg (27.0-33.4); MEAN CORPUSCULAR HGB CONC 33.4 g/dL (32.0-36.0); MEAN CORPUSCULAR VOLUME 82 fl (80-97); MONOCYTES % (AUTO) 3.7 % (3-13); PLATELET COUNT 443 10^3/uL (150-450); RED BLOOD COUNT 3.76 10^6/uL (3.72-5.28); RED CELL DISTRIBUTION WIDTH 14.3 % (11.5-14.0); SEGMENTED NEUTROPHILS % (AUTO) 87.2 % (42-78); TOTAL CELLS COUNTED % (AUTO) 100 %; WHITE BLOOD COUNT 8.7 10^3/uL (4.0-10.5)
[2020-06-30 06:38] LABS: BLOOD UREA NITROGEN 25 mg/dL (7-20); C-REACTIVE PROTEIN 45.6 mg/L (<10.0); CALCIUM 8.7 mg/dL (8.4-10.2); CHLORIDE 94 mmol/L (98-107); GLUCOSE 145 mg/dL (75-110); POTASSIUM 3.8 mmol/L (3.6-5.0)
[2020-06-30 06:43] LABS: ANION GAP 7 (5-19); CARBON DIOXIDE 38 mmol/L (22-30)
[2020-06-30] MEDS: METHYLPREDNISOLONE INJ 125 MG/2 ML SDV IV SCH ×2 (09:37→21:05)
[2020-06-30] MEDS: DOCUSATE SODIUM 100 MG CAPSULE PO SCH (09:38)
[2020-06-30] MEDS: FENOFIBRATE NANOCRYSTALLIZED 48 MG TABLET PO SCH (09:38)
[2020-06-30] MEDS: FUROSEMIDE 40 MG TABLET PO SCH ×2 (09:38→17:41)
[2020-06-30] MEDS: ZINC SULFATE 220 MG CAPSULE PO SCH (09:38)
[2020-06-30] MEDS: CLONIDINE HCL 0.2 MG TABLET PO SCH ×2 (09:38→21:06)
[2020-06-30] MEDS: OMEGA-3 ACID ETHYL ESTERS 1 GM CAPSULE PO SCH ×2 (09:38→17:41)
[2020-06-30] MEDS: PREGABALIN 50 MG CAPSULE PO SCH ×3 (09:39→17:41)
[2020-06-30] MEDS: BUSPIRONE HCL 10 MG TABLET PO SCH (09:39)
[2020-06-30] MEDS: POTASSIUM CHLORIDE 20 MEQ PACKET PO SCH ×2 (09:39→21:06)
[2020-06-30] MEDS: ENOXAPARIN SODIUM INJ 60 MG/0.6 ML DISP.SYRIN SUBCUT SCH (09:39)
[2020-06-30] MEDS: THIAMINE HCL 200 MG in NORMAL SALINE 100 ML IV SCH ×2 (09:39→21:10)
[2020-06-30] MEDS: ASCORBIC ACID 500 MG TABLET PO SCH ×2 (09:39→17:41)
--- NOTE | 2020-06-30 14:42 | PDOC PROGRESS REPORT ---
Subjective Date:: 06/30/20 Subjective:: No adverse events overnight. We had to put her on CPAP this morning because she kept pulling at the nonrebreather and taking it off. When she kept the nonrebreather on her saturations were okay, but we could not get her to leave the mask alone. Reason For Visit: COPD W/EXACERBATION, PNEMONIA DUE TO 2019 NOVEL Physical Exam Vital Signs: Temp Pulse Resp BP Pulse Ox 98.0 F 72 22 H 137/45 H 94 06/30/20 11:36 06/30/20 11:36 06/30/20 13:01 06/30/20 11:36 06/30/20 13:01 Intake & Output 06/29/20 06/30/20 07/01/20 06:59 06:59 06:59 Intake Total 370 1108 Output Total 200 Balance 170 1108 Weight 61.7 kg 61.1 kg General appearance: PRESENT: Anxious, well-developed, well-nourished, ill- appearing elderly white female Head exam: PRESENT: atraumatic, normocephalic Eye exam: PRESENT: conjunctiva pink. ABSENT: scleral icterus Respiratory exam: PRESENT: Diminished bilaterally ABSENT: rales, wheezes Cardiovascular exam: PRESENT: RRR. ABSENT: diastolic murmur, rubs, systolic murmur GI/Abdominal exam: PRESENT: normal bowel sounds, soft. ABSENT: distended, guarding, mass, organolmegaly, rebound, tenderness Neurological exam: PRESENT: alert, awake, oriented to person, oriented to place, oriented to time, oriented to situation Psychiatric exam: PRESENT: appropriate affect, normal mood Skin exam: PRESENT: dry, intact, warm Results Laboratory Results: 06/30/20 05:28 06/30/20 05:28 06/30/20 06/30/20 05:28 05:28 WBC 8.7 RBC 3.76 Hgb 10.3 L Hct 31.0 L MCV 82 MCH 27.5 MCHC 33.4 RDW 14.3 H Plt Count 443 Seg Neutrophils % 87.2 H Sodium 139.2 Potassium 3.8 Chloride 94 L Carbon Dioxide 38 H Anion Gap 7 BUN 25 H Creatinine 0.59 Est GFR ( Amer) > 60 Glucose 145 H Calcium 8.7 C-Reactive Protein 45.6 H 12/13/20 12/13/20 11:49 11:49 Creatine Kinase 546 H Troponin I < 0.012 Impressions: Chest/Abdomen CTA 06/23/20 13:21 IMPRESSION: No pulmonary arterial embolism. Scattered peripheral ground-glass opacities compatible with an atypical infection, particularly COVID-19. Chronic background lung disease. Increased conspicuity of right apical spiculated nodules and new mediastinal lymphadenopathy, findings concerning for neoplasia/metastasis. Chest X-Ray 06/27/20 06:15 IMPRESSION: Rehydration versus progressing bilateral pneumonia. 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 mellitus half-way insulin use: without half-way use Diabetes mellitus complication status: without complication Qualified Code(s): E11.9 - Type 2 diabetes mellitus without complications Is this a current diagnosis for this admission?: Yes (7) Hypertension Qualifiers: Hypertension type: unspecified secondary hypertension Qualified Code(s): I15.9 - Secondary hypertension, unspecified Is this a current diagnosis for this admission?: Yes (8) Lumbago Qualifiers: Chronicity: chronic Back pain laterality: bilateral Is this a current diagnosis for this admission?: Yes (9) Osteoporosis Qualifiers: Osteoporosis type: age-related Presence of current pathological fracture: without current pathological fracture Qualified Code(s): M81.0 - Age-related osteoporosis without current pathological fracture Is this a current diagnosis for this admission?: Yes - Plan Summary Summary: Currently stable on CPAP with a pressure of 14, FiO2 100% but also being weaned. She is on 4 to 5 L of oxygen per nasal cannula at home. She has a few more days of antibiotics scheduled. We continue with IV steroids and vitamin supplementation, steroids have been increased. She has received ivermectin. When her oxygen is more stable, we will try to do some physical therapy. - Time Time Spent with patient: 15-24 minutes Anticipated Discharge Disposition: Unknown Anticipated Discharge Timeframe: Unknown
[2020-06-30] MEDS: ATORVASTATIN CALCIUM 40 MG TABLET PO SCH (21:06)
[2020-06-30] MEDS: MONTELUKAST SODIUM 10 MG TABLET PO SCH (21:06)
[2020-06-30] MEDS: AMITRIPTYLINE HCL 25 MG TABLET PO SCH (21:06)
[2020-07-01] MEDS: AMPICILLIN SODIUM/SULBACTAM NA 3 GM in NORMAL SALINE 100 ML IV SCH ×4 (00:15→17:25)
[2020-07-01 05:32] LABS: HEMATOCRIT 30.9 % (36.0-47.0); HEMOGLOBIN 10.2 g/dL (12.0-15.5); MEAN CORPUSCULAR HEMOGLOBIN 27.4 pg (27.0-33.4); MEAN CORPUSCULAR VOLUME 83 fl (80-97); PLATELET COUNT 462 10^3/uL (150-450); RED BLOOD COUNT 3.73 10^6/uL (3.72-5.28); RED CELL DISTRIBUTION WIDTH 14.7 % (11.5-14.0); WHITE BLOOD COUNT 7.8 10^3/uL (4.0-10.5)
[2020-07-01] MEDS: METHYLPREDNISOLONE INJ 125 MG/2 ML SDV IV SCH ×2 (11:44→22:50)
[2020-07-01] MEDS: THIAMINE HCL 200 MG in NORMAL SALINE 100 ML IV SCH ×2 (11:44→22:50)
[2020-07-01] MEDS: CLONIDINE HCL 0.2 MG TABLET PO SCH ×2 (11:45→22:49)
[2020-07-01] MEDS: DOCUSATE SODIUM 100 MG CAPSULE PO SCH (11:45)
[2020-07-01] MEDS: ASCORBIC ACID 500 MG TABLET PO SCH ×2 (11:45→17:24)
[2020-07-01] MEDS: ZINC SULFATE 220 MG CAPSULE PO SCH (11:45)
[2020-07-01] MEDS: BUSPIRONE HCL 10 MG TABLET PO SCH (11:45)
[2020-07-01] MEDS: OMEGA-3 ACID ETHYL ESTERS 1 GM CAPSULE PO SCH ×2 (11:45→17:24)
[2020-07-01] MEDS: FENOFIBRATE NANOCRYSTALLIZED 48 MG TABLET PO SCH (11:45)
[2020-07-01] MEDS: LORAZEPAM 1 MG TABLET PO PRN (11:46)
[2020-07-01] MEDS: POTASSIUM CHLORIDE 20 MEQ PACKET PO SCH ×2 (11:46→22:47)
[2020-07-01] MEDS: PREGABALIN 50 MG CAPSULE PO SCH ×3 (11:46→17:24)
[2020-07-01] MEDS: FUROSEMIDE 40 MG TABLET PO SCH ×2 (11:46→17:25)
[2020-07-01] MEDS: ENOXAPARIN SODIUM INJ 60 MG/0.6 ML DISP.SYRIN SUBCUT SCH ×2 (11:47→22:49)
--- NOTE | 2020-07-01 14:35 | PDOC PROGRESS REPORT ---
Subjective Date:: 07/01/20 Subjective:: No adverse events overnight. She has been on CPAP at 100%. I went into the chasity and was able to wean her down to 60% FiO2 on CPAP and her saturations stayed in the mid 90s. She said she wanted the mask off, but previously whenever we have tried to wean her from the level of oxygen support she gets very anxious about it. At this point I do not think it is reasonable to try to take her off CPAP immediately anyway. Reason For Visit: COPD W/EXACERBATION, PNEMONIA DUE TO 2019 NOVEL Physical Exam Vital Signs: Temp Pulse Resp BP Pulse Ox 97.8 F 84 17 122/57 L 97 07/01/20 08:05 07/01/20 07:51 07/01/20 09:05 07/01/20 07:51 07/01/20 09:05 Intake & Output 06/30/20 07/01/20 07/02/20 06:59 06:59 06:59 Intake Total 1108 150 80 Balance 1108 150 80 Weight 61.1 kg 60.3 kg General appearance: PRESENT: Anxious, well-developed, well-nourished, ill-ap pearing elderly white female Head exam: PRESENT: atraumatic, normocephalic Eye exam: PRESENT: conjunctiva pink. ABSENT: scleral icterus Respiratory exam: PRESENT: Diminished bilaterally ABSENT: rales, wheezes Cardiovascular exam: PRESENT: RRR. ABSENT: diastolic murmur, rubs, systolic murmur GI/Abdominal exam: PRESENT: normal bowel sounds, soft. ABSENT: distended, guarding, mass, organolmegaly, rebound, tenderness Neurological exam: PRESENT: alert, awake, oriented to person, oriented to place, oriented to time, oriented to situation Psychiatric exam: PRESENT: Anxious Skin exam: PRESENT: dry, intact, warm Results Laboratory Results: 07/01/20 04:54 06/30/20 05:28 07/01/20 04:54 WBC 7.8 RBC 3.73 Hgb 10.2 L Hct 30.9 L MCV 83 MCH 27.4 MCHC 33.0 RDW 14.7 H Plt Count 462 H 06/23/20 06/23/20 11:49 11:49 Creatine Kinase 546 H Troponin I < 0.012 Impressions: Chest/Abdomen CTA 06/23/20 13:21 IMPRESSION: No pulmonary arterial embolism. Scattered peripheral ground-glass opacities compatible with an atypical infection, particularly COVID-19. Chronic background lung disease. Increased conspicuity of right apical spiculated nodules and new mediastinal lymphadenopathy, findings concerning for neoplasia/metastasis. Chest X-Ray 06/27/20 06:15 IMPRESSION: Rehydration versus progressing bilateral pneumonia. 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 mellitus care home insulin use: without termite technician use Diabetes mellitus complication status: without complication Qualified Code(s): E11.9 - Type 2 diabetes mellitus without complications Is this a current diagnosis for this admission?: Yes (7) Hypertension Qualifiers: Hypertension type: unspecified secondary hypertension Qualified Code(s): I15.9 - Secondary hypertension, unspecified Is this a current diagnosis for this admission?: Yes (8) Lumbago Qualifiers: Chronicity: chronic Back pain laterality: bilateral Is this a current diagnosis for this admission?: Yes (9) Osteoporosis Qualifiers: Osteoporosis type: age-related Presence of current pathological fracture: without current pathological fracture Qualified Code(s): M81.0 - Age-related osteoporosis without current pathological fracture Is this a current diagnosis for this admission?: Yes - Plan Summary Summary: Currently stable on CPAP with a pressure of 14, FiO2 60%. She is on 4 to 5 L of oxygen per nasal cannula at home. She has a few more days of antibiotics scheduled. We continue with IV steroids and vitamin supplementation, steroids have been increased. She has received ivermectin. When her oxygen is more stable, we will try to do some physical therapy. - Time Time Spent with patient: 15-24 minutes Anticipated Discharge Disposition: Unknown Anticipated Discharge Timeframe: Unknown
[2020-07-01] MEDS: MONTELUKAST SODIUM 10 MG TABLET PO SCH (22:47)
[2020-07-01] MEDS: ATORVASTATIN CALCIUM 40 MG TABLET PO SCH (22:47)
[2020-07-01] MEDS: AMITRIPTYLINE HCL 25 MG TABLET PO SCH (22:49)
[2020-07-02] MEDS: AMPICILLIN SODIUM/SULBACTAM NA 3 GM in NORMAL SALINE 100 ML IV SCH ×3 (00:48→12:09)
[2020-07-02 06:47] LABS: ABSOLUTE LYMPHOCYTES (AUTO) 0.7 10^3/uL (0.5-4.7); ABSOLUTE MONOCYTES (AUTO) 0.3 10^3/uL (0.1-1.4); ABSOLUTE NEUT (AUTO) 8.5 10^3/uL (1.7-8.2); BASOPHILS % (AUTO) 0.2 % (0-2); HEMATOCRIT 30.8 % (36.0-47.0); HEMOGLOBIN 10.3 g/dL (12.0-15.5); LYMPHOCYTES % (AUTO) 7.3 % (13-45); MEAN CORPUSCULAR HEMOGLOBIN 27.6 pg (27.0-33.4); MEAN CORPUSCULAR HGB CONC 33.4 g/dL (32.0-36.0); MEAN CORPUSCULAR VOLUME 83 fl (80-97); MONOCYTES % (AUTO) 2.7 % (3-13); PLATELET COUNT 486 10^3/uL (150-450); RED BLOOD COUNT 3.71 10^6/uL (3.72-5.28); RED CELL DISTRIBUTION WIDTH 14.5 % (11.5-14.0); SEGMENTED NEUTROPHILS % (AUTO) 89.8 % (42-78); TOTAL CELLS COUNTED % (AUTO) 100 %; WHITE BLOOD COUNT 9.4 10^3/uL (4.0-10.5)
[2020-07-02 07:24] LABS: BLOOD UREA NITROGEN 32 mg/dL (7-20); CALCIUM 8.8 mg/dL (8.4-10.2); CHLORIDE 94 mmol/L (98-107); GLUCOSE 143 mg/dL (75-110); POTASSIUM 3.5 mmol/L (3.6-5.0)
[2020-07-02 07:31] LABS: ANION GAP 8 (5-19)
[2020-07-02 07:40] LABS: CARBON DIOXIDE 42 mmol/L (22-30)
[2020-07-02] MEDS: CLONIDINE HCL 0.2 MG TABLET PO SCH ×3 (09:06→23:17)
[2020-07-02] MEDS: ASCORBIC ACID 500 MG TABLET PO SCH ×2 (09:07→17:02)
[2020-07-02] MEDS: PREGABALIN 50 MG CAPSULE PO SCH ×3 (09:07→17:02)
[2020-07-02] MEDS: ZINC SULFATE 220 MG CAPSULE PO SCH (09:07)
[2020-07-02] MEDS: FENOFIBRATE NANOCRYSTALLIZED 48 MG TABLET PO SCH (09:07)
[2020-07-02] MEDS: OMEGA-3 ACID ETHYL ESTERS 1 GM CAPSULE PO SCH ×2 (09:07→17:02)
[2020-07-02] MEDS: LORAZEPAM 1 MG TABLET PO PRN ×2 (09:07→18:05)
[2020-07-02] MEDS: BUSPIRONE HCL 10 MG TABLET PO SCH (09:07)
[2020-07-02] MEDS: POTASSIUM CHLORIDE 20 MEQ PACKET PO SCH ×2 (09:08→23:18)
[2020-07-02] MEDS: FUROSEMIDE 40 MG TABLET PO SCH ×2 (09:08→17:02)
[2020-07-02] MEDS: METHYLPREDNISOLONE INJ 125 MG/2 ML SDV IV SCH ×2 (09:08→23:17)
[2020-07-02] MEDS: ENOXAPARIN SODIUM INJ 60 MG/0.6 ML DISP.SYRIN SUBCUT SCH ×2 (09:08→23:17)
[2020-07-02] MEDS: THIAMINE HCL 200 MG in NORMAL SALINE 100 ML IV SCH ×2 (09:39→23:18)
[2020-07-02] MEDS: DOCUSATE SODIUM 100 MG CAPSULE PO SCH (09:42)
--- NOTE | 2020-07-02 14:49 | PDOC PROGRESS REPORT ---
Subjective Date:: 07/02/20 Subjective:: No adverse events overnight. She remains on CPAP. She seems a little bit more somnolent today than yesterday, and her serum CO2 has increased. No fevers. Reason For Visit: COPD W/EXACERBATION, PNEMONIA DUE TO 2019 NOVEL Physical Exam Vital Signs: Temp Pulse Resp BP Pulse Ox 98.8 F 67 17 122/36 L 100 07/02/20 11:25 07/02/20 11:25 07/02/20 11:25 07/02/20 11:25 07/02/20 11:25 Intake & Output 07/01/20 07/02/20 07/03/20 06:59 06:59 06:59 Intake Total 150 430 Balance 150 430 Weight 60.3 kg 59.2 kg General appearance: PRESENT: Anxious, well-developed, well-nourished, ill- appearing elderly white female Head exam: PRESENT: atraumatic, normocephalic Eye exam: PRESENT: conjunctiva pink. ABSENT: scleral icterus Respiratory exam: PRESENT: Diminished bilaterally ABSENT: rales, wheezes Cardiovascular exam: PRESENT: RRR. ABSENT: diastolic murmur, rubs, systolic murmur GI/Abdominal exam: PRESENT: normal bowel sounds, soft. ABSENT: distended, guarding, mass, organolmegaly, rebound, tenderness Neurological exam: PRESENT: awake, oriented to person, oriented to place Psychiatric exam: PRESENT: Anxious Skin exam: PRESENT: dry, intact, warm Results Laboratory Results: 07/02/20 06:29 07/02/20 06:29 07/02/20 07/02/20 07/02/20 06:29 06:29 06:29 WBC 9.4 RBC 3.71 L Hgb 10.3 L Hct 30.8 L MCV 83 MCH 27.6 MCHC 33.4 RDW 14.5 H Plt Count 486 H Seg Neutrophils % 89.8 H Sodium 143.8 Potassium 3.5 L Chloride 94 L Carbon Dioxide 42 H* Anion Gap 8 BUN 32 H Creatinine 0.67 Est GFR ( Amer) > 60 Glucose 143 H Calcium 8.8 C-Reactive Protein 30.1 H 06/23/20 06/23/20 11:49 11:49 Creatine Kinase 546 H Troponin I < 0.012 Impressions: Chest/Abdomen CTA 06/23/20 13:21 IMPRESSION: No pulmonary arterial embolism. Scattered peripheral ground-glass opacities compatible with an atypical infection, particularly COVID-19. Chronic background lung disease. Increased conspicuity of right apical spiculated nodules and new mediastinal lymphadenopathy, findings concerning for neoplasia/metastasis. Chest X-Ray 06/27/20 06:15 IMPRESSION: Rehydration versus progressing bilateral pneumonia. 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 use: without usp use Diabetes mellitus complication status: without complication Qualified Code(s): E11.9 - Type 2 diabetes mellitus without complications Is this a current diagnosis for this admission?: Yes (7) Hypertension Qualifiers: Hypertension type: unspecified secondary hypertension Qualified Code(s): I15.9 - Secondary hypertension, unspecified Is this a current diagnosis for this admission?: Yes (8) Lumbago Qualifiers: Chronicity: chronic Back pain laterality: bilateral Is this a current diagnosis for this admission?: Yes (9) Osteoporosis Qualifiers: Osteoporosis type: age-related Presence of current pathological fracture: without current pathological fracture Qualified Code(s): M81.0 - Age-related osteoporosis without current pathological fracture Is this a current diagnosis for this admission?: Yes - Plan Summary Summary: Currently stable on CPAP with a pressure of 14, FiO2 increased back to 100% because she got very anxious and will check her SPO2 on her telemetry box frequently and if it is not near 100% she gets scared. We are switching her to BiPAP because her CO2 seems to be building up, probably because of her insistenc e on having her FiO2 at or near 100%, which probably slows down her respirations and causes her CO2 to increase. I have advised her about the need for her respiratory rate to be at a certain level to keep her carbon dioxide from building up. I have advised her nurse to try to keep her SPO2 around 88 to 92%. She is on 4 to 5 L of oxygen per nasal cannula at home. She has a couple more days of antibiotics scheduled. We continue with IV steroids and vitamin supplementation, steroids have been increased. She has received ivermectin. When her oxygen is more stable, we will try to do some physical therapy. - Time Time Spent with patient: 15-24 minutes Anticipated Discharge Disposition: Unknown Anticipated Discharge Timeframe: Unknown
[2020-07-02] MEDS ORDERED: MAG HYDROX/AL HYDROX/SIMETH SUSP 30 ML UDCUP ONE (16:36)
[2020-07-02] MEDS ORDERED: MAG HYDROX/AL HYDROX/SIMETH SUSP 30 ML UDCUP PO ONE (17:00)
[2020-07-02] MEDS: AMITRIPTYLINE HCL 25 MG TABLET PO SCH (23:18)
[2020-07-02] MEDS: MONTELUKAST SODIUM 10 MG TABLET PO SCH (23:18)
[2020-07-02] MEDS: ATORVASTATIN CALCIUM 40 MG TABLET PO SCH (23:18)
[2020-07-03 05:28] LABS: HEMATOCRIT 32.5 % (36.0-47.0); HEMOGLOBIN 10.5 g/dL (12.0-15.5); MEAN CORPUSCULAR HEMOGLOBIN 26.8 pg (27.0-33.4); MEAN CORPUSCULAR HGB CONC 32.4 g/dL (32.0-36.0); MEAN CORPUSCULAR VOLUME 83 fl (80-97); PLATELET COUNT 474 10^3/uL (150-450); RED BLOOD COUNT 3.92 10^6/uL (3.72-5.28); RED CELL DISTRIBUTION WIDTH 14.4 % (11.5-14.0); WHITE BLOOD COUNT 15.1 10^3/uL (4.0-10.5)
[2020-07-03] MEDS: CLONIDINE HCL 0.2 MG TABLET PO SCH ×2 (10:04→21:00)
[2020-07-03] MEDS: OMEGA-3 ACID ETHYL ESTERS 1 GM CAPSULE PO SCH ×2 (10:04→17:11)
[2020-07-03] MEDS: FUROSEMIDE 40 MG TABLET PO SCH ×2 (10:04→17:11)
[2020-07-03] MEDS: FENOFIBRATE NANOCRYSTALLIZED 48 MG TABLET PO SCH (10:04)
[2020-07-03] MEDS: PREGABALIN 50 MG CAPSULE PO SCH ×3 (10:05→17:11)
[2020-07-03] MEDS: BUSPIRONE HCL 10 MG TABLET PO SCH (10:05)
[2020-07-03] MEDS: DOCUSATE SODIUM 100 MG CAPSULE PO SCH (10:05)
[2020-07-03] MEDS: ASCORBIC ACID 500 MG TABLET PO SCH ×2 (10:05→17:11)
[2020-07-03] MEDS: METHYLPREDNISOLONE INJ 125 MG/2 ML SDV IV SCH ×2 (10:06→23:23)
[2020-07-03] MEDS: ZINC SULFATE 220 MG CAPSULE PO SCH (10:06)
[2020-07-03] MEDS: POTASSIUM CHLORIDE 20 MEQ PACKET PO SCH ×2 (10:08→21:00)
[2020-07-03] MEDS: ENOXAPARIN SODIUM INJ 60 MG/0.6 ML DISP.SYRIN SUBCUT SCH ×2 (10:08→21:00)
[2020-07-03] MEDS: THIAMINE HCL 200 MG in NORMAL SALINE 100 ML IV SCH ×2 (10:10→23:23)
--- NOTE | 2020-07-03 14:41 | PDOC PROGRESS REPORT ---
Subjective Date:: 07/03/20 Subjective:: No adverse events overnight. She has been comfortable on BiPAP overnight. Oxyg en saturations have improved. FiO2 is down to 80%. She keeps saying she wants to go home. Reason For Visit: COPD W/EXACERBATION, PNEMONIA DUE TO 2019 NOVEL Physical Exam Vital Signs: Temp Pulse Resp BP Pulse Ox 97.8 F 80 28 H 162/46 H 96 07/03/20 08:36 07/03/20 11:00 07/03/20 11:00 07/03/20 07:48 07/03/20 11:00 Intake & Output 07/02/20 07/03/20 07/04/20 06:59 06:59 06:59 Intake Total 430 497 Balance 430 497 Weight 59.2 kg 59.4 kg General appearance: PRESENT: Anxious, well-developed, well-nourished, ill- appearing elderly white female Head exam: PRESENT: atraumatic, normocephalic Eye exam: PRESENT: conjunctiva pink. ABSENT: scleral icterus Respiratory exam: PRESENT: Diminished bilaterally ABSENT: rales, wheezes Cardiovascular exam: PRESENT: RRR. ABSENT: diastolic murmur, rubs, systolic murmur GI/Abdominal exam: PRESENT: normal bowel sounds, soft. ABSENT: distended, guarding, mass, organolmegaly, rebound, tenderness Neurological exam: PRESENT: awake, oriented to person, oriented to place Psychiatric exam: PRESENT: Anxious Skin exam: PRESENT: dry, intact, warm Results Laboratory Results: 07/03/20 04:32 07/02/20 06:29 07/03/20 07/03/20 04:32 04:32 WBC 15.1 H RBC 3.92 Hgb 10.5 L Hct 32.5 L MCV 83 MCH 26.8 L MCHC 32.4 RDW 14.4 H Plt Count 474 H C-Reactive Protein 21.3 H 06/23/20 06/23/20 11:49 11:49 Creatine Kinase 546 H Troponin I < 0.012 Impressions: Chest/Abdomen CTA 06/23/20 13:21 IMPRESSION: No pulmonary arterial embolism. Scattered peripheral ground-glass opacities compatible with an atypical infection, particularly COVID-19. Chronic background lung disease. Increased conspicuity of right apical spiculated nodules and new mediastinal lymphadenopathy, findings concerning for neoplasia/metastasis. Chest X-Ray 06/27/20 06:15 IMPRESSION: Rehydration versus progressing bilateral pneumonia. 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 insulin use: without termite treater use Diabetes mellitus complication status: without complication Qualified Code(s): E11.9 - Type 2 diabetes mellitus without complications Is this a current diagnosis for this admission?: Yes (7) Hypertension Qualifiers: Hypertension type: unspecified secondary hypertension Qualified Code(s): I15.9 - Secondary hypertension, unspecified Is this a current diagnosis for this admission?: Yes (8) Lumbago Qualifiers: Chronicity: chronic Back pain laterality: bilateral Is this a current diagnosis for this admission?: Yes (9) Osteoporosis Qualifiers: Osteoporosis type: age-related Presence of current pathological fracture: without current pathological fracture Qualified Code(s): M81.0 - Age-related osteoporosis without current pathological fracture Is this a current diagnosis for this admission?: Yes - Plan Summary Summary: Currently stable on BiPAP 15/8 FiO2 80%. Continue IV steroids and vitamin supplementation. CRP is trending down. She remains very anxious, and that is working against her breathing. We will give her as needed medication occasionally to try to relax her. It seems to get worse when she has family in the room. Prognosis is guarded. - Time Time Spent with patient: 15-24 minutes Anticipated Discharge Disposition: Unknown Anticipated Discharge Timeframe: Unknown
[2020-07-03] MEDS: MONTELUKAST SODIUM 10 MG TABLET PO SCH (21:00)
[2020-07-03] MEDS: ATORVASTATIN CALCIUM 40 MG TABLET PO SCH (21:00)
[2020-07-03] MEDS: AMITRIPTYLINE HCL 25 MG TABLET PO SCH (21:01)
[2020-07-04] MEDS ORDERED: LIDOCAINE 2% VISCOUS SOLN 15 ML UDCUP PO ONE (03:00)
[2020-07-04] MEDS ORDERED: MAG HYDROX/AL HYDROX/SIMETH SUSP 30 ML UDCUP PO ONE (03:00)
[2020-07-04] MEDS ORDERED: METOCLOPRAMIDE HCL ORAL SOLN 10 MG/10 ML UDCUP PO ONE (03:00)
[2020-07-04 08:33] LABS: HEMATOCRIT 34.1 % (36.0-47.0); HEMOGLOBIN 11.3 g/dL (12.0-15.5); MEAN CORPUSCULAR HEMOGLOBIN 26.7 pg (27.0-33.4); MEAN CORPUSCULAR VOLUME 81 fl (80-97); PLATELET COUNT 538 10^3/uL (150-450); RED BLOOD COUNT 4.21 10^6/uL (3.72-5.28); RED CELL DISTRIBUTION WIDTH 14.6 % (11.5-14.0); WHITE BLOOD COUNT 12.5 10^3/uL (4.0-10.5)
[2020-07-04 08:39] LABS: ALKALINE PHOSPHATASE 83 U/L (38-126); ASPARTATE AMINO TRANSFERASE 31 U/L (14-36); BILIRUBIN,DIRECT 0.3 mg/dL (0.0-0.4); BILIRUBIN,TOTAL 0.7 mg/dL (0.2-1.3); BLOOD UREA NITROGEN 35 mg/dL (7-20); CHLORIDE 92 mmol/L (98-107); GLUCOSE 99 mg/dL (75-110); POTASSIUM 3.5 mmol/L (3.6-5.0); TOTAL PROTEIN 6.1 g/dL (6.3-8.2)
[2020-07-04 08:45] LABS: ANION GAP 10 (5-19); CARBON DIOXIDE 39 mmol/L (22-30)
[2020-07-04 09:06] LABS: ABSOLUTE LYMPHOCYTES# (MANUAL) 1.4 10^3/uL (0.5-4.7); ABSOLUTE MONOCYTES # (MANUAL) 0.9 10^3/uL (0.1-1.4); BASOPHILS % (MANUAL) 0 % (0-2); EOSINOPHILS % (MANUAL) 0 % (0-6); LYMPHOCYTES % (MANUAL) 6 % (13-45); MONOCYTES % (MANUAL) 7 % (3-13); SEGMENTED NEUTROPHILS % (MAN) 82 % (42-78); TOTAL CELLS COUNTED 100
[2020-07-04 09:07] LABS: RBC MORPHOLOGY COMMENT NORMO-CYTIC/CHROMIC
[2020-07-04 09:08] LABS: PLATELET COMMENT INCREASED
[2020-07-04] MEDS: IPRATROPIUM/ALBUTEROL 0.5-2.5 MG/3 ML AMPUL NEB PRN (09:54)
[2020-07-04] MEDS: PREGABALIN 50 MG CAPSULE PO SCH ×2 (10:39→17:33)
[2020-07-04] MEDS: POTASSIUM CHLORIDE 20 MEQ PACKET PO SCH ×2 (10:39→21:58)
[2020-07-04] MEDS: OMEGA-3 ACID ETHYL ESTERS 1 GM CAPSULE PO SCH ×2 (10:39→17:34)
[2020-07-04] MEDS: DOCUSATE SODIUM 100 MG CAPSULE PO SCH (10:39)
[2020-07-04] MEDS: THIAMINE HCL 100 MG TABLET PO SCH ×2 (10:39→17:33)
[2020-07-04] MEDS: DEXAMETHASONE 4 MG TABLET PO SCH (10:39)
[2020-07-04] MEDS: CLONIDINE HCL 0.2 MG TABLET PO SCH ×2 (10:39→21:58)
[2020-07-04] MEDS: ASCORBIC ACID 500 MG TABLET PO SCH ×2 (10:40→17:34)
[2020-07-04] MEDS: BUSPIRONE HCL 10 MG TABLET PO SCH (10:40)
[2020-07-04] MEDS: ZINC SULFATE 220 MG CAPSULE PO SCH (10:40)
[2020-07-04] MEDS: FUROSEMIDE 40 MG TABLET PO SCH ×2 (10:41→17:33)
[2020-07-04] MEDS: PANTOPRAZOLE SODIUM 40 MG TABLET.DR PO SCH ×2 (10:41→17:34)
[2020-07-04] MEDS: ENOXAPARIN SODIUM INJ 60 MG/0.6 ML DISP.SYRIN SUBCUT SCH ×2 (10:41→21:58)
[2020-07-04] MEDS: FENOFIBRATE NANOCRYSTALLIZED 48 MG TABLET PO SCH (10:42)
[2020-07-04 14:34] LABS: ARTERIAL BLOOD BASE EXCESS 12.2 mmol/L; ARTERIAL BLOOD H2CO3 1.39 mmol/L (1.05-1.35); ARTERIAL BLOOD HCO3 36.5 mmol/L (20-24); ARTERIAL BLOOD O2 SATURATION 94.4 % (94-98); ARTERIAL BLOOD PCO2 46.3 mmHg (35-45); ARTERIAL BLOOD PH 7.52 (7.35-7.45); ARTERIAL BLOOD PO2 65.1 mmHg (80-100)
--- NOTE | 2020-07-04 14:34 | PDOC PROGRESS REPORT ---
Subjective Date:: 07/04/20 Subjective:: patient denies chest pain/sob Reason For Visit: COPD W/EXACERBATION, PNEMONIA DUE TO 2019 NOVEL Physical Exam Vital Signs: Temp Pulse Resp BP Pulse Ox 98.7 F 77 26 H 163/55 H 98 07/04/20 09:05 07/04/20 09:54 07/04/20 09:54 07/04/20 07:40 07/04/20 09:54 Intake & Output 07/03/20 07/04/20 07/05/20 06:59 06:59 06:59 Intake Total 497 1000 Balance 497 1000 Weight 59.4 kg 59 kg General appearance: PRESENT: no acute distress Respiratory exam: PRESENT: decreased breath sounds - on biPAP Cardiovascular exam: PRESENT: RRR Results Laboratory Results: 07/04/20 04:58 07/04/20 04:58 07/04/20 07/04/20 07/04/20 04:58 04:58 04:58 WBC 12.5 H RBC 4.21 Hgb 11.3 L Hct 34.1 L MCV 81 MCH 26.7 L MCHC 33.0 RDW 14.6 H Plt Count 538 H Seg Neutrophils % Not Reportable Sodium 140.8 Potassium 3.5 L Chloride 92 L Carbon Dioxide 39 H Anion Gap 10 BUN 35 H Creatinine 0.60 Est GFR ( Amer) > 60 Glucose 99 Calcium 10.0 Total Bilirubin 0.7 AST 31 Alkaline Phosphatase 83 C-Reactive Protein 14.2 H Total Protein 6.1 L Albumin 3.0 L 06/23/20 06/23/20 11:49 11:49 Creatine Kinase 546 H Troponin I < 0.012 Impressions: Chest/Abdomen CTA 06/23/20 13:21 IMPRESSION: No pulmonary arterial embolism. Scattered peripheral ground-glass opacities compatible with an atypical infection, particularly COVID-19. Chronic background lung disease. Increased conspicuity of right apical spiculated nodules and new mediastinal lymphadenopathy, findings concerning for neoplasia/metastasis. Chest X-Ray 06/27/20 06:15 IMPRESSION: Rehydration versus progressing bilateral pneumonia. Assessment and Plan - Diagnosis (1) Pulmonary nodule Is this a current diagnosis for this admission?: Yes (2) Acute on chronic respiratory failure with hypoxemia Is this a current diagnosis for this admission?: Yes (3) Pneumonia due to COVID-19 virus Is this a current diagnosis for this admission?: Yes - Plan Summary Summary: Patient has been hospitalized for 11 days, remains on BiPAP today, ABG ordered. With spiculated lesions in lung in addition to COVID 19 and COPD her prognosis is guarded. BNP in am. She remains on steroids and treatment dose lovenox. - Time Time Spent with patient: 15-24 minutes Anticipated Discharge Disposition: Home, Self Care Anticipated Discharge Timeframe: unknown
[2020-07-04 14:35] LABS: ARTERIAL BLOOD FIO2 60%
[2020-07-04] MEDS ORDERED: DEXTROSE 40% GEL 15 GM TUBE PO PRN ×2 (21:12)
[2020-07-04] MEDS ORDERED: DEXTROSE 50%-WATER 25 GM/50 ML DISP.SYRIN IV PRN ×2 (21:12)
[2020-07-04] MEDS ORDERED: GLUCAGON,HUMAN RECOMB 1 MG INJ IM PRN (21:12)
[2020-07-04] MEDS: INSULIN LISPRO 100 UNIT/ML 3 ML VIAL SUBCUT SCH (21:57)
[2020-07-04] MEDS: ATORVASTATIN CALCIUM 40 MG TABLET PO SCH (21:58)
[2020-07-04] MEDS: MONTELUKAST SODIUM 10 MG TABLET PO SCH (21:58)
[2020-07-04] MEDS: AMITRIPTYLINE HCL 25 MG TABLET PO SCH (22:01)
[2020-07-05] MEDS: PREGABALIN 50 MG CAPSULE PO SCH ×2 (01:00→09:48)
[2020-07-05 05:44] LABS: HEMOGLOBIN 11.1 g/dL (12.0-15.5); MEAN CORPUSCULAR HEMOGLOBIN 27.3 pg (27.0-33.4); MEAN CORPUSCULAR HGB CONC 33.6 g/dL (32.0-36.0); MEAN CORPUSCULAR VOLUME 81 fl (80-97); PLATELET COUNT 450 10^3/uL (150-450); RED BLOOD COUNT 4.07 10^6/uL (3.72-5.28); RED CELL DISTRIBUTION WIDTH 14.8 % (11.5-14.0); WHITE BLOOD COUNT 15.5 10^3/uL (4.0-10.5)
[2020-07-05 06:16] LABS: BLOOD UREA NITROGEN 33 mg/dL (7-20); C-REACTIVE PROTEIN 69.7 mg/L (<10.0); CALCIUM 9.7 mg/dL (8.4-10.2); CHLORIDE 92 mmol/L (98-107); GLUCOSE 118 mg/dL (75-110)
[2020-07-05 06:20] LABS: ANION GAP 9 (5-19)
[2020-07-05 06:23] LABS: CARBON DIOXIDE 37 mmol/L (22-30)
[2020-07-05] MEDS: INSULIN LISPRO 100 UNIT/ML 3 ML VIAL SUBCUT SCH ×4 (09:00→22:50)
[2020-07-05] MEDS: ENOXAPARIN SODIUM INJ 60 MG/0.6 ML DISP.SYRIN SUBCUT SCH ×2 (09:45→22:50)
[2020-07-05] MEDS: PIPERACILLIN SODIUM/TAZOBACTAM 3.375 GM in NORMAL SALINE 100 ML IV SCH ×2 (09:45→18:21)
[2020-07-05] MEDS: POTASSIUM CHLORIDE 20 MEQ PACKET PO SCH ×2 (09:46→22:51)
[2020-07-05] MEDS: DEXAMETHASONE 4 MG TABLET PO SCH (09:46)
[2020-07-05] MEDS: THIAMINE HCL 100 MG TABLET PO SCH ×2 (09:46→18:48)
[2020-07-05] MEDS: OMEGA-3 ACID ETHYL ESTERS 1 GM CAPSULE PO SCH ×2 (09:46→18:47)
[2020-07-05] MEDS: FENOFIBRATE NANOCRYSTALLIZED 48 MG TABLET PO SCH (09:46)
[2020-07-05] MEDS: ZINC SULFATE 220 MG CAPSULE PO SCH (09:47)
[2020-07-05] MEDS: BUSPIRONE HCL 10 MG TABLET PO SCH (09:47)
[2020-07-05] MEDS: ASCORBIC ACID 500 MG TABLET PO SCH ×2 (09:47→18:53)
[2020-07-05] MEDS: DOCUSATE SODIUM 100 MG CAPSULE PO SCH (09:48)
[2020-07-05] MEDS: PANTOPRAZOLE SODIUM 40 MG TABLET.DR PO SCH ×2 (09:48→18:48)
[2020-07-05] MEDS: FUROSEMIDE 40 MG TABLET PO SCH ×2 (09:48→18:25)
[2020-07-05] MEDS: CLONIDINE HCL 0.2 MG TABLET PO SCH ×2 (09:48→22:51)
[2020-07-05] MEDS ORDERED: PIPERACILLIN/TAZOBACTAM 3.375 GM VIAL IV SCH (10:00)
--- NOTE | 2020-07-05 12:25 | RADIOLOGY REPORT (SQ) ---
EXAM DESCRIPTION: CTA CHEST IMAGES COMPLETED DATE/TIME: 07/05/2020 11:52 am REASON FOR STUDY: SOB,CP COMPARISON: None. TECHNIQUE: CT scan of the chest performed using helical scanning technique with dynamic intravenous contrast injection. Images reviewed with lung, soft tissue and bone windows. Reconstructed coronal and sagittal MPR images reviewed. Additional 3 dimensional post-processing performed to develop Maximal Intensity Projection images (RI P). All images stored on PACS. All CT scanners at this facility use dose modulation, iterative reconstruction, and/or weight based d osing when appropriate to reduce radiation dose to as low as reasonably achievable (ALARA). [facility]: Dose Right [facility]: CareDose [facility]: Dose Right [facility]: Teradose 4D [facility]: ooma CONTRAST TYPE AND DOSE: contrast/concentration: Isovue 350.00 mmol/ml; Total Contrast Delivered: 75. 0 ml; Total Saline Delivered: 75.0 ml Contrast bolus adequate for pulmonary arteries and aorta. RENAL FUNCTION: BUN 33 creatinine 0.65 RADIATION DOSE: CT Rad equipment meets quality standard of care and radiation dose reduction techniq ues were employed. CTDIvol: 6.6 - 14.6 mGy. DLP: 624 mGy-cm. . LIMITATIONS: None. FINDINGS: LUNGS AND PLEURA: Extensive emphysematous changes. Pleural/ parenchymal and parenchymal s carring. Acute infiltrates on the prior study have considerably improved. There is fairly dense con solidation in the left lower lobe. 9 mm subpleural spiculated nodule in the right upper lobe. AORTA AND GREAT VESSELS: No aneurysm. No dissection. HEART: No pericardial effusion. Moderate to marked coronary artery calcifications. PULMONARY ARTERIES: No emboli visualized in the main pulmonary arteries or the segmental branches. HILAR AND MEDIASTINAL STRUCTURES: Adenopathy in the pretracheal region, the AP window, and subcarinal area. HARDWARE: None in the chest. UPPER ABDOMEN: No significant findings. Limited exam. THYROID AND OTHER SOFT TISSUES: No masses. No adenopathy. BONES: Spinal hardware. Scoliosis. 3D MIPS: Confirm above findings. OTHER: No other significant finding. IMPRESSION: 1. There is no pulmonary embolus. There is no aortic aneurysm or dissection. 2. Extensive pulmonary emphysema. 3. Small spiculated nodule in the right upper lobe appears stable. Cannot exclude neoplasm. 4. Fairly dense consolidation in the left lower lobe, pneumonia versus atelectasis. Cannot exclude a postobstructive pneumonia. 5. Mediastinal adenopathy. COMMENT: Quality ID # [id number]: Final reports with documentation of one or more dose reduction techniques (e.g., Automated exposure control, adjustment of the mA and/or kV according to patient size, use of iterative reconstruction technique) TECHNICAL DOCUMENTATION: JOB ID: [id number] [email or web address]- All Rights Reserved Reading location - IP/workstation name: [email or web address]
[2020-07-05] MEDS ORDERED: PREDNISONE 20 MG TABLET PO SCH (12:30)
[2020-07-05] MEDS ORDERED: MORPHINE SULFATE 0.1 MG/ML ORAL SOLN 100 ML (NSY) PO PRN (12:54)
[2020-07-05] MEDS ORDERED: MORPHINE SULFATE 10 MG/5 ML ORAL SOLUTION UDCUP PO PRN (13:46)
[2020-07-05 15:09] LABS: ARTERIAL BLOOD BASE EXCESS 11.9 mmol/L; ARTERIAL BLOOD FIO2 90%; ARTERIAL BLOOD H2CO3 1.69 mmol/L (1.05-1.35); ARTERIAL BLOOD HCO3 38.3 mmol/L (20-24); ARTERIAL BLOOD O2 SATURATION 93.3 % (94-98); ARTERIAL BLOOD PCO2 56.3 mmHg (35-45); ARTERIAL BLOOD PH 7.45 (7.35-7.45); ARTERIAL BLOOD PO2 65.3 mmHg (80-100); ARTERIAL BLOOD TOTAL CO2 40.1 mmol/L (21-25)
[2020-07-05] MEDS: LORAZEPAM 0.5 MG TABLET PO PRN (15:24)
[2020-07-05] MEDS: DEXTROSE 5%-1/2 NORMAL SALINE 1,000 ML IV PRN (15:24)
--- NOTE | 2020-07-05 17:42 | PDOC PROGRESS REPORT ---
Subjective Date:: 07/05/20 Subjective:: patient wants a drink, gets hypoxic per RN/RT when taking off Bipap to eat/drink Reason For Visit: COPD W/EXACERBATION, PNEMONIA DUE TO 2019 NOVEL Physical Exam Vital Signs: Temp Pulse Resp BP Pulse Ox 98.2 F 87 28 H 123/47 L 90 L 07/05/20 15:41 07/05/20 15:41 07/05/20 15:41 07/05/20 15:41 07/05/20 15:41 Intake & Output 07/04/20 07/05/20 07/06/20 06:59 06:59 06:59 Intake Total 1000 1280 150 Balance 1000 1280 150 Weight 59 kg 60.1 kg Results Laboratory Results: 07/05/20 05:07 07/05/20 05:07 07/05/20 07/05/20 07/05/20 05:07 05:07 14:30 WBC 15.5 H RBC 4.07 Hgb 11.1 L Hct 33.0 L MCV 81 MCH 27.3 MCHC 33.6 RDW 14.8 H Plt Count 450 Carbonic Acid 1.69 H HCO3/H2CO3 Ratio 22:1 ABG pH 7.45 ABG pCO2 56.3 H ABG pO2 65.3 L ABG HCO3 38.3 H ABG O2 Saturation 93.3 L ABG Base Excess 11.9 FiO2 90% Sodium 137.7 Potassium 4.0 Chloride 92 L Carbon Dioxide 37 H Anion Gap 9 BUN 33 H Creatinine 0.65 Est GFR ( Amer) > 60 Glucose 118 H Calcium 9.7 C-Reactive Protein 69.7 H 06/23/20 06/23/20 07/05/20 11:49 11:49 05:07 Creatine Kinase 546 H Troponin I < 0.012 NT-Pro-B Natriuret Pep 121 Impressions: Chest X-Ray 06/27/20 06:15 IMPRESSION: Rehydration versus progressing bilateral pneumonia. Chest/Abdomen CTA 07/05/20 00:00 IMPRESSION: 1. There is no pulmonary embolus. There is no aortic aneurysm or dissection. 2. Extensive pulmonary emphysema. 3. Small spiculated nodule in the right upper lobe appears stable. Cannot exclude neoplasm. 4. Fairly dense consolidation in the left lower lobe, pneumonia versus atelectasis. Cannot exclude a postobstructive pneumonia. 5. Mediastinal adenopathy. Assessment and Plan - Diagnosis (1) Pulmonary nodule Is this a current diagnosis for this admission?: Yes (2) Acute on chronic respiratory failure with hypoxemia Is this a current diagnosis for this admission?: Yes (3) Pneumonia due to COVID-19 virus Is this a current diagnosis for this admission?: Yes - Plan Summary Summary: 1. HCAP/ARDS: unable to come off BiPAP, D/W Dr. Hyde at [facility], after reviewing images, that she is not a candidate for bronchoscopy at this time. No beds at [facility], [place], [place] after attempts to transfer. Started on IV antibiotics Vanco/zosyn per Pulm recommendations, increase dose of steroids. Discussed with daughter Shauna poor prognosis, if she landed on the ventilator, but she wants patient to remain full code, and will attempt to see if she can get visitation rights to the patient room due to anxiety/being on biPAP. ATivan/morphine for anxiety and air hunger ordered. There was difficulty getting an IV this morning, hence these are ordered PO for now 2. Severe emphysema: D/W daughter to bring own home inhalers 3. Covid-19: 2 weeks since symptoms onset per daughter, awaiting on recommedation from infection control to retest vs discontinue precautions Dispo: too sick to deescalate level of care - Time Time Spent with patient: 35 or more minutes Anticipated Discharge Disposition: Home with Home Health Anticipated Discharge Timeframe: unknown
[2020-07-05] MEDS ORDERED: VANCOMYCIN HCL INJ 1000 MG VIAL IV PRN (17:59)
[2020-07-05] MEDS ORDERED: VANCOMYCIN HCL 1,000 MG in DEXTROSE 5%-WATER 250 ML IV ONE ×2 (18:00→22:00)
[2020-07-05] MEDS ORDERED: VANCOMYCIN HCL INJ 1000 MG VIAL IV SCH (18:00)
[2020-07-05] MEDS ORDERED: PHARMACY COMMUNICATION ORDER MC PRN (18:02)
[2020-07-05] MEDS: METHYLPREDNISOLONE INJ 125 MG/2 ML SDV IV SCH ×2 (18:21→22:51)
[2020-07-05] MEDS: AMITRIPTYLINE HCL 25 MG TABLET PO SCH (22:51)
[2020-07-05] MEDS: ATORVASTATIN CALCIUM 40 MG TABLET PO SCH (22:51)
[2020-07-05] MEDS: MONTELUKAST SODIUM 10 MG TABLET PO SCH (22:51)
[2020-07-06] MEDS: PIPERACILLIN SODIUM/TAZOBACTAM 3.375 GM in NORMAL SALINE 100 ML IV SCH ×3 (01:40→21:53)
[2020-07-06] MEDS: LORAZEPAM 0.5 MG TABLET PO PRN ×3 (01:45→22:06)
[2020-07-06] MEDS: ACETAMINOPHEN 325 MG TABLET PO PRN (04:23)
[2020-07-06] MEDS: METHYLPREDNISOLONE INJ 125 MG/2 ML SDV IV SCH (05:23)
[2020-07-06 06:55] LABS: ARTERIAL BLOOD BASE EXCESS 10.3 mmol/L; ARTERIAL BLOOD H2CO3 1.66 mmol/L (1.05-1.35); ARTERIAL BLOOD HCO3 36.1 mmol/L (20-24); ARTERIAL BLOOD O2 SATURATION 93.6 % (94-98); ARTERIAL BLOOD PCO2 55.3 mmHg (35-45); ARTERIAL BLOOD PH 7.43 (7.35-7.45); ARTERIAL BLOOD PO2 67.4 mmHg (80-100); ARTERIAL BLOOD TOTAL CO2 37.8 mmol/L (21-25)
[2020-07-06 06:58] LABS: ARTERIAL BLOOD FIO2 90%
[2020-07-06] MEDS: DOCUSATE SODIUM 100 MG CAPSULE PO SCH (10:06)
[2020-07-06] MEDS: INSULIN LISPRO 100 UNIT/ML 3 ML VIAL SUBCUT SCH ×4 (10:06→22:08)
[2020-07-06] MEDS: CLONIDINE HCL 0.2 MG TABLET PO SCH ×2 (10:06→22:20)
[2020-07-06] MEDS: BUSPIRONE HCL 10 MG TABLET PO SCH (10:07)
[2020-07-06] MEDS: PREGABALIN 50 MG CAPSULE PO SCH ×3 (10:07→22:06)
[2020-07-06] MEDS: POTASSIUM CHLORIDE 20 MEQ PACKET PO SCH ×2 (10:08→22:06)
[2020-07-06] MEDS: ZINC SULFATE 220 MG CAPSULE PO SCH (10:08)
[2020-07-06] MEDS: ASCORBIC ACID 500 MG TABLET PO SCH ×2 (10:08→17:34)
[2020-07-06] MEDS: FUROSEMIDE 40 MG TABLET PO SCH ×2 (10:08→17:33)
[2020-07-06] MEDS: THIAMINE HCL 100 MG TABLET PO SCH ×2 (10:08→17:34)
[2020-07-06] MEDS: FENOFIBRATE NANOCRYSTALLIZED 48 MG TABLET PO SCH (10:08)
[2020-07-06] MEDS: ENOXAPARIN SODIUM INJ 60 MG/0.6 ML DISP.SYRIN SUBCUT SCH ×2 (10:08→22:06)
[2020-07-06] MEDS: PANTOPRAZOLE SODIUM 40 MG TABLET.DR PO SCH ×2 (10:08→17:34)
[2020-07-06] MEDS: OMEGA-3 ACID ETHYL ESTERS 1 GM CAPSULE PO SCH ×2 (10:08→17:33)
[2020-07-06 12:16] LABS: HEMATOCRIT 30.3 % (36.0-47.0); MEAN CORPUSCULAR VOLUME 82 fl (80-97); PLATELET COUNT 355 10^3/uL (150-450); RED BLOOD COUNT 3.71 10^6/uL (3.72-5.28); RED CELL DISTRIBUTION WIDTH 14.9 % (11.5-14.0); WHITE BLOOD COUNT 17.9 10^3/uL (4.0-10.5)
[2020-07-06 12:35] LABS: ALBUMIN 2.5 g/dL (3.5-5.0); ALKALINE PHOSPHATASE 78 U/L (38-126); ANION GAP 8 (5-19); ASPARTATE AMINO TRANSFERASE 30 U/L (14-36); BILIRUBIN,DIRECT 0.4 mg/dL (0.0-0.4); BILIRUBIN,TOTAL 0.7 mg/dL (0.2-1.3); BLOOD UREA NITROGEN 35 mg/dL (7-20); CALCIUM 8.8 mg/dL (8.4-10.2); CARBON DIOXIDE 36 mmol/L (22-30); CHLORIDE 93 mmol/L (98-107); GLUCOSE 230 mg/dL (75-110); POTASSIUM 3.1 mmol/L (3.6-5.0); TOTAL PROTEIN 5.3 g/dL (6.3-8.2)
[2020-07-06 12:47] LABS: ABSOLUTE LYMPHOCYTES# (MANUAL) 0.2 10^3/uL (0.5-4.7); ABSOLUTE MONOCYTES # (MANUAL) 0.2 10^3/uL (0.1-1.4); BAND NEUTROPHILS % (MANUAL) 4 % (3-5); BASOPHILS % (MANUAL) 0 % (0-2); EOSINOPHILS % (MANUAL) 0 % (0-6); LYMPHOCYTES % (MANUAL) 1 % (13-45); MONOCYTES % (MANUAL) 1 % (3-13); SEGMENTED NEUTROPHILS % (MAN) 94 % (42-78); TOTAL CELLS COUNTED 100
[2020-07-06 12:48] LABS: ANISOCYTOSIS SLIGHT; PLATELET COMMENT ADEQUATE
[2020-07-06] MEDS: METHYLPREDNISOLONE INJ 40 MG/1 ML SDV IV SCH ×2 (13:26→22:06)
--- NOTE | 2020-07-06 13:57 | PDOC PROGRESS REPORT ---
Subjective Date:: 07/06/20 Subjective:: patient eating breakfast with assistance from PCT, oxygenating well while eating able to speak in full sentence, wanting to sit up on her chair as her back/right side are hurting Reason For Visit: COPD W/EXACERBATION, PNEMONIA DUE TO 2019 NOVEL Physical Exam Vital Signs: Temp Pulse Resp BP Pulse Ox 98.2 F 82 18 136/79 H 97 07/06/20 11:25 07/06/20 11:25 07/06/20 12:20 07/06/20 11:25 07/06/20 11:25 Intake & Output 07/05/20 07/06/20 07/07/20 06:59 06:59 06:59 Intake Total 1280 400 497 Balance 1280 400 497 Weight 60.1 kg 58.2 kg 58.2 kg General appearance: PRESENT: no acute distress Mouth exam: PRESENT: moist Respiratory exam: PRESENT: rhonchi, wheezes, other - on BiPAP Cardiovascular exam: PRESENT: RRR, other - no edema Results Laboratory Results: 07/06/20 11:45 07/06/20 11:45 07/05/20 07/06/20 07/06/20 14:30 06:32 10:01 WBC Cancelled RBC Cancelled Hgb Cancelled Hct Cancelled MCV Cancelled MCH Cancelled MCHC Cancelled RDW Cancelled Plt Count Cancelled Seg Neutrophils % Cancelled Carbonic Acid 1.69 H 1.66 H HCO3/H2CO3 Ratio 22:1 21:1 ABG pH 7.45 7.43 ABG pCO2 56.3 H 55.3 H ABG pO2 65.3 L 67.4 L ABG HCO3 38.3 H 36.1 H ABG O2 Saturation 93.3 L 93.6 L ABG Base Excess 11.9 10.3 FiO2 90% 90% Sodium Potassium Chloride Carbon Dioxide Anion Gap BUN Creatinine Est GFR ( Amer) Est GFR (Non-Af Amer) Glucose Calcium Total Bilirubin AST Alkaline Phosphatase Total Protein Albumin 07/06/20 07/06/20 07/06/20 10:01 11:45 11:45 WBC 17.9 H RBC 3.71 L Hgb 10.0 L Hct 30.3 L MCV 82 MCH 27.0 MCHC 33.0 RDW 14.9 H Plt Count 355 Seg Neutrophils % Not Reportable Carbonic Acid HCO3/H2CO3 Ratio ABG pH ABG pCO2 ABG pO2 ABG HCO3 ABG O2 Saturation ABG Base Excess FiO2 Sodium Cancelled 137.0 Potassium Cancelled 3.1 L Chloride Cancelled 93 L Carbon Dioxide Cancelled 36 H Anion Gap Cancelled 8 BUN Cancelled 35 H Creatinine Cancelled 0.71 Est GFR ( Amer) Cancelled > 60 Est GFR (Non-Af Amer) Cancelled Glucose Cancelled 230 H Calcium Cancelled 8.8 Total Bilirubin Cancelled 0.7 AST Cancelled 30 Alkaline Phosphatase Cancelled 78 Total Protein Cancelled 5.3 L Albumin Cancelled 2.5 L 06/23/20 06/23/20 07/05/20 11:49 11:49 05:07 Creatine Kinase 546 H Troponin I < 0.012 NT-Pro-B Natriuret Pep 121 Impressions: Chest X-Ray 06/27/20 06:15 IMPRESSION: Rehydration versus progressing bilateral pneumonia. Chest/Abdomen CTA 07/05/20 00:00 IMPRESSION: 1. There is no pulmonary embolus. There is no aortic aneurysm or dissection. 2. Extensive pulmonary emphysema. 3. Small spiculated nodule in the right upper lobe appears stable. Cannot exclude neoplasm. 4. Fairly dense consolidation in the left lower lobe, pneumonia versus atelectasis. Cannot exclude a postobstructive pneumonia. 5. Mediastinal adenopathy. Assessment and Plan - Diagnosis (1) Pulmonary nodule Is this a current diagnosis for this admission?: Yes (2) Acute on chronic respiratory failure with hypoxemia Is this a current diagnosis for this admission?: Yes (3) Pneumonia due to COVID-19 virus Is this a current diagnosis for this admission?: Yes - Plan Summary Summary: 1. HCAP/ARDS: unable to come off BiPAP, D/W Dr. Hyde at [facility], after reviewing images, that she is not a candidate for bronchoscopy at this time. No beds at [facility], [facility] after attempts to transfer 07/04. Started on IV antibiotics Vanco/zosyn per Pulm recommendations, increase dose of steroids. Discussed with daughter Shauna poor prognosis, if she landed on the ventilator, but she wants patient to remain full code, repeat COVID test on 07/04 as it has been 2 weeks since symptoms began and daughter believes she would like visitation rights to keep her calm while on bipap. ATivan/morphine for anxiety and air hunger ordered. There was difficulty getting an IV, hence these are ordered PO for now. WBC worsening, but she is clinically improving repeat. 2. Severe emphysema: D/W daughter to bring own home inhalers, which she was able to bring 3. Covid-19: 2 weeks since symptoms onset per daughter, awaiting on recommedation from infection control to retest vs discontinue precautions Dispo: out of bed to chair if tolerant on BiPAP, daughter updated on telephone - Time Time Spent with patient: 25-34 minutes Anticipated Discharge Disposition: Home with Home Health Anticipated Discharge Timeframe: unknown
[2020-07-06] MEDS: POTASSI CL 20 MEQ/50 ML RIDER 20 MEQ/50 ML RTUPB IV SCH ×2 (14:09→17:26)
[2020-07-06] MEDS: DEXTROSE 5%-1/2 NORMAL SALINE 1,000 ML IV PRN (18:27)
[2020-07-06] MEDS: VANCOMYCIN HCL 750 MG in DEXTROSE 5%-WATER 250 ML IV SCH (20:08)
[2020-07-06] MEDS: ATORVASTATIN CALCIUM 40 MG TABLET PO SCH (22:06)
[2020-07-06] MEDS: MONTELUKAST SODIUM 10 MG TABLET PO SCH (22:06)
[2020-07-06] MEDS: AMITRIPTYLINE HCL 25 MG TABLET PO SCH (22:20)
[2020-07-07] MEDS: PIPERACILLIN SODIUM/TAZOBACTAM 3.375 GM in NORMAL SALINE 100 ML IV SCH ×3 (02:00→18:42)
[2020-07-07] MEDS: METHYLPREDNISOLONE INJ 40 MG/1 ML SDV IV SCH ×3 (05:25→22:18)
[2020-07-07] MEDS: PREGABALIN 50 MG CAPSULE PO SCH ×4 (05:25→22:18)
[2020-07-07 07:15] LABS: HEMATOCRIT 29.6 % (36.0-47.0); HEMOGLOBIN 9.6 g/dL (12.0-15.5); MEAN CORPUSCULAR HEMOGLOBIN 26.4 pg (27.0-33.4); MEAN CORPUSCULAR HGB CONC 32.5 g/dL (32.0-36.0); MEAN CORPUSCULAR VOLUME 81 fl (80-97); PLATELET COUNT 327 10^3/uL (150-450); RED BLOOD COUNT 3.64 10^6/uL (3.72-5.28); RED CELL DISTRIBUTION WIDTH 14.5 % (11.5-14.0); WHITE BLOOD COUNT 17.5 10^3/uL (4.0-10.5)
[2020-07-07 07:43] LABS: ALBUMIN 2.4 g/dL (3.5-5.0); ALKALINE PHOSPHATASE 83 U/L (38-126); ASPARTATE AMINO TRANSFERASE 50 U/L (14-36); BILIRUBIN,DIRECT 0.3 mg/dL (0.0-0.4); BILIRUBIN,TOTAL 0.5 mg/dL (0.2-1.3); BLOOD UREA NITROGEN 26 mg/dL (7-20); CALCIUM 9.2 mg/dL (8.4-10.2); GLUCOSE 133 mg/dL (75-110); TOTAL PROTEIN 5.3 g/dL (6.3-8.2)
[2020-07-07 07:46] LABS: CARBON DIOXIDE 38 mmol/L (22-30); CHLORIDE 97 mmol/L (98-107)
[2020-07-07 08:05] LABS: ANION GAP 3 (5-19); POTASSIUM 4.2 mmol/L (3.6-5.0)
[2020-07-07 08:48] LABS: ABSOLUTE LYMPHOCYTES# (MANUAL) 0.4 10^3/uL (0.5-4.7); ABSOLUTE MONOCYTES # (MANUAL) 0.2 10^3/uL (0.1-1.4); BASOPHILS % (MANUAL) 0 % (0-2); EOSINOPHILS % (MANUAL) 0 % (0-6); LYMPHOCYTES % (MANUAL) 2 % (13-45); MONOCYTES % (MANUAL) 1 % (3-13); SEGMENTED NEUTROPHILS % (MAN) 97 % (42-78); TOTAL CELLS COUNTED 100
[2020-07-07 08:49] LABS: ANISOCYTOSIS SLIGHT; PLATELET COMMENT ADEQUATE; PLATELET LARGE PRESENT; POLYCHROMASIA SLIGHT
[2020-07-07] MEDS: INSULIN LISPRO 100 UNIT/ML 3 ML VIAL SUBCUT SCH ×4 (09:15→22:20)
[2020-07-07] MEDS: ENOXAPARIN SODIUM INJ 60 MG/0.6 ML DISP.SYRIN SUBCUT SCH ×2 (10:43→22:18)
[2020-07-07] MEDS: FENOFIBRATE NANOCRYSTALLIZED 48 MG TABLET PO SCH (10:43)
[2020-07-07] MEDS: BUSPIRONE HCL 10 MG TABLET PO SCH (10:43)
[2020-07-07] MEDS: DOCUSATE SODIUM 100 MG CAPSULE PO SCH (10:43)
[2020-07-07] MEDS: POTASSIUM CHLORIDE 20 MEQ PACKET PO SCH ×2 (10:43→22:17)
[2020-07-07] MEDS: ASCORBIC ACID 500 MG TABLET PO SCH ×2 (10:44→18:41)
[2020-07-07] MEDS: CLONIDINE HCL 0.2 MG TABLET PO SCH ×2 (10:44→22:18)
[2020-07-07] MEDS: THIAMINE HCL 100 MG TABLET PO SCH ×2 (10:45→18:42)
[2020-07-07] MEDS: ZINC SULFATE 220 MG CAPSULE PO SCH (10:46)
[2020-07-07] MEDS: FUROSEMIDE 40 MG TABLET PO SCH ×2 (10:46→18:42)
[2020-07-07] MEDS: PANTOPRAZOLE SODIUM 40 MG TABLET.DR PO SCH ×2 (10:46→18:42)
[2020-07-07] MEDS: OMEGA-3 ACID ETHYL ESTERS 1 GM CAPSULE PO SCH ×2 (10:46→18:42)
[2020-07-07] MEDS: DEXTROSE 5%-1/2 NORMAL SALINE 1,000 ML IV PRN (11:22)
--- NOTE | 2020-07-07 17:32 | PDOC PROGRESS REPORT ---
Subjective Date:: 07/07/20 Subjective:: patient denies fever/chills, reports she is tired, wants to get out of bed Reason For Visit: COPD W/EXACERBATION, PNEMONIA DUE TO 2019 NOVEL Physical Exam Vital Signs: Temp Pulse Resp BP Pulse Ox 98.0 F 87 30 H 153/76 H 93 07/07/20 15:06 07/07/20 15:06 07/07/20 15:06 07/07/20 15:06 07/07/20 15:06 Intake & Output 07/06/20 07/07/20 07/08/20 06:59 06:59 06:59 Intake Total 1400 1745 1497 Output Total 100 275 Balance 1400 1645 1222 Weight 58.2 kg 58.2 kg General appearance: PRESENT: no acute distress Respiratory exam: PRESENT: decreased breath sounds - in in BLL on BiPAP Cardiovascular exam: PRESENT: RRR Results Laboratory Results: 07/07/20 06:29 07/07/20 06:29 07/07/20 07/07/20 06:29 06:29 WBC 17.5 H RBC 3.64 L Hgb 9.6 L Hct 29.6 L MCV 81 MCH 26.4 L MCHC 32.5 RDW 14.5 H Plt Count 327 Seg Neutrophils % Not Reportable Sodium 138.4 Potassium 4.2 D Chloride 97 L Carbon Dioxide 38 H Anion Gap 3 L BUN 26 H Creatinine 0.55 Est GFR ( Amer) > 60 Glucose 133 H Calcium 9.2 Total Bilirubin 0.5 AST 50 H Alkaline Phosphatase 83 C-Reactive Protein 224.0 H Total Protein 5.3 L Albumin 2.4 L 06/23/20 06/23/20 07/05/20 11:49 11:49 05:07 Creatine Kinase 546 H Troponin I < 0.012 NT-Pro-B Natriuret Pep 121 Impressions: Chest X-Ray 06/27/20 06:15 IMPRESSION: Rehydration versus progressing bilateral pneumonia. Chest/Abdomen CTA 07/05/20 00:00 IMPRESSION: 1. There is no pulmonary embolus. There is no aortic aneurysm or dissection. 2. Extensive pulmonary emphysema. 3. Small spiculated nodule in the right upper lobe appears stable. Cannot exclude neoplasm. 4. Fairly dense consolidation in the left lower lobe, pneumonia versus atelectasis. Cannot exclude a postobstructive pneumonia. 5. Mediastinal adenopathy. Assessment and Plan - Diagnosis (1) Pulmonary nodule Is this a current diagnosis for this admission?: Yes (2) Acute on chronic respiratory failure with hypoxemia Is this a current diagnosis for this admission?: Yes (3) Pneumonia due to COVID-19 virus Is this a current diagnosis for this admission?: Yes - Plan Summary Summary: 1. HCAP/ARDS: unable to come off BiPAP, D/W Dr. Hyde at [facility], after reviewing images, that she is not a candidate for bronchoscopy at this time. No beds at [facility], [place], [place] after attempts to transfer 07/04. Started on IV antibiotics Vanco/zosyn per Pulm recommendations, increase dose of steroids. Discussed with daughter Shauna poor prognosis, if she ended up on the ventilator, but she wants patient to remain full code, repeat COVID test on 07/04 as it has been 2 weeks since symptoms began and daughter believes she would like visit [facility] to keep her calm while on bipap. Patient reprots she is getting tired. ativan/morphine for anxiety and air hunger ordered. There was difficulty getting an IV, hence these are ordered PO for now. WBC stable in the last 24h, repeat ABG in am, patient reports she is tired of being on the BiPAP. she is stable at this point goal to wean off BiPAP as tolerated 2. Severe emphysema: D/W daughter to bring own home inhalers, which she was able to bring 3. Covid-19: 2 weeks since symptoms onset per daughter, retest is positive Dispo: out of bed to chair if tolerant on BiPAP, daughter updated on telephone - Time Time Spent with patient: 15-24 minutes Anticipated Discharge Disposition: Home with Home Health Anticipated Discharge Timeframe: within 72 hours
[2020-07-07] MEDS: IPRATROPIUM/ALBUTEROL 0.5-2.5 MG/3 ML AMPUL NEB PRN (20:21)
[2020-07-07] MEDS: ATORVASTATIN CALCIUM 40 MG TABLET PO SCH (22:17)
[2020-07-07] MEDS: MONTELUKAST SODIUM 10 MG TABLET PO SCH (22:18)
[2020-07-07] MEDS: LORAZEPAM 0.5 MG TABLET PO PRN (22:20)
[2020-07-07] MEDS: AMITRIPTYLINE HCL 25 MG TABLET PO SCH (22:29)
[2020-07-08] MEDS: VANCOMYCIN HCL 750 MG in DEXTROSE 5%-WATER 250 ML IV SCH ×2 (00:08→14:52)
[2020-07-08] MEDS: PIPERACILLIN SODIUM/TAZOBACTAM 3.375 GM in NORMAL SALINE 100 ML IV SCH ×3 (01:28→17:33)
[2020-07-08] MEDS: METHYLPREDNISOLONE INJ 40 MG/1 ML SDV IV SCH ×4 (05:23→22:57)
[2020-07-08] MEDS: PREGABALIN 50 MG CAPSULE PO SCH ×3 (05:26→22:56)
[2020-07-08 05:49] LABS: HEMATOCRIT 27.1 % (36.0-47.0); HEMOGLOBIN 9.2 g/dL (12.0-15.5); MEAN CORPUSCULAR HEMOGLOBIN 27.5 pg (27.0-33.4); MEAN CORPUSCULAR HGB CONC 33.9 g/dL (32.0-36.0); MEAN CORPUSCULAR VOLUME 81 fl (80-97); PLATELET COUNT 305 10^3/uL (150-450); RED BLOOD COUNT 3.33 10^6/uL (3.72-5.28); RED CELL DISTRIBUTION WIDTH 14.8 % (11.5-14.0); WHITE BLOOD COUNT 12.9 10^3/uL (4.0-10.5)
[2020-07-08 06:21] LABS: ALBUMIN 2.4 g/dL (3.5-5.0); ALKALINE PHOSPHATASE 76 U/L (38-126); ASPARTATE AMINO TRANSFERASE 37 U/L (14-36); BILIRUBIN,DIRECT 0.2 mg/dL (0.0-0.4); BILIRUBIN,TOTAL 0.5 mg/dL (0.2-1.3); BLOOD UREA NITROGEN 33 mg/dL (7-20); CALCIUM 9.6 mg/dL (8.4-10.2); GLUCOSE 85 mg/dL (75-110); POTASSIUM 4.9 mmol/L (3.6-5.0); TOTAL PROTEIN 5.2 g/dL (6.3-8.2)
[2020-07-08 06:27] LABS: CARBON DIOXIDE 39 mmol/L (22-30); CHLORIDE 98 mmol/L (98-107)
[2020-07-08 06:30] LABS: APPEARANCE,URINE CLEAR; BILIRUBIN,URINE NEGATIVE (NEGATIVE); COLOR,URINE STRAW; GLUCOSE, URINE NEGATIVE (NEGATIVE); KETONES,URINE NEGATIVE (NEGATIVE); LEUKOCYTE ESTERASE,URINE NEGATIVE (NEGATIVE); NITRITE,URINE NEGATIVE (NEGATIVE); PROTEIN,URINE NEGATIVE (NEGATIVE); URINE SPECIFIC GRAVITY 1.008; UROBILINOGEN,URINE NEGATIVE mg/dL (<2.0)
[2020-07-08 06:31] LABS: ANION GAP 3 (5-19)
[2020-07-08 06:59] LABS: ARTERIAL BLOOD BASE EXCESS 13.6 mmol/L; ARTERIAL BLOOD H2CO3 1.68 mmol/L (1.05-1.35); ARTERIAL BLOOD HCO3 39.2 mmol/L (20-24); ARTERIAL BLOOD O2 SATURATION 96.4 % (94-98); ARTERIAL BLOOD PCO2 55.7 mmHg (35-45); ARTERIAL BLOOD PH 7.47 (7.35-7.45); ARTERIAL BLOOD TOTAL CO2 40.9 mmol/L (21-25)
[2020-07-08 07:01] LABS: ARTERIAL BLOOD FIO2 95%
[2020-07-08] MEDS: INSULIN LISPRO 100 UNIT/ML 3 ML VIAL SUBCUT SCH ×4 (08:22→22:56)
[2020-07-08] MEDS: BUSPIRONE HCL 10 MG TABLET PO SCH (10:15)
[2020-07-08] MEDS: OMEGA-3 ACID ETHYL ESTERS 1 GM CAPSULE PO SCH ×2 (10:15→17:33)
[2020-07-08] MEDS: FUROSEMIDE 40 MG TABLET PO SCH ×2 (10:15→17:33)
[2020-07-08] MEDS: CLONIDINE HCL 0.2 MG TABLET PO SCH ×2 (10:15→22:56)
[2020-07-08] MEDS: ASCORBIC ACID 500 MG TABLET PO SCH ×2 (10:15→17:33)
[2020-07-08] MEDS: THIAMINE HCL 100 MG TABLET PO SCH ×2 (10:15→17:33)
[2020-07-08] MEDS: ZINC SULFATE 220 MG CAPSULE PO SCH (10:15)
[2020-07-08] MEDS: PANTOPRAZOLE SODIUM 40 MG TABLET.DR PO SCH ×2 (10:15→17:33)
--- NOTE | 2020-07-08 10:45 | RADIOLOGY REPORT (SQ) ---
EXAM DESCRIPTION: PICC INSERTION IMAGES COMPLETED DATE/TIME: 07/08/2020 10:26 am REASON FOR STUDY: no IV access COMPARISON: None. FLUOROSCOPY TIME: 1.4 minutes 2 images saved to PACS. TECHNIQUE: Fluoroscopic and ultrasound guided PICC placement. LIMITATIONS: None. PROCEDURE: After written consent and assessment were obtained, the patient was brought into the fluo roscopy room and placed supine on the table. Ultrasound evaluation of potential access sites were per formed. After successfully identifying a patent right upper extremity basilic vein, the right upper a rm was prepped and draped in a sterile fashion along with the ultrasound probe. The entry site was an esthetized with 1% lidocaine. A 21 gauge 7 cm needle was advanced through the skin and into the right basilic vein under live ultrasound guidance. An ultrasound image was saved to PACS confirming acces s site. A .018 guide wire was then inserted through the needle and into the venous system. The needl e was then removed and an 11 blade scalpel was used to make a 1cm skin incision. A 5 fr peel-away sh eath was advanced over the wire and into the venous system. A measurement was then made using the exi sting wire and live fluoroscopic guidance. The wire was then removed and trimmed. The PICC was advanc ed through the peel-away sheath and into the venous system. The peel-away sheath was removed and the catheter was adhered to the patients arm with a stat lock. The catheter was then aspirated and flushe d and a sterile bandage was placed over the access site. A fluoroscopic spot image was saved to PACS confirming the catheter tip within the SVC. IMPRESSION: SUCCESSFUL PLACEMENT OF A 5 FR DUAL LUMEN 36 CM PICC IN THE RIGHT BASILIC VEIN. COMMENT: Patient medication list reviewed: Yes- Quality ID# 130:Eligible professional attests to doc umenting in the medical record they obtained, updated, or reviewed the patient's current medications. . Quality ID 145: Final reports for procedures using fluoroscopy that document radiation exposure ahmet mikayla, or exposure time and number of fluorographic images (if radiation exposure indices are not avail able) Quality ID #76: The patient was prepped and draped using maximum sterile barrier technique including cap, mask, sterile gown, sterile gloves, a large sterile sheet, hand hygiene, and 2% Chlorhexidine fo r cutaneous antisepsis. When ultrasound is used, sterile ultrasound techniques are followed requiring sterile gel and sterile probes. TECHNICAL DOCUMENTATION: JOB ID: [id number] 2010 [employer]- All Rights Reserved rev-11/26 Reading location - IP/workstation name: [email or web address]
[2020-07-08] MEDS: POTASSIUM CHLORIDE 20 MEQ PACKET PO SCH ×2 (11:45→22:56)
[2020-07-08] MEDS: ENOXAPARIN SODIUM INJ 60 MG/0.6 ML DISP.SYRIN SUBCUT SCH ×2 (11:45→22:56)
[2020-07-08] MEDS: FENOFIBRATE NANOCRYSTALLIZED 48 MG TABLET PO SCH (11:57)
[2020-07-08] MEDS: ACETAMINOPHEN 325 MG TABLET PO PRN (16:06)
--- NOTE | 2020-07-08 19:28 | PDOC PROGRESS REPORT ---
Subjective Date:: 07/08/20 Subjective:: NAEO. Feeling much better today. BIPAP FiO2 weaned from 95% to 40% today with saturations still in 90s! Improved appetite and oral intake. Reason For Visit: COPD W/EXACERBATION, PNEMONIA DUE TO 2019 NOVEL Physical Exam Vital Signs: Temp Pulse Resp BP Pulse Ox 98.6 F 90 27 H 103/47 L 92 07/08/20 18:15 07/08/20 16:00 07/08/20 16:00 07/08/20 16:00 07/08/20 16:00 Intake & Output 07/07/20 07/08/20 07/09/20 06:59 06:59 06:59 Intake Total 1745 2684 1278 Output Total 100 3100 700 Balance 1645 -416 578 Weight 58.2 kg 61.2 kg General appearance: PRESENT: no acute distress, cooperative Eye exam: ABSENT: scleral icterus Mouth exam: PRESENT: dry mucosa Throat exam: ABSENT: post pharyngeal erythema Neck exam: ABSENT: JVD Respiratory exam: PRESENT: rhonchi. ABSENT: crackles, wheezes Cardiovascular exam: PRESENT: RRR GI/Abdominal exam: PRESENT: normal bowel sounds, soft. ABSENT: tenderness Extremities exam: ABSENT: pedal edema Neurological exam: PRESENT: alert, awake, oriented to person, oriented to place, oriented to situation. ABSENT: oriented to time Psychiatric exam: PRESENT: appropriate affect Skin exam: ABSENT: jaundice Results Laboratory Results: 07/08/20 05:07 07/08/20 05:07 07/06/20 07/08/20 07/08/20 10:01 05:07 05:07 WBC Cancelled 12.9 H RBC Cancelled 3.33 L Hgb Cancelled 9.2 L Hct Cancelled 27.1 L MCV Cancelled 81 MCH Cancelled 27.5 MCHC Cancelled 33.9 RDW Cancelled 14.8 H Plt Count Cancelled 305 Seg Neutrophils % Cancelled Carbonic Acid HCO3/H2CO3 Ratio ABG pH ABG pCO2 ABG pO2 ABG HCO3 ABG O2 Saturation ABG Base Excess FiO2 Sodium 139.7 Potassium 4.9 Chloride 98 Carbon Dioxide 39 H Anion Gap 3 L BUN 33 H Creatinine 0.64 Est GFR ( Amer) > 60 Glucose 85 Calcium 9.6 Magnesium 2.5 H Total Bilirubin 0.5 AST 37 H Alkaline Phosphatase 76 Total Protein 5.2 L Albumin 2.4 L Urine Color Urine Appearance Urine pH Ur Specific [place] Urine Protein Urine Glucose (UA) Urine Ketones Urine Blood Urine Nitrite Ur Leukocyte Esterase Urine WBC (Auto) 07/08/20 07/08/20 05:25 06:36 WBC RBC Hgb Hct MCV MCH MCHC RDW Plt Count Seg Neutrophils % Carbonic Acid 1.68 H HCO3/H2CO3 Ratio 23:1 ABG pH 7.47 H ABG pCO2 55.7 H ABG pO2 82.0 ABG HCO3 39.2 H ABG O2 Saturation 96.4 ABG Base Excess 13.6 FiO2 95% Sodium Potassium Chloride Carbon Dioxide Anion Gap BUN Creatinine Est GFR ( Amer) Glucose Calcium Magnesium Total Bilirubin AST Alkaline Phosphatase Total Protein Albumin Urine Color STRAW Urine Appearance CLEAR Urine pH 9.0 Ur Specific [place] 1.008 Urine Protein NEGATIVE Urine Glucose (UA) NEGATIVE Urine Ketones NEGATIVE Urine Blood NEGATIVE Urine Nitrite NEGATIVE Ur Leukocyte Esterase NEGATIVE Urine WBC (Auto) 0 06/23/20 06/23/20 07/05/20 11:49 11:49 05:07 Creatine Kinase 546 H Troponin I < 0.012 NT-Pro-B Natriuret Pep 121 Impressions: Chest X-Ray 06/27/20 06:15 IMPRESSION: Rehydration versus progressing bilateral pneumonia. Chest/Abdomen CTA 07/05/20 00:00 IMPRESSION: 1. There is no pulmonary embolus. There is no aortic aneurysm or dissection. 2. Extensive pulmonary emphysema. 3. Small spiculated nodule in the right upper lobe appears stable. Cannot exclude neoplasm. 4. Fairly dense consolidation in the left lower lobe, pneumonia versus atelectasis. Cannot exclude a postobstructive pneumonia. 5. Mediastinal adenopathy. PICC Line Insertion 07/08/20 00:00 IMPRESSION: SUCCESSFUL PLACEMENT OF A 5 FR DUAL LUMEN 36 CM PICC IN THE RIGHT BASILIC VEIN. Assessment and Plan - Diagnosis (1) Delirium Is this a current diagnosis for this admission?: Yes (2) ARDS (adult respiratory distress syndrome) Is this a current diagnosis for this admission?: Yes (3) Acute exacerbation of chronic obstructive pulmonary disease (COPD) Is this a current diagnosis for this admission?: Yes (4) Acute on chronic respiratory failure with hypoxemia Is this a current diagnosis for this admission?: Yes (5) HCAP (healthcare-associated pneumonia) Is this a current diagnosis for this admission?: Yes (6) Pneumonia due to COVID-19 virus Is this a current diagnosis for this admission?: Yes (7) Sleep apnea, obstructive Is this a current diagnosis for this admission?: Yes - Plan Summary Summary: 1. HCAP/ARDS: continue IV antibiotics Vanco/zosyn and steroids. BiPAP FiO2 weaned down from 100% to 45% today. Will transition to high flow and start weaning down as tolerated. She is stable and improving. Prognosis guarded. 2. Severe emphysema: continue inhalers, steroids. 3. Covid-19: 2 weeks since symptoms onset per daughter, retest is positive 4. Delirium: due to severe illness, prolonged hospitalization and age. Delirium precautions. Fall precautions. 5. Lack of access: PICC placed on 07/08 - Time Time Spent with patient: 35 or more minutes Anticipated Discharge Disposition: [facility] Anticipated Discharge Timeframe: within 72 hours
[2020-07-08] MEDS: ATORVASTATIN CALCIUM 40 MG TABLET PO SCH (22:56)
[2020-07-08] MEDS: LORAZEPAM 0.5 MG TABLET PO PRN (22:56)
[2020-07-08] MEDS: MONTELUKAST SODIUM 10 MG TABLET PO SCH (22:56)
[2020-07-08] MEDS: AMITRIPTYLINE HCL 25 MG TABLET PO SCH (23:32)
[2020-07-08] MEDS: POLYETHYLENE GLYCOL 3350 POWDER 17 GM/1 PACKET PO SCH (23:54)
[2020-07-09] MEDS: DEXTROSE 5%-1/2 NORMAL SALINE 1,000 ML IV PRN (01:34)
[2020-07-09] MEDS: PIPERACILLIN SODIUM/TAZOBACTAM 3.375 GM in NORMAL SALINE 100 ML IV SCH ×3 (01:34→18:24)
[2020-07-09] MEDS: METHYLPREDNISOLONE INJ 40 MG/1 ML SDV IV SCH ×3 (06:06→22:34)
[2020-07-09] MEDS: PREGABALIN 50 MG CAPSULE PO SCH ×3 (06:06→22:35)
[2020-07-09 06:35] LABS: HEMATOCRIT 26.1 % (36.0-47.0); HEMOGLOBIN 8.5 g/dL (12.0-15.5); MEAN CORPUSCULAR HEMOGLOBIN 26.9 pg (27.0-33.4); MEAN CORPUSCULAR HGB CONC 32.7 g/dL (32.0-36.0); MEAN CORPUSCULAR VOLUME 82 fl (80-97); PLATELET COUNT 256 10^3/uL (150-450); RED BLOOD COUNT 3.18 10^6/uL (3.72-5.28); RED CELL DISTRIBUTION WIDTH 14.9 % (11.5-14.0); WHITE BLOOD COUNT 9.5 10^3/uL (4.0-10.5)
[2020-07-09 06:57] LABS: BLOOD UREA NITROGEN 29 mg/dL (7-20); CALCIUM 8.1 mg/dL (8.4-10.2); CARBON DIOXIDE 36 mmol/L (22-30); CHLORIDE 95 mmol/L (98-107); GLUCOSE 395 mg/dL (75-110); POTASSIUM 3.6 mmol/L (3.6-5.0)
[2020-07-09 07:34] LABS: ANION GAP 4 (5-19)
[2020-07-09] MEDS: INSULIN LISPRO 100 UNIT/ML 3 ML VIAL SUBCUT SCH ×4 (08:05→22:35)
[2020-07-09] MEDS: ENOXAPARIN SODIUM INJ 60 MG/0.6 ML DISP.SYRIN SUBCUT SCH ×2 (10:20→22:35)
[2020-07-09] MEDS: ASCORBIC ACID 500 MG TABLET PO SCH ×2 (10:21→17:07)
[2020-07-09] MEDS: THIAMINE HCL 100 MG TABLET PO SCH ×2 (10:21→17:07)
[2020-07-09] MEDS: PANTOPRAZOLE SODIUM 40 MG TABLET.DR PO SCH ×2 (10:21→17:07)
[2020-07-09] MEDS: OMEGA-3 ACID ETHYL ESTERS 1 GM CAPSULE PO SCH ×2 (10:21→17:07)
[2020-07-09] MEDS: FUROSEMIDE 40 MG TABLET PO SCH ×2 (10:21→17:07)
[2020-07-09] MEDS: CLONIDINE HCL 0.2 MG TABLET PO SCH ×2 (10:21→22:41)
[2020-07-09] MEDS: BUSPIRONE HCL 10 MG TABLET PO SCH (10:21)
[2020-07-09] MEDS: ZINC SULFATE 220 MG CAPSULE PO SCH (10:21)
[2020-07-09] MEDS: POLYETHYLENE GLYCOL 3350 POWDER 17 GM/1 PACKET PO SCH ×2 (10:22→22:41)
[2020-07-09] MEDS: POTASSIUM CHLORIDE 20 MEQ PACKET PO SCH ×2 (10:22→22:35)
[2020-07-09] MEDS: FENOFIBRATE NANOCRYSTALLIZED 48 MG TABLET PO SCH (11:11)
[2020-07-09] MEDS: VANCOMYCIN HCL 750 MG in DEXTROSE 5%-WATER 250 ML IV SCH (14:02)
--- NOTE | 2020-07-09 18:22 | PDOC PROGRESS REPORT ---
Subjective Date:: 07/09/20 Subjective:: Tolerating BIPAP, FiO2 weaned down to 50%. She is complaining of inability to eat/swallow. Tells me that she gets SOB when the BIPAP is removed and she can not eat anything. Reason For Visit: COPD W/EXACERBATION, PNEMONIA DUE TO 2019 NOVEL Physical Exam Vital Signs: Temp Pulse Resp BP Pulse Ox 98.1 F 72 20 118/67 91 L 07/09/20 16:09 07/09/20 16:09 07/09/20 16:09 07/09/20 16:09 07/09/20 16:09 Intake & Output 07/08/20 07/09/20 07/10/20 06:59 06:59 06:59 Intake Total 2684 1706 250 Output Total 3100 1675 600 Balance -416 31 -350 Weight 61.2 kg 59.8 kg General appearance: PRESENT: no acute distress, cooperative Eye exam: ABSENT: scleral icterus Mouth exam: PRESENT: dry mucosa Throat exam: ABSENT: post pharyngeal erythema Neck exam: ABSENT: JVD Respiratory exam: PRESENT: rhonchi. ABSENT: crackles, wheezes Cardiovascular exam: PRESENT: RRR GI/Abdominal exam: PRESENT: normal bowel sounds, soft. ABSENT: tenderness Extremities exam: PRESENT: pedal edema Neurological exam: PRESENT: alert, awake, oriented to person, oriented to place, oriented to situation. ABSENT: oriented to time Psychiatric exam: PRESENT: appropriate affect Skin exam: ABSENT: jaundice Results Laboratory Results: 07/09/20 06:24 07/09/20 06:24 07/09/20 07/09/20 06:24 06:24 WBC 9.5 RBC 3.18 L Hgb 8.5 L Hct 26.1 L MCV 82 MCH 26.9 L MCHC 32.7 RDW 14.9 H Plt Count 256 Sodium 135.4 L Potassium 3.6 Chloride 95 L Carbon Dioxide 36 H Anion Gap 4 L BUN 29 H Creatinine 0.64 Est GFR ( Amer) > 60 Glucose 395 H Calcium 8.1 L Magnesium 2.2 06/23/20 06/23/20 07/05/20 11:49 11:49 05:07 Creatine Kinase 546 H Troponin I < 0.012 NT-Pro-B Natriuret Pep 121 Impressions: Chest X-Ray 06/27/20 06:15 IMPRESSION: Rehydration versus progressing bilateral pneumonia. Chest/Abdomen CTA 07/05/20 00:00 IMPRESSION: 1. There is no pulmonary embolus. There is no aortic aneurysm or dissection. 2. Extensive pulmonary emphysema. 3. Small spiculated nodule in the right upper lobe appears stable. Cannot exclude neoplasm. 4. Fairly dense consolidation in the left lower lobe, pneumonia versus atelectasis. Cannot exclude a postobstructive pneumonia. 5. Mediastinal adenopathy. PICC Line Insertion 07/08/20 00:00 IMPRESSION: SUCCESSFUL PLACEMENT OF A 5 FR DUAL LUMEN 36 CM PICC IN THE RIGHT BASILIC VEIN. Assessment and Plan - Diagnosis (1) Delirium Is this a current diagnosis for this admission?: Yes (2) ARDS (adult respiratory distress syndrome) Is this a current diagnosis for this admission?: Yes (3) Acute exacerbation of chronic obstructive pulmonary disease (COPD) Is this a current diagnosis for this admission?: Yes (4) Acute on chronic respiratory failure with hypoxemia Is this a current diagnosis for this admission?: Yes (5) HCAP (healthcare-associated pneumonia) Is this a current diagnosis for this admission?: Yes (6) Pneumonia due to COVID-19 virus Is this a current diagnosis for this admission?: Yes (7) Sleep apnea, obstructive Is this a current diagnosis for this admission?: Yes - Plan Summary Summary: 1. HCAP/ARDS: continue Zosyn and steroids. DC Vancomycin. BiPAP FiO2 weaned down from 100% to 50% over the last 2 days. Will transition to high flow and start weaning down as tolerated. She is stable and improving. Prognosis guarded overall. 2. Severe emphysema: continue inhalers, steroids. 3. Covid-19: 2 weeks since symptoms onset per daughter, retest is positive 4. Delirium: due to severe illness, prolonged hospitalization and age. Delirium precautions. Fall precautions. 5. Lack of access: PICC placed on 07/08 6. Dysphagia: [employer] consult, aspiration precautions - Time Time Spent with patient: 35 or more minutes Anticipated [facility]charge [facility] Anticipated Discharge Timeframe: within 72 hours
[2020-07-09] MEDS: ATORVASTATIN CALCIUM 40 MG TABLET PO SCH (22:35)
[2020-07-09] MEDS: AMITRIPTYLINE HCL 25 MG TABLET PO SCH (22:41)
[2020-07-09] MEDS: MONTELUKAST SODIUM 10 MG TABLET PO SCH (22:41)
[2020-07-10] MEDS: DEXTROSE 5%-1/2 NORMAL SALINE 1,000 ML IV PRN (01:38)
[2020-07-10] MEDS: LORAZEPAM 0.5 MG TABLET PO PRN ×2 (01:39→22:57)
[2020-07-10] MEDS: PIPERACILLIN SODIUM/TAZOBACTAM 3.375 GM in NORMAL SALINE 100 ML IV SCH ×3 (02:05→17:59)
[2020-07-10] MEDS: METHYLPREDNISOLONE INJ 40 MG/1 ML SDV IV SCH ×3 (06:06→22:57)
[2020-07-10] MEDS: PREGABALIN 50 MG CAPSULE PO SCH ×3 (06:06→22:57)
[2020-07-10 06:30] LABS: APPEARANCE,URINE SLIGHTLY-CLOUDY; BILIRUBIN,URINE NEGATIVE (NEGATIVE); COLOR,URINE YELLOW; GLUCOSE, URINE NEGATIVE (NEGATIVE); KETONES,URINE NEGATIVE (NEGATIVE); LEUKOCYTE ESTERASE,URINE NEGATIVE (NEGATIVE); NITRITE,URINE NEGATIVE (NEGATIVE); PROTEIN,URINE NEGATIVE (NEGATIVE); URINE SPECIFIC GRAVITY 1.012; UROBILINOGEN,URINE NEGATIVE mg/dL (<2.0)
[2020-07-10 07:03] LABS: ARTERIAL BLOOD BASE EXCESS 8.8 mmol/L; ARTERIAL BLOOD H2CO3 1.28 mmol/L (1.05-1.35); ARTERIAL BLOOD HCO3 32.8 mmol/L (20-24); ARTERIAL BLOOD O2 SATURATION 91.2 % (94-98); ARTERIAL BLOOD PCO2 42.5 mmHg (35-45); ARTERIAL BLOOD PH 7.51 (7.35-7.45); ARTERIAL BLOOD PO2 55.1 mmHg (80-100); ARTERIAL BLOOD TOTAL CO2 34.1 mmol/L (21-25)
[2020-07-10 07:04] LABS: ARTERIAL BLOOD FIO2 50%
[2020-07-10] MEDS: INSULIN LISPRO 100 UNIT/ML 3 ML VIAL SUBCUT SCH ×4 (08:23→22:58)
[2020-07-10] MEDS: CLONIDINE HCL 0.2 MG TABLET PO SCH ×2 (10:45→22:57)
[2020-07-10] MEDS: ZINC SULFATE 220 MG CAPSULE PO SCH (10:45)
[2020-07-10] MEDS: OMEGA-3 ACID ETHYL ESTERS 1 GM CAPSULE PO SCH ×2 (10:45→17:59)
[2020-07-10] MEDS: FENOFIBRATE NANOCRYSTALLIZED 48 MG TABLET PO SCH (10:45)
[2020-07-10] MEDS: THIAMINE HCL 100 MG TABLET PO SCH ×2 (10:45→17:59)
[2020-07-10] MEDS: FUROSEMIDE 40 MG TABLET PO SCH ×2 (10:46→17:59)
[2020-07-10] MEDS: PANTOPRAZOLE SODIUM 40 MG TABLET.DR PO SCH ×2 (10:46→17:59)
[2020-07-10] MEDS: POTASSIUM CHLORIDE 20 MEQ PACKET PO SCH ×2 (10:46→22:57)
[2020-07-10] MEDS: ASCORBIC ACID 500 MG TABLET PO SCH ×2 (10:46→17:59)
[2020-07-10] MEDS: ENOXAPARIN SODIUM INJ 60 MG/0.6 ML DISP.SYRIN SUBCUT SCH ×2 (10:46→22:57)
[2020-07-10] MEDS: BUSPIRONE HCL 10 MG TABLET PO SCH (10:46)
[2020-07-10] MEDS: POLYETHYLENE GLYCOL 3350 POWDER 17 GM/1 PACKET PO SCH ×3 (10:48→17:59)
[2020-07-10] MEDS: NYSTATIN/DEXAMETH/DIPHEN SUSP 120 ML PO PRN (10:54)
[2020-07-10] MEDS ORDERED: SENNOSIDES/DOCUSATE 8.6-50 MG 1 EACH TABLET PO ONE (13:30)
[2020-07-10 15:05] LABS: HEMOGLOBIN 9.7 g/dL (12.0-15.5); MEAN CORPUSCULAR HGB CONC 33.4 g/dL (32.0-36.0); MEAN CORPUSCULAR VOLUME 81 fl (80-97); PLATELET COUNT 322 10^3/uL (150-450); RED BLOOD COUNT 3.59 10^6/uL (3.72-5.28); RED CELL DISTRIBUTION WIDTH 14.7 % (11.5-14.0); WHITE BLOOD COUNT 13.8 10^3/uL (4.0-10.5)
[2020-07-10 15:19] LABS: BLOOD UREA NITROGEN 29 mg/dL (7-20); CALCIUM 9.1 mg/dL (8.4-10.2); CARBON DIOXIDE 37 mmol/L (22-30); CHLORIDE 99 mmol/L (98-107); GLUCOSE 90 mg/dL (75-110); POTASSIUM 3.4 mmol/L (3.6-5.0)
[2020-07-10 15:34] LABS: ANION GAP 3 (5-19)
--- NOTE | 2020-07-10 19:19 | PDOC PROGRESS REPORT ---
Subjective Date:: 07/10/20 Subjective:: She is feeling well. Eating better. Off of BIPAP now and on oximizer at 15 L/min, saturating well. Reason For Visit: COPD W/EXACERBATION, PNEMONIA DUE TO 2019 NOVEL Physical Exam Vital Signs: Temp Pulse Resp BP Pulse Ox 97.6 F 71 23 H 164/64 H 92 07/10/20 16:27 07/10/20 16:27 07/10/20 16:27 07/10/20 16:27 07/10/20 16:27 Intake & Output 07/09/20 07/10/20 07/11/20 06:59 06:59 06:59 Intake Total 1706 1250 1777 Output Total 1675 2100 800 Balance 31 -850 977 Weight 59.8 kg 60.3 kg General appearance: PRESENT: no acute distress, cooperative Eye exam: ABSENT: scleral icterus Mouth exam: PRESENT: moist Throat exam: ABSENT: post pharyngeal erythema Neck exam: ABSENT: JVD Respiratory exam: PRESENT: rhonchi, symmetrical. ABSENT: crackles, wheezes Cardiovascular exam: PRESENT: RRR GI/Abdominal exam: PRESENT: normal bowel sounds, soft. ABSENT: tenderness Extremities exam: PRESENT: pedal edema Neurological exam: PRESENT: alert, awake, oriented to person, oriented to place, oriented to time, oriented to situation Psychiatric exam: PRESENT: appropriate affect Skin exam: ABSENT: jaundice Results Laboratory Results: 07/10/20 14:45 07/10/20 14:45 07/10/20 07/10/20 07/10/20 05:38 06:37 06:37 WBC RBC Hgb Hct MCV MCH MCHC RDW Plt Count Carbonic Acid HCO3/H2CO3 Ratio ABG pH ABG pCO2 ABG pO2 ABG HCO3 ABG O2 Saturation ABG Base Excess FiO2 Sodium Cancelled Potassium Cancelled Chloride Cancelled Carbon Dioxide Cancelled Anion Gap Cancelled BUN Cancelled Creatinine Cancelled Est GFR ( Amer) Cancelled Est GFR (Non-Af Amer) Cancelled Glucose Cancelled Calcium Cancelled Magnesium Cancelled Urine Color YELLOW Urine Appearance SLIGHTLY-CLOUDY Urine pH 7.0 Ur Specific Pana 1.012 Urine Protein NEGATIVE Urine Glucose (UA) NEGATIVE Urine Ketones NEGATIVE Urine Blood SMALL H Urine Nitrite NEGATIVE Ur Leukocyte Esterase NEGATIVE Urine WBC (Auto) 0 Urine RBC (Auto) 1 07/10/20 07/10/20 07/10/20 06:37 14:45 14:45 WBC 13.8 H RBC 3.59 L Hgb 9.7 L Hct 29.0 L MCV 81 MCH 27.0 MCHC 33.4 RDW 14.7 H Plt Count 322 Carbonic Acid 1.28 HCO3/H2CO3 Ratio 25:1 ABG pH 7.51 H ABG pCO2 42.5 ABG pO2 55.1 L ABG HCO3 32.8 H ABG O2 Saturation 91.2 L ABG Base Excess 8.8 FiO2 50% Sodium 139.4 Potassium 3.4 L Chloride 99 Carbon Dioxide 37 H Anion Gap 3 L BUN 29 H Creatinine 0.86 Est GFR ( Amer) > 60 Est GFR (Non-Af Amer) Glucose 90 Calcium 9.1 Magnesium 2.2 Urine Color Urine Appearance Urine pH Ur Specific Pana Urine Protein Urine Glucose (UA) Urine Ketones Urine Blood Urine Nitrite Ur Leukocyte Esterase Urine WBC (Auto) Urine RBC (Auto) 06/23/20 06/23/20 07/05/20 11:49 11:49 05:07 Creatine Kinase 546 H Troponin I < 0.012 NT-Pro-B Natriuret Pep 121 Impressions: Chest X-Ray 06/27/20 06:15 IMPRESSION: Rehydration versus progressing bilateral pneumonia. Chest/Abdomen CTA 07/05/20 00:00 IMPRESSION: 1. There is no pulmonary embolus. There is no aortic aneurysm or dissection. 2. Extensive pulmonary emphysema. 3. Small spiculated nodule in the right upper lobe appears stable. Cannot exclude neoplasm. 4. Fairly dense consolidation in the left lower lobe, pneumonia versus atelectasis. Cannot exclude a postobstructive pneumonia. 5. Mediastinal adenopathy. PICC Line Insertion 07/08/20 00:00 IMPRESSION: SUCCESSFUL PLACEMENT OF A 5 FR DUAL LUMEN 36 CM PICC IN THE RIGHT BASILIC VEIN. Assessment and Plan - Diagnosis (1) Delirium Is this a current diagnosis for this admission?: Yes (2) ARDS (adult respiratory distress syndrome) Is this a current diagnosis for this admission?: Yes (3) Acute exacerbation of chronic obstructive pulmonary disease (COPD) Is this a current diagnosis for this admission?: Yes (4) Acute on chronic respiratory failure with hypoxemia Is this a current diagnosis for this admission?: Yes (5) HCAP (healthcare-associated pneumonia) Is this a current diagnosis for this admission?: Yes (6) Pneumonia due to COVID-19 virus Is this a current diagnosis for this admission?: Yes (7) Sleep apnea, obstructive Is this a current diagnosis for this admission?: Yes - Plan Summary Summary: 1. HCAP/ARDS: continue Zosyn and steroids. DC Vancomycin. Continue to wean down O2 as tolerated. She is stable and improving, albeit very slowly. Prognosis guarded overall. 2. Severe emphysema (on 4 L home O2): continue inhalers, steroids. 3. Covid-19: 2 weeks since symptoms onset per daughter, retest positive 4. Delirium: due to severe illness, prolonged hospitalization and age. Delirium precautions. Fall precautions. 5. Lack of access: PICC placed on 07/08 6. Dysphagia: [employer] consult, aspiration precautions 7. Constipation: bowel regimen in place - Time Time Spent with patient: 35 or more minutes Anticipated Discharge Disposition: Home with Home Health Anticipated Discharge Timeframe: within 72 hours
[2020-07-10] MEDS: MONTELUKAST SODIUM 10 MG TABLET PO SCH (22:57)
[2020-07-10] MEDS: SENNOSIDES/DOCUSATE 8.6-50 MG 1 EACH TABLET PO SCH (22:58)
[2020-07-10] MEDS: ATORVASTATIN CALCIUM 40 MG TABLET PO SCH (22:59)
[2020-07-10] MEDS: AMITRIPTYLINE HCL 25 MG TABLET PO SCH (23:04)
[2020-07-11] MEDS: PIPERACILLIN SODIUM/TAZOBACTAM 3.375 GM in NORMAL SALINE 100 ML IV SCH ×3 (01:38→17:09)
[2020-07-11] MEDS: DEXTROSE 5%-1/2 NORMAL SALINE 1,000 ML IV PRN (01:39)
[2020-07-11] MEDS: PREGABALIN 50 MG CAPSULE PO SCH ×3 (06:21→22:36)
[2020-07-11] MEDS: METHYLPREDNISOLONE INJ 40 MG/1 ML SDV IV SCH ×2 (06:21→14:50)
[2020-07-11 08:44] LABS: ARTERIAL BLOOD BASE EXCESS 8.7 mmol/L; ARTERIAL BLOOD H2CO3 1.14 mmol/L (1.05-1.35); ARTERIAL BLOOD HCO3 31.8 mmol/L (20-24); ARTERIAL BLOOD O2 SATURATION 86.7 % (94-98); ARTERIAL BLOOD PCO2 37.9 mmHg (35-45); ARTERIAL BLOOD PH 7.54 (7.35-7.45); ARTERIAL BLOOD PO2 45.4 mmHg (80-100); ARTERIAL BLOOD TOTAL CO2 32.9 mmol/L (21-25)
[2020-07-11] MEDS: INSULIN LISPRO 100 UNIT/ML 3 ML VIAL SUBCUT SCH ×4 (08:47→21:56)
[2020-07-11 08:48] LABS: ARTERIAL BLOOD FIO2 80%
[2020-07-11] MEDS: CLONIDINE HCL 0.2 MG TABLET PO SCH ×2 (10:32→22:36)
[2020-07-11] MEDS: OMEGA-3 ACID ETHYL ESTERS 1 GM CAPSULE PO SCH ×2 (10:32→17:06)
[2020-07-11] MEDS: FUROSEMIDE 40 MG TABLET PO SCH ×2 (10:33→17:08)
[2020-07-11] MEDS: ASCORBIC ACID 500 MG TABLET PO SCH ×2 (10:33→17:07)
[2020-07-11] MEDS: THIAMINE HCL 100 MG TABLET PO SCH ×2 (10:33→17:07)
[2020-07-11] MEDS: BUSPIRONE HCL 10 MG TABLET PO SCH (10:34)
[2020-07-11] MEDS: ZINC SULFATE 220 MG CAPSULE PO SCH (10:34)
[2020-07-11] MEDS: POTASSIUM CHLORIDE 20 MEQ PACKET PO SCH ×2 (10:35→22:36)
[2020-07-11] MEDS: POLYETHYLENE GLYCOL 3350 POWDER 17 GM/1 PACKET PO SCH ×3 (10:35→17:08)
[2020-07-11] MEDS: ENOXAPARIN SODIUM INJ 60 MG/0.6 ML DISP.SYRIN SUBCUT SCH ×2 (10:35→22:36)
[2020-07-11] MEDS: PANTOPRAZOLE SODIUM 40 MG TABLET.DR PO SCH ×2 (10:35→17:05)
[2020-07-11] MEDS: FENOFIBRATE NANOCRYSTALLIZED 48 MG TABLET PO SCH (10:41)
[2020-07-11] MEDS: NYSTATIN/DEXAMETH/DIPHEN SUSP 120 ML PO PRN (10:45)
--- NOTE | 2020-07-11 12:45 | RADIOLOGY REPORT (SQ) ---
EXAM DESCRIPTION: CHEST SINGLE VIEW IMAGES COMPLETED DATE/TIME: 07/11/2020 9:09 am REASON FOR STUDY: concern for volume overload COMPARISON: 06/27/2020 EXAM PARAMETERS: NUMBER OF VIEWS: One view. TECHNIQUE: Single frontal radiographic view of the chest acquired. RADIATION DOSE: NA LIMITATIONS: None. FINDINGS: LUNGS AND PLEURA: Chronic interstitial changes. Increased opacification in the left base. The left hemidiaphragm is obscured. MEDIASTINUM AND HILAR STRUCTURES: No masses. Contour normal. HEART AND VASCULAR STRUCTURES: Heart normal in size. Normal vasculature. BONES: Scoliosis. HARDWARE: Right-sided PICC has its tip in the superior vena cava. OTHER: No other significant finding. IMPRESSION: Chronic lung changes. Left lower lobe pneumonia. TECHNICAL DOCUMENTATION: JOB ID: [id number] 2010 [employer]- All Rights Reserved Reading location - IP/workstation name: [email or web address]
--- NOTE | 2020-07-11 16:08 | RADIOLOGY REPORT (SQ) ---
EXAM DESCRIPTION: COOKIE SWALLOW IMAGES COMPLETED DATE/TIME: 07/11/2020 3:57 pm REASON FOR STUDY: concern for aspiration, rec'd by THERAPIST ASST COMPARISON: None. TECHNIQUE: Videofluoroscopic swallowing examination was performed in conjunction with speech patholo gy. Videofluoroscopic imaging was obtained and reviewed and these are the findings: RADIATION DOSE: Fluoro time 1.52 minutes 1 images saved to PACS. LIMITATIONS: None FINDINGS: The patient was brought into the fluoro room and placed upright on a modified barium swall ow chair. The patient was then given multiple consistencies mixed with barium to swallow under live fluoroscopic video guidance. According to the Speech Pathologist there was no penetration or aspirat ion. Please refer to the speech pathology report for further details. IMPRESSION: NO EVIDENCE OF PENETRATION OR ASPIRATION. PLEASE SEE SPEECH PATHOLOGIST REPORT FOR OTHER FINDINGS AND RECOMMENDATIONS. COMMENT: None Quality ID [id number]: Final reports for procedures using fluoroscopy that document radiation exposure ahmet mikayla, or exposure time and number of fluorographic images (if radiation exposure indices are not avail able) TECHNICAL DOCUMENTATION: JOB ID: [id number] 2010 [employer]- All Rights Reserved Reading location - IP/workstation name: [email or web address]
--- NOTE | 2020-07-11 16:21 | ST Inp Modified Barium Swallow ---
Medical Diagnosis - Medical Diagnoses Medical Diagnosis Description & ICD-10 Code(s): Acute respiratory distress syndrome (ARDS) - ICD-10 Tx Diagnosis Coding (1) ARDS (adult respiratory distress syndrome) ICD-10 Code(s): J80 - ACUTE RESPIRATORY DISTRESS SYNDROME (2) Acute exacerbation of chronic obstructive pulmonary disease (COPD) ICD-10 Code(s): J44.1 - CHRONIC OBSTRUCTIVE PULMONARY DISEASE W (ACUTE) EXACERBATION (3) Acute on chronic respiratory failure with hypoxemia ICD-10 Code(s): J96.21 - ACUTE AND CHRONIC RESPIRATORY FAILURE WITH HYPOXIA (4) Delirium ICD-10 Code(s): R41.0 - DISORIENTATION, UNSPECIFIED (5) HCAP (healthcare-associated pneumonia) ICD-10 Code(s): J18.9 - PNEUMONIA, UNSPECIFIED ORGANISM (6) Pneumonia due to COVID-19 virus ICD-10 Code(s): U07.1 - COVID-19; J12.89 - OTHER VIRAL PNEUMONIA (7) Dysphagia, pharyngeal ICD-10 Code(s): R13.13 - DYSPHAGIA, PHARYNGEAL PHASE ST [place] [facility] [place] General Date: 07/11/20 Date of Onset: 06/23/20 - History History Obtained From: Other - EMR Medical History: Patient admitted 06/23/2020. Current diagnoses include delirium, acute respiratory distress syndrome, acute on chronic respiratory failure with hypoxemia, acute exacerabation of COPD, healthcare aquired pneumonia, pneumonia due to COVID-19, obstructive sleep apnea. Patient recently able to transition from BiPAP to oximeter. Was intermittently off BiPAP to eat by mouth, but only small amounts per nursing report. Medications: Medications Reviewed Allergies: Refer to medical record - Subjective Current Nutritional Means: PO Current PO Diet: Mechanical - cut - with thin liquids Current Symptoms: Poor intake, Coughing, Pneumonia Pain: 0/5 - Objective Assessment: Upright, Left Lateral - Food Trials Food Trials Used: Thin liquids, Pureed, Soft solids The Patient: Was Able to Self Feed, fed by ST, via cup, via spoon, via straw - Assessment Labial Function: Within Functional Limits Lingual Function: Within Functional Limits Mandibular Function: Within Functional Limits Dentition: Partial - Pharyngeal Stage Decreased Laryngeal Elevation: No Reduced Velo-Pharyngeal Closure: no Reduced Pressure Generation: Yes Reduced Tongue Base Retraction: Yes - mildly Pre-Swallowing Pooling in Valleculae: None Pre-Swallowing Pooling in Pyriforms: None Reduced Thyro-Hyiod Approximation: No Reduced Epiglottic Excursion: No Reduced Pharyngeal Peristalsis: Yes Post Swallow Residuals in Valleculae: Mild - with solids; cleared with liquid wash - Impression/Summary Laryngeal Penetration: No Tracheal Aspiration: no Risk of Aspiration: Moderate Risk of Nutritional Compromise: Severe Risk Due To: Patient continues to be at risk for aspiration and nutritional c ompromise due to respiratory status, weakness impacting positioning, and fatigue due to weakness. - Recommendations Solid Diet Recommendations: Mechanical Soft, Chopped Meat Liquid Diet Recommendations: Thin Strict Aspitarion Precautions: Yes Recommended Techniques: Fully Upright During Meal, Small Bites and Sips, Alternate Bites/Sips Supervision: Distant Other Recommendations: No aspiration or penetration observed on study even with straw sip (larger bolus). Mild residals that cleared with liquid wash, recommend alternating bites & sips. Recommend mechanical soft solids with upgrade to regular as respiratory status improves and thin liquids. Results and recommendations communicated to Dr. Bejarano. ST to follow PRN in case of further needs. - Time Total Time: 15 Total Timed Minutes: 0
[2020-07-11 16:30] LABS: HEMATOCRIT 31.2 % (36.0-47.0); HEMOGLOBIN 10.1 g/dL (12.0-15.5); MEAN CORPUSCULAR HEMOGLOBIN 26.5 pg (27.0-33.4); MEAN CORPUSCULAR HGB CONC 32.4 g/dL (32.0-36.0); MEAN CORPUSCULAR VOLUME 82 fl (80-97); PLATELET COUNT 383 10^3/uL (150-450); RED BLOOD COUNT 3.82 10^6/uL (3.72-5.28); RED CELL DISTRIBUTION WIDTH 15.2 % (11.5-14.0); WHITE BLOOD COUNT 13.9 10^3/uL (4.0-10.5)
[2020-07-11 16:48] LABS: ANION GAP 7 (5-19); BLOOD UREA NITROGEN 31 mg/dL (7-20); CALCIUM 8.9 mg/dL (8.4-10.2); CARBON DIOXIDE 34 mmol/L (22-30); CHLORIDE 97 mmol/L (98-107); GLUCOSE 236 mg/dL (75-110); POTASSIUM 3.5 mmol/L (3.6-5.0)
[2020-07-11] MEDS: NYSTATIN 500000 UNIT/5 ML UDCUP PO SCH (17:07)
--- NOTE | 2020-07-11 18:14 | PDOC PROGRESS REPORT ---
Subjective Date:: 07/11/20 Subjective:: NAEO. She remains on 15 L O2 via oxymizer. Still feels constipated. Reason For Visit: COPD W/EXACERBATION, PNEMONIA DUE TO 2019 NOVEL Physical Exam Vital Signs: Temp Pulse Resp BP Pulse Ox 97.6 F 76 20 153/69 H 92 07/11/20 16:20 07/11/20 16:20 07/11/20 16:20 07/11/20 16:20 07/11/20 17:14 Intake & Output 07/10/20 07/11/20 07/12/20 06:59 06:59 06:59 Intake Total 1250 3352 240 Output Total 2100 2850 400 Balance -850 502 -160 Weight 60.3 kg 60 kg General appearance: PRESENT: no acute distress, cooperative Eye exam: ABSENT: scleral icterus Mouth exam: PRESENT: moist Throat exam: ABSENT: post pharyngeal erythema Neck exam: ABSENT: JVD Respiratory exam: PRESENT: rhonchi, tachypnea. ABSENT: wheezes Cardiovascular exam: PRESENT: RRR GI/Abdominal exam: PRESENT: distended, normal bowel sounds, soft. ABSENT: firm, guarding, rebound, rigid, tenderness Extremities exam: ABSENT: pedal edema Neurological exam: PRESENT: alert, awake, oriented to person, oriented to place, oriented to time, oriented to situation Psychiatric exam: PRESENT: appropriate affect Skin exam: ABSENT: jaundice Results Laboratory Results: 07/11/20 16:05 07/11/20 16:05 07/11/20 07/11/20 07/11/20 08:33 16:05 16:05 WBC 13.9 H RBC 3.82 Hgb 10.1 L Hct 31.2 L MCV 82 MCH 26.5 L MCHC 32.4 RDW 15.2 H Plt Count 383 Carbonic Acid 1.14 HCO3/H2CO3 Ratio 27:1 ABG pH 7.54 H ABG pCO2 37.9 ABG pO2 45.4 L ABG HCO3 31.8 H ABG O2 Saturation 86.7 L ABG Base Excess 8.7 FiO2 80% Sodium 137.8 Potassium 3.5 L Chloride 97 L Carbon Dioxide 34 H Anion Gap 7 BUN 31 H Creatinine 0.73 Est GFR ( Amer) > 60 Glucose 236 H Calcium 8.9 Magnesium 2.0 06/23/20 06/23/20 07/05/20 11:49 11:49 05:07 Creatine Kinase 546 H Troponin I < 0.012 NT-Pro-B Natriuret Pep 121 Impressions: Chest/Abdomen CTA 07/05/20 00:00 IMPRESSION: 1. There is no pulmonary embolus. There is no aortic aneurysm or dissection. 2. Extensive pulmonary emphysema. 3. Small spiculated nodule in the right upper lobe appears stable. Cannot exclude neoplasm. 4. Fairly dense consolidation in the left lower lobe, pneumonia versus atelectasis. Cannot exclude a postobstructive pneumonia. 5. Mediastinal adenopathy. PICC Line Insertion 07/08/20 00:00 IMPRESSION: SUCCESSFUL PLACEMENT OF A 5 FR DUAL LUMEN 36 CM PICC IN THE RIGHT BASILIC VEIN. Chest X-Ray 07/11/20 00:00 IMPRESSION: Chronic lung changes. Left lower lobe pneumonia. Modified Barium Swallow 07/11/20 00:00 IMPRESSION: NO EVIDENCE OF PENETRATION OR ASPIRATION. PLEASE SEE SPEECH PATHOLOGIST REPORT FOR OTHER FINDINGS AND RECOMMENDATIONS. Assessment and Plan - Diagnosis (1) Delirium Is this a current diagnosis for this admission?: Yes (2) ARDS (adult respiratory distress syndrome) Is this a current diagnosis for this admission?: Yes (3) Acute exacerbation of chronic obstructive pulmonary disease (COPD) Is this a current diagnosis for this admission?: Yes (4) Acute on chronic respiratory failure with hypoxemia Is this a current diagnosis for this admission?: Yes (5) HCAP (healthcare-associated pneumonia) Is this a current diagnosis for this admission?: Yes (6) Pneumonia due to COVID-19 virus Is this a current diagnosis for this admission?: Yes (7) Sleep apnea, obstructive Is this a current diagnosis for this admission?: Yes (8) Generalized weakness Is this a current diagnosis for this admission?: Yes - Plan Summary Summary: 1. HCAP/ARDS: continue Zosyn. Continue to wean down O2 as tolerated. She is stable and improving, albeit very slowly. Prognosis guarded overall. 2. Severe emphysema (on 4 L home O2): continue inhalers, steroids. 3. Covid-19: 2 weeks since symptoms onset per daughter, retest positive 4. Delirium: due to severe illness, prolonged hospitalization and age. Delirium precautions. Fall precautions. 5. Lack of access: PICC placed on 07/08 6. Subjective Dysphagia: TECHNICAL SUPPORT ASSOCIATE consulted and she underwent MBS on 07/11 showing no aspiration. Aspiration precautions in place. 7. Constipation: bowel regimen in place 8. Thrush: oral nystatin ordered 9. Generalized Weakness: PT/OT ordered but she is quite debilitated and can barely turn in bed without becoming dyspneic. Fall precautions. - Time Time Spent with patient: 35 or more minutes Anticipated Discharge Disposition: Retirement Facility Anticipated Discharge Timeframe: within 72 hours
[2020-07-11] MEDS: IPRATROPIUM/ALBUTEROL 0.5-2.5 MG/3 ML AMPUL NEB SCH ×2 (20:36)
[2020-07-11] MEDS: AMLODIPINE BESYLATE 5 MG TABLET PO SCH (22:36)
[2020-07-11] MEDS: ATORVASTATIN CALCIUM 40 MG TABLET PO SCH (22:36)
[2020-07-11] MEDS: SENNOSIDES/DOCUSATE 8.6-50 MG 1 EACH TABLET PO SCH (22:36)
[2020-07-11] MEDS: MONTELUKAST SODIUM 10 MG TABLET PO SCH (22:36)
[2020-07-11] MEDS: NORMAL SALINE 10 ML SDV (SCHEDULED) IV SCH (22:37)
[2020-07-11] MEDS: AMITRIPTYLINE HCL 25 MG TABLET PO SCH (22:40)
[2020-07-11] MEDS: LORAZEPAM 0.5 MG TABLET PO PRN (22:46)
[2020-07-12] MEDS: IPRATROPIUM/ALBUTEROL 0.5-2.5 MG/3 ML AMPUL NEB SCH ×4 (02:23→20:04)
[2020-07-12] MEDS: PIPERACILLIN SODIUM/TAZOBACTAM 3.375 GM in NORMAL SALINE 100 ML IV SCH (04:48)
[2020-07-12] MEDS: NYSTATIN 500000 UNIT/5 ML UDCUP PO SCH ×4 (04:48→17:25)
[2020-07-12] MEDS: PREGABALIN 50 MG CAPSULE PO SCH ×3 (05:17→21:31)
[2020-07-12 05:38] LABS: HEMATOCRIT 32.1 % (36.0-47.0); HEMOGLOBIN 10.5 g/dL (12.0-15.5); MEAN CORPUSCULAR HEMOGLOBIN 26.5 pg (27.0-33.4); MEAN CORPUSCULAR HGB CONC 32.8 g/dL (32.0-36.0); MEAN CORPUSCULAR VOLUME 81 fl (80-97); PLATELET COUNT 346 10^3/uL (150-450); RED BLOOD COUNT 3.97 10^6/uL (3.72-5.28); RED CELL DISTRIBUTION WIDTH 14.9 % (11.5-14.0); WHITE BLOOD COUNT 12.9 10^3/uL (4.0-10.5)
[2020-07-12 05:59] LABS: BLOOD UREA NITROGEN 36 mg/dL (7-20); CALCIUM 9.4 mg/dL (8.4-10.2); CHLORIDE 98 mmol/L (98-107); GLUCOSE 98 mg/dL (75-110); POTASSIUM 3.6 mmol/L (3.6-5.0)
[2020-07-12 06:06] LABS: ANION GAP 5 (5-19); CARBON DIOXIDE 36 mmol/L (22-30)
[2020-07-12] MEDS: INSULIN LISPRO 100 UNIT/ML 3 ML VIAL SUBCUT SCH ×4 (08:22→22:44)
[2020-07-12 09:58] LABS: ARTERIAL BLOOD BASE EXCESS 6.1 mmol/L; ARTERIAL BLOOD FIO2 100%; ARTERIAL BLOOD H2CO3 1.27 mmol/L (1.05-1.35); ARTERIAL BLOOD HCO3 30.3 mmol/L (20-24); ARTERIAL BLOOD PCO2 42.1 mmHg (35-45); ARTERIAL BLOOD PH 7.48 (7.35-7.45); ARTERIAL BLOOD PO2 70.1 mmHg (80-100); ARTERIAL BLOOD TOTAL CO2 31.6 mmol/L (21-25)
[2020-07-12] MEDS ORDERED: FUROSEMIDE 40 MG TABLET PO SCH (10:00)
[2020-07-12] MEDS: ZINC SULFATE 220 MG CAPSULE PO SCH (11:11)
[2020-07-12] MEDS: ASCORBIC ACID 500 MG TABLET PO SCH ×2 (11:12→17:25)
[2020-07-12] MEDS: THIAMINE HCL 100 MG TABLET PO SCH ×2 (11:12→17:25)
[2020-07-12] MEDS: CLONIDINE HCL 0.2 MG TABLET PO SCH ×2 (11:12→21:31)
[2020-07-12] MEDS: BUSPIRONE HCL 10 MG TABLET PO SCH (11:12)
[2020-07-12] MEDS: POTASSIUM CHLORIDE 20 MEQ PACKET PO SCH ×2 (11:13→21:30)
[2020-07-12] MEDS: OMEGA-3 ACID ETHYL ESTERS 1 GM CAPSULE PO SCH ×2 (11:13→17:25)
[2020-07-12] MEDS: FENOFIBRATE NANOCRYSTALLIZED 48 MG TABLET PO SCH (11:13)
[2020-07-12] MEDS: PANTOPRAZOLE SODIUM 40 MG TABLET.DR PO SCH ×2 (11:13→17:25)
[2020-07-12] MEDS: NORMAL SALINE 10 ML SDV (SCHEDULED) IV SCH ×3 (11:14→21:33)
[2020-07-12] MEDS: POLYETHYLENE GLYCOL 3350 POWDER 17 GM/1 PACKET PO SCH ×3 (11:14→17:25)
[2020-07-12] MEDS: ENOXAPARIN SODIUM INJ 60 MG/0.6 ML DISP.SYRIN SUBCUT SCH ×2 (11:15→21:32)
[2020-07-12] MEDS ORDERED: NORMAL SALINE 10 ML SDV (AFTER EACH USE) IV PRN (12:30)
[2020-07-12] MEDS ORDERED: GUAIFENESIN/D-METHORPHAN (200-20 MG) SYRUP 10 ML PO PRN (18:24)
--- NOTE | 2020-07-12 18:28 | PDOC PROGRESS REPORT ---
Subjective Date:: 07/12/20 Subjective:: NAEO. She remains on 15 L O2, unchanged for several days now and not making much progress. She did have a BM today. Reason For Visit: COPD W/EXACERBATION, PNEMONIA DUE TO 2019 NOVEL Physical Exam Vital Signs: Temp Pulse Resp BP Pulse Ox 98.1 F 82 16 156/54 H 92 07/12/20 11:09 07/12/20 14:33 07/12/20 14:33 07/12/20 11:09 07/12/20 16:07 Intake & Output 07/11/20 07/12/20 07/13/20 06:59 06:59 06:59 Intake Total 335 1957 240 Output Total 2850 2500 Balance 502 -543 240 Weight 60 kg 57.4 kg General appearance: PRESENT: no acute distress, cooperative Eye exam: ABSENT: scleral icterus Mouth exam: PRESENT: dry mucosa Throat exam: ABSENT: post pharyngeal erythema Neck exam: ABSENT: JVD Respiratory exam: PRESENT: rhonchi. ABSENT: crackles, wheezes Cardiovascular exam: PRESENT: RRR GI/Abdominal exam: PRESENT: normal bowel sounds, soft. ABSENT: tenderness Extremities exam: ABSENT: pedal edema Musculoskeletal exam: PRESENT: normal inspection Neurological exam: PRESENT: alert, awake, oriented to person, oriented to place, oriented to situation. ABSENT: oriented to time Psychiatric exam: PRESENT: appropriate affect Skin exam: ABSENT: jaundice Results Laboratory Results: 07/12/20 04:49 07/12/20 04:49 07/12/20 07/12/20 07/12/20 04:49 04:49 09:40 WBC 12.9 H RBC 3.97 Hgb 10.5 L Hct 32.1 L MCV 81 MCH 26.5 L MCHC 32.8 RDW 14.9 H Plt Count 346 Carbonic Acid 1.27 HCO3/H2CO3 Ratio 23:1 ABG pH 7.48 H ABG pCO2 42.1 ABG pO2 70.1 L ABG HCO3 30.3 H ABG O2 Saturation 95.0 ABG Base Excess 6.1 FiO2 100% Sodium 139.1 Potassium 3.6 Chloride 98 Carbon Dioxide 36 H Anion Gap 5 BUN 36 H Creatinine 0.90 Est GFR ( Amer) > 60 Glucose 98 Calcium 9.4 Magnesium 2.3 06/23/20 06/23/20 07/05/20 11:49 11:49 05:07 Creatine Kinase 546 H Troponin I < 0.012 NT-Pro-B Natriuret Pep 121 Impressions: Chest/Abdomen CTA 07/05/20 00:00 IMPRESSION: 1. There is no pulmonary embolus. There is no aortic aneurysm or dissection. 2. Extensive pulmonary emphysema. 3. Small spiculated nodule in the right upper lobe appears stable. Cannot exclude neoplasm. 4. Fairly dense consolidation in the left lower lobe, pneumonia versus atelectasis. Cannot exclude a postobstructive pneumonia. 5. Mediastinal adenopathy. PICC Line Insertion 07/08/20 00:00 IMPRESSION: SUCCESSFUL PLACEMENT OF A 5 FR DUAL LUMEN 36 CM PICC IN THE RIGHT BASILIC VEIN. Chest X-Ray 07/11/20 00:00 IMPRESSION: Chronic lung changes. Left lower lobe pneumonia. Modified Barium Swallow 07/11/20 00:00 IMPRESSION: NO EVIDENCE OF PENETRATION OR ASPIRATION. PLEASE SEE SPEECH PATHOLOGIST REPORT FOR OTHER FINDINGS AND RECOMMENDATIONS. Assessment and Plan - Diagnosis (1) Delirium Is this a current diagnosis for this admission?: Yes (2) ARDS (adult respiratory distress syndrome) Is this a current diagnosis for this admission?: Yes (3) Acute exacerbation of chronic obstructive pulmonary disease (COPD) Is this a current diagnosis for this admission?: Yes (4) Acute on chronic respiratory failure with hypoxemia Is this a current diagnosis for this admission?: Yes (5) HCAP (healthcare-associated pneumonia) Is this a current diagnosis for this admission?: Yes (6) Pneumonia due to COVID-19 virus Is this a current diagnosis for this admission?: Yes (7) Sleep apnea, obstructive Is this a current diagnosis for this admission?: Yes (8) Generalized weakness Is this a current diagnosis for this admission?: Yes - Plan Summary Summary: 1. HCAP: completed a 7 day course of antibiotic therapy. Continue to wean down O2 as tolerated. She is stable but without much improvement. Prognosis guarded overall. 2. Severe emphysema (on 4 L home O2): continue inhalers, steroids. 3. Covid-19: 2 weeks since symptoms onset per daughter, retest positive 4. Delirium: due to severe illness, prolonged hospitalization and age. Delirium precautions. Fall precautions. 5. Lack of access: PICC placed on 07/08 6. Subjective Dysphagia: TEST DESKMAN consulted and she underwent MBS on 12/31 showing no aspiration. Aspiration precautions in place. 7. Constipation: bowel regimen in place 8. Thrush: oral nystatin ordered 9. ALLI: IVF therapy ordered. She has very poor oral intake. 10. Generalized Weakness: PT/OT ordered but she is quite debilitated and can barely turn in bed without becoming dyspneic. Fall precautions. - Time Time Spent with patient: 35 or more minutes Anticipated Discharge Disposition: Long-Term Facility Anticipated Discharge Timeframe: within 72 hours
[2020-07-12] MEDS: POTASSI CL 20 MEQ/NS 1L 1,000 ML IV PRN (20:48)
[2020-07-12] MEDS: GUAIFENESIN 600 MG TABLET.SA PO SCH (21:31)
[2020-07-12] MEDS: AMLODIPINE BESYLATE 5 MG TABLET PO SCH (21:31)
[2020-07-12] MEDS: MONTELUKAST SODIUM 10 MG TABLET PO SCH (21:31)
[2020-07-12] MEDS: AMITRIPTYLINE HCL 25 MG TABLET PO SCH (21:31)
[2020-07-12] MEDS: ATORVASTATIN CALCIUM 40 MG TABLET PO SCH (21:31)
[2020-07-12] MEDS: SENNOSIDES/DOCUSATE 8.6-50 MG 1 EACH TABLET PO SCH (21:31)
[2020-07-13] MEDS: NYSTATIN 500000 UNIT/5 ML UDCUP PO SCH ×6 (01:45→23:59)
[2020-07-13] MEDS: IPRATROPIUM/ALBUTEROL 0.5-2.5 MG/3 ML AMPUL NEB SCH ×4 (02:04→19:29)
[2020-07-13] MEDS: ACETAMINOPHEN 325 MG TABLET PO PRN ×2 (03:50→11:48)
[2020-07-13] MEDS: PREGABALIN 50 MG CAPSULE PO SCH ×3 (06:03→23:04)
[2020-07-13 06:44] LABS: HEMATOCRIT 28.8 % (36.0-47.0); HEMOGLOBIN 9.3 g/dL (12.0-15.5); MEAN CORPUSCULAR HEMOGLOBIN 26.4 pg (27.0-33.4); MEAN CORPUSCULAR HGB CONC 32.3 g/dL (32.0-36.0); MEAN CORPUSCULAR VOLUME 82 fl (80-97); PLATELET COUNT 343 10^3/uL (150-450); RED BLOOD COUNT 3.52 10^6/uL (3.72-5.28); RED CELL DISTRIBUTION WIDTH 15.2 % (11.5-14.0); WHITE BLOOD COUNT 19.4 10^3/uL (4.0-10.5)
[2020-07-13 06:58] LABS: ARTERIAL BLOOD BASE EXCESS 7.2 mmol/L; ARTERIAL BLOOD H2CO3 1.33 mmol/L (1.05-1.35); ARTERIAL BLOOD HCO3 31.6 mmol/L (20-24); ARTERIAL BLOOD O2 SATURATION 90.8 % (94-98); ARTERIAL BLOOD PCO2 44.1 mmHg (35-45); ARTERIAL BLOOD PH 7.47 (7.35-7.45); ARTERIAL BLOOD TOTAL CO2 32.9 mmol/L (21-25)
[2020-07-13 07:00] LABS: ARTERIAL BLOOD FIO2 100%
[2020-07-13 07:04] LABS: BLOOD UREA NITROGEN 36 mg/dL (7-20); CALCIUM 8.9 mg/dL (8.4-10.2); GLUCOSE 112 mg/dL (75-110); POTASSIUM 4.2 mmol/L (3.6-5.0)
[2020-07-13 07:11] LABS: ANION GAP 5 (5-19); CARBON DIOXIDE 36 mmol/L (22-30); CHLORIDE 101 mmol/L (98-107)
[2020-07-13] MEDS: INSULIN LISPRO 100 UNIT/ML 3 ML VIAL SUBCUT SCH ×4 (07:49→23:06)
[2020-07-13] MEDS: POTASSI CL 20 MEQ/NS 1L 1,000 ML IV PRN ×2 (07:50→23:59)
[2020-07-13] MEDS ORDERED: SODIUM CHLORIDE NASAL SPRAY 44 ML NASL PRN (09:50)
[2020-07-13] MEDS: PANTOPRAZOLE SODIUM 40 MG TABLET.DR PO SCH ×2 (10:16→17:21)
[2020-07-13] MEDS: ZINC SULFATE 220 MG CAPSULE PO SCH (10:16)
[2020-07-13] MEDS: THIAMINE HCL 100 MG TABLET PO SCH ×2 (10:16→17:22)
[2020-07-13] MEDS: GUAIFENESIN 600 MG TABLET.SA PO SCH ×2 (10:16→23:03)
[2020-07-13] MEDS: CLONIDINE HCL 0.2 MG TABLET PO SCH ×2 (10:16→23:04)
[2020-07-13] MEDS: FENOFIBRATE NANOCRYSTALLIZED 48 MG TABLET PO SCH (10:16)
[2020-07-13] MEDS: ASCORBIC ACID 500 MG TABLET PO SCH ×2 (10:16→17:22)
[2020-07-13] MEDS: OMEGA-3 ACID ETHYL ESTERS 1 GM CAPSULE PO SCH ×2 (10:16→17:22)
[2020-07-13] MEDS: NORMAL SALINE 10 ML SDV (SCHEDULED) IV SCH ×4 (10:17→23:07)
[2020-07-13] MEDS: POLYETHYLENE GLYCOL 3350 POWDER 17 GM/1 PACKET PO SCH ×3 (10:18→17:22)
[2020-07-13] MEDS: ENOXAPARIN SODIUM INJ 60 MG/0.6 ML DISP.SYRIN SUBCUT SCH ×2 (10:19→23:04)
[2020-07-13] MEDS: BUSPIRONE HCL 10 MG TABLET PO SCH (10:21)
[2020-07-13] MEDS ORDERED: IPRATROPIUM/ALBUTEROL 0.5-2.5 MG/3 ML AMPUL NEB PRN (11:55)
--- NOTE | 2020-07-13 16:38 | RADIOLOGY REPORT (SQ) ---
EXAM DESCRIPTION: CT ABD/PELVIS NO ORAL OR IV; CT CHEST WITHOUT IMAGES COMPLETED DATE/TIME: 07/13/2020 1:11 pm REASON FOR STUDY: increasing WBC of unknown etiology COMPARISON: CTA chest 07/05/2020. TECHNIQUE: CT scan of the chest performed without intravenous contrast using helical scanning techni que. Images reviewed with lung, soft tissue and bone windows. Reconstructed coronal and sagittal MPR images reviewed. All images stored on PACS. All CT scanners at this facility use dose modulation, iterative reconstruction, and/or weight based d osing when appropriate to reduce radiation dose to as low as reasonably achievable (ALARA). [facility]: Dose Right [facility]: CareDose [facility]: Dose Right [facility]: Teradose 4D [facility]: Smart [address] RADIATION DOSE: CT Rad equipment meets quality standard of care and radiation dose reduction techniq ues were employed. CTDIvol: 9.1 - 12.4 mGy. DLP: 926 mGy-cm. mGy. LIMITATIONS: No technical limitations. FINDINGS: AXILLAE: No adenopathy. CHEST WALL: No masses. No subcutaneous air. LUNGS: Marked centrilobular emphysema. Consolidation in the left lower lobe appears increased from p rior examination with some underlying bronchiectatic change. No significant change in spiculated no dular opacity anterior right upper lobe measuring 8-9 mm (series 6, image 46). Mild increase in righ t middle lobe opacities. PLEURA: Small left pleural effusion. No pneumothorax. THYROID: No masses or significant asymmetry. HILAR AND MEDIASTINAL STRUCTURES: Mildly enlarged lymph nodes are similar to prior examination and ma y be reactive. AORTA AND GREAT VESSELS: No aneurysm. HEART: Coronary artery calcifications. No pericardial effusion. HARDWARE AND LIFELINES: Right upper extremity PICC line tip in the SVC. BONES: Scoliotic curvature and degenerative changes of the spine. Degenerative changes of the should ers. No destructive bone lesions. OTHER: No other significant finding. IMPRESSION: 1. Some progression in left lower lobe consolidation from prior examination. Small lef t pleural effusion. 2. Extensive emphysema. 3. No significant change and spiculated nodule in the right upper lobe. 4. Some increase in right middle lobe opacities are nonspecific but could be infectious in etiology. COMPARISON: 04/03/2016. TECHNIQUE: CT scan of the abdomen and pelvis performed without intravenous contrast and withoral con trast using helical scanning technique with dynamic intravenous contrast injection. Images reviewed with lung, soft tissue and bone windows. Reconstructed coronal and sagittal MPR images reviewed. Al l images stored on PACS. All CT scanners at this facility use dose modulation, iterative reconstruction, and/or weight based d osing when appropriate to reduce radiation dose to as low as reasonably achievable (ALARA). [facility]: Dose Right [facility]: [employer] [facility]: Dose Right [facility]: Teradose 4D [facility]: [employer] RADIATION DOSE: CT Rad equipment meets quality standard of care and radiation dose reduction techniq ues were employed. CTDIvol: 9.1 - 12.4 mGy. DLP: 926 mGy-cm. mGy. LIMITATIONS: Limited exam due to pronounced artifact from motion, patient's upper extremities extend ing across abdomen as well as the artifact from lumbar spine hardware. Solid organs and vasculature also not optimally evaluated due to lack of IV contrast. FINDINGS: LIVER: No gross acute abnormality. SPLEEN: Normal size. No focal lesions. PANCREAS: No definite acute abnormality. GALLBLADDER: Surgically absent. ADRENAL GLANDS: No significant masses or asymmetry. RIGHT KIDNEY AND URETER: No suspicious masses. Assessment limited by lack of IV contrast. No signif icant calcifications. No hydronephrosis or hydroureter. LEFT KIDNEY AND URETER: No suspicion masses. Assessment limited by lack of IV contrast. Probable lef t renal cyst again demonstrated. No significant calcifications. No hydronephrosis or hydroureter. AORTA AND VESSELS: Calcified plaque in the abdominal aorta and branches. 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 Aorta is tortuous, following the curvature of the spine. RETROPERITONEUM: No bulky lymphadenopathy. APPENDIX: Not visualized. LARGE AND SMALL BOWEL: Moderate to large amount of stool in the colon. No bowel obstruction. ABDOMINAL WALL: No gross acute abnormality. Artifact degrades evaluation of portions of the abdomina l wall. PERITONEAL CAVITY: No free air. No free fluid. No peritoneal implants or masses. PELVIS: No mass or free fluid. Normal bladder. BONES: Fixation hardware within the lumbosacral spine. No destructive bone lesions are seen. OTHER: No other significant finding. IMPRESSION: 1. Limited examination due to artifact as above. 2. Moderate to large amount of stool in the colon. No bowel obstruction. 3. 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 TECHNICAL DOCUMENTATION: JOB ID: [id number] Quality ID # [id number]: Final reports with documentation of one or more dose reduction techniques (e.g., Au tomated exposure control, adjustment of the mA and/or kV according to patient size, use of iterative reconstruction technique) 2010 [employer]- All Rights Reserved Reading location - IP/workstation name: [email or web address]
[2020-07-13] MEDS: NYSTATIN/DEXAMETH/DIPHEN SUSP 120 ML PO PRN (17:23)
--- NOTE | 2020-07-13 20:11 | PDOC PROGRESS REPORT ---
Subjective Date:: 07/13/20 Subjective:: She has been requiring increasing amounts of oxygen therapy. We had to place her back on BIPAP this afternoon due to increased WOB. Reason For Visit: COPD W/EXACERBATION, PNEMONIA DUE TO 2019 NOVEL Physical Exam Vital Signs: Temp Pulse Resp BP Pulse Ox 97.4 F 82 36 H 137/50 H 98 07/13/20 11:26 07/13/20 19:29 07/13/20 19:29 07/13/20 11:26 07/13/20 19:29 Intake & Output 07/12/20 07/13/20 07/14/20 06:59 06:59 06:59 Intake Total 195 2520 Output Total 2500 500 Balance -543 2019 Weight 57.4 kg 57.7 kg General appearance: PRESENT: mild distress Eye exam: ABSENT: scleral icterus Mouth exam: PRESENT: dry mucosa Throat exam: ABSENT: post pharyngeal erythema Neck exam: ABSENT: JVD Respiratory exam: PRESENT: rhonchi, tachypnea, wheezes. ABSENT: crackles Cardiovascular exam: PRESENT: tachycardia GI/Abdominal exam: PRESENT: normal bowel sounds, soft. ABSENT: tenderness Gentrourinary exam: PRESENT: indwelling catheter Extremities exam: ABSENT: joint swelling, pedal edema Neurological exam: PRESENT: alert, awake Psychiatric exam: PRESENT: anxious Skin exam: ABSENT: jaundice Results Laboratory Results: 07/13/20 06:15 07/13/20 06:15 07/13/20 07/13/20 07/13/20 06:15 06:15 06:15 WBC 19.4 H RBC 3.52 L Hgb 9.3 L Hct 28.8 L MCV 82 MCH 26.4 L MCHC 32.3 RDW 15.2 H Plt Count 343 Carbonic Acid 1.33 HCO3/H2CO3 Ratio 23:1 ABG pH 7.47 H ABG pCO2 44.1 ABG pO2 56.0 L ABG HCO3 31.6 H ABG O2 Saturation 90.8 L ABG Base Excess 7.2 FiO2 100% Sodium 141.5 Potassium 4.2 Chloride 101 Carbon Dioxide 36 H Anion Gap 5 BUN 36 H Creatinine 0.76 Est GFR ( Amer) > 60 Glucose 112 H Calcium 8.9 Magnesium 2.3 06/23/20 06/23/20 07/05/20 11:49 11:49 05:07 Creatine Kinase 546 H Troponin I < 0.012 NT-Pro-B Natriuret Pep 121 Impressions: Chest/Abdomen CTA 07/05/20 00:00 IMPRESSION: 1. There is no pulmonary embolus. There is no aortic aneurysm or dissection. 2. Extensive pulmonary emphysema. 3. Small spiculated nodule in the right upper lobe appears stable. Cannot exclude neoplasm. 4. Fairly dense consolidation in the left lower lobe, pneumonia versus atelectasis. Cannot exclude a postobstructive pneumonia. 5. Mediastinal adenopathy. PICC Line Insertion 07/08/20 00:00 IMPRESSION: SUCCESSFUL PLACEMENT OF A 5 FR DUAL LUMEN 36 CM PICC IN THE RIGHT BASILIC VEIN. Chest X-Ray 07/11/20 00:00 IMPRESSION: Chronic lung changes. Left lower lobe pneumonia. Modified Barium Swallow 07/11/20 00:00 IMPRESSION: NO EVIDENCE OF PENETRATION OR ASPIRATION. PLEASE SEE SPEECH PATHOLOGIST REPORT FOR OTHER FINDINGS AND RECOMMENDATIONS. Abdomen/Pelvis CT 07/13/20 00:00 IMPRESSION: 1. Some progression in left lower lobe consolidation from prior examination. Small left pleural effusion. 2. Extensive emphysema. 3. No significant change and spiculated nodule in the right upper lobe. 4. Some increase in right middle lobe opacities are nonspecific but could be infectious in etiology. IMPRESSION: 1. Limited examination due to artifact as above. 2. Moderate to large amount of stool in the colon. No bowel obstruction. 3. 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 Chest CT 07/13/20 00:00 IMPRESSION: 1. Some progression in left lower lobe consolidation from prior examination. Small left pleural effusion. 2. Extensive emphysema. 3. No significant change and spiculated nodule in the right upper lobe. 4. Some increase in right middle lobe opacities are nonspecific but could be infectious in etiology. IMPRESSION: 1. Limited examination due to artifact as above. 2. Moderate to large amount of stool in the colon. No bowel obstruction. 3. 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 Assessment and Plan - Diagnosis (1) Delirium Is this a current diagnosis for this admission?: Yes (2) ARDS (adult respiratory distress syndrome) Is this a current diagnosis for this admission?: Yes (3) Acute exacerbation of chronic obstructive pulmonary disease (COPD) Is this a current diagnosis for this admission?: Yes (4) Acute on chronic respiratory failure with hypoxemia Is this a current diagnosis for this admission?: Yes (5) HCAP (healthcare-associated pneumonia) Is this a current diagnosis for this admission?: Yes (6) Pneumonia due to COVID-19 virus Is this a current diagnosis for this admission?: Yes (7) Sleep apnea, obstructive Is this a current diagnosis for this admission?: Yes (8) Generalized weakness Is this a current diagnosis for this admission?: Yes - Plan Summary Summary: 1. Acute on Severe Hypoxic Respiratory Failure (on 4 L home O2): continue inhalers, steroids. Has increased WOB. She is back on BIPAP therapy. Prognosis very poor. 2. HCAP: completed a 7 day course of IV antibiotic therapy. 3. Covid-19: 3 weeks since symptoms onset. Will retest again today in an effort to try and remove infection precautions and allow family to visit. 4. Delirium: due to severe illness, prolonged hospitalization and age. Delirium precautions. Fall precautions. 5. Lack of access: PICC placed on 07/08 6. Subjective Dysphagia: STACK ATTENDANT consulted and she underwent MBS on 07/11 showing no aspiration. Aspiration precautions in place. 7. Constipation: bowel regimen in place 8. Thrush: oral nystatin ordered 9. ALLI: improving with IVF therapy. She has very poor oral intake. 10. Generalized Weakness: PT/OT ordered but she is quite debilitated and can barely turn in bed without becoming dyspneic. 11. Goals of Care: we have had repeated discussions regarding her very poor prognosis. She has been in the hospital now for 3 weeks and is not improving. Today, she is clearly much worse. At baseline, she has severe, end-stage COPD. She tells me that she would be okay with intubation for just "a day or two" to allow her family to come say goodbye to her. We have discussed that her family would be able to come visit her on comfort care measures, and she would not need to be intubated. She is thinking of changing her code status. I also spoke with her daughter, Shauna, today. We plan to hold a family mtg in patient's room tomorrow, 07/13, to discuss changing code status and possibly transitioning to comfort care measures. In the meantime, we will limit any sedating medications (e.g. opioids, BZDs) in an effort to maximize her respiratory effort. If she should decompensate overnight, I will sign out to the overnight provider to call her family to see if they would like to intubate before proceeding with intubation. - Time Time Spent with patient: 35 or more minutes Anticipated Discharge Disposition: Hospice Center Anticipated Discharge Timeframe: within 48 hours
[2020-07-13] MEDS ORDERED: METHYLPREDNISOLONE INJ 125 MG/2 ML SDV IV ONE ×2 (20:23→23:15)
[2020-07-13 22:02] LABS: ARTERIAL BLOOD H2CO3 1.41 mmol/L (1.05-1.35); ARTERIAL BLOOD O2 SATURATION 95.3 % (94-98); ARTERIAL BLOOD PCO2 46.8 mmHg (35-45); ARTERIAL BLOOD PH 7.43 (7.35-7.45); ARTERIAL BLOOD PO2 75.2 mmHg (80-100); ARTERIAL BLOOD TOTAL CO2 31.5 mmol/L (21-25)
[2020-07-13 22:04] LABS: ARTERIAL BLOOD FIO2 75%
[2020-07-13] MEDS: MONTELUKAST SODIUM 10 MG TABLET PO SCH (23:03)
[2020-07-13] MEDS: AMLODIPINE BESYLATE 5 MG TABLET PO SCH (23:04)
[2020-07-13] MEDS: SENNOSIDES/DOCUSATE 8.6-50 MG 1 EACH TABLET PO SCH (23:04)
[2020-07-13] MEDS: ATORVASTATIN CALCIUM 40 MG TABLET PO SCH (23:05)
[2020-07-13] MEDS: AMITRIPTYLINE HCL 25 MG TABLET PO SCH (23:06)
[2020-07-14] MEDS: NYSTATIN/DEXAMETH/DIPHEN SUSP 120 ML PO PRN (00:03)
[2020-07-14] MEDS: IPRATROPIUM/ALBUTEROL 0.5-2.5 MG/3 ML AMPUL NEB SCH ×4 (02:19→20:01)
[2020-07-14] MEDS: NYSTATIN 500000 UNIT/5 ML UDCUP PO SCH ×3 (05:53→17:41)
[2020-07-14] MEDS: PREGABALIN 50 MG CAPSULE PO SCH ×3 (05:54→22:44)
[2020-07-14 06:34] LABS: HEMATOCRIT 26.4 % (36.0-47.0); HEMOGLOBIN 8.5 g/dL (12.0-15.5); MEAN CORPUSCULAR HEMOGLOBIN 26.6 pg (27.0-33.4); MEAN CORPUSCULAR HGB CONC 32.3 g/dL (32.0-36.0); MEAN CORPUSCULAR VOLUME 82 fl (80-97); PLATELET COUNT 302 10^3/uL (150-450); RED BLOOD COUNT 3.21 10^6/uL (3.72-5.28); RED CELL DISTRIBUTION WIDTH 15.3 % (11.5-14.0); WHITE BLOOD COUNT 22.2 10^3/uL (4.0-10.5)
[2020-07-14 06:36] LABS: ARTERIAL BLOOD BASE EXCESS 5.1 mmol/L; ARTERIAL BLOOD H2CO3 1.45 mmol/L (1.05-1.35); ARTERIAL BLOOD HCO3 30.3 mmol/L (20-24); ARTERIAL BLOOD O2 SATURATION 95.2 % (94-98); ARTERIAL BLOOD PCO2 48.1 mmHg (35-45); ARTERIAL BLOOD PH 7.42 (7.35-7.45); ARTERIAL BLOOD PO2 75.2 mmHg (80-100); ARTERIAL BLOOD TOTAL CO2 31.8 mmol/L (21-25)
[2020-07-14 06:38] LABS: ARTERIAL BLOOD FIO2 75%
[2020-07-14 06:54] LABS: ANION GAP 5 (5-19); BLOOD UREA NITROGEN 20 mg/dL (7-20); CALCIUM 8.3 mg/dL (8.4-10.2); CARBON DIOXIDE 31 mmol/L (22-30); CHLORIDE 106 mmol/L (98-107); GLUCOSE 155 mg/dL (75-110); POTASSIUM 4.5 mmol/L (3.6-5.0)
[2020-07-14 07:15] LABS: C-REACTIVE PROTEIN 179.3 mg/L (<10.0)
[2020-07-14] MEDS: INSULIN LISPRO 100 UNIT/ML 3 ML VIAL SUBCUT SCH ×2 (09:37→11:37)
[2020-07-14] MEDS: POLYETHYLENE GLYCOL 3350 POWDER 17 GM/1 PACKET PO SCH ×3 (09:38→17:41)
[2020-07-14] MEDS ORDERED: DEXAMETHASONE SOD PHOS INJ 10 MG/1 ML VIAL IV SCH (10:00)
[2020-07-14] MEDS: NORMAL SALINE 10 ML SDV (SCHEDULED) IV SCH ×4 (11:34→23:03)
[2020-07-14] MEDS: CLONIDINE HCL 0.2 MG TABLET PO SCH (11:34)
[2020-07-14] MEDS: BUSPIRONE HCL 10 MG TABLET PO SCH (11:34)
[2020-07-14] MEDS: OMEGA-3 ACID ETHYL ESTERS 1 GM CAPSULE PO SCH (11:34)
[2020-07-14] MEDS: GUAIFENESIN 600 MG TABLET.SA PO SCH ×2 (11:34→22:44)
[2020-07-14] MEDS: FENOFIBRATE NANOCRYSTALLIZED 48 MG TABLET PO SCH (11:35)
[2020-07-14] MEDS: PANTOPRAZOLE SODIUM 40 MG TABLET.DR PO SCH ×2 (11:35→17:41)
[2020-07-14] MEDS: THIAMINE HCL 100 MG TABLET PO SCH ×2 (11:35→17:41)
[2020-07-14] MEDS: SENNOSIDES/DOCUSATE 8.6-50 MG 1 EACH TABLET PO SCH ×2 (11:35→22:45)
[2020-07-14] MEDS: ASCORBIC ACID 500 MG TABLET PO SCH ×2 (11:36→17:41)
[2020-07-14] MEDS: ZINC SULFATE 220 MG CAPSULE PO SCH (11:36)
[2020-07-14] MEDS: ENOXAPARIN SODIUM INJ 60 MG/0.6 ML DISP.SYRIN SUBCUT SCH (11:40)
[2020-07-14] MEDS ORDERED: MORPHINE SULFATE 10 MG/ML INJ IV PRN (12:40)
[2020-07-14] MEDS ORDERED: LORAZEPAM INJ 2 MG/1 ML VIAL IV PRN (12:40)
--- NOTE | 2020-07-14 12:55 | ADVANCED CARE ---
- Diagnosis (1) Delirium Diagnosis Current: Yes (2) ARDS (adult respiratory distress syndrome) Diagnosis Current: Yes (3) Acute exacerbation of chronic obstructive pulmonary disease (COPD) Diagnosis Current: Yes (4) Acute on chronic respiratory failure with hypoxemia Diagnosis Current: Yes (5) HCAP (healthcare-associated pneumonia) Diagnosis Current: Yes (6) Pneumonia due to COVID-19 virus Diagnosis Current: Yes (7) Sleep apnea, obstructive Diagnosis Current: Yes (8) Generalized weakness Diagnosis Current: Yes Attendance: Patient and her Shauna (daughter), Yusuf (son), [id number] and grandson Resuscitation Status: Comfort Measures Only Discussion: Discussed Ms. Cheung's baseline lung disease: severe, end-stage COPD and her prolonged, 21-day hospitalization. She has gotten progressively worse over the last few days. She is becoming more physically fatigued every day. She tells me that she is "tired" and does not want to be intubated. She is requesting to transition to comfort care measures, but wanted the chance to say goodbye to her family in person. I discussed the risks of entering Ms. Cheung's room with patient's family, and they have all wished to be present with her. She remains Covid+ several weeks since her diagnosis. We provided PPE to all family members and counseled them at length on appropriate infection control measures. Code status changed to DNR/DNI. Comfort care measures ordered. Time Spent: >90 minutes
[2020-07-14] MEDS: MORPHINE SULFATE 10 MG/ML INJ IV PRN ×3 (15:46→23:38)
[2020-07-14] MEDS: LORAZEPAM INJ 2 MG/1 ML VIAL IV PRN ×2 (16:45→23:38)
--- NOTE | 2020-07-14 17:46 | PDOC PROGRESS REPORT ---
Subjective Date:: 07/14/20 Subjective:: Family meeting held today with her daughters, son and grandson. Code status changed, and she is now comfort care only. Reason For Visit: COPD W/EXACERBATION, PNEMONIA DUE TO 2019 NOVEL Physical Exam Vital Signs: Temp Pulse Resp BP Pulse Ox 97.7 F 78 25 H 125/52 L 97 07/14/20 11:06 07/14/20 11:06 07/14/20 11:06 07/14/20 11:06 07/14/20 11:06 Intake & Output 07/13/20 07/14/20 07/15/20 06:59 06:59 06:59 Intake Total 2520 1460 Output Total 500 600 Balance 2019 86 Weight 57.7 kg 59.7 kg General appearance: PRESENT: no acute distress Eye exam: ABSENT: scleral icterus Mouth exam: PRESENT: dry mucosa Throat exam: ABSENT: post pharyngeal erythema Neck exam: ABSENT: JVD Respiratory exam: PRESENT: decreased breath sounds, rhonchi, tachypnea, wheezes Cardiovascular exam: PRESENT: RRR GI/Abdominal exam: PRESENT: normal bowel sounds, soft. ABSENT: tenderness Gentrourinary exam: PRESENT: indwelling catheter Neurological exam: PRESENT: alert, awake, oriented to person, oriented to place, oriented to time, oriented to situation Psychiatric exam: PRESENT: anxious Skin exam: ABSENT: jaundice Results Laboratory Results: 07/14/20 06:00 07/14/20 06:00 07/13/20 07/14/20 07/14/20 21:45 06:00 06:00 WBC 22.2 H RBC 3.21 L Hgb 8.5 L Hct 26.4 L MCV 82 MCH 26.6 L MCHC 32.3 RDW 15.3 H Plt Count 302 Carbonic Acid 1.41 H HCO3/H2CO3 Ratio 21:1 ABG pH 7.43 ABG pCO2 46.8 H ABG pO2 75.2 L ABG HCO3 30.0 H ABG O2 Saturation 95.3 ABG Base Excess 5.0 FiO2 75% Sodium 141.6 Potassium 4.5 Chloride 106 Carbon Dioxide 31 H Anion Gap 5 BUN 20 Creatinine 0.54 Est GFR ( Amer) > 60 Glucose 155 H Calcium 8.3 L Magnesium 2.3 Ferritin 191.00 C-Reactive Protein 179.3 H 07/14/20 06:20 WBC RBC Hgb Hct MCV MCH MCHC RDW Plt Count Carbonic Acid 1.45 H HCO3/H2CO3 Ratio 20:1 ABG pH 7.42 ABG pCO2 48.1 H ABG pO2 75.2 L ABG HCO3 30.3 H ABG O2 Saturation 95.2 ABG Base Excess 5.1 FiO2 75% Sodium Potassium Chloride Carbon Dioxide Anion Gap BUN Creatinine Est GFR ( Amer) Glucose Calcium Magnesium Ferritin C-Reactive Protein 06/23/20 06/23/20 07/05/20 11:49 11:49 05:07 Creatine Kinase 546 H Troponin I < 0.012 NT-Pro-B Natriuret Pep 121 Impressions: Chest/Abdomen CTA 07/05/20 00:00 IMPRESSION: 1. There is no pulmonary embolus. There is no aortic aneurysm or dissection. 2. Extensive pulmonary emphysema. 3. Small spiculated nodule in the right upper lobe appears stable. Cannot exclude neoplasm. 4. Fairly dense consolidation in the left lower lobe, pneumonia versus atelectasis. Cannot exclude a postobstructive pneumonia. 5. Mediastinal adenopathy. PICC Line Insertion 07/08/20 00:00 IMPRESSION: SUCCESSFUL PLACEMENT OF A 5 FR DUAL LUMEN 36 CM PICC IN THE RIGHT BASILIC VEIN. Chest X-Ray 07/11/20 00:00 IMPRESSION: Chronic lung changes. Left lower lobe pneumonia. Modified Barium Swallow 07/11/20 00:00 IMPRESSION: NO EVIDENCE OF PENETRATION OR ASPIRATION. PLEASE SEE SPEECH PATHOLOGIST REPORT FOR OTHER FINDINGS AND RECOMMENDATIONS. Abdomen/Pelvis CT 07/13/20 00:00 IMPRESSION: 1. Some progression in left lower lobe consolidation from prior examination. Small left pleural effusion. 2. Extensive emphysema. 3. No significant change and spiculated nodule in the right upper lobe. 4. Some increase in right middle lobe opacities are nonspecific but could be infectious in etiology. IMPRESSION: 1. Limited examination due to artifact as above. 2. Moderate to large amount of stool in the colon. No bowel obstruction. 3. 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 Chest CT 07/13/20 00:00 IMPRESSION: 1. Some progression in left lower lobe consolidation from prior examination. Small left pleural effusion. 2. Extensive emphysema. 3. No significant change and spiculated nodule in the right upper lobe. 4. Some increase in right middle lobe opacities are nonspecific but could be infectious in etiology. IMPRESSION: 1. Limited examination due to artifact as above. 2. Moderate to large amount of stool in the colon. No bowel obstruction. 3. 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 Assessment and Plan - Diagnosis (1) Delirium Is this a current diagnosis for this admission?: Yes (2) ARDS (adult respiratory distress syndrome) Is this a current diagnosis for this admission?: Yes (3) Acute exacerbation of chronic obstructive pulmonary disease (COPD) Is this a current diagnosis for this admission?: Yes (4) Acute on chronic respiratory failure with hypoxemia Is this a current diagnosis for this admission?: Yes (5) HCAP (healthcare-associated pneumonia) Is this a current diagnosis for this admission?: Yes (6) Pneumonia due to COVID-19 virus Is this a current diagnosis for this admission?: Yes (7) Sleep apnea, obstructive Is this a current diagnosis for this admission?: Yes (8) Generalized weakness Is this a current diagnosis for this admission?: Yes - Plan Summary Summary: 1. Acute on Severe Hypoxic Respiratory Failure (on 4 L home O2): continue inhalers, steroids. Has increased WOB. 2. HCAP: completed a 7 day course of IV antibiotic therapy. 3. Covid-19: 3 weeks since symptoms onset. She remains positive on repeat testing today. 4. Delirium: due to severe illness, prolonged hospitalization and age. Delirium precautions. Fall precautions. 5. Lack of access: PICC placed on 07/08 6. Subjective Dysphagia: BELT SANDER STONE consulted and she underwent MBS on 07/11 showing no aspiration. Aspiration precautions in place. 7. Constipation: bowel regimen in place 8. Thrush: oral nystatin ordered 9. ALLI: improving with IVF therapy. She has very poor oral intake. 10. Generalized Weakness: PT/OT ordered but she is quite debilitated and can barely turn in bed without becoming dyspneic. 11. Goals of Care: Family meeting held today with her daughters, son and grandson. Code status changed, and she is now comfort care only. She does not wish to go back on BIPAP and prefers NC or facemask for oxygen therapy. Morphine ordered for air hunger and pain. Ativan ordered for anxiety. - Time Time Spent with patient: 35 or more minutes Anticipated Discharge Disposition: Hospice Center Anticipated Discharge Timeframe: within 24 hours
[2020-07-14] MEDS: AMITRIPTYLINE HCL 25 MG TABLET PO SCH (22:44)
[2020-07-14] MEDS: NORMAL SALINE 10 ML SDV (AFTER EACH USE) IV PRN (23:38)
[2020-07-15] MEDS: NYSTATIN 500000 UNIT/5 ML UDCUP PO SCH ×5 (00:27→23:23)
[2020-07-15] MEDS: IPRATROPIUM/ALBUTEROL 0.5-2.5 MG/3 ML AMPUL NEB SCH ×3 (02:46→13:33)
[2020-07-15] MEDS: PREGABALIN 50 MG CAPSULE PO SCH ×3 (05:18→21:40)
[2020-07-15] MEDS: MORPHINE SULFATE 10 MG/ML INJ IV PRN ×6 (05:46→23:42)
[2020-07-15] MEDS: LORAZEPAM INJ 2 MG/1 ML VIAL IV PRN ×4 (05:47→18:16)
[2020-07-15] MEDS: NORMAL SALINE 10 ML SDV (AFTER EACH USE) IV PRN (05:47)
[2020-07-15] MEDS: NORMAL SALINE 10 ML SDV (SCHEDULED) IV SCH ×4 (10:31→21:54)
[2020-07-15] MEDS: BUSPIRONE HCL 10 MG TABLET PO SCH (10:32)
[2020-07-15] MEDS: POLYETHYLENE GLYCOL 3350 POWDER 17 GM/1 PACKET PO SCH ×3 (10:32→17:53)
[2020-07-15] MEDS: GUAIFENESIN 600 MG TABLET.SA PO SCH ×2 (10:33→21:40)
[2020-07-15] MEDS: SENNOSIDES/DOCUSATE 8.6-50 MG 1 EACH TABLET PO SCH ×2 (10:34→21:40)
[2020-07-15] MEDS: PANTOPRAZOLE SODIUM 40 MG TABLET.DR PO SCH ×2 (10:34→17:53)
--- NOTE | 2020-07-15 15:42 | PDOC PROGRESS REPORT ---
Subjective Date:: 07/15/20 Subjective:: 07/15/20 Care assumed today. previous notes reviewed. The patient is an 80/F who c karen in due to hypoxic respiratory failure secondary to hospital-acquired pneumonia. She is Covid negative. He has a history of severe end-stage COPD. She has completed treatment for her pneumonia however she continues to deteriorate respiratory heck. She stated that she is tired and does not want to be intubated. Advance care planning was done yesterday and she was made comfort care. She was seen and examined at bedside today. She was on 7 L of nasal cannula trading low 90s. She was refusing to wear her BiPAP machine. Reason For Visit: COPD W/EXACERBATION, PNEMONIA DUE TO 2019 NOVEL Physical Exam Vital Signs: Temp Pulse Resp BP Pulse Ox 97.4 F 97 26 H 107/61 80 L 07/15/20 10:00 07/15/20 08:26 07/15/20 08:26 07/15/20 08:26 07/15/20 08:26 Intake & Output 07/14/20 07/15/20 07/16/20 06:59 06:59 06:59 Intake Total 1460 200 Output Total 600 1075 Balance 860 -875 Weight 59.7 kg 58.3 kg General appearance: PRESENT: cooperative, thin, other - severe distress Head exam: PRESENT: atraumatic, normocephalic Eye exam: PRESENT: EOMI, PERRLA Mouth exam: PRESENT: moist Neck exam: PRESENT: full ROM Respiratory exam: PRESENT: decreased breath sounds, symmetrical. ABSENT: wheezes Cardiovascular exam: PRESENT: RRR, +S1, +S2 Pulses: PRESENT: +2 pedal pulses bilateral GI/Abdominal exam: PRESENT: normal bowel sounds, soft. ABSENT: rebound, tenderness Extremities exam: PRESENT: full ROM Musculoskeletal exam: PRESENT: full ROM Neurological exam: PRESENT: alert, awake, oriented to person. ABSENT: oriented to place, oriented to time Psychiatric exam: PRESENT: normal mood Skin exam: PRESENT: normal color Results Laboratory Results: 07/14/20 06:00 07/14/20 06:00 06/23/20 06/23/20 07/05/20 11:49 11:49 05:07 Creatine Kinase 546 H Troponin I < 0.012 NT-Pro-B Natriuret Pep 121 Impressions: Chest/Abdomen CTA 07/05/20 00:00 IMPRESSION: 1. There is no pulmonary embolus. There is no aortic aneurysm or dissection. 2. Extensive pulmonary emphysema. 3. Small spiculated nodule in the right upper lobe appears stable. Cannot exclude neoplasm. 4. Fairly dense consolidation in the left lower lobe, pneumonia versus atelectasis. Cannot exclude a postobstructive pneumonia. 5. Mediastinal adenopathy. PICC Line Insertion 07/08/20 00:00 IMPRESSION: SUCCESSFUL PLACEMENT OF A 5 FR DUAL LUMEN 36 CM PICC IN THE RIGHT BASILIC VEIN. Chest X-Ray 07/11/20 00:00 IMPRESSION: Chronic lung changes. Left lower lobe pneumonia. Modified Barium Swallow 07/11/20 00:00 IMPRESSION: NO EVIDENCE OF PENETRATION OR ASPIRATION. PLEASE SEE SPEECH PATHOLOGIST REPORT FOR OTHER FINDINGS AND RECOMMENDATIONS. Abdomen/Pelvis CT 07/13/20 00:00 IMPRESSION: 1. Some progression in left lower lobe consolidation from prior examination. Small left pleural effusion. 2. Extensive emphysema. 3. No significant change and spiculated nodule in the right upper lobe. 4. Some increase in right middle lobe opacities are nonspecific but could be infectious in etiology. IMPRESSION: 1. Limited examination due to artifact as above. 2. Moderate to large amount of stool in the colon. No bowel obstruction. 3. 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 Chest CT 07/13/20 00:00 IMPRESSION: 1. Some progression in left lower lobe consolidation from prior examination. Small left pleural effusion. 2. Extensive emphysema. 3. No significant change and spiculated nodule in the right upper lobe. 4. Some increase in right middle lobe opacities are nonspecific but could be infectious in etiology. IMPRESSION: 1. Limited examination due to artifact as above. 2. Moderate to large amount of stool in the colon. No bowel obstruction. 3. 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 Assessment and Plan - Diagnosis (1) Acute on chronic respiratory failure with hypoxemia Is this a current diagnosis for this admission?: Yes Plan: - Baseline oxygen requirement is 4 L nasal cannula - 2/2 HCAP and COVID 19 on top of end stage COPD - made comfort care - o2 support as needed and as she tolerates - duoneb PRN - morphine for dyspnea (2) Acute exacerbation of chronic obstructive pulmonary disease (COPD) Is this a current diagnosis for this admission?: Yes Plan: - completed abx and steroid treatment - no significant improvement respiratory heck - continue O2 support as she tolerates - duoneb PRN - morphine for dyspnea - comfort care based approach (3) HCAP (healthcare-associated pneumonia) Is this a current diagnosis for this admission?: Yes Plan: - completed 7 days of abx (4) Delirium Is this a current diagnosis for this admission?: Yes Plan: - continue delirium precautions (5) Pneumonia due to 2019 novel coronavirus Is this a current diagnosis for this admission?: Yes Plan: - 3 weeks since symptom onset - repeat testing positive (6) ALLI (acute kidney injury) Is this a current diagnosis for this admission?: Yes Plan: - resolved - Plan Summary Summary: Goals of Care: Family meeting held today with her daughters, son and grandson. Code status changed, and she is now comfort care only. She does not wish to go back on BIPAP and prefers NC or facemask for oxygen therapy. Morphine ordered for air hunger and pain. Ativan ordered for anxiety. - Time Time Spent with patient: 15-24 minutes Medications reviewed and adjusted accordingly: Yes Anticipated Discharge Disposition: Home with Hospice Anticipated Discharge Timeframe: tbd
[2020-07-15] MEDS: AMITRIPTYLINE HCL 25 MG TABLET PO SCH (21:40)
[2020-07-16] MEDS: LORAZEPAM INJ 2 MG/1 ML VIAL IV PRN (00:29)
[2020-07-16 01:46] VITALS: BP 130/50
[2020-07-16] MEDS: MORPHINE SULFATE 10 MG/ML INJ IV PRN ×3 (02:40→07:39)
[2020-07-16] MEDS: NYSTATIN 500000 UNIT/5 ML UDCUP PO SCH (05:10)
[2020-07-16] MEDS: PREGABALIN 50 MG CAPSULE PO SCH (05:10)
--- NOTE | 2020-07-16 10:34 | Death Summary ---
Summary Date : 07/16/20 Time of :: 10:02 Autopsy: No Resuscitation Status: Do Not Resuscitate - Final Diagnosis (1) Acute on chronic respiratory failure with hypoxemia Is this a current diagnosis for this admission?: Yes (2) Acute exacerbation of chronic obstructive pulmonary disease (COPD) Is this a current diagnosis for this admission?: Yes (3) HCAP (healthcare-associated pneumonia) Is this a current diagnosis for this admission?: Yes (4) Delirium Is this a current diagnosis for this admission?: Yes (5) Pneumonia due to 2019 novel coronavirus Is this a current diagnosis for this admission?: Yes (6) ALLI (acute kidney injury) Is this a current diagnosis for this admission?: Yes Hospital Course:: RAHUL MERIDA is a 80 year old female with past medical history significant for severe COPD on chronic 4 L nasal cannula, HTN, HLD, T2DM not on treatment, history of lung cancer status post partial lobectomy, history of breast cancer status post lumpectomy who presents to the ED with a 2-day history of progressive shortness of breath/BROWN/productive cough/chills/malaise/body aches. Patient and her called EMS for her oxygen saturation dropping into the mid 60s and when they arrived they performed rapid Covid test on the patient and her and both were positive. Patient had increased her home oxygen to 5 L in order to maintain adequate saturation in the low 90s. Patient follows with local pulmonology and Dr. Barclay is her PCP. Patient denies any fevers. On admission, patient's laboratory findings reveal elevated D-dimer and CRP consistent with Covid infection. CTPA showed no pulmonary embolism but did show multifocal pneumonia consistent with COVID-[address] also showed more conspicuous appearance of previously noted lung nodules and mediastinal lymphadenopathy. I discussed the findings with the patient in detail. Patient admitted to Covid isolation unit and started on appropriate available COVID-19 therapy. She underwnt treatment for COVID 19 for several days however she continued to worsen. Hospitalist have had repeated discussions regarding her very poor prognosis. She has been in the hospital now for 3 weeks and is not improving. Today, she is clearly much worse. At baseline, she has severe, end-stage COPD. She tells me that she would be okay with intubation for just "a day or two" to allow her family to come say goodbye to her. We have discussed that her family would be able to come visit her on comfort care measures, and she would not need to be intubated. On 07/14/19 she decided to be made comfort care with no further escalation of medical care after discussion with the daughter. On 07/16/19 patient at 10:02 am. Daughter Shauna was informed of her passing by me.
[2020-07-16] MEDS: NORMAL SALINE 10 ML SDV (SCHEDULED) IV SCH ×2 (10:51)
[2020-07-16] MEDS: POLYETHYLENE GLYCOL 3350 POWDER 17 GM/1 PACKET PO SCH ×2 (10:51)
[2020-07-16] MEDS: BUSPIRONE HCL 10 MG TABLET PO SCH (10:51)
[2020-07-16] MEDS: GUAIFENESIN 600 MG TABLET.SA PO SCH (10:51)
[2020-07-16] MEDS: PANTOPRAZOLE SODIUM 40 MG TABLET.DR PO SCH (10:52)
[2020-07-16] MEDS: SENNOSIDES/DOCUSATE 8.6-50 MG 1 EACH TABLET PO SCH (10:52)
== END 2020-07-16 12:18 | DRG 177 ==
LOC: ER 11:41 → EH 14:01 → 3W 15:33
PROVIDERS: ADMIT Hospitalist; ATTEND Internal Medicine
PROC: 5A09557 Assistance with Respiratory Ventilation, Greater than 96 Consecutive Hours, Continuous Positive Airway Pressure (ICD-10-PCS; principal; 2020-06-28)
PROC: 02HV33Z Insertion of Infusion Device into Superior Vena Cava, Percutaneous Approach (ICD-10-PCS; 2020-07-08)
PROC: B518ZZA Fluoroscopy of Superior Vena Cava, Guidance (ICD-10-PCS; 2020-07-08)
PROC: B548ZZA Ultrasonography of Superior Vena Cava, Guidance (ICD-10-PCS; 2020-07-08)
DX: U07.1 COVID-19 (principal); J12.82 Pneumonia due to coronavirus disease 2019; J96.21 Acute and chronic respiratory failure with hypoxia; N17.9 Acute kidney failure, unspecified; R41.0 Disorientation, unspecified; E11.9 Type 2 diabetes mellitus without complications; E78.5 Hyperlipidemia, unspecified; J43.9 Emphysema, unspecified; G47.33 Obstructive sleep apnea (adult) (pediatric); K21.9 Gastro-esophageal reflux disease without esophagitis; F32.9 Major depressive disorder, single episode, unspecified; I15.9 Secondary hypertension, unspecified; G89.29 Other chronic pain; M54.5 Low back pain; M81.0 Age-related osteoporosis without current pathological fracture; R91.1 Solitary pulmonary nodule; R53.1 Weakness; I87.2 Venous insufficiency (chronic) (peripheral); R13.10 Dysphagia, unspecified; Z85.828 Personal history of other malignant neoplasm of skin; Z85.3 Personal history of malignant neoplasm of breast; Z85.118 Personal history of other malignant neoplasm of bronchus and lung; Z90.2 Acquired absence of lung [part of]; Z99.81 Dependence on supplemental oxygen; Z86.14 Personal history of Methicillin resistant Staphylococcus aureus infection; Z90.13 Acquired absence of bilateral breasts and nipples; Z87.891 Personal history of nicotine dependence; Z79.899 Other long term (current) drug therapy; Z88.6 Allergy status to analgesic agent; Z88.1 Allergy status to other antibiotic agents; Z88.3 Allergy status to other anti-infective agents; Z88.8 Allergy status to other drugs, medicaments and biological substances
CPT/HCPCS: 36415; 36573; 36600; 71045; 71250; 71275; 74176; 74230; 80048; 80053; 81001; 82550; 82728; 82803; 82962; 83605; 83615; 83735; 83880; 84100; 84484; 85025; 85027; 85379; 85610; 86140; 87040; 87070; 87077; 87150; 87205; 93005; 93010; 94640; 94660; 96374; 99285; 0241U; C9803; J0295; J1100; J1642; J1650; J1815; J2060; J2270; J2405; J2543; J2920; J2930; J3370; J3411; J3480; J3490; J7030; J7050; J7060; J7512; J8540